=== PATIENT | male | born 1940 | race Caucasian/White ===

== ENCOUNTER 2020-03-28 19:36 | Inpatient (IN) | payer MEDICARE, OTHER, SELFPAY ==
[2020-03-28] VITALS (8 sets, daily range): BP systolic 132–146; BP diastolic 76–90; PULSE 84–88; RESP 18–28; TEMP 37.3–37.9; O2SAT 84–98; BMI 34.4
--- NOTE | ~2020-03-28 | XR_ITS ---
EXAMINATION: XR chest 1V portable DATE: 04/18/2020 21:58 INDICATION: Possible aspiration TECHNIQUE: frontal view of the chest was obtained. COMPARISON: Chest radiograph dated 04/18/2020 at 5:33 AM FINDINGS: Endotracheal tube tip 3.1 cm above the uri. Nasogastric tube extends below the left hemidiaphragm with distal tip collimated off the study. Right upper extremity peripherally inserted central venous catheter (PICC) tip at the caudal superior vena cava. Diffuse patchy bilateral airspace opacities throughout both lungs which appears slightly increased at the right lung base with partial obscuration of the right hemidiaphragm which appears mildly elevate d relative to the prior study. No pleural effusion or pneumothorax. The cardiomediastinal silhouette is normal. IMPRESSION: 1. . Bilateral lung disease consistent with pneumonia versus acute respiratory distress syndrome (ANNALISA S) with slight worsening along the right hemidiaphragm which could be due to atelectasis and/or aspir ation. Reviewed, dictated and finalized at location A. IMPRESSION: 1. . Bilateral lung disease consistent with pneumonia versus acute respiratory distress syndrome (ARDS) with slight worsening along the right hemidiaphragm wh ich could be due to atelectasis and/or aspiration.
--- NOTE | ~2020-03-28 | XR_ITS ---
EXAMINATION: XR chest 1V portable INDICATION: Acute respiratory failure, pneumonia TECHNIQUE: Portable AP chest at 0502 hours COMPARISON: 04/24/2020 FINDINGS: The endotracheal tube ends approximately 4.5 cm above the uri. The nasogastric tube is f ollowed as far as the stomach. Its tip is beyond the inferior margin of the radiograph. Diffuse inter stitial and airspace opacities persist with interval worsening in the right lung. No definite pleural effusion or pneumothorax is identified. The cardiomediastinal silhouette is stable. A right upper ex tremity PICC is followed as far as the mid superior vena cava. IMPRESSION: 1. Diffuse lung disease, with interval worsening in the right lung, consistent with pneumonia and/or pulmonary edema and/or acute respiratory distress syndrome (ARDS). Reviewed, dictated and finalized at location A. IMPRESSION: 1. Diffuse lung disease, with interval worsening in the right lung, consistent with pneumonia and/or pulmonary edema and/or acute respiratory distress syndrom e (ARDS).
--- NOTE | ~2020-03-28 | XR_ITS ---
EXAMINATION: XR chest 1V portable DATE: 04/18/2020 05:49 INDICATION: COVID 19 pneumonia. Acute respiratory failure. TECHNIQUE: frontal view of the chest was obtained. COMPARISON: Chest radiograph dated 04/17/2020 FINDINGS: Endotracheal tube tip 3.4 cm above the uri. Nasogastric tube extends below the left hemidiaphragm with distal tip collimated off the study. Right upper extremity peripherally inserted central venous catheter (PICC) tip at the superior vena cava. Views bilateral patchy airspace opacities throughout both lungs consistent with pneumonia versus acut e respiratory distress syndrome (ARDS). There is been some improvement in the right midlung zone and worsening at the right upper lung zone with pattern suggesting increasing atelectasis in the right up per lobe. No pleural effusion or pneumothorax. The cardiomediastinal silhouette is normal. IMPRESSION: 1. Diffuse bilateral lung disease consistent with pneumonia versus acute respiratory distress syndrom e (ARDS). Suggestion of increasing atelectasis in the right upper lobe with compensatory expansion in the right midlung zone. Reviewed, dictated and finalized at location A. IMPRESSION: 1. Diffuse bilateral lung disease consistent with pneumonia versus acute respir atory distress syndrome (ARDS). Suggestion of increasing atelectasis in the rig ht upper lobe with compensatory expansion in the right midlung zone.
--- NOTE | ~2020-03-28 | XR_ITS ---
EXAMINATION: XR chest 1V portable DATE: 03/28/2020 20:52 INDICATION: Shortness of breath TECHNIQUE: frontal view of the chest was obtained. COMPARISON: Chest radiograph dated 04/26/2012 FINDINGS: Elevation versus eventration of the right hemidiaphragm. Airspace opacities throughout both lungs rel atively sparing the left upper lung zone and subpleural right lung. No pleural effusion or pneumothor ax. The cardiomediastinal silhouette is within normal limits for AP technique. Moderate degenerative skeletal changes in the spine and bilateral shoulders. IMPRESSION: 1. Diffuse bilateral lung disease could represent pulmonary edema or pneumonia. Reviewed, dictated and finalized at location A.
--- NOTE | ~2020-03-28 | XR_ITS ---
XR chest 1V portable 04/05/2020 06:28 Indication: Respiratory failure Procedure: AP portable chest Comparison: Comparison to multiple prior studies sequentially, with oldest reviewed study dated 11/2019. Findings: Diffuse bilateral airspace disease unchanged. Central line tip in the SVC. Stable cardiomed iastinal silhouette. No significant pleural effusion. No pneumothorax. Impression: 1: Stable diffuse bilateral airspace disease, most likely pneumonia versus edema. Reviewed, dictated and finalized at location A. Impression: 1: Stable diffuse bilateral airspace disease, most likely pneumonia versus sujatha a.
--- NOTE | ~2020-03-28 | XR_ITS ---
XR chest 1V portable DATE: 04/20/2020 05:50 INDICATION: Covid 19 pneumonia. Acute respiratory failure. TECHNIQUE: Portable AP chest on 04/20/2020 at 0518 hours COMPARISON: 04/19/2020 portable AP chest at 0517 hours FINDINGS: ET tube in satisfactory position impression 3.7 cm above uri. A nasogastric tube is note d passing into the stomach. Right upper extremity PIC catheter tip is situated near the superior cavo atrial junction. Heart size appears within normal range. Extensive patchy consolidating infiltrates are noted throughout both lung torers, mildly increased si nce 04/19/2020. IMPRESSION: Mildly increased extensive bilateral patchy consolidating infiltrates Reviewed, dictated and finalized at location A. IMPRESSION: Mildly increased extensive bilateral patchy consolidating infiltrat es
--- NOTE | ~2020-03-28 | US_ITS ---
US renal BI 04/13/2020 15:23 Procedure: Realtime transabdominal ultrasound of the kidneys and bladder. Indication: Elevated creatinine Comparison: No prior studies for comparison. Findings: Renal echotexture is normal bilaterally without hydronephrosis, contour deforming mass or r enal calculus. The right kidney measures 11.2 cm and left kidney measures 11.3 cm. There is a Interiano c atheter in the bladder. Impression: 1: Unremarkable renal ultrasound. No stones, masses or hydronephrosis. Reviewed, dictated and finalized at location B. Impression: 1: Unremarkable renal ultrasound. No stones, masses or hydronephrosis.
--- NOTE | ~2020-03-28 | XR_ITS ---
EXAMINATION: XR chest 1V portable DATE: 04/11/2020 05:20 INDICATION: Persistent failure. TECHNIQUE: A single frontal view of the chest was obtained. COMPARISON: Chest single view 04/09/2020 FINDINGS: There are patchy airspace opacities in all lung zones bilaterally with architectural distor tion. No pleural effusion or pneumothorax. The heart size is normal. A right upper extremity peripher ally inserted central venous catheter (PICC) is seen with tip in the superior vena cava. IMPRESSION: 1. Severe diffuse lung disease with slight worsening, consistent with pneumonia versus acute respirat ory distress syndrome (ARDS). Reviewed, dictated and finalized at location A. IMPRESSION: 1. Severe diffuse lung disease with slight worsening, consistent with pneumonia versus acute respiratory distress syndrome (ARDS).
--- NOTE | ~2020-03-28 | XR_ITS ---
XR chest 1V portable DATE: 04/03/2020 05:55 INDICATION: Covid 19 pneumonia TECHNIQUE: Portable AP chest on 04/03/2020 at 0543 hours COMPARISON: 04/02/2020 portable AP chest FINDINGS: Right upper extremity PIC catheter tip overlies superior vena cava. Heart size appears normal. There is aortic arch calcification. There are persistent extensive diffuse prominent patchy bilateral consolidating infiltrates, not sign ificantly changed since 04/02/2020. IMPRESSION: Persistent severe bilateral pulmonary infiltrates, not significant change since 04/02/2020 Reviewed, dictated and finalized at location A.
--- NOTE | ~2020-03-28 | XR_ITS ---
EXAMINATION: XR chest 1V portable DATE: 04/19/2020 05:44 INDICATION: COVID 19 pneumonia. Acute respiratory failure. TECHNIQUE: frontal view of the chest was obtained. COMPARISON: Chest radiograph dated 04/18/2020 FINDINGS: Endotracheal tube tip 3.6 cm above the uri. Nasogastric tube extends below the left hemidiaphragm with distal tip collimated off the study. Right upper extremity peripherally inserted central venous catheter (PICC) tip at the caudal superior vena cava. No significant interval change in bilateral patchy airspace opacities throughout both lungs. No pleur al effusion or pneumothorax. The cardiomediastinal silhouette is normal. IMPRESSION: 1. Unchanged diffuse bilateral lung disease consistent with pneumonia versus acute respiratory distre ss syndrome (ARDS). Reviewed, dictated and finalized at location A. IMPRESSION: 1. Unchanged diffuse bilateral lung disease consistent with pneumonia versus ac [place] respiratory distress syndrome (ARDS).
--- NOTE | ~2020-03-28 | XR_ITS ---
EXAMINATION: XR chest ET placement DATE: 04/12/2020 07:28 INDICATION: Intubation. TECHNIQUE: A single frontal view of the chest was obtained. COMPARISON: Chest single view 04/11/2020 FINDINGS: There are patchy airspace opacities throughout the lungs bilaterally. No pleural effusion o r pneumothorax. The heart size is normal. The endotracheal tube tip is 3.6 cm above the uri. The n asogastric tube tip is beyond the inferior margin of the radiograph, but at least to the stomach. A r ight upper extremity peripherally inserted central venous catheter (PICC) is seen with tip in the sup erior vena cava. IMPRESSION: 1. Stable diffuse lung disease, consistent with pneumonia versus acute respiratory distress syndrome (ARDS). Reviewed, dictated and finalized at location A. IMPRESSION: 1. Stable diffuse lung disease, consistent with pneumonia versus acute respirat ory distress syndrome (ARDS).
--- NOTE | ~2020-03-28 | XR_ITS ---
XR chest 1V portable DATE: 04/01/2020 05:49 INDICATION: Covid 19 pneumonia TECHNIQUE: Portable AP chest on 04/01/2020 at 0528 hours COMPARISON: 03/31/2020 portable AP chest at 0522 hours FINDINGS: Severe patchy bilateral pulmonary consolidation is again noted, without significant change since 03/31/2020. No pleural effusion or pneumothorax is evident. Heart size is likely normal considering medication such with AP projection. There is aortic calcifica tion and mild unfolding. IMPRESSION: No significant change in extensive bilateral patchy consolidating infiltrates since 2019 Reviewed, dictated and finalized at location A. IMPRESSION: No significant change in extensive bilateral patchy consolidating i nfiltrates since 03/31/2020
--- NOTE | ~2020-03-28 | XR_ITS ---
EXAMINATION: XR chest 1V portable DATE: 04/14/2020 05:59 INDICATION: Acute respiratory failure. COVID 19 pneumonia. TECHNIQUE: frontal view of the chest was obtained. COMPARISON: Chest radiograph dated 04/13/2020 FINDINGS: Endotracheal tube tip 3.9 cm above the uri. Nasogastric tube extends below the left hemidiaphragm with distal tip collimated off the study. Right upper extremity peripherally inserted central venous catheter (PICC) tip at the caudal superior vena cava. Mild elevation of the right hemidiaphragm. No significant interval change in bilateral patchy airspac e opacities throughout both lungs. No pneumothorax or definitive pleural effusion. The cardiomediasti nal silhouette is normal. There are bridging osteophytes at multiple levels in the spine, consistent with diffuse idiopathic skeletal hyperostosis (DISH). IMPRESSION: 1. Stable diffuse lung disease consistent with pneumonia versus acute respiratory distress syndrome ( ARDS). Reviewed, dictated and finalized at location A. IMPRESSION: 1. Stable diffuse lung disease consistent with pneumonia versus acute respirato ry distress syndrome (ARDS).
--- NOTE | ~2020-03-28 | XR_ITS ---
EXAMINATION: XR abdomen/kub 1V INDICATION: Abdominal distention TECHNIQUE: Supine views of the abdomen were obtained on 2 radiographs. COMPARISON: 04/12/2020 FINDINGS: There are no dilated loops of bowel. The nasogastric tube is in the stomach. No free intrap eritoneal gas is identified. There is mild elevation of the right hemidiaphragm. Patchy opacities are present in the visualized lungs. There is a 9 mm stone of the right kidney. IMPRESSION: 1. Unremarkable abdominal radiographs. Reviewed, dictated and finalized at location A.
--- NOTE | ~2020-03-28 | XR_ITS ---
XR chest 1V portable DATE: 04/21/2020 05:42 INDICATION: Covid 19 pneumonia, acute respiratory failure TECHNIQUE: Portable AP chest on 04/21/2020 at 0535 hours COMPARISON: 04/20/2020 portable AP chest at 0518 hours FINDINGS: ET tube tip is approximately 3.3 cm above uri in satisfactory position. A nasogastric tu be is noted in the stomach. Right upper extremity PIC catheter tip is in the lower aspect of the supe rior vena cava. There is severe patchy bilateral consolidating pulmonary infiltrates, likely stable since 04/20/2020 allowing for the relatively diminished expansion of lungs on the current examination. No pleural effu gema or pneumothorax is evident. IMPRESSION: Persistent severe patchy bilateral pulmonary infiltrates, without improvement since 04/20 Reviewed, dictated and finalized at location A. IMPRESSION: Persistent severe patchy bilateral pulmonary infiltrates, without i mprovement since 04/20/2020
--- NOTE | ~2020-03-28 | XR_ITS ---
EXAMINATION: XR chest 1V portable DATE: 04/13/2020 06:00 INDICATION: COVID 19 pneumonia with acute respiratory failure. TECHNIQUE: frontal view of the chest was obtained. COMPARISON: Chest radiograph dated 04/12/2020 FINDINGS: Endotracheal tube tip 5.1 cm above the uri. Nasogastric tube extends below the left hemidiaphragm with distal tip collimated off the study. Right upper extremity peripherally inserted central venous catheter (PICC) tip at the caudal superior vena cava. Diffuse coarse bilateral airspace opacities throughout both lungs without significant recent change b ut with gradual improvement when compared with radiographs dated back to 04/03/2020. No pleural effusi on or pneumothorax. Heart size is normal. IMPRESSION: 1. Gradual slight improvement in diffuse bilateral lung disease consistent with pneumonia and/or acut e respiratory distress syndrome (ARDS). Reviewed, dictated and finalized at location A. IMPRESSION: 1. Gradual slight improvement in diffuse bilateral lung disease consistent with pneumonia and/or acute respiratory distress syndrome (ARDS).
--- NOTE | ~2020-03-28 | XR_ITS ---
XR chest 1V portable DATE: 04/12/2020 14:41 INDICATION: Worsening oxygenation. Pneumonia. Covid 19. TECHNIQUE: Portable AP chest on 04/12/2020 at 1433 hours COMPARISON: 04/12/2020 portable AP chest at 0721 hours FINDINGS: Endotracheal tube is 3.7 cm above uri in satisfactory position. There is a nasogastric t ube in the body of the stomach in satisfactory position. Right upper extremity PIC catheter tip overlies the superior vena cava. There are extensive patchy bilateral pulmonary infiltrates; considering technical differences, there is little interval change since earlier today at 0721 hours. IMPRESSION: Interval placement of right upper extremity PIC catheter in superior vena cava since 0721 hours today Extensive bilateral pulmonary infiltrates persist Reviewed, dictated and finalized at location A. IMPRESSION: Interval placement of right upper extremity PIC catheter in superio r vena cava since 0721 hours today Extensive bilateral pulmonary infiltrates persist
--- NOTE | ~2020-03-28 | XR_ITS ---
EXAMINATION: XR chest 1V portable DATE: 04/17/2020 05:28 INDICATION: COVID 19 pneumonia. Acute respiratory failure. TECHNIQUE: frontal view of the chest was obtained. COMPARISON: Chest radiograph dated 04/16/2020 and 04/15/2020 FINDINGS: Endotracheal tube tip 3.5 cm above the uri. Nasogastric tube extends below the left hemidiaphragm with distal tip collimated off the study. Right upper extremity peripherally inserted central venous catheter (PICC) tip at the caudal superior vena cava. Diffuse bilateral patchy airspace opacities containing 2 relatively spare the left upper lung zone. T here has been improvement in the opacities which had increased between the prior 2 studies with the c urrent appearance similar to that on 04/15/2020. No pneumothorax or definitive pleural effusion. The cardiomediastinal silhouette is normal. IMPRESSION: 1. Diffuse bilateral lung disease with return to similar appearance as on 04/15/2020 consistent with pneumonia versus acute respiratory distress syndrome (ARDS). Reviewed, dictated and finalized at location A. IMPRESSION: 1. Diffuse bilateral lung disease with return to similar appearance as on 04/15 consistent with pneumonia versus acute respiratory distress syndrome (ANNALISA S).
--- NOTE | ~2020-03-28 | XR_ITS ---
EXAMINATION: XR abdomen NG/feed tube rechec EXAM DATE: 04/16/2020 20:30 INDICATION: OG tube placement . TECHNIQUE: Frontal projection(s) of the abdomen for interpretation. Comparison is made to prior exami nation from 04/14/2020. FINDINGS: Feeding tube tip and side-port project over gastric bubble, expected position. There is pa tchy bilateral airspace disease. Nonobstructive upper abdominal bowel gas pattern. IMPRESSION: Feeding tube in position. Reviewed, dictated and finalized at location A. IMPRESSION: Feeding tube in position.
--- NOTE | ~2020-03-28 | XR_ITS ---
XR chest 1V portable DATE: 04/22/2020 05:41 INDICATION: Covid 19 pneumonia. Acute respiratory failure. TECHNIQUE: Portable AP chest on 04/22/2020 at 0518 hours COMPARISON: 04/21/2020 portable AP chest at 0535 hours FINDINGS: There are persistent severe bilateral patchy pulmonary infiltrates, relatively stable since 04/21/2020. ET tube in satisfactory position 3.5 cm above uri. NG tube in stomach. Right upper extremity PIC c atheter tip overlying the lower aspect of the superior vena cava. No evidence of pneumothorax. Osteoarthritic change at the glenohumeral joints and degenerative spurring of the thoracic and lumbar spine. IMPRESSION: Persistent severe patchy bilateral pulmonary infiltrates without significant change since 04/21/2020 Reviewed, dictated and finalized at location A. IMPRESSION: Persistent severe patchy bilateral pulmonary infiltrates without si gnificant change since 04/21/2020
--- NOTE | ~2020-03-28 | XR_ITS ---
EXAMINATION: XR abdomen NG/feed tube insert DATE: 04/12/2020 07:28 INDICATION: Orogastric tube placement. TECHNIQUE: A supine view of the abdomen was obtained. COMPARISON: None. FINDINGS: The lower abdomen is excluded. There are no dilated loops of bowel in the upper abdomen. Th e nasogastric tube tip is in the stomach. IMPRESSION: 1. Nasogastric tube tip in the stomach. Reviewed, dictated and finalized at location A.
--- NOTE | ~2020-03-28 | XR_ITS ---
XR chest 1V portable DATE: 04/24/2020 05:47 INDICATION: Covid 19 pneumonia, acute respiratory failure TECHNIQUE: Portable AP chest on 04/24/2020 at 0506 hours COMPARISON: 04/22/2020 portable AP chest at 0518 hours FINDINGS: ET tube is in satisfactory position approximately 3.5 cm above uri. A nasogastric tube i s noted in the stomach. Right upper extremity PIC catheter tip overlies the superior vena cava. There is prominence of the minor fissure suggesting subpleural edema. Extensive bilateral pulmonary i nfiltrates persist, relatively stable since 04/22/2020. IMPRESSION: Persistent extensive bilateral pulmonary infiltrates, relatively stable since 04/22/2020 Reviewed, dictated and finalized at location A. IMPRESSION: Persistent extensive bilateral pulmonary infiltrates, relatively st able since 04/22/2020
--- NOTE | ~2020-03-28 | XR_ITS ---
XR chest 1V portable DATE: 03/31/2020 06:01 INDICATION: Covid 19 pneumonia TECHNIQUE: Portable AP chest on 03/31/2020 at 0522 hours COMPARISON: 03/30/2020 portable AP chest at 0536 hours FINDINGS: Persistent extensive bilateral patchy consolidating infiltrates are noted, without signific ant change since 03/30/2020. No pleural effusion or pneumothorax. Heart size is within normal range. There is aortic calcification and mild unfolding. Diffuse osteopenia. Prominent osteoarthritic changes at the glenohumeral joints. IMPRESSION: No significant change of extensive bilateral pulmonary infiltrates since 03/30/2020 Reviewed, dictated and finalized at location A.
--- NOTE | ~2020-03-28 | XR_ITS ---
EXAMINATION: XR chest 1V portable INDICATION: Acute respiratory failure, pneumonia TECHNIQUE: Portable AP chest at 0553 hours COMPARISON: 04/25/2020 FINDINGS: The endotracheal tube ends approximately 4.4 cm above the uri. The nasogastric tube is f ollowed as far as the stomach. Its tip is beyond the inferior margin of the radiograph. A right upper extremity PICC ends with its tip in the midsuperior vena cava. Diffuse opacities persist in the lung s with slight improvement in the right upper lung zone. IMPRESSION: 1. Diffuse lung disease with slight improvement in the right upper lung zone, consistent with pneumon ia and/or pulmonary edema and/or acute respiratory distress syndrome (ARDS). Reviewed, dictated and finalized at location A. [facility] IMPRESSION: 1. Diffuse lung disease with slight improvement in the right upper lung zone, c onsistent with pneumonia and/or pulmonary edema and/or acute respiratory distre ss syndrome (ARDS).
--- NOTE | ~2020-03-28 | XR_ITS ---
EXAMINATION: XR chest 1V portable DATE: 04/07/2020 06:13 INDICATION: Respiratory failure. COVID-19 pneumonia. TECHNIQUE: A single frontal view of the chest was obtained. COMPARISON: Chest single view 04/05/2020 FINDINGS: There are patchy airspace opacities in all lung zones bilaterally with architectural distor tion. No pleural effusion or pneumothorax. The heart size is normal. A right upper extremity peripher ally inserted central venous catheter (PICC) is seen with tip in the superior vena cava. IMPRESSION: 1. Stable diffuse lung disease, consistent with pneumonia versus acute respiratory distress syndrome (ARDS). Reviewed, dictated and finalized at location A. IMPRESSION: 1. Stable diffuse lung disease, consistent with pneumonia versus acute respirat ory distress syndrome (ARDS).
--- NOTE | ~2020-03-28 | US_ITS ---
EXAMINATION: US venous doppler UE RT DATE: 04/22/2020 11:32 INDICATION: Right upper limb swelling. TECHNIQUE: Grayscale images without and with compression and Doppler images of the bilateral upper ex tremity veins were obtained. COMPARISON: None. FINDINGS: The right internal jugular vein, subclavian vein, axillary vein, brachial vein, basilic vein, cephali c vein, radial vein, and ulnar vein are patent. Tubular echogenic likely right peripherally inserted central venous catheter is seen within the lumen of the right basilic and axillary veins. IMPRESSION: 1. Patent right upper extremity veins. No evidence of venous thrombosis. 2. Right PICC line is seen in the right basilic and axillary veins. Reviewed, dictated and finalized at location B.
--- NOTE | ~2020-03-28 | XR_ITS ---
XR chest 1V portable DATE: 03/30/2020 05:41 INDICATION: Covid 19 pneumonia TECHNIQUE: Portable AP chest on 03/30/2020 at 0536 hours COMPARISON: 03/28/2020 portable AP chest at 205 hours FINDINGS: Patchy extensive infiltrates are scattered throughout both lung torres, increased since 03/28/2020. Heart size appears within normal range. There is aortic calcification and mild unfolding. No pleural effusion or pneumothorax. IMPRESSION: Extensive bilateral pulmonary infiltrates, increased since 03/28/2020 Reviewed, dictated and finalized at location A.
--- NOTE | ~2020-03-28 | XR_ITS ---
EXAMINATION: XR chest 1V portable DATE: 04/16/2020 05:58 INDICATION: COVID 19 pneumonia. Acute respiratory failure. TECHNIQUE: frontal view of the chest was obtained. COMPARISON: Chest radiograph dated 04/16/2020 FINDINGS: Endotracheal tube tip 3.5 cm above the uri. Nasogastric tube extends below the left hemidiaphragm with distal tip collimated off the study. Right upper extremity peripherally inserted central venous catheter (PICC) tip at the caudal superior vena cava. Diffuse bilateral patchy airspace opacities which continues to relatively spare the left upper lung z one and with interval increase in the left lower and right mid and lower lung zones. No pneumothorax or definitive pleural effusion. The cardiomediastinal silhouette is normal. IMPRESSION: 1. Interval worsening in diffuse bilateral lung disease consistent with pneumonia versus acute respir atory distress syndrome and (ARDS) disease. Reviewed, dictated and finalized at location A. IMPRESSION: 1. Interval worsening in diffuse bilateral lung disease consistent with pneumon ia versus acute respiratory distress syndrome and (ARDS) disease.
--- NOTE | ~2020-03-28 | XR_ITS ---
EXAMINATION: XR chest 1V portable DATE: 04/15/2020 05:32 INDICATION: Acute respiratory failure. COVID 19 pneumonia. TECHNIQUE: frontal view of the chest was obtained. COMPARISON: Chest radiograph dated 04/14/2020 FINDINGS: Endotracheal tube tip 4.8 cm above the uri. Right upper extremity peripherally inserted central ve nous catheter (PICC) tip at the caudal superior vena cava. Nasogastric tube extends below the left hemidiaphragm with distal tip collimated off the study. No significant interval change in diffuse bilateral patchy airspace opacities throughout both lungs. No pleural effusion or pneumothorax. The cardiomediastinal silhouette is normal. There are bridging o steophytes at multiple levels in the spine, consistent with diffuse idiopathic skeletal hyperostosis (DISH). IMPRESSION: 1. Stable diffuse lung disease consistent with pneumonia versus acute respiratory distress syndrome ( ARDS). Reviewed, dictated and finalized at location A. IMPRESSION: 1. Stable diffuse lung disease consistent with pneumonia versus acute respirato ry distress syndrome (ARDS).
--- NOTE | ~2020-03-28 | XR_ITS ---
XR chest 1V portable DATE: 04/02/2020 06:04 INDICATION: Covid 19 pneumonia TECHNIQUE: Portable AP chest on 04/02/2020 at 0540 hours COMPARISON: 04/01/2020 portable AP chest at 0528 hours FINDINGS: There are extensive severe bilateral pulmonary infiltrates, without significant change sinc e 04/01/2020. Heart size appears within normal range. There is aortic calcification and mild unfolding. Right upper extremity PIC catheter. Osteoarthritic changes of the glenohumeral joints. IMPRESSION: No significant change of extensive bilateral pulmonary infiltrates since 04/01/2020 Reviewed, dictated and finalized at location A.
--- NOTE | ~2020-03-28 | XR_ITS ---
EXAMINATION: XR chest 1V portable DATE: 04/09/2020 06:05 INDICATION: Respiratory failure. TECHNIQUE: A single frontal view of the chest was obtained. COMPARISON: Chest single view 04/07/2020 FINDINGS: There are patchy airspace opacities in all lung zones bilaterally with architectural distor tion. No pleural effusion or pneumothorax. The heart size is normal. A right upper extremity peripher ally inserted central venous catheter (PICC) is seen with tip in the superior vena cava. IMPRESSION: 1. Stable diffuse lung disease, consistent with pneumonia versus acute respiratory distress syndrome (ARDS). Reviewed, dictated and finalized at location A. IMPRESSION: 1. Stable diffuse lung disease, consistent with pneumonia versus acute respirat ory distress syndrome (ARDS).
--- NOTE | 2020-03-28 19:39 | ED.SOB ---
HPI - SOB/Dyspnea General Chief Complaint: Shortness of Breath/Dyspnea Stated Complaint: sob Time Seen by Provider: 03/28/20 19:39 History of Present Illness HPI Narrative: Not feelig well for the past several days. Started feeling SOB about 3 days ago. COntinued getting worse. Oxygen saturation in the 80s during triage. Associated with intermittent fever. Tested positive for COVID-19. No chest pain Related Data Home Medications Medication Instructions Recorded Confirmed hydrochlorothiazide 25 mg PO DAILY 03/28/20 03/29/20 sertraline 25 mg PO DAILY 03/28/20 03/29/20 warfarin 3 mg PO DAILY 03/28/20 03/29/20 Allergies Allergy/AdvReac Type Severity Reaction Status Date / Time ronel Allergy Swelling Verified 03/28/20 22:34 of Lip/Tongue/Throat Review of Systems Review of Systems: All systems reviewed & are unremarkable except as noted in HPI and below Constitutional: Constitutional: Reports fatigue, Reports fever(s) and Reports weakness ENT: Denies sore throat Cardiovascular: Cardiovascular: Denies chest pain Respiratory: Respiratory: Reports cough and Reports dyspnea Gastrointestinal: Gastrointestinal: Denies abdominal pain Genitourinary: Genitourinary: Denies dysuria Musculoskeletal: Musculoskeletal: Reports back pain and Reports myalgias Neurologic: Reports weakness PMFSH Past Medical History Medical History (Updated 04/01/20 @ 15:00 by Kameron Key MD) 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 He has 2 dogs (a pincer mix and a bulldog) and 3 cats. He retired from the after 32 years of service. He was initially active in the [employer] for 4 years then moved to the [employer] and transition to the [employer] where he turned his commission. 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 He has 2 biologic children and 3 step children. Primary care physician: Dr. Benjamin Aparicio Code status: Full code Surrogate decision maker: Aislinn Navarro (daughter) Smoking packs per day: 1 Smoking cigarettes per day: 20.0 Years smoked: 20 Smoking pack-years: 20.00 Smoking status: Former smoker Tobacco type: cigarettes Smoking end date: 03/28/82 Alcohol intake: current Drinks per week: 3 Substance use: never Substance use type: does not use Gender identity (if verbalized by the patient): Male Spiritual care concerns: No Exam Const: General: alert and ill appearing Nutritional Appearance: well nourished Orientation/consciousness: patient oriented x3 Other: moderate distress HENMT: Head: normal to inspection Chest: Chest palpation & inspection: normal inspection of the chest Resp: Effort & Inspection: tachypneic Auscultation: rhonchi lower bilaterally Cardio: Rate: regular rate Rhythm: regular rhythm GI: GI Palp: Yes Soft to palpation and No Tenderness to palpation present (GI) Skin: General skin exam: normal color Neuro: General: patient oriented x3, moves all extremities and CN's II-XI intact bilaterally Speech: normal speech Extrem: General: normal to inspection and no edema Course Vital Signs Vital signs: Vital Signs Temperature 37.3 C 03/28/20 19:32 Pulse Rate 84 03/28/20 19:32 Respirato
--- NOTE | 2020-03-28 19:49 | ECG_ITS ---
Measurements Intervals [place] Rate: 84 P: 42 WI: 172 QRS: 66 QRSD: 103 T: 79 QT: 393 QTc: 466 Interpretive Statements SINUS RHYTHM DELAYED PRECORDIAL R/S TRANSITION BORDERLINE ST-T WAVE ABNORMALITY- ANTEROLAT/HIGH LAT LEADS BASELINE ARTIFACT- I, II, III, AVR, AVL, AVF, V3-V5 BORDERLINE ECG Electronically Signed On 03-29-2020 8:23:18 CDT by Mani Zhou D.O.
[2020-03-28 20:11] LABS: Basophils Percent Auto 0.2 % (0.2-1.2); Eosinophils Percent Auto 0.2 % (0-4.4); Hematocrit 42.3 % (42.0-52.0); Hemoglobin 14.3 g/dL (14.0-18.0); Immature Granulocyte Absolute 0.21 K/mm3 (0.00-0.031); Immature Granulocyte Percent A 2.1 % (0-0.5); Lymphocytes Absolute Auto 0.91 K/mm3 (0.9-3.2); Lymphocytes Percent Auto 9.1 % (18.3-44.2); Mean Corpuscular HGB Conc 33.8 g/dl (32-36); Mean Corpuscular Hemoglobin 28.9 pg (26-34); Mean Corpuscular Volume 85.5 fl (80-100); Mean Platelet Volume 10.2 fl (7.4-10.4); Monocytes Absolute Auto 0.2 K/mm3 (0.1-0.6); Monocytes Percent Auto 2.4 % (2.6-8.5); Neutrophils Absolute Auto 8.6 K/mm3 (1.3-6.7); Nucleated Red Blood Cells Absolute Auto 0.1 K/mm3 (0.0-0.012); Nucleated Red Blood Cells Perc 0.8 % (0.0-0.2); Platelet Count Result 282 k/mm3 (150-375); Red Blood Count 4.95 M/mm3 (4.6-6.20); Red Cell Distribution Width 14.5 % (11.5-14.5)
[2020-03-28 20:22] LABS: INR 4.4; Prothrombin Time 41.6 Seconds (11.1-14.7)
[2020-03-28 20:23] LABS: Partial Thromboplastin Time 46.8 SECONDS (22.3-36.8)
[2020-03-28 20:24] LABS: Lactic Acid Reflex 2.7 mmol/L (0.7-2.1)
--- NOTE | 2020-03-28 20:26 | PC.NURSE ---
daughter Aislinn Melanie [phone]
[2020-03-28 20:27] LABS: Alanine Aminotransferase 114 U/L (4-50); Albumin Level 3.3 g/dL (3.5-5.1); Alkaline Phosphatase 81 U/L (38-126); Anion Gap 8 mmol/L (8-16); Aspartate Amino Transferase 117 U/L (17-59); Bilirubin,Total 1.1 mg/dL (0.2-1.3); Blood Urea Nitrogen 33 mg/dL (9-20); Calcium 8.2 mg/dL (8.4-10.2); Carbon Dioxide 33 mmol/L (22-30); Chloride 94 mmol/L (98-107); Estimated CRCL calculation 81 ml/min; Estimated Glomerular Filt Rate > 60; Glucose 139 mg/dL (75-110); Potassium 3.4 mmol/L (3.4-5.0); Sodium 135 mmol/L (137-145)
[2020-03-28] MEDS: ALBUTEROL SULFATE (*SP) AEROSOL 1 PUFF 4 PUFF INHALATION (20:34)
[2020-03-28 20:36] LABS: Alveolar/Arterial O2 Gradient 231.7 mmHg; Base Excess ABG 4.8 mEq/l (+/-2.0); Fractional Inspired Oxygen 48 %; HCO3 ABG 28.2 mEq/l (22.0-26.0); Oxygen Saturation ABG 94.8 % (95.0-100.0); PO2 ABG 67.6 mmHg (80.0-100.0); PO2 FiO2 Ratio Arterial Blood 1.41 %; Total Hemoglobin 14.7 g/dL (12.0-18.0); pH ABG 7.489 (7.350-7.450)
[2020-03-28 20:36] LABS: NT Pro B Type Natriuretic Pept 519 PG/ML (5-100); Troponin I 0.023 ng/mL (0.000-0.034)
[2020-03-28 20:37] LABS: Modified Allen's Test Pass; Site Drawn RIGHT RADIAL
[2020-03-28 20:38] LABS: Device NASAL CANNULA
[2020-03-28 20:52] LABS: CRP 33.5 mg/dL (<1.0)
[2020-03-28] MEDS: SODIUM CHLORIDE 0.9% IV 1,000 ML 999 ML IV CONT (21:14)
--- NOTE | 2020-03-28 21:27 | PM.IMHP ---
H&P: HPI History of Present Illness Date/Time: 03/28/20 21:27 Chief complaint: Shortness of breath, COVID positive Narrative: Patient was seen and examined while in the ER. Pelon Davison is a 79 year old male with a past medical history of asbestosis, hypertension and chronic anticoagulation who presented to the ER from urgent care via EMS due to low oxygen saturations. The patient that he had been feeling fatigued with myalgias and subsequently was tested for COVID-19 on 03/17/2020. His COVID test was positive. He had been having low-grade fevers and a nonproductive cough. He did not start becoming short of breath until 3 days ago. He subsequently went to urgent care where his noted be satting 85% on 3 L nasal cannula. Patient's oxygen was increased to 4 L nasal cannula with improvement in his oxygen saturations up to 91%. The time the patient arrived in the ER his oxygen saturations were back down in the upper 70s and is oxygen requirement was increased to 6 L nasal cannula. Just prior to admission to the hospital patient's oxygen saturation again dropped downed to the mid 70s and his the required 10 L high-flow nasal cannula by the time he was transported to the ICU. The patient has never required oxygen supplementation in the past. He does occasionally uses inhalers at home if to he has a bronchitis but is not on chronic controlling inhalers. He denies a history of COPD but does have S best doses. He is a former smoker but only smoked for 20 years. He denies any chest pain or palpitations. He has not been having any orthopnea. He has not noticed any nausea or vomiting but has had decreased appetite. He denies loss of sensation of taste or smell. He is unsure where he contracted COVID from. He reports that he is active in the [employer] and travels regionally for his job with the [employer]. He does wear his mask all the time and becomes frustrated when others will not where there mask. He otherwise has been trying to minimize his contact within the community and has been maintaining social distancing. Review of Systems Review of Systems: Narrative: 12 systems were reviewed with pertinent positives and negatives per HPI. Except as documented in the HPI, all other systems were reviewed and are negative. 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 He has 2 dogs (a pincer mix and a bulldog) and 3 cats. He retired from the after 32 years of service. He was initially active in the [employer] for 4 years then moved to the [employer] and transition to the [employer] where he turned his commission. 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 He has 2 biologic children and 3 step children. Primary care physician: Dr. Benjamin Aparicio Code status: Full code Surrogate decision maker: Aislinn Navarro (daughter) Smoking packs per day: 1 Smoking cigarettes per day: 20.0 Years smoked: 20 Smoking pack-years: 20.00 Smoking status: Former smoker Tobacco type: cigarettes Smoking end date: 03/28/82 Alcohol intake: current Drinks per week: 3 Substance use: never Substance use type: does not
[2020-03-28] MEDS: ALBUTEROL SULFATE (*SP) INHALER 1 PUFF (21:37)
--- NOTE | 2020-03-28 21:47 | PC.NURSE ---
pt sat 413
--- NOTE | 2020-03-28 21:47 | PC.NURSE ---
PT SAT 85% on 6l PT PLACEd ON HIGH FLOW NC 10L
--- NOTE | 2020-03-28 22:51 | ADMGEN ---
This patient, Pelon Davison, was admitted to Intensive Care Unit-3. Patient/family oriented to hospital policies and general routines including ID bracelet, bed and alarms, visiting hours, pain management, procedures, bathroom and other care routines, personal items, smoking policy, room service/diet, and visiting hours. Valuables list has been completed. Information on how to activate the Rapid Response Team has been discussed. Patient/Family are encouraged to report perceived risks to care and to ask questions if they do not understand what they are told or what they should do.
[2020-03-28 23:09] LABS: Reflex Lactic Acid Yes or No Add Lactic
[2020-03-28] MEDS: REMDESIVIR 200 MG/NS 250 ML 200 MG/250 ML BAG 250 MG IVPB (23:09)
[2020-03-28 23:54] LABS: Lactic Acid 2.6 mmol/L (0.7-2.1)
[2020-03-28 23:58] LABS: Add Urine Microscopic? YES; Appearance Urine Clear (Clear); Bilirubin Urine Negative (Negative); Blood Urine 1+ (Negative); Color Urine Yellow (Yellow); Glucose Urine UA Negative (Negative); Ketones Urine Negative (Negative); Leukocyte Esterase Ur Negative LEU/UL (Negative); Mucus Urine Rare /lpf; Nitrate Urine Negative (Negative); Protein Urine 1+ mg/dL (Negative); Specific Grav Ur 1.026 (1.001-1.035); Urobilinogen Urine Negative mg/dL (<2.0); WBC Urine 0-3 /hpf
[2020-03-29] VITALS (19 sets, daily range): BP systolic 111–146; BP diastolic 58–85; PULSE 64–96; RESP 16–91; TEMP 36.2–37; O2SAT 19–97
[2020-03-29 05:58] LABS: INR 4.6; Prothrombin Time 42.6 Seconds (11.1-14.7)
[2020-03-29 06:00] LABS: Alanine Aminotransferase 94 U/L (4-50)
[2020-03-29] MEDS: POTASSIUM CHLORIDE 20 MEQ TABLET 40 MEQ PO (07:35)
[2020-03-29] MEDS: SODIUM CHLORIDE 0.9% IV 500 ML IV CONT (07:35)
[2020-03-29] MEDS: hydroCHLOROthiazide 25 MG TABLET PO (07:36)
[2020-03-29] MEDS: SERTRALINE HCL 25 MG TABLET PO (07:37)
[2020-03-29] MEDS: ALBUTEROL SULFATE (*SP) AEROSOL 1 PUFF 6 PUFF INHALATION ×4 (08:03→20:04)
--- NOTE | 2020-03-29 08:17 | WPDCNINT ---
Assessment and Plan Assessment and plan (1) Respiratory failure with hypoxia: Code(s): J96.91 - Respiratory failure, unspecified with hypoxia Status: Acute Assessment and Plan: acute respiratory failure with hypoxia due to COVID-19 pneumonia - currently requiring 50 L high-flow nasal cannula with a non-rebreather mass. will try patient on high-flow therapy with Airvo - chest x-ray and ABGs reviewed - continue bronchodilators (2) Pneumonia due to COVID-19 virus: Code(s): U07.1 - COVID-19; J12.89 - Other viral pneumonia Status: Acute Assessment and Plan: SARS-CoV-2 PCR positive on 03/17/2020: Patient present with COVID-19 pneumonia along with hypoxia, cough - continue supplemental oxygen - patient started on dexamethasone and Remdesivir on 03/28/2020 - will add Tessalon Perles and Mucinex for cough - monitor inflammatory markers - continue airborne, droplet, contact isolation /precautions (3) Supratherapeutic INR: Code(s): R79.1 - Abnormal coagulation profile Status: Acute Assessment and Plan: patient on Coumadin at home, currently supratherapeutic - continue low-dose Coumadin (4) Dietary counseling and surveillance: Code(s): Z71.3 - Dietary counseling and surveillance Status: Acute Assessment and Plan: patient on heart healthy diet Additional Plan discussed with patient updated with his condition and plan of care. Code status: Full code critical care time spent: 44 minutes Due to a high probability of clinically significant, life threatening deterioration, the patient required my highest level of preparedness to intervene emergently and I personally spent this critical care time directly and personally managing the patient. This critical care time included obtaining a history; examining the patient; pulse oximetry; ordering and review of studies; arranging urgent treatment with development of a management plan; evaluation of patient's response to treatment; frequent reassessment; and discussions with other providers. It was exclusive of separately billable procedures and treating other patients and teaching time. Please see Assessment and Plan section and the rest of the note for further information on patient assessment and treatment Service Developer Consult Note Consult date: 03/29/20 Time Seen: 06:58 Reason for consult: Acute respiratory failure, Covid -19 pneumonia, Shortness of breath HPI: Pelon Davison is a 79 year old male with PMH of Asbestosis, Essential HYN, chronic anticoagulation for retinal artery thrombosis presented to the ED with increasing SOB for the last 4-5 days, pt states he as been in bed for almost 2 weeks with fatigue and myalgias.Pt also has had decreased appetite and oral intake. he did complain of loss of sense of taste and smell.he started noticing low grade fevers and worseing SOB in the last 2-3 days in patient went to the urgent care where he was noted to be hypoxic. Was transferred to the ER where his oxygen patient was in the 70s on 4 L nasal cannula, oxygenation was increased to 10 L high-flow nasal cannula and patient was transfer the ICU for further management. Patient did receive a dose of Remdesivir and dexamethasone in the ER. chest x-ray showed Diffuse bilateral lung disease could represent pulmonary edema or pneumonia. patient currently denies any chest pain, abdominal pain, nausea vomiting. hemodynamically stable, remains on 15 L nasal cannula with the non-rebreather mask with adequate O2 sats. 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
[2020-03-29] MEDS: BENZONATATE 100 MG CAPSULE 200 MG PO ×3 (08:46→17:34)
[2020-03-29] MEDS: guaiFENesin 600 MG/DEXTROMETHORPHAN 30 MG SR TAB 12 HR 1 TAB PO ×2 (08:46→20:30)
[2020-03-29] MEDS: polyethylene glycoL 3350 17 GM POWD.PACK PO (13:57)
--- NOTE | 2020-03-29 14:29 | PM.IMPN ---
Progress Note: A&P Assessment and Plan (1) Pneumonia due to COVID-19 virus: Code(s): U07.1 - COVID-19; J12.89 - Other viral pneumonia Status: Acute Assessment and Plan: The patient has been admitted to the ICU. Therapy with Decadron and Remdesivir has been initiated. Gold Burnisher has been consulted. 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, hypertension and chronic anticoagulation for retinal artery thrombosis patient states that he has been tired and fatigued for last 2 weeks developed shortness of breath he was seen the local urgent care where he was found to be quite hypoxic and oxygen saturation of 70% on 4 L nasal cannula patient was transferred to emergency department increase his oxygen to 10 L which did improve saturation, patient is positive COVID-19 emergency department he was started dexamethasone and remdesivir, currently patient is in ICU and seen by credit risk analytics manager patient will receive convanclent plasma today, currently patient on high-flow nasal cannula, unable to take oxygen off and somnolent seen outside his glass door. (2) Respiratory failure with hypoxia: Code(s): J96.91 - Respiratory failure, unspecified with hypoxia Status: Acute Assessment and Plan: Patient is now on high-flow nasal cannula at 10 L. Decadron and Remdesivir have been initiated. Titrate oxygen as needed to maintain oxygen saturations between 88 and 92% (3) Supratherapeutic INR: Code(s): R79.1 - Abnormal coagulation profile Status: Acute Assessment and Plan: Will decrease the patient's warfarin dose tonight and repeat INR in a.m. INRs have been ordered daily. 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, hypertension and chronic anticoagulation for retinal artery thrombosis patient states that he has been tired and fatigued for last 2 weeks developed shortness of breath he was seen the local urgent care where he was found to be quite hypoxic and oxygen saturation of 70% on 4 L nasal cannula patient was transferred to emergency department increase his oxygen to 10 L which did improve saturation, patient is positive COVID-19 emergency department he was started dexamethasone and remdesivir, currently patient is in ICU and seen by credit risk analytics manager patient will receive convanclent plasma today, currently patient on high-flow nasal cannula, unable to take oxygen off and somnolent seen outside his glass door. Review of Systems Review of Systems: ROS unobtainable: Yes unobtainable due to medical condition Exam Narrative: Exam Narrative: patient is seen outside the glass door but not examined Const: General: comfortable and no acute distress HENMT: General nose exam: Normal nares present Neck: Other: no retraction Resp: Effort & Inspection: normal respiratory effort GI: Other: not distended Skin: General skin exam: normal color Extrem: General: normal to inspection Psych: Affect: Anxious affect present Objective Data Vital Signs Vital Signs: Vital Signs - 24 hr 03/28/20 19:32 03/28/20 20:11 03/28/20 20:21 Temperature 99.1 F Pulse Rate 84 84 84 Respiratory Rate 28 H 22 H Blood Pressure 132/76 Pulse Oximetry 85 L 98 03/28/20 20:38 03/28/20 21:36 03/28/20 21:48 Temperature Pulse Rate 88 88 86 Respiratory Rate 26 H 22 H 18 Blood Pressure 136/90 137/78 Pulse Oximetry 84 L 90 03/28/20 22:33 03/28/20 22:45 03/29/20 00:00 Temperature 100.2 F H Pulse Rate 88 87 81 Respiratory Rate 26 H 24 H 25 H Blood Pressure 146/89 H 125/73 Pulse Oximetry 94 97 91 03/29/20 02:00 03/29/20 04:00 03/29/20 06:00 Temperature Pulse Rate 73 71 74 Respiratory Rate 27 H 20 Blood Pressure 129/73 132/81 137/74 Pulse Oximetry 97 97 94 03/29/20 07:52 03/29/20 08:00 03/29/20 08:03 Temperature 97.6 F Pulse Rate 73 73 80 Respiratory Rate 20 2
[2020-03-29] MEDS: SODIUM CHLORIDE 0.9% IV 250 ML 100 ML (16:14)
[2020-03-29] MEDS: WARFARIN (*PBKC) 1 MG TABLET PO (17:34)
[2020-03-29 18:08] LABS: CRP 25.1 mg/dL (<1.0)
[2020-03-29 18:15] LABS: D Dimer > 20.00 ug/mL (<0.48)
[2020-03-29 18:18] LABS: Lactate Dehydrogenase 1707 U/L (313-618)
[2020-03-29] MEDS: REMDESIVIR 100 MG/NS 250 ML 100 MG/250 ML BAG 250 MG IVPB (20:30)
[2020-03-30] VITALS (21 sets, daily range): BP systolic 112–169; BP diastolic 65–91; PULSE 62–110; RESP 18–31; TEMP 36.1–37.3; O2SAT 87–94; BMI 34.3
[2020-03-30 05:48] LABS: Hematocrit 38.9 % (42.0-52.0); Hemoglobin 12.6 g/dL (14.0-18.0); Mean Corpuscular HGB Conc 32.4 g/dl (32-36); Mean Corpuscular Volume 86.4 fl (80-100); Mean Platelet Volume 9.7 fl (7.4-10.4); Platelet Count Result 240 k/mm3 (150-375); Red Cell Distribution Width 14.2 % (11.5-14.5); White Blood Count 7.8 K/mm3 (4.5-10.0)
[2020-03-30 06:06] LABS: INR 3.3; Partial Thromboplastin Time 37.5 SECONDS (22.3-36.8); Prothrombin Time 32.9 Seconds (11.1-14.7)
[2020-03-30 06:07] LABS: Alanine Aminotransferase 92 U/L (4-50); Albumin Level 2.8 g/dL (3.5-5.1); Alkaline Phosphatase 70 U/L (38-126); Anion Gap 4 mmol/L (8-16); Aspartate Amino Transferase 92 U/L (17-59); Bilirubin,Total 0.6 mg/dL (0.2-1.3); Blood Urea Nitrogen 22 mg/dL (9-20); Calcium 7.9 mg/dL (8.4-10.2); Carbon Dioxide 34 mmol/L (22-30); Chloride 101 mmol/L (98-107); Estimated CRCL calculation 105 ml/min; Estimated Glomerular Filt Rate > 60; Glucose 156 mg/dL (75-110); Lactate Dehydrogenase 1692 U/L (313-618); Magnesium 2.5 mg/dL (1.6-2.3); Phosphorus 3.5 mg/dL (2.5-4.5); Potassium 3.8 mmol/L (3.4-5.0); Sodium 139 mmol/L (137-145)
[2020-03-30 06:17] LABS: CRP 18.4 mg/dL (<1.0)
[2020-03-30 06:31] LABS: D Dimer > 20.00 ug/mL (<0.48)
[2020-03-30] MEDS: ALBUTEROL SULFATE (*SP) AEROSOL 1 PUFF 6 PUFF INHALATION ×3 (07:56→20:13)
[2020-03-30] MEDS: SERTRALINE HCL 25 MG TABLET PO (08:04)
[2020-03-30] MEDS: guaiFENesin 600 MG/DEXTROMETHORPHAN 30 MG SR TAB 12 HR 1 TAB PO ×2 (08:04→20:28)
[2020-03-30] MEDS: BENZONATATE 100 MG CAPSULE 200 MG PO ×2 (08:04→16:17)
[2020-03-30] MEDS: hydroCHLOROthiazide 25 MG TABLET PO (08:04)
--- NOTE | 2020-03-30 10:38 | WPDINTPN ---
Progress Note: A&P Assessment and Plan (1) Respiratory failure with hypoxia: Code(s): J96.91 - Respiratory failure, unspecified with hypoxia Status: Acute Assessment and Plan: acute respiratory failure with hypoxia due to COVID-19 pneumonia - currently on Airvo and non-rebreather mask. Hypoxic but not in any respiratory distress - chest x-ray reviewed and shows worsening - continue bronchodilators - may need intubation. - Lasix 40 mg IV x1 (2) Pneumonia due to COVID-19 virus: Code(s): U07.1 - COVID-19; J12.89 - Other viral pneumonia Status: Acute Assessment and Plan: SARS-CoV-2 PCR positive on 03/17/2020: Patient present with COVID-19 pneumonia along with hypoxia, cough - continue supplemental oxygen - Patient started on dexamethasone and Remdesivir on 03/28/2020 - received 1 unit of convalscent plasma on 03/29/2020 - continue Tessalon Perles and Mucinex for cough - monitor inflammatory markers - continue airborne, droplet, contact isolation /precautions (3) Supratherapeutic INR: Code(s): R79.1 - Abnormal coagulation profile Status: Acute Assessment and Plan: patient on Coumadin at home, currently supratherapeutic - continue low-dose Coumadin (4) Dietary counseling and surveillance: Code(s): Z71.3 - Dietary counseling and surveillance Status: Acute Assessment and Plan: patient on heart healthy diet Additional Plan DVT prophylaxis - Coumadin Stress ulcer prophylaxis - PPI Code Status - Full Code critical care time spent: 32 minutes Due to a high probability of clinically significant, life threatening deterioration, the patient required my highest level of preparedness to intervene emergently and I personally spent this critical care time directly and personally managing the patient. This critical care time included obtaining a history; examining the patient; pulse oximetry; ordering and review of studies; arranging urgent treatment with development of a management plan; evaluation of patient's response to treatment; frequent reassessment; and discussions with other providers. It was exclusive of separately billable procedures and treating other patients and teaching time. Please see Assessment and Plan section and the rest of the note for further information on patient assessment and treatment Subjective Date/time seen: 03/30/20 Overnight events reviewed. Afebrile worsening oxygen requirement. Patient on AirVo with 60 and 90% along with a non-rebreather mask Vitals acceptable she denies feeling short of breath. Does admit to having cough which is mostly dry. Denies any other complaints. Patient denies fever, chest pain, nausea, vomiting, abdominal pain,, diarrhea, headache or constipation. Review of Systems Review of Systems: All systems reviewed & are unremarkable except as noted in HPI and below Exam Const: General: comfortable and no acute distress HENMT: Mouth: Yes dry mucous membranes Eyes: Sclera: sclerae normal Pupils: Equal, round and reactive pupils present Neck: Neck: supple Resp: Effort & Inspection: normal respiratory effort Auscultation: rales, rhonchi and diminished lung sounds Cardio: Rate: regular rate Rhythm: regular rhythm GI: Inspection: non-distended Auscultation: normal bowel sounds Other: obese : Other: Interiano catheter in place Urinary Catheter: Urinary Catheter: patent and draining Skin: General skin exam: normal color and rashes and/or lesions noted Neuro: Cranial nerves: Yes Equal, round and reactive pupils present Cognition (Neuro): normal cognition Speech: normal speech Other: patient is awake, alert, oriented x3, nonfocal Extrem: General: normal to inspection, no edema and no pedal edema Psych: Mental Status: mental status grossly normal Affect: normal affect Objective Data Vital Signs Vital Signs: Vital Signs - 24 hr 03/29/20 12:00 03/29
[2020-03-30] MEDS: polyethylene glycoL 3350 17 GM POWD.PACK PO (11:09)
[2020-03-30] MEDS: FUROSEMIDE INJ 40 MG/4 ML VIAL IV PUSH (11:10)
[2020-03-30] MEDS: PANTOPRAZOLE 40 MG TABLET PO (11:10)
--- NOTE | 2020-03-30 14:17 | PM.IMPN ---
Progress Note: A&P Assessment and Plan (1) Pneumonia due to COVID-19 virus: Code(s): U07.1 - COVID-19; J12.89 - Other viral pneumonia Status: Acute Assessment and Plan: The patient has been admitted to the ICU. Therapy with Decadron and Remdesivir has been initiated. Program Director/Air Personality has been consulted. 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, hypertension and chronic anticoagulation for retinal artery thrombosis patient states that he has been tired and fatigued for last 2 weeks developed shortness of breath he was seen the local urgent care where he was found to be quite hypoxic and oxygen saturation of 70% on 4 L nasal cannula patient was transferred to emergency department increase his oxygen to 10 L which did improve saturation, patient is positive COVID-19 emergency department he was started dexamethasone and remdesivir, and also received 1 unit of convalscent plasma on 03/29/2020 currently patient is in ICU I saw the patient outside the ICU room glass door and spoke to him over the phone, he is on high flow oxygen and unable to speak more than few words,he c/o constipation, will give miralax, and seen by porter baggage patient (2) Respiratory failure with hypoxia: Code(s): J96.91 - Respiratory failure, unspecified with hypoxia Status: Acute Assessment and Plan: Patient is now on high-flow nasal cannula at 10 L. Decadron and Remdesivir have been initiated. Titrate oxygen as needed to maintain oxygen saturations between 88 and 92% (3) Supratherapeutic INR: Code(s): R79.1 - Abnormal coagulation profile Status: Acute Assessment and Plan: Will decrease the patient's warfarin dose tonight and repeat INR in a.m. INRs have been ordered daily. Additional Plan 40 minutes spent in critical care activities. Due to a high probability of clinically significant, life threatening deterioration, the patient required my highest level of preparedness to intervene emergently and I personally spent this critical care time directly and personally managing the patient. This critical care time included obtaining a history; examining the patient; pulse oximetry; ordering and review of studies; arranging urgent treatment with development of a management plan; evaluation of patient's response to treatment; frequent reassessment; and discussions with other providers. It was exclusive of separately billable procedures and treating other patients and teaching time. Please see Assessment and Plan section and the rest of the note for further information on patient assessment and treatment. 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, hypertension and chronic anticoagulation for retinal artery thrombosis patient states that he has been tired and fatigued for last 2 weeks developed shortness of breath he was seen the local urgent care where he was found to be quite hypoxic and oxygen saturation of 70% on 4 L nasal cannula patient was transferred to emergency department increase his oxygen to 10 L which did improve saturation, patient is positive COVID-19 emergency department he was started dexamethasone and remdesivir, and also received 1 unit of convalscent plasma on 03/29/2020 currently patient is in ICU I saw the patient outside the ICU room glass door and spoke to him over the phone, he is on high flow oxygen and unable to speak more than few words,he c/o constipation, will give miralax, and seen by porter baggage patient Review of Systems Review of Systems: ROS unobtainable: Yes unobtainable due to medical condition Exam Narrative: Exam Narrative: patient is seen outside the glass door but not examined Const: General: comfortable and no acute distress HENMT: General nose exam: Normal nares present Neck: Other: no retraction Resp: Effort & Inspection: normal respiratory effort GI: Other: n
[2020-03-30 16:07] LABS: CRP 16.4 mg/dL (<1.0); Lactate Dehydrogenase 2071 U/L (313-618)
[2020-03-30 16:14] LABS: D Dimer > 20.00 ug/mL (<0.48)
[2020-03-30] MEDS: WARFARIN (*PBKC) 1 MG TABLET PO (16:17)
[2020-03-30] MEDS: REMDESIVIR 100 MG/NS 250 ML 100 MG/250 ML BAG 250 MG IVPB (21:58)
[2020-03-31] VITALS (21 sets, daily range): BP systolic 111–164; BP diastolic 59–95; PULSE 58–117; RESP 11–33; TEMP 36.5–37.4; O2SAT 89–97
[2020-03-31] MEDS: ACETAMINOPHEN 325 MG TABLET 650 MG PO ×2 (00:18→21:06)
[2020-03-31 05:52] LABS: Hematocrit 39.4 % (42.0-52.0); Hemoglobin 12.8 g/dL (14.0-18.0); Mean Corpuscular HGB Conc 32.5 g/dl (32-36); Mean Corpuscular Hemoglobin 27.8 pg (26-34); Mean Corpuscular Volume 85.5 fl (80-100); Mean Platelet Volume 10.1 fl (7.4-10.4); Platelet Count Result 189 k/mm3 (150-375); Red Blood Count 4.61 M/mm3 (4.6-6.20); Red Cell Distribution Width 14.3 % (11.5-14.5); White Blood Count 4.5 K/mm3 (4.5-10.0)
[2020-03-31 06:03] LABS: Partial Thromboplastin Time 36.8 SECONDS (22.3-36.8); Prothrombin Time 38.5 Seconds (11.1-14.7)
[2020-03-31 06:11] LABS: Alanine Aminotransferase 81 U/L (4-50); Albumin Level 2.7 g/dL (3.5-5.1); Alkaline Phosphatase 65 U/L (38-126); Anion Gap 7 mmol/L (8-16); Aspartate Amino Transferase 72 U/L (17-59); Bilirubin,Total 0.7 mg/dL (0.2-1.3); Blood Urea Nitrogen 32 mg/dL (9-20); Calcium 8.1 mg/dL (8.4-10.2); Carbon Dioxide 33 mmol/L (22-30); Chloride 98 mmol/L (98-107); Estimated CRCL calculation 92 ml/min; Estimated Glomerular Filt Rate > 60; Glucose 171 mg/dL (75-110); Magnesium 2.4 mg/dL (1.6-2.3); Potassium 3.7 mmol/L (3.4-5.0); Sodium 138 mmol/L (137-145)
[2020-03-31] MEDS: hydroCHLOROthiazide 25 MG TABLET PO (08:13)
[2020-03-31] MEDS: SERTRALINE HCL 25 MG TABLET PO (08:13)
[2020-03-31] MEDS: BENZONATATE 100 MG CAPSULE 200 MG PO ×3 (08:13→17:17)
[2020-03-31] MEDS: PANTOPRAZOLE 40 MG TABLET PO (08:13)
[2020-03-31] MEDS: guaiFENesin 600 MG/DEXTROMETHORPHAN 30 MG SR TAB 12 HR 1 TAB PO ×2 (08:13→21:05)
[2020-03-31] MEDS: ALBUTEROL SULFATE (*SP) AEROSOL 1 PUFF 6 PUFF INHALATION ×4 (09:30→19:43)
[2020-03-31] MEDS: LIDOCAINE HCL 1% PF INJ 5 ML VIAL INFILTRATE (10:20)
--- NOTE | 2020-03-31 11:15 | PCDIET ---
ICU Rounding Note: Patient consuming more than half of meals on heart healthy diet with Ensure Compact BID. Last recorded weight is 107.4kg which is increased from last review. Bowel Motility: No documented BM. RN giving Miralax - plans to add suppository if no result. Labs Reviewed: Hgb (12.8), Hct (39.4), Glu (171), BUN (32), Alb (2.7) Meds Noted: Albuterol, Decadron, Hydrochlorothiazide, Protonix, Miralax, Remdesivir, Coumadin, KCl Additional Notes: Corrected calcium normal. No documented skin breakdown. Following daily in ICU rounds. Assessing/reassessing every 5 days.
--- NOTE | 2020-03-31 11:18 | WPDINTPN ---
Progress Note: A&P Assessment and Plan (1) Respiratory failure with hypoxia: Code(s): J96.91 - Respiratory failure, unspecified with hypoxia Status: Acute Assessment and Plan: acute respiratory failure with hypoxia due to COVID-19 pneumonia - currently on Airvo and non-rebreather mask. significantly hypoxic but not in any respiratory distress this moment - patient currently on 75% FiO2 and 60 L per minute flow - chest x-ray reviewed and shows no significant change from yesterday - continue bronchodilators - may need intubation. Monitor closely - Lasix was given yesterday with good response - incentive spirometry - up in chair as tolerated (2) Pneumonia due to COVID-19 virus: Code(s): U07.1 - COVID-19; J12.89 - Other viral pneumonia Status: Acute Assessment and Plan: SARS-CoV-2 PCR positive on 03/17/2020: Patient present with COVID-19 pneumonia along with hypoxia, cough - continue supplemental oxygen - Patient started on dexamethasone and Remdesivir on 03/28/2020 - received 1 unit of convalscent plasma on 03/29/2020 - continue Tessalon Perles and Mucinex for cough - monitor inflammatory markers - continue airborne, droplet, contact isolation /precautions (3) Supratherapeutic INR: Code(s): R79.1 - Abnormal coagulation profile Status: Acute Assessment and Plan: patient on Coumadin at home, currently supratherapeutic INR has increased to 4. I will hold Coumadin today (4) Dietary counseling and surveillance: Code(s): Z71.3 - Dietary counseling and surveillance Status: Acute Assessment and Plan: patient on heart healthy diet with supplements Additional Plan DVT prophylaxis - Coumadin Stress ulcer prophylaxis - PPI Code Status - I spoke to patient in detail and he wishes to be full code Patient poor IV access and needs daily blood draws. Will get a PICC line Critical care time spent: 30 minutes Due to a high probability of clinically significant, life threatening deterioration, the patient required my highest level of preparedness to intervene emergently and I personally spent this critical care time directly and personally managing the patient. This critical care time included obtaining a history; examining the patient; pulse oximetry; ordering and review of studies; arranging urgent treatment with development of a management plan; evaluation of patient's response to treatment; frequent reassessment; and discussions with other providers. It was exclusive of separately billable procedures and treating other patients and teaching time. Please see Assessment and Plan section and the rest of the note for further information on patient assessment and treatment Subjective Date/time seen: 03/31/20 Overnight events reviewed. Afebrile. Continues to be on AirVo. Complains of shortness of breath only on exertion and movement but not while resting. continues to have dry cough. Denies any other complaints Patient denies fever, chest pain, nausea, vomiting, abdominal pain, diarrhea, headache or constipation. Review of Systems Review of Systems: All systems reviewed & are unremarkable except as noted in HPI and below Exam Const: General: comfortable and no acute distress HENMT: Mouth: Yes dry mucous membranes Eyes: Sclera: sclerae normal Pupils: Equal, round and reactive pupils present Neck: Neck: supple Resp: Effort & Inspection: normal respiratory effort Auscultation: rales, rhonchi and diminished lung sounds Cardio: Rate: regular rate Rhythm: regular rhythm GI: Inspection: non-distended Auscultation: normal bowel sounds Other: obese : Other: Interiano catheter in place Urinary Catheter: Urinary Catheter: patent and draining Skin: General skin exam: normal color and rashes and/or lesions noted Neuro: Cranial nerves: Yes Equal, round and reactive pupils present Cognition (Neuro): normal cognition Spee
[2020-03-31] MEDS: POTASSIUM CHLORIDE 20 MEQ TABLET 40 MEQ PO (12:24)
[2020-03-31] MEDS: polyethylene glycoL 3350 17 GM POWD.PACK PO (12:24)
--- NOTE | 2020-03-31 13:45 | PM.IMPN ---
Progress Note: A&P Assessment and Plan (1) Pneumonia due to COVID-19 virus: Code(s): U07.1 - COVID-19; J12.89 - Other viral pneumonia Status: Acute Assessment and Plan: The patient has been admitted to the ICU. Therapy with Decadron and Remdesivir has been initiated. Furniture Polisher has been consulted. 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, hypertension and chronic anticoagulation for retinal artery thrombosis patient states that he has been tired and fatigued for last 2 weeks developed shortness of breath he was seen the local urgent care where he was found to be quite hypoxic and oxygen saturation of 70% on 4 L nasal cannula patient was transferred to emergency department increase his oxygen to 10 L which did improve saturation, patient is positive COVID-19 emergency department he was started dexamethasone and remdesivir, and also received 1 unit of convalscent plasma on 03/29/2020 currently today on 03/31 patient is in ICU I saw the patient outside the ICU room glass door he is on nonbreather mask requiring to constantly as he is hypoxic and getting high flow oxygen and unable to speak more than few words, he is seen by rental sales associate further recommendation to follow (2) Respiratory failure with hypoxia: Code(s): J96.91 - Respiratory failure, unspecified with hypoxia Status: Acute Assessment and Plan: Patient is now on high-flow nasal cannula at 10 L. Decadron and Remdesivir have been initiated. Titrate oxygen as needed to maintain oxygen saturations between 88 and 92% (3) Supratherapeutic INR: Code(s): R79.1 - Abnormal coagulation profile Status: Acute Assessment and Plan: Will decrease the patient's warfarin dose tonight and repeat INR in a.m. INRs have been ordered daily. Additional Plan 40 minutes spent in critical care activities. Due to a high probability of clinically significant, life threatening deterioration, the patient required my highest level of preparedness to intervene emergently and I personally spent this critical care time directly and personally managing the patient. This critical care time included obtaining a history; examining the patient; pulse oximetry; ordering and review of studies; arranging urgent treatment with development of a management plan; evaluation of patient's response to treatment; frequent reassessment; and discussions with other providers. It was exclusive of separately billable procedures and treating other patients and teaching time. Please see Assessment and Plan section and the rest of the note for further information on patient assessment and treatment. 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, hypertension and chronic anticoagulation for retinal artery thrombosis patient states that he has been tired and fatigued for last 2 weeks developed shortness of breath he was seen the local urgent care where he was found to be quite hypoxic and oxygen saturation of 70% on 4 L nasal cannula patient was transferred to emergency department increase his oxygen to 10 L which did improve saturation, patient is positive COVID-19 emergency department he was started dexamethasone and remdesivir, and also received 1 unit of convalscent plasma on 03/29/2020 currently today on 03/31 patient is in ICU I saw the patient outside the ICU room glass door he is on nonbreather mask requiring to constantly as he is hypoxic and getting high flow oxygen and unable to speak more than few words, he is seen by rental sales associate further recommendation to follow Review of Systems Review of Systems: ROS unobtainable: Yes unobtainable due to medical condition Exam Narrative: Exam Narrative: patient is seen outside the glass door but not examined Const: General: comfortable and no acute distress HENMT: General nose exam: Normal nares present Neck: Other: no retra
[2020-03-31] MEDS: CENTRAL LINE FLUSH 10 ML IV PUSH ×2 (13:56→21:06)
[2020-03-31] MEDS: REMDESIVIR 100 MG/NS 250 ML 100 MG/250 ML BAG 250 MG IVPB (21:04)
[2020-03-31] MEDS: HYDROCORTISONE ACETATE 25 MG SUPPOSITORY RECTAL (21:04)
[2020-03-31] MEDS: DOCUSATE SODIUM 100 MG CAPSULE PO (21:04)
[2020-04-01] VITALS (14 sets, daily range): BP systolic 110–157; BP diastolic 62–98; PULSE 65–105; RESP 18–29; TEMP 36.6–37.6; O2SAT 89–99
[2020-04-01] MEDS: CENTRAL LINE FLUSH 10 ML IV PUSH ×3 (04:20→20:48)
[2020-04-01 04:43] LABS: Hematocrit 36.8 % (42.0-52.0); Hemoglobin 11.9 g/dL (14.0-18.0); Mean Corpuscular HGB Conc 32.3 g/dl (32-36); Mean Corpuscular Hemoglobin 28.3 pg (26-34); Mean Corpuscular Volume 87.4 fl (80-100); Mean Platelet Volume 10.2 fl (7.4-10.4); Platelet Count Result 164 k/mm3 (150-375); Red Blood Count 4.21 M/mm3 (4.6-6.20); Red Cell Distribution Width 14.6 % (11.5-14.5); White Blood Count 4.8 K/mm3 (4.5-10.0)
[2020-04-01 04:55] LABS: INR 4.1; Partial Thromboplastin Time 33.1 SECONDS (22.3-36.8); Prothrombin Time 39.5 Seconds (11.1-14.7)
[2020-04-01 05:19] LABS: D Dimer > 20.00 ug/mL (<0.48)
[2020-04-01 06:54] LABS: Alanine Aminotransferase 65 U/L (4-50); Albumin Level 2.5 g/dL (3.5-5.1); Alkaline Phosphatase 72 U/L (38-126); Anion Gap 5 mmol/L (8-16); Aspartate Amino Transferase 56 U/L (17-59); Bilirubin,Total 0.8 mg/dL (0.2-1.3); Blood Urea Nitrogen 26 mg/dL (9-20); Calcium 7.7 mg/dL (8.4-10.2); Carbon Dioxide 33 mmol/L (22-30); Chloride 99 mmol/L (98-107); Estimated CRCL calculation 109 ml/min; Estimated Glomerular Filt Rate > 60; Glucose 182 mg/dL (75-110); Lactate Dehydrogenase 1486 U/L (313-618); Magnesium 2.3 mg/dL (1.6-2.3); Phosphorus 3.1 mg/dL (2.5-4.5); Potassium 3.9 mmol/L (3.4-5.0); Sodium 137 mmol/L (137-145)
[2020-04-01 07:14] LABS: CRP 13.6 mg/dL (<1.0)
--- NOTE | 2020-04-01 07:40 | WPDINTPN ---
Progress Note: A&P Assessment and Plan (1) Respiratory failure with hypoxia: Code(s): J96.91 - Respiratory failure, unspecified with hypoxia Status: Acute Assessment and Plan: acute respiratory failure with hypoxia due to COVID-19 pneumonia - currently on Airvo and non-rebreather mask. significantly hypoxic but not in any respiratory distress this moment - patient currently on 75% FiO2 and 60 L per minute flow - chest x-ray reviewed and shows no significant change from yesterday - continue bronchodilators - may need intubation. Monitor closely - Lasix as needed. Will give 20 mg IV x1 today - incentive spirometry - up in chair as tolerated (2) Pneumonia due to COVID-19 virus: Code(s): U07.1 - COVID-19; J12.89 - Other viral pneumonia Status: Acute Assessment and Plan: SARS-CoV-2 PCR positive on 03/17/2020: Patient present with COVID-19 pneumonia along with hypoxia, cough - continue supplemental oxygen - Patient started on dexamethasone and Remdesivir on 03/28/2020 - received 1 unit of convalscent plasma on 03/29/2020 - continue Tessalon Perles and Mucinex for cough - monitor inflammatory markers which are showing some improvement - continue airborne, droplet, contact isolation /precautions (3) Supratherapeutic INR: Code(s): R79.1 - Abnormal coagulation profile Status: Acute Assessment and Plan: patient on Coumadin at home, currently supratherapeutic INR is in for I will continue to hold Coumadin today (4) Dietary counseling and surveillance: Code(s): Z71.3 - Dietary counseling and surveillance Status: Acute Assessment and Plan: patient on heart healthy diet with supplements Additional Plan DVT prophylaxis - Coumadin Stress ulcer prophylaxis - PPI Code Status - I spoke to patient in detail and he wishes to be full code Critical care time spent: 31 minutes Due to a high probability of clinically significant, life threatening deterioration, the patient required my highest level of preparedness to intervene emergently and I personally spent this critical care time directly and personally managing the patient. This critical care time included obtaining a history; examining the patient; pulse oximetry; ordering and review of studies; arranging urgent treatment with development of a management plan; evaluation of patient's response to treatment; frequent reassessment; and discussions with other providers. It was exclusive of separately billable procedures and treating other patients and teaching time. Please see Assessment and Plan section and the rest of the note for further information on patient assessment and treatment Subjective Date/time seen: 04/01/20 Overnight events reviewed. Afebrile Continues to be on AirVo. 60 liters/minute flow and 75% he states his breathing is better than yesterday but still complains of shortness of breath only on exertion and movement but not while resting. continues to have cough which is associated with small amount of pinkish sputum. review of system was also positive for constipation Patient denies fever, chest pain, nausea, vomiting, abdominal pain, diarrhea, headache. Review of Systems Review of Systems: All systems reviewed & are unremarkable except as noted in HPI and below Exam Const: General: comfortable and no acute distress HENMT: Mouth: Yes dry mucous membranes Eyes: Sclera: sclerae normal Pupils: Equal, round and reactive pupils present Neck: Neck: supple Resp: Effort & Inspection: normal respiratory effort Auscultation: rales, rhonchi and diminished lung sounds Cardio: Rate: regular rate Rhythm: regular rhythm GI: Inspection: non-distended Auscultation: normal bowel sounds Other: obese : Other: Interiano catheter in place Urinary Catheter: Urinary Catheter: patent and draining Skin: General skin exam: normal color and rashes and/or lesions noted
[2020-04-01] MEDS: hydroCHLOROthiazide 25 MG TABLET PO (08:25)
[2020-04-01] MEDS: guaiFENesin 600 MG/DEXTROMETHORPHAN 30 MG SR TAB 12 HR 1 TAB PO ×2 (08:25→20:48)
[2020-04-01] MEDS: PANTOPRAZOLE 40 MG TABLET PO (08:25)
[2020-04-01] MEDS: HYDROCORTISONE ACETATE 25 MG SUPPOSITORY RECTAL ×2 (08:25→20:46)
[2020-04-01] MEDS: SERTRALINE HCL 25 MG TABLET PO (08:25)
[2020-04-01] MEDS: BENZONATATE 100 MG CAPSULE 200 MG PO ×3 (08:25→17:33)
[2020-04-01] MEDS: ALBUTEROL SULFATE (*SP) AEROSOL 1 PUFF 6 PUFF INHALATION ×4 (08:33→20:35)
--- NOTE | 2020-04-01 11:18 | PCDIET ---
ICU Rounding Note: Patient consuming 100% of recorded meals on heart healthy diet with Thrive BID. Last recorded weight is 114.5kg which is increased significantly from last review. Recommend reweighing to ensure accuracy. Noted MD plans to add Lasix. Bowel Motility: No BM reported. Patient continues on medications. Labs Reviewed: Hgb (11.9), Hct (36.9), Glu (182), BUN (26), Cr (0.6), Alb (2.5), Av Ca (8.9) Meds Noted: Hydrochlorothiazide, Protonix, Albuterol, Decadron, Colace, Miralax, Coumadin, Dulcolax Additional Notes: No documented skin breakdown. Following daily in ICU rounds. Assessing/reassessing every 5 days.
[2020-04-01] MEDS: FUROSEMIDE INJ 40 MG/4 ML VIAL 20 MG IV PUSH (12:12)
[2020-04-01] MEDS: polyethylene glycoL 3350 17 GM POWD.PACK PO (12:12)
--- NOTE | 2020-04-01 16:15 | PM.IMPN ---
Progress Note: A&P Assessment and Plan (1) Pneumonia due to COVID-19 virus: Code(s): U07.1 - COVID-19; J12.89 - Other viral pneumonia Status: Acute Assessment and Plan: The patient has been admitted to the ICU. Therapy with Decadron and Remdesivir has been initiated. Simulation Engineer has been consulted. 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, hypertension and chronic anticoagulation for retinal artery thrombosis patient states that he has been tired and fatigued for last 2 weeks developed shortness of breath he was seen the local urgent care where he was found to be quite hypoxic and oxygen saturation of 70% on 4 L nasal cannula patient was transferred to emergency department increase his oxygen to 10 L which did improve saturation, patient is positive COVID-19 emergency department he was started dexamethasone and remdesivir, and also received 1 unit of convalscent plasma on 03/29/2020 currently today on 04/01 patient is in ICU I saw the patient outside the ICU room glass door he is on nonbreather mask requiring high flow oxugen and constantly he is hypoxic and getting high flow oxygen and unable to speak more than few words, he is seen by custom shoe designer and maker further recommendation to follow (2) Respiratory failure with hypoxia: Code(s): J96.91 - Respiratory failure, unspecified with hypoxia Status: Acute Assessment and Plan: Patient is now on high-flow nasal cannula at 10 L. Decadron and Remdesivir have been initiated. Titrate oxygen as needed to maintain oxygen saturations between 88 and 92% (3) Supratherapeutic INR: Code(s): R79.1 - Abnormal coagulation profile Status: Acute Assessment and Plan: Will decrease the patient's warfarin dose tonight and repeat INR in a.m. INRs have been ordered daily. Additional Plan 40 minutes spent in critical care activities. Due to a high probability of clinically significant, life threatening deterioration, the patient required my highest level of preparedness to intervene emergently and I personally spent this critical care time directly and personally managing the patient. This critical care time included obtaining a history; examining the patient; pulse oximetry; ordering and review of studies; arranging urgent treatment with development of a management plan; evaluation of patient's response to treatment; frequent reassessment; and discussions with other providers. It was exclusive of separately billable procedures and treating other patients and teaching time. Please see Assessment and Plan section and the rest of the note for further information on patient assessment and treatment. 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, hypertension and chronic anticoagulation for retinal artery thrombosis patient states that he has been tired and fatigued for last 2 weeks developed shortness of breath he was seen the local urgent care where he was found to be quite hypoxic and oxygen saturation of 70% on 4 L nasal cannula patient was transferred to emergency department increase his oxygen to 10 L which did improve saturation, patient is positive COVID-19 emergency department he was started dexamethasone and remdesivir, and also received 1 unit of convalscent plasma on 03/29/2020 currently today on 04/01 patient is in ICU I saw the patient outside the ICU room glass door he is on nonbreather mask requiring high flow oxugen and constantly he is hypoxic and getting high flow oxygen and unable to speak more than few words, he is seen by custom shoe designer and maker further recommendation to follow Exam Narrative: Exam Narrative: patient is seen outside the glass door but not examined Const: General: comfortable and no acute distress HENMT: General nose exam: Normal nares present Neck: Other: no retraction Resp: Effort & Inspection: normal respiratory effort GI:
[2020-04-01] MEDS: REMDESIVIR 100 MG/NS 250 ML 100 MG/250 ML BAG 250 MG IVPB (20:45)
[2020-04-01] MEDS: DOCUSATE SODIUM 100 MG CAPSULE PO (20:47)
[2020-04-02] VITALS (15 sets, daily range): BP systolic 122–168; BP diastolic 69–89; PULSE 66–98; RESP 15–29; TEMP 36.3–37.3; O2SAT 90–98
[2020-04-02] MEDS: CENTRAL LINE FLUSH 10 ML IV PUSH ×3 (05:52→20:18)
[2020-04-02 06:09] LABS: Hematocrit 35.9 % (42.0-52.0); Hemoglobin 11.7 g/dL (14.0-18.0); Mean Corpuscular HGB Conc 32.6 g/dl (32-36); Mean Corpuscular Hemoglobin 28.3 pg (26-34); Mean Corpuscular Volume 86.9 fl (80-100); Mean Platelet Volume 10.5 fl (7.4-10.4); Platelet Count Result 149 k/mm3 (150-375); Red Blood Count 4.13 M/mm3 (4.6-6.20); Red Cell Distribution Width 14.1 % (11.5-14.5); White Blood Count 6.2 K/mm3 (4.5-10.0)
[2020-04-02 06:19] LABS: INR 3.2; Partial Thromboplastin Time 32.5 SECONDS (22.3-36.8); Prothrombin Time 31.8 Seconds (11.1-14.7)
[2020-04-02] MEDS: hydroCHLOROthiazide 25 MG TABLET PO (08:20)
[2020-04-02] MEDS: PANTOPRAZOLE 40 MG TABLET PO (08:20)
[2020-04-02] MEDS: BENZONATATE 100 MG CAPSULE 200 MG PO ×3 (08:20→17:57)
[2020-04-02] MEDS: SERTRALINE HCL 25 MG TABLET PO (08:20)
[2020-04-02] MEDS: ALBUTEROL SULFATE (*SP) AEROSOL 1 PUFF 6 PUFF INHALATION ×3 (08:51→20:35)
[2020-04-02 10:37] LABS: Alanine Aminotransferase 58 U/L (4-50); Albumin Level 2.5 g/dL (3.5-5.1); Alkaline Phosphatase 84 U/L (38-126); Anion Gap 4 mmol/L (8-16); Aspartate Amino Transferase 52 U/L (17-59); Bilirubin,Total 0.7 mg/dL (0.2-1.3); Blood Urea Nitrogen 25 mg/dL (9-20); Calcium 7.7 mg/dL (8.4-10.2); Carbon Dioxide 32 mmol/L (22-30); Chloride 99 mmol/L (98-107); Estimated CRCL calculation 124 ml/min; Estimated Glomerular Filt Rate > 60; Glucose 295 mg/dL (75-110); Magnesium 2.1 mg/dL (1.6-2.3); Phosphorus 3.2 mg/dL (2.5-4.5); Potassium 4.7 mmol/L (3.4-5.0); Sodium 135 mmol/L (137-145)
--- NOTE | 2020-04-02 11:04 | PCDIET ---
ICU Rounding Note: Patient consuming 100% of meals on heart healthy diet with Thrive BID. Last recorded weight is 106.5kg which is decreased from last review. Bowel Motility: BM x 2 on 04/01/20. Labs Reviewed: Hgb (11.7), Hct (35.9) Meds Noted: Albuterol, Decadron, Colace, Hydrochlorothiazide, Protonix, Miralax, Coumadin Additional Notes: No documented skin breakdown. Following daily in ICU rounds. Assessing/reassessing every 5 days.
--- NOTE | 2020-04-02 11:26 | WPDINTPN ---
Progress Note: A&P Assessment and Plan (1) Respiratory failure with hypoxia: Code(s): J96.91 - Respiratory failure, unspecified with hypoxia Status: Acute Assessment and Plan: acute respiratory failure with hypoxia due to COVID-19 pneumonia - currently on Airvo and non-rebreather mask. significantly hypoxic but not in any respiratory distress this moment - patient continues to be on 75% FiO2 and 60 L per minute flow - chest x-ray reviewed and shows no significant change from yesterday - continue bronchodilators - may need intubation. Monitor closely - Lasix as needed. - incentive spirometry - up in chair as tolerated (2) Pneumonia due to COVID-19 virus: Code(s): U07.1 - COVID-19; J12.89 - Other viral pneumonia Status: Acute Assessment and Plan: SARS-CoV-2 PCR positive on 03/17/2020: Patient present with COVID-19 pneumonia along with hypoxia, cough - continue supplemental oxygen - Patient started on dexamethasone on 03/28/2020. - Patient has completed 5 day course of Remdesivir on 04/01 - received 1 unit of convalscent plasma on 03/29/2020 - continue Tessalon Perles and Mucinex for cough - monitor inflammatory markers which are showing some improvement - continue airborne, droplet, contact isolation /precautions (3) Supratherapeutic INR: Code(s): R79.1 - Abnormal coagulation profile Status: Acute Assessment and Plan: patient on Coumadin at home, was supratherapeutic earlier and Coumadin was on hold INR 3.2 today will resume Coumadin at 3 mg q.day (4) Dietary counseling and surveillance: Code(s): Z71.3 - Dietary counseling and surveillance Status: Acute Assessment and Plan: patient on heart healthy diet with supplements (5) Hyperglycemia: Code(s): R73.9 - Hyperglycemia, unspecified Status: Acute Assessment and Plan: likely secondary to steroids start sliding scale Additional Plan DVT prophylaxis - Coumadin Stress ulcer prophylaxis - PPI Code Status - I spoke to patient in detail and he wishes to be full code Remove Interiano catheter Answered patient's questions. Critical care time spent: 32 minutes Due to a high probability of clinically significant, life threatening deterioration, the patient required my highest level of preparedness to intervene emergently and I personally spent this critical care time directly and personally managing the patient. This critical care time included obtaining a history; examining the patient; pulse oximetry; ordering and review of studies; arranging urgent treatment with development of a management plan; evaluation of patient's response to treatment; frequent reassessment; and discussions with other providers. It was exclusive of separately billable procedures and treating other patients and teaching time. Please see Assessment and Plan section and the rest of the note for further information on patient assessment and treatment Subjective Date/time seen: 04/02/20 0830 Overnight events reviewed. Afebrile Continues to be on AirVo. 60 liters/minute flow and 75% He states his breathing is all right and not much different from yesterday. Complains of shortness of breath only on exertion and movement but not while resting. continues to have cough which is associated with small amount of pinkish sputum. he had 2 bowel movements last night review of system was also positive for hemorrhoids Patient denies fever, chest pain, nausea, vomiting, abdominal pain, diarrhea, headache. Review of Systems Review of Systems: All systems reviewed & are unremarkable except as noted in HPI and below Exam Const: General: comfortable and no acute distress HENMT: Mouth: Yes dry mucous membranes Eyes: Sclera: sclerae normal Pupils: Equal, round and reactive pupils present Neck: Neck: supple Resp: Effort & Inspection: normal respiratory effort Auscultation: rales, rhonc
[2020-04-02] MEDS: guaiFENesin 600 MG/DEXTROMETHORPHAN 30 MG SR TAB 12 HR 1 TAB PO ×2 (12:10→20:18)
[2020-04-02] MEDS: TOLNAFTATE 1% POWDER 45 GM BTL 1 APPLIC TOPICAL ×2 (12:11→20:17)
[2020-04-02] MEDS: HYDROCORTISONE ACETATE 25 MG SUPPOSITORY RECTAL ×2 (12:11→20:17)
[2020-04-02] MEDS: INSULIN ASPART (*BKC) 100 UNITS/ML SUB-Q (12:16)
[2020-04-02 14:48] LABS: Glucose Point of Care 310 (65-105)
--- NOTE | 2020-04-02 14:56 | PM.IMPN ---
Progress Note: A&P Assessment and Plan (1) Pneumonia due to COVID-19 virus: Code(s): U07.1 - COVID-19; J12.89 - Other viral pneumonia Status: Acute Assessment and Plan: The patient has been admitted to the ICU. Therapy with Decadron and Remdesivir has been initiated. Smoke Jumper has been consulted. 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, hypertension and chronic anticoagulation for retinal artery thrombosis patient states that he has been tired and fatigued for last 2 weeks developed shortness of breath he was seen the local urgent care where he was found to be quite hypoxic and oxygen saturation of 70% on 4 L nasal cannula patient was transferred to emergency department increase his oxygen to 10 L which did improve saturation, patient is positive COVID-19 emergency department he was started dexamethasone and remdesivir, and also received 1 unit of convalscent plasma on 03/29/2020 currently today on 04/02 patient is in ICU I saw the patient outside the ICU room glass door he is on nonbreather mask requiring high flow oxugen and constantly he is hypoxic and getting high flow oxygen and unable to speak more than few words as he was coughing, he is seen by message and delivery service pricer further recommendation to follow (2) Respiratory failure with hypoxia: Code(s): J96.91 - Respiratory failure, unspecified with hypoxia Status: Acute Assessment and Plan: Patient is now on high-flow nasal cannula at 10 L. Decadron and Remdesivir have been initiated. Titrate oxygen as needed to maintain oxygen saturations between 88 and 92% (3) Supratherapeutic INR: Code(s): R79.1 - Abnormal coagulation profile Status: Acute Assessment and Plan: Will decrease the patient's warfarin dose tonight and repeat INR in a.m. INRs have been ordered daily. Subjective Date/time seen: 04/02/20 14:56 today patient still requiring high-flow oxygen unable to remove the nonbreather mask as he gets short of breath , I I spoke with patient over the phone outside his glass door was not able to talk much as he was coughing. discussed with nursing staff plan is to reduce FiO2 if he can't tolerate. Review of Systems Review of Systems: All systems reviewed & are unremarkable except as noted in HPI and below Exam Narrative: Exam Narrative: patient is seen outside the glass door but not examined and I talk to him over the phone, he was coughing. Patient is comfortable, NAD patient is coughing HEENT: eyes are clear and none icteric LUNGS: normal respiratory effort ABD: not distended Lower extremities: no edema SKIN: nonjaundiced Neuro: grossly intact. Objective Data Vital Signs Vital Signs: Vital Signs - 24 hr 04/01/20 16:00 04/01/20 18:00 04/01/20 20:00 Temperature 98.3 F 98.6 F Pulse Rate 89 85 76 Respiratory Rate 25 H 27 H 22 H Blood Pressure 110/98 H 141/78 H 147/62 H Pulse Oximetry 92 97 98 04/01/20 20:37 04/01/20 22:00 04/02/20 00:00 Temperature 99.1 F Pulse Rate 93 88 82 Respiratory Rate 21 H 20 22 H Blood Pressure 137/82 131/77 Pulse Oximetry 93 99 98 04/02/20 02:00 04/02/20 04:00 04/02/20 06:00 Temperature 98.9 F Pulse Rate 79 73 71 Respiratory Rate 22 H 20 16 Blood Pressure 135/87 134/76 154/84 H Pulse Oximetry 98 98 94 04/02/20 08:00 04/02/20 08:53 04/02/20 10:00 Temperature 97.8 F Pulse Rate 89 94 84 Respiratory Rate 24 H 25 H 23 H Blood Pressure 145/69 H 140/75 Pulse Oximetry 93 93 92 04/02/20 12:00 04/02/20 12:59 Temperature 97.4 F L Pulse Rate 85 89 Respiratory Rate 29 H 18 Blood Pressure 152/79 H Pulse Oximetry 95 94 Intake/Output Intake/Output: Intake & Output 03/30/20 03/31/20 04/01/20 04/02/20 23:59 23:59 23:59 23:59 Intake Total 1930 2200 2360 1300 Output Total 2950 1650 2900 900 Balance -1020 550 -540 400 Meds/Results Medications: Active Medications Generic Name Dose Route
[2020-04-02 18:03] LABS: Glucose Point of Care 411 (65-105)
[2020-04-02] MEDS: INSULIN ASPART (*BKC) 100 UNITS/ML 8 UNITS SUB-Q ×2 (18:34→21:01)
[2020-04-02] MEDS: DOCUSATE SODIUM 100 MG CAPSULE PO (20:17)
[2020-04-02 20:36] LABS: Glucose Point of Care 390 (65-105)
[2020-04-02 23:24] LABS: Glucose Point of Care 248 (65-105)
[2020-04-03] VITALS (14 sets, daily range): BP systolic 121–167; BP diastolic 70–96; PULSE 65–104; RESP 16–27; TEMP 36.5–37; O2SAT 88–98
[2020-04-03] MEDS: CENTRAL LINE FLUSH 10 ML IV PUSH ×3 (05:46→20:27)
[2020-04-03 06:01] LABS: Hematocrit 38.6 % (42.0-52.0); Hemoglobin 12.6 g/dL (14.0-18.0); Mean Corpuscular HGB Conc 32.6 g/dl (32-36); Mean Corpuscular Hemoglobin 28.3 pg (26-34); Mean Corpuscular Volume 86.5 fl (80-100); Mean Platelet Volume 10.7 fl (7.4-10.4); Platelet Count Result 147 k/mm3 (150-375); Red Blood Count 4.46 M/mm3 (4.6-6.20); White Blood Count 10.1 K/mm3 (4.5-10.0)
[2020-04-03 06:14] LABS: INR 2.6; Partial Thromboplastin Time 28.7 SECONDS (22.3-36.8); Prothrombin Time 27.1 Seconds (11.1-14.7)
[2020-04-03 06:51] LABS: D Dimer > 20.00 ug/mL (<0.48)
[2020-04-03] MEDS: ALBUTEROL SULFATE (*SP) AEROSOL 1 PUFF 6 PUFF INHALATION ×4 (08:10→20:49)
[2020-04-03 08:34] LABS: Glucose Point of Care 113 (65-105)
[2020-04-03] MEDS: hydroCHLOROthiazide 25 MG TABLET PO (08:48)
[2020-04-03] MEDS: SERTRALINE HCL 25 MG TABLET PO (08:48)
[2020-04-03] MEDS: guaiFENesin 600 MG/DEXTROMETHORPHAN 30 MG SR TAB 12 HR 1 TAB PO ×2 (08:48→20:27)
[2020-04-03] MEDS: BENZONATATE 100 MG CAPSULE 200 MG PO ×3 (08:48→17:21)
[2020-04-03] MEDS: PANTOPRAZOLE 40 MG TABLET PO (08:48)
[2020-04-03] MEDS: TOLNAFTATE 1% POWDER 45 GM BTL 1 APPLIC TOPICAL ×2 (08:49→20:28)
[2020-04-03] MEDS: HYDROCORTISONE ACETATE 25 MG SUPPOSITORY RECTAL ×2 (08:49→20:17)
[2020-04-03] MEDS: BENZOCAINE 20% HEMORRHOIDAL OINTMENT 28 GM 1 APPLIC TOPICAL (08:49)
--- NOTE | 2020-04-03 10:34 | WPDINTPN ---
Progress Note: A&P Assessment and Plan (1) Respiratory failure with hypoxia: Code(s): J96.91 - Respiratory failure, unspecified with hypoxia Status: Acute Assessment and Plan: acute respiratory failure with hypoxia due to COVID-19 pneumonia - currently on Airvo and non-rebreather mask. significantly hypoxic but not in any respiratory distress this moment - patient continues to be on 75% FiO2 and 60 L per minute flow - chest x-ray reviewed and shows no significant change from yesterday - continue bronchodilators - may still need intubation. Monitor closely - Lasix as needed. - incentive spirometry - up in chair as tolerated (2) Pneumonia due to COVID-19 virus: Code(s): U07.1 - COVID-19; J12.89 - Other viral pneumonia Status: Acute Assessment and Plan: SARS-CoV-2 PCR positive on 03/17/2020: Patient present with COVID-19 pneumonia along with hypoxia, cough - continue supplemental oxygen - Patient started on dexamethasone on 03/28/2020. - Patient has completed 5 day course of Remdesivir on 04/01 - received 1 unit of convalscent plasma on 03/29/2020 - continue Tessalon Perles and Mucinex for cough - monitor inflammatory markers which are showing some improvement - continue airborne, droplet, contact isolation /precautions (3) Supratherapeutic INR: Code(s): R79.1 - Abnormal coagulation profile Status: Acute Assessment and Plan: patient on Coumadin at home, was supratherapeutic earlier and Coumadin was on hold INR 2.6 today will continue Coumadin at 3 mg q.day (4) Dietary counseling and surveillance: Code(s): Z71.3 - Dietary counseling and surveillance Status: Acute Assessment and Plan: patient on heart healthy diet with supplements (5) Hyperglycemia: Code(s): R73.9 - Hyperglycemia, unspecified Status: Acute Assessment and Plan: likely secondary to steroids start sliding scale add Lantus Additional Plan DVT prophylaxis - Coumadin Stress ulcer prophylaxis - PPI Code Status - I spoke to patient in detail and he wishes to be full code Remove Interiano catheter Answered patient's questions. Critical care time spent: 30 minutes Due to a high probability of clinically significant, life threatening deterioration, the patient required my highest level of preparedness to intervene emergently and I personally spent this critical care time directly and personally managing the patient. This critical care time included obtaining a history; examining the patient; pulse oximetry; ordering and review of studies; arranging urgent treatment with development of a management plan; evaluation of patient's response to treatment; frequent reassessment; and discussions with other providers. It was exclusive of separately billable procedures and treating other patients and teaching time. Please see Assessment and Plan section and the rest of the note for further information on patient assessment and treatment Subjective Date/time seen: 04/03/20 Overnight events reviewed. Afebrile Continues to be on AirVo. 60 liters/minute flow and 70% He states his breathing is unchanged and not much different from yesterday. Complains of shortness of breath only on exertion and movement but not while resting. Continues to have cough which is mostly dry. he had bowel movement last night review of system was also positive for hemorrhoids Patient denies fever, chest pain, nausea, vomiting, abdominal pain, diarrhea, headache. Review of Systems Review of Systems: All systems reviewed & are unremarkable except as noted in HPI and below Exam Const: General: comfortable and no acute distress HENMT: Mouth: Yes dry mucous membranes Eyes: Sclera: sclerae normal Pupils: Equal, round and reactive pupils present Neck: Neck: supple Resp: Effort & Inspection: normal respiratory effort Auscultation: rales, rhonchi and diminish
[2020-04-03] MEDS: INSULIN GLARGINE (*BKC) 100 UNITS/ML 10 UNITS SUB-Q (11:06)
--- NOTE | 2020-04-03 11:39 | PCDIET ---
Nutrition Follow-Up Complete: Nutrition Diagnosis: Involuntary weight loss related to decreased appetite and decreased taste as evidenced by reported 2-13 pound weight loss without trying. Nutrition Goal: Patient to consume 75% of meals/supplements or greater Goal met. Patient consuming 100% of meals on heart healthy diet with Thrive BID. No new recommendations at this time. Last recorded weight is 103.9 kg which is decreased from last review. Bowel Motility: BM x 3 today. Labs Reviewed: Hgb (12.6), Hct (38.6), Glu (113) Meds Noted: Albuterol, Decadron, Colace, Hydrochlorothiazide, Protonix, Coumadin Additional Notes: No documented skin breakdown. Will continue to monitor with same goal. Nutrition Monitoring and Evaluation: Follow up in 5 days.
[2020-04-03] MEDS: INSULIN ASPART (*BKC) 100 UNITS/ML SUB-Q ×2 (13:10→17:20)
[2020-04-03 13:28] LABS: Glucose Point of Care 278 (65-105)
--- NOTE | 2020-04-03 17:12 | PM.IMPN ---
Progress Note: A&P Assessment and Plan (1) Pneumonia due to COVID-19 virus: Code(s): U07.1 - COVID-19; J12.89 - Other viral pneumonia Status: Acute Assessment and Plan: The patient is in ICU Therapy with Decadron. Remdesivir has been completed for 5 days. pt is sp plasma Lead Material Handler is on board (2) Respiratory failure with hypoxia: Code(s): J96.91 - Respiratory failure, unspecified with hypoxia Status: Acute Assessment and Plan: Patient is now on high-flow oxygen watch for respiratory improvement otherwise pt may need intubation. Decadron and Remdesivir have been initiated. Titrate oxygen as needed to maintain oxygen saturations between 88 and 92% (3) Supratherapeutic INR: Code(s): R79.1 - Abnormal coagulation profile Status: Acute Assessment and Plan: INRs have been ordered daily. Subjective Date/time seen: 04/03/20 17:12 Interval history: 79 year old male with a past medical history of asbestosis, hypertension and chronic anticoagulation who presented to the ER from urgent care via EMS due to low oxygen saturations.Pt is presently in icu for COVID and COVID pneumonia. PMH of Asbestosis, Essential HTN, chronic anticoagulation. Review of Systems Review of Systems: All systems reviewed & are unremarkable except as noted in HPI and below Exam Const: General: comfortable and no acute distress Resp: Effort & Inspection: normal respiratory effort Psych: Affect: Anxious affect present Objective Data Vital Signs Vital Signs: Vital Signs - 24 hr 04/02/20 18:00 04/02/20 20:00 04/02/20 20:35 Temperature 37.1 C Pulse Rate 98 73 83 Respiratory Rate 18 18 15 Blood Pressure 168/84 H 168/84 H Pulse Oximetry 93 94 93 04/02/20 22:00 04/03/20 00:00 04/03/20 02:00 Temperature 36.7 C 36.9 C Pulse Rate 89 76 73 Respiratory Rate 16 18 16 Blood Pressure 122/81 131/75 140/79 Pulse Oximetry 95 94 95 04/03/20 04:00 04/03/20 06:00 04/03/20 08:00 Temperature 36.9 C 37.0 C Pulse Rate 70 79 75 Respiratory Rate 18 16 27 H Blood Pressure 144/79 H 154/95 H 167/96 H Pulse Oximetry 95 95 91 04/03/20 10:00 04/03/20 12:00 04/03/20 14:00 Temperature 36.5 C Pulse Rate 91 89 98 Respiratory Rate 26 H 17 25 H Blood Pressure 147/78 H 142/86 H 121/85 Pulse Oximetry 92 94 98 04/03/20 16:00 Temperature Pulse Rate 104 H Respiratory Rate Blood Pressure Pulse Oximetry Intake/Output Intake/Output: Intake & Output 03/31/20 04/01/20 04/02/20 04/03/20 23:59 23:59 23:59 23:59 Intake Total 2200 2360 2500 1460 Output Total 1650 2900 2100 850 Balance 550 -540 400 610 Meds/Results Medications: Active Medications Generic Name Dose Route Start Last Admin Trade Name Freq PRN Reason Stop Dose Admin Acetaminophen 650 mg 03/31/20 00:05 03/31/20 21:06 Tylenol Tablet PO 650 mg Q4H PRN Administration Mild Pain (1-3) or Fever Albuterol 6 puff 03/29/20 08:00 04/03/20 16:14 Proventil Hfa INHALATION 6 puff QIDRT JONATAN Administration Benzocaine 1 applic 04/03/20 04:58 04/03/20 08:49 Benzocaine 20% Hemorrhoidal Ointment 28 Gm TOPICAL 1 applic Q4H PRN Administration Rectal Pain Benzonatate 200 mg 03/29/20 09:00 04/03/20 13:07 Tessalon Perles PO 200 mg TID JONATAN Administration Bisacodyl 10 mg 03/31/20 10:10 Dulcolax Suppository RECTAL QAM PRN Constipation Dexamethasone Sodium Phosphate 6 mg 04/04/20 09:00 Dexamethasone Sod Phos Inj 4 Mg/Ml Vial IV PUSH DAILY JONATAN Dextrose 12.5 gm 04/02/20 11:25 Dextrose 50% 25 Gm/50 Ml Syringe IV PUSH PRN PRN Hypoglycemia Protocol Docusate Sodium 100 mg 03/31/20 21:00 04/02/20 20:17 Colace Capsule PO 100 mg HS JONATAN Administration Glucagon 1 mg 04/02/20 11:25 Glucagon For Inj 1 Mg Vial IM PRN PRN Hypoglycemia Protocol Glucose 15 gm 04/02/20 11:25 Glucose Oral Gel 15
[2020-04-03 17:27] LABS: Glucose Point of Care 313 (65-105)
[2020-04-03] MEDS: DOCUSATE SODIUM 100 MG CAPSULE PO (20:26)
[2020-04-03 20:39] LABS: Glucose Point of Care 244 (65-105)
[2020-04-03] MEDS: INSULIN ASPART (*BKC) 100 UNITS/ML 6 UNITS SUB-Q (21:35)
[2020-04-04] VITALS (15 sets, daily range): BP systolic 118–148; BP diastolic 63–82; PULSE 64–94; RESP 17–31; TEMP 36.4–37; O2SAT 92–98
[2020-04-04] MEDS: CENTRAL LINE FLUSH 10 ML IV PUSH ×3 (05:26→20:32)
[2020-04-04 06:05] LABS: INR 1.8; Prothrombin Time 20.6 Seconds (11.1-14.7)
[2020-04-04 06:30] LABS: Alanine Aminotransferase 58 U/L (4-50); Albumin Level 2.4 g/dL (3.5-5.1); Alkaline Phosphatase 70 U/L (38-126); Anion Gap 3 mmol/L (8-16); Aspartate Amino Transferase 39 U/L (17-59); Bilirubin,Total 0.5 mg/dL (0.2-1.3); Blood Urea Nitrogen 24 mg/dL (9-20); CRP 7.3 mg/dL (<1.0); Calcium 7.8 mg/dL (8.4-10.2); Carbon Dioxide 33 mmol/L (22-30); Chloride 99 mmol/L (98-107); Estimated CRCL calculation 124 ml/min; Estimated Glomerular Filt Rate > 60; Glucose 153 mg/dL (75-110); Lactate Dehydrogenase 1070 U/L (313-618); Magnesium 2.1 mg/dL (1.6-2.3); Potassium 4.2 mmol/L (3.4-5.0); Sodium 135 mmol/L (137-145)
[2020-04-04] MEDS: BENZOCAINE 20% HEMORRHOIDAL OINTMENT 28 GM 1 APPLIC TOPICAL ×2 (07:50→14:07)
[2020-04-04] MEDS: HYDROCORTISONE ACETATE 25 MG SUPPOSITORY RECTAL ×2 (07:54→20:31)
[2020-04-04] MEDS: BENZONATATE 100 MG CAPSULE 200 MG PO ×3 (07:54→17:11)
[2020-04-04] MEDS: TOLNAFTATE 1% POWDER 45 GM BTL 1 APPLIC TOPICAL ×2 (07:54→20:31)
[2020-04-04] MEDS: guaiFENesin 600 MG/DEXTROMETHORPHAN 30 MG SR TAB 12 HR 1 TAB PO ×2 (07:55→20:31)
[2020-04-04] MEDS: DEXAMETHASONE SOD PHOS INJ 4 MG/ML VIAL 6 MG IV PUSH (07:55)
[2020-04-04] MEDS: PANTOPRAZOLE 40 MG TABLET PO (07:56)
[2020-04-04] MEDS: hydroCHLOROthiazide 25 MG TABLET PO (07:56)
[2020-04-04] MEDS: SERTRALINE HCL 25 MG TABLET PO (07:56)
[2020-04-04] MEDS: INSULIN GLARGINE (*BKC) 100 UNITS/ML 10 UNITS SUB-Q (09:06)
[2020-04-04 09:17] LABS: Glucose Point of Care 107 (65-105)
[2020-04-04] MEDS: ALBUTEROL SULFATE (*SP) AEROSOL 1 PUFF 6 PUFF INHALATION ×3 (09:30→22:11)
--- NOTE | 2020-04-04 11:41 | WPDINTPN ---
Progress Note: A&P Assessment and Plan (1) Respiratory failure with hypoxia: Code(s): J96.91 - Respiratory failure, unspecified with hypoxia Status: Acute Assessment and Plan: acute respiratory failure with hypoxia due to COVID-19 pneumonia - currently on Airvo and non-rebreather mask. significantly hypoxic but not in any respiratory distress this moment - patient continues to be on 75% FiO2 and 60 L per minute flow - chest x-ray reviewed and shows no significant change from yesterday - continue bronchodilators - may still need intubation. Monitor closely - Lasix as needed. - incentive spirometry - up in chair as tolerated (2) Pneumonia due to COVID-19 virus: Code(s): U07.1 - COVID-19; J12.89 - Other viral pneumonia Status: Acute Assessment and Plan: SARS-CoV-2 PCR positive on 03/17/2020: Patient present with COVID-19 pneumonia along with hypoxia, cough - continue supplemental oxygen - Patient started on dexamethasone on 03/28/2020. - Patient has completed 5 day course of Remdesivir on 04/01 - received 1 unit of convalscent plasma on 03/29/2020 - continue Tessalon Perles and Mucinex for cough - monitor inflammatory markers which are showing some improvement - continue airborne, droplet, contact isolation /precautions (3) Supratherapeutic INR: Code(s): R79.1 - Abnormal coagulation profile Status: Acute (4) Dietary counseling and surveillance: Code(s): Z71.3 - Dietary counseling and surveillance Status: Acute Assessment and Plan: patient on heart healthy diet with supplements (5) Hyperglycemia: Code(s): R73.9 - Hyperglycemia, unspecified Status: Acute Assessment and Plan: likely secondary to steroids start sliding scale continue Lantus (6) Chronic anticoagulation: Code(s): 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 Patient will be given Coumadin now and then daily 5:00 p.m. I will cover him with Lovenox until INR is therapeutic Additional Plan DVT prophylaxis - Coumadin Stress ulcer prophylaxis - PPI Code Status - patient is full code Answered patient's questions. Critical care time spent: 30 minutes Due to a high probability of clinically significant, life threatening deterioration, the patient required my highest level of preparedness to intervene emergently and I personally spent this critical care time directly and personally managing the patient. This critical care time included obtaining a history; examining the patient; pulse oximetry; ordering and review of studies; arranging urgent treatment with development of a management plan; evaluation of patient's response to treatment; frequent reassessment; and discussions with other providers. It was exclusive of separately billable procedures and treating other patients and teaching time. Please see Assessment and Plan section and the rest of the note for further information on patient assessment and treatment Subjective Date/time seen: 04/04/20 Overnight events reviewed. Afebrile Continues to be on AirVo He feels his breathing is better today as compared to yesterday. Continues to have cough but is centrally dry Vitals acceptable review of system was positive for hemorrhoids Patient denies fever, chest pain, nausea, vomiting, abdominal pain, diarrhea, headache or constipation. Review of Systems Review of Systems: All systems reviewed & are unremarkable except as noted in HPI and below Exam Const: General: comfortable and no acute distress HENMT: Mouth: Yes dry mucous membranes Eyes: Sclera: sclerae nor
[2020-04-04] MEDS: ENOXAPARIN 120 MG/0.8 ML SYRINGE 105 MG SUB-Q ×2 (12:14→23:10)
[2020-04-04] MEDS: INSULIN ASPART (*BKC) 100 UNITS/ML SUB-Q ×2 (12:14→17:10)
[2020-04-04] MEDS: WARFARIN (*PBKC) 3 MG TABLET PO (12:17)
[2020-04-04 12:22] LABS: Glucose Point of Care 206 (65-105)
--- NOTE | 2020-04-04 13:55 | PM.IMPN ---
Progress Note: A&P Assessment and Plan (1) Pneumonia due to COVID-19 virus: Code(s): U07.1 - COVID-19; J12.89 - Other viral pneumonia Status: Acute Assessment and Plan: The patient is in ICU Therapy with Decadron. Remdesivir has been completed for 5 days. pt is sp plasma Pcat Instructor is on board pt is on AirVo (2) Respiratory failure with hypoxia: Code(s): J96.91 - Respiratory failure, unspecified with hypoxia Status: Acute Assessment and Plan: Patient is now on Airvo watch for respiratory improvement otherwise pt may need intubation. Decadron and Remdesivir have been initiated. Titrate oxygen as needed to maintain oxygen saturations between 88 and 92% (3) Supratherapeutic INR: Code(s): R79.1 - Abnormal coagulation profile Status: Acute Assessment and Plan: INRs have been ordered daily. Subjective Date/time seen: 04/04/20 13:55 Interval history: 79 year old male with a past medical history of asbestosis, hypertension and chronic anticoagulation who presented to the ER from urgent care via EMS due to low oxygen saturations.Pt is presently in icu for COVID and COVID pneumonia. PMH of Asbestosis, Essential HTN, chronic anticoagulation. Pt is on AirVo, continue to watch. Review of Systems Review of Systems: All systems reviewed & are unremarkable except as noted in HPI and below Exam Narrative: Exam Narrative: Pt is on AirVo Const: General: comfortable and no acute distress Chest: Breast/axilla inspection: Other (no retractions ) Resp: Effort & Inspection: normal respiratory effort Objective Data Vital Signs Vital Signs: Vital Signs - 24 hr 04/03/20 14:00 04/03/20 16:00 04/03/20 16:30 Temperature 36.8 C Pulse Rate 98 102 H Respiratory Rate 25 H 22 H Blood Pressure 121/85 132/77 Pulse Oximetry 98 95 88 L 04/03/20 18:00 04/03/20 20:00 04/03/20 20:50 Temperature 36.7 C Pulse Rate 92 82 90 Respiratory Rate 19 25 H 20 Blood Pressure 128/80 135/73 Pulse Oximetry 88 L 93 94 04/03/20 22:00 04/04/20 00:00 04/04/20 02:00 Temperature 37.0 C Pulse Rate 79 86 79 Respiratory Rate 26 H 31 H 28 H Blood Pressure 137/70 134/69 133/71 Pulse Oximetry 90 92 94 04/04/20 04:00 04/04/20 06:00 04/04/20 08:00 Temperature 36.6 C 36.4 C Pulse Rate 74 80 83 Respiratory Rate 20 18 18 Blood Pressure 132/67 140/72 138/82 Pulse Oximetry 95 94 93 04/04/20 09:30 04/04/20 09:51 04/04/20 12:00 Temperature 36.9 C Pulse Rate 93 70 Respiratory Rate 17 23 H Blood Pressure 138/82 143/73 H Pulse Oximetry 97 93 96 Intake/Output Intake/Output: Intake & Output 04/01/20 04/02/20 04/03/20 04/04/20 23:59 23:59 23:59 23:59 Intake Total 2360 2500 1940 650 Output Total 2900 2100 1375 675 Balance -540 400 565 -25 Meds/Results Medications: Active Medications Generic Name Dose Route Start Last Admin Trade Name Freq PRN Reason Stop Dose Admin Acetaminophen 650 mg 03/31/20 00:05 03/31/20 21:06 Tylenol Tablet PO 650 mg Q4H PRN Administration Mild Pain (1-3) or Fever Albuterol 6 puff 03/29/20 08:00 04/04/20 11:31 Proventil Hfa INHALATION Not Given QIDRT JONATAN Benzocaine 1 applic 04/03/20 04:58 04/04/20 07:50 Benzocaine 20% Hemorrhoidal Ointment 28 Gm TOPICAL 1 applic Q4H PRN Administration Rectal Pain Benzonatate 200 mg 03/29/20 09:00 04/04/20 12:17 Tessalon Perles PO 200 mg TID JONATAN Administration Bisacodyl 10 mg 03/31/20 10:10 Dulcolax Suppository RECTAL QAM PRN Constipation Dexamethasone Sodium Phosphate 6 mg 04/04/20 09:00 04/04/20 07:55 Dexamethasone Sod Phos Inj 4 Mg/Ml Vial IV PUSH 6 mg DAILY JONATAN Administration Dextrose 12.5 gm 04/02/20 11:25 Dextrose 50% 25 Gm/50 Ml Syringe IV PUSH PRN PRN Hypoglycemia Protocol Docusate Sodium 100 mg 03/31/20 21:00 04/03/20 20:26 Colace Capsule PO 100 mg HS JONATAN A
[2020-04-04] MEDS: ACETAMINOPHEN 325 MG TABLET 650 MG PO (14:07)
[2020-04-04 17:24] LABS: Glucose Point of Care 298 (65-105)
[2020-04-04] MEDS: DOCUSATE SODIUM 100 MG CAPSULE PO (20:31)
[2020-04-04 20:53] LABS: Glucose Point of Care 303 (65-105)
[2020-04-04] MEDS: INSULIN ASPART (*BKC) 100 UNITS/ML 6 UNITS SUB-Q (21:25)
[2020-04-05] VITALS (16 sets, daily range): BP systolic 110–151; BP diastolic 62–86; PULSE 72–103; RESP 16–27; TEMP 36.3–36.9; O2SAT 90–97
[2020-04-05] MEDS: CENTRAL LINE FLUSH 10 ML IV PUSH ×3 (05:20→20:03)
[2020-04-05 05:56] LABS: Hematocrit 37.7 % (42.0-52.0); Hemoglobin 12.2 g/dL (14.0-18.0); Mean Corpuscular HGB Conc 32.4 g/dl (32-36); Mean Corpuscular Hemoglobin 28.2 pg (26-34); Mean Corpuscular Volume 87.1 fl (80-100); Mean Platelet Volume 10.6 fl (7.4-10.4); Platelet Count Result 144 k/mm3 (150-375); Red Blood Count 4.33 M/mm3 (4.6-6.20); Red Cell Distribution Width 13.8 % (11.5-14.5); White Blood Count 10.5 K/mm3 (4.5-10.0)
[2020-04-05 06:10] LABS: INR 1.8; Prothrombin Time 20.6 Seconds (11.1-14.7)
[2020-04-05 06:49] LABS: Alanine Aminotransferase 72 U/L (4-50); Albumin Level 2.4 g/dL (3.5-5.1); Alkaline Phosphatase 71 U/L (38-126); Anion Gap 3 mmol/L (8-16); Aspartate Amino Transferase 54 U/L (17-59); Bilirubin,Total 0.5 mg/dL (0.2-1.3); Blood Urea Nitrogen 24 mg/dL (9-20); CRP 7.8 mg/dL (<1.0); Calcium 7.8 mg/dL (8.4-10.2); Carbon Dioxide 31 mmol/L (22-30); Chloride 99 mmol/L (98-107); Estimated CRCL calculation 105 ml/min; Estimated Glomerular Filt Rate > 60; Glucose 191 mg/dL (75-110); Lactate Dehydrogenase 1069 U/L (313-618); Magnesium 2.1 mg/dL (1.6-2.3); Potassium 4.5 mmol/L (3.4-5.0); Sodium 133 mmol/L (137-145)
[2020-04-05 07:01] LABS: D Dimer > 20.00 ug/mL (<0.48)
[2020-04-05] MEDS: BENZONATATE 100 MG CAPSULE 200 MG PO ×3 (07:45→20:02)
[2020-04-05] MEDS: PANTOPRAZOLE 40 MG TABLET PO (07:45)
[2020-04-05] MEDS: guaiFENesin 600 MG/DEXTROMETHORPHAN 30 MG SR TAB 12 HR 1 TAB PO ×2 (07:45→20:02)
[2020-04-05] MEDS: SERTRALINE HCL 25 MG TABLET PO (07:45)
[2020-04-05] MEDS: DEXAMETHASONE SOD PHOS INJ 4 MG/ML VIAL 6 MG IV PUSH (07:45)
[2020-04-05] MEDS: hydroCHLOROthiazide 25 MG TABLET PO (07:46)
[2020-04-05] MEDS: HYDROCORTISONE ACETATE 25 MG SUPPOSITORY RECTAL ×2 (07:46→20:02)
[2020-04-05] MEDS: INSULIN GLARGINE (*BKC) 100 UNITS/ML 10 UNITS SUB-Q (07:46)
[2020-04-05] MEDS: TOLNAFTATE 1% POWDER 45 GM BTL 1 APPLIC TOPICAL ×2 (07:46→20:03)
[2020-04-05] MEDS: BENZOCAINE 20% HEMORRHOIDAL OINTMENT 28 GM 1 APPLIC TOPICAL (07:47)
[2020-04-05 08:08] LABS: Glucose Point of Care 152 (65-105)
[2020-04-05] MEDS: ACETAMINOPHEN 325 MG TABLET 650 MG PO ×2 (08:22→22:11)
--- NOTE | 2020-04-05 08:27 | PC.NURSE ---
Patient sat at side of bed to attempt to eat, initially desaturated down to 64%, patient rested with NRB while sitting and was unable to maintain saturations above 85%. Patient returned to laying in bed with eventual increase in saturations greater than 90%
[2020-04-05] MEDS: ALBUTEROL SULFATE (*SP) AEROSOL 1 PUFF 6 PUFF INHALATION ×3 (08:31→14:44)
--- NOTE | 2020-04-05 10:00 | WPDINTPN ---
Progress Note: A&P Assessment and Plan (1) Respiratory failure with hypoxia: Code(s): J96.91 - Respiratory failure, unspecified with hypoxia Status: Acute Assessment and Plan: acute respiratory failure with hypoxia due to COVID-19 pneumonia - currently on Airvo and non-rebreather mask. significantly hypoxic but not in any respiratory distress this moment - patient continues to be on 75% FiO2 and 60 L per minute flow - chest x-ray reviewed and shows no significant change from yesterday and continues to have persistent bilateral infiltrates - continue bronchodilators - may still need intubation. Monitor closely - Lasix as needed. he is on HCTZ - incentive spirometry - daily up in chair as tolerated (2) Pneumonia due to COVID-19 virus: Code(s): U07.1 - COVID-19; J12.89 - Other viral pneumonia Status: Acute Assessment and Plan: SARS-CoV-2 PCR positive on 03/17/2020: Patient present with COVID-19 pneumonia along with hypoxia, cough - continue supplemental oxygen - Patient started on dexamethasone on 03/28/2020 and will complete 10 day course on 04/06 - Patient has completed 5 day course of Remdesivir on 04/01 - received 1 unit of convalscent plasma on 03/29/2020 - continue Tessalon Perles and Mucinex for cough - monitor inflammatory markers which are showing improvement but are still abnormal - continue airborne, droplet, contact isolation /precautions (3) Chronic anticoagulation: Code(s): 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 I will cover him with Lovenox until INR is therapeutic (4) Hyperglycemia: Code(s): R73.9 - Hyperglycemia, unspecified Status: Acute Assessment and Plan: likely secondary to steroids continue Lantus and sliding scale insulin (5) Dietary counseling and surveillance: Code(s): Z71.3 - Dietary counseling and surveillance Status: Acute Assessment and Plan: patient on heart healthy diet with supplements Additional Plan DVT prophylaxis - Coumadin and Lovenox Stress ulcer prophylaxis - PPI Code Status - patient is full code Answered patient's questions. Critical care time spent: 33 minutes Due to a high probability of clinically significant, life threatening deterioration, the patient required my highest level of preparedness to intervene emergently and I personally spent this critical care time directly and personally managing the patient. This critical care time included obtaining a history; examining the patient; pulse oximetry; ordering and review of studies; arranging urgent treatment with development of a management plan; evaluation of patient's response to treatment; frequent reassessment; and discussions with other providers. It was exclusive of separately billable procedures and treating other patients and teaching time. Please see Assessment and Plan section and the rest of the note for further information on patient assessment and treatment Subjective Date/time seen: 04/05/20 Overnight events reviewed. Afebrile . patient continues to be on 75% FiO2 and 60 L per minute flow Vitals acceptable He feels no different today than yesterday. Continues to be short of breath on exertion. continues to have dry cough. Constipation has resolved Patient denies fever, chest pain, nausea vomiting, abdominal pain,, diarrhea, headache or constipation. Interval history: 79 year old male with a past medical history of asbestosis, hypertension and chronic anticoagulation who presented to the ER from urgent care via EMS due to low oxygen saturations.Pt is presently in icu for COVID and COVID pneumonia. PMH of Asbestosis, Essential HTN, chronic anticoagulation. Pt is on AirVo, cont
[2020-04-05] MEDS: ENOXAPARIN 120 MG/0.8 ML SYRINGE 105 MG SUB-Q (12:12)
[2020-04-05] MEDS: INSULIN ASPART (*BKC) 100 UNITS/ML SUB-Q ×2 (12:12→17:00)
[2020-04-05 12:17] LABS: Glucose Point of Care 307 (65-105)
[2020-04-05] MEDS: WARFARIN (*PBKC) 3 MG TABLET PO (17:00)
[2020-04-05 17:09] LABS: Glucose Point of Care 335 (65-105)
--- NOTE | 2020-04-05 18:01 | PM.IMPN ---
Progress Note: A&P Assessment and Plan (1) Pneumonia due to COVID-19 virus: Code(s): U07.1 - COVID-19; J12.89 - Other viral pneumonia Status: Acute Assessment and Plan: The patient is in ICU Therapy with Decadron. Remdesivir has been completed for 5 days. pt is sp plasma Telecasting Technician is on board Pt is on AirVo (2) Respiratory failure with hypoxia: Code(s): J96.91 - Respiratory failure, unspecified with hypoxia Status: Acute Assessment and Plan: Patient is now on Airvo watch for respiratory improvement otherwise pt may need intubation. Decadron and Remdesivir have been initiated. Titrate oxygen as needed to maintain oxygen saturations between 88 and 92% (3) Supratherapeutic INR: Code(s): R79.1 - Abnormal coagulation profile Status: Acute Assessment and Plan: INRs have been ordered daily. Subjective Date/time seen: 04/05/20 18:01 Interval history: 79 year old male with a past medical history of asbestosis, hypertension and chronic anticoagulation who presented to the ER from urgent care via EMS due to low oxygen saturations.Pt is presently in icu for COVID and COVID pneumonia. PMH of Asbestosis, Essential HTN, chronic anticoagulation. Pt is on AirVo, continue to watch. Pleasant man. Review of Systems Review of Systems: All systems reviewed & are unremarkable except as noted in HPI and below Exam Narrative: Exam Narrative: Pt is on AirVo. Albertina man. Const: General: comfortable and no acute distress HENMT: General nose exam: Normal nares present Neck: Other: no retraction Chest: Breast/axilla inspection: Other (no retractions ) Resp: Effort & Inspection: normal respiratory effort GI: Other: not distended Skin: General skin exam: normal color Extrem: General: normal to inspection Psych: Affect: Anxious affect present Objective Data Vital Signs Vital Signs: Vital Signs - 24 hr 04/04/20 20:00 04/04/20 22:00 04/04/20 22:15 Temperature 36.7 C Pulse Rate 75 87 83 Respiratory Rate 19 20 28 H Blood Pressure 126/68 148/75 H Pulse Oximetry 98 97 93 04/05/20 00:00 04/05/20 02:00 04/05/20 04:00 Temperature 36.4 C 36.3 C L Pulse Rate 75 72 76 Respiratory Rate 24 H 25 H 16 Blood Pressure 117/62 116/66 151/69 H Pulse Oximetry 93 95 92 04/05/20 06:00 04/05/20 08:00 04/05/20 08:32 Temperature 36.6 C Pulse Rate 73 82 83 Respiratory Rate 27 H 24 H 24 H Blood Pressure 128/70 150/85 H Pulse Oximetry 92 91 90 04/05/20 10:00 04/05/20 12:00 04/05/20 14:00 Temperature 36.6 C Pulse Rate 85 91 91 Respiratory Rate 20 25 H 22 H Blood Pressure 110/68 132/86 Pulse Oximetry 95 96 96 04/05/20 16:00 04/05/20 17:23 Temperature 36.9 C Pulse Rate 94 99 Respiratory Rate 24 H Blood Pressure 122/79 Pulse Oximetry 94 Intake/Output Intake/Output: Intake & Output 04/02/20 04/03/20 04/04/20 04/05/20 23:59 23:59 23:59 23:59 Intake Total 2500 1940 1750 1510 Output Total 2100 1375 2200 1525 Balance 400 565 -450 -15 Meds/Results Medications: Active Medications Generic Name Dose Route Start Last Admin Trade Name Freq PRN Reason Stop Dose Admin Acetaminophen 650 mg 03/31/20 00:05 04/05/20 08:22 Acetaminophen 325 Mg Tablet PO 650 mg Q4H PRN Administration Mild Pain (1-3) or Fever Albuterol 6 puff 03/29/20 08:00 04/05/20 14:44 Proventil Hfa INHALATION 6 puff QIDRT JONATAN Administration Benzocaine 1 applic 04/03/20 04:58 04/05/20 07:47 Benzocaine 20% Hemorrhoidal Ointment 28 Gm TOPICAL 1 applic Q4H PRN Administration Rectal Pain Benzonatate 200 mg 04/05/20 11:43 04/05/20 12:15 Benzonatate 100 Mg Capsule PO 200 mg TID PRN Administration Cough Bisacodyl 10 mg 03/31/20 10:10 Dulcolax Suppository RECTAL QAM PRN Constipation Dexamethasone Sodium Phosphate 6 mg 04/04/20 09:00 04/05/20 07:45 Dexamethasone Sod Phos Inj 4 Mg/Ml V
[2020-04-05] MEDS: DOCUSATE SODIUM 100 MG CAPSULE PO (20:03)
[2020-04-05 20:18] LABS: Glucose Point of Care 331 (65-105)
[2020-04-05] MEDS: INSULIN ASPART (*BKC) 100 UNITS/ML 6 UNITS SUB-Q (20:49)
[2020-04-06] VITALS (15 sets, daily range): BP systolic 110–141; BP diastolic 61–93; PULSE 65–99; RESP 13–26; TEMP 36.4–36.8; O2SAT 90–97
[2020-04-06] MEDS: ENOXAPARIN 120 MG/0.8 ML SYRINGE 105 MG SUB-Q ×2 (00:27→12:08)
[2020-04-06 06:09] LABS: Hematocrit 36.7 % (42.0-52.0); Hemoglobin 11.8 g/dL (14.0-18.0); Mean Corpuscular HGB Conc 32.2 g/dl (32-36); Mean Corpuscular Hemoglobin 27.6 pg (26-34); Mean Corpuscular Volume 85.7 fl (80-100); Mean Platelet Volume 10.3 fl (7.4-10.4); Platelet Count Result 178 k/mm3 (150-375); Red Blood Count 4.28 M/mm3 (4.6-6.20); Red Cell Distribution Width 14.1 % (11.5-14.5); White Blood Count 11.5 K/mm3 (4.5-10.0)
[2020-04-06 06:18] LABS: INR 1.9; Prothrombin Time 20.9 Seconds (11.1-14.7)
[2020-04-06 06:22] LABS: Alanine Aminotransferase 73 U/L (4-50); Albumin Level 2.5 g/dL (3.5-5.1); Alkaline Phosphatase 78 U/L (38-126); Anion Gap 3 mmol/L (8-16); Aspartate Amino Transferase 44 U/L (17-59); Bilirubin,Total 0.3 mg/dL (0.2-1.3); Blood Urea Nitrogen 24 mg/dL (9-20); Carbon Dioxide 34 mmol/L (22-30); Chloride 98 mmol/L (98-107); Estimated CRCL calculation 123 ml/min; Estimated Glomerular Filt Rate > 60; Glucose 161 mg/dL (75-110); Magnesium 2.2 mg/dL (1.6-2.3); Potassium 4.1 mmol/L (3.4-5.0); Sodium 135 mmol/L (137-145)
[2020-04-06] MEDS: CENTRAL LINE FLUSH 10 ML IV PUSH ×3 (06:59→21:10)
[2020-04-06] MEDS: DEXAMETHASONE SOD PHOS INJ 4 MG/ML VIAL 6 MG IV PUSH (08:15)
[2020-04-06] MEDS: HYDROCORTISONE ACETATE 25 MG SUPPOSITORY RECTAL ×2 (08:15→20:05)
[2020-04-06] MEDS: guaiFENesin 600 MG/DEXTROMETHORPHAN 30 MG SR TAB 12 HR 1 TAB PO ×2 (08:15→20:04)
[2020-04-06] MEDS: PANTOPRAZOLE 40 MG TABLET PO (08:15)
[2020-04-06] MEDS: hydroCHLOROthiazide 25 MG TABLET PO (08:15)
[2020-04-06] MEDS: SERTRALINE HCL 25 MG TABLET PO (08:15)
[2020-04-06] MEDS: INSULIN GLARGINE (*BKC) 100 UNITS/ML 14 UNITS SUB-Q (08:16)
[2020-04-06] MEDS: TOLNAFTATE 1% POWDER 45 GM BTL 1 APPLIC TOPICAL ×2 (08:16→20:06)
[2020-04-06 08:35] LABS: Glucose Point of Care 117 (65-105)
[2020-04-06] MEDS: ALBUTEROL SULFATE (*SP) AEROSOL 1 PUFF 6 PUFF INHALATION ×4 (09:08→21:45)
--- NOTE | 2020-04-06 09:17 | WPDINTPN ---
Progress Note: A&P Assessment and Plan (1) Respiratory failure with hypoxia: Code(s): J96.91 - Respiratory failure, unspecified with hypoxia Status: Acute Assessment and Plan: acute respiratory failure with hypoxia due to COVID-19 pneumonia - currently on Airvo and non-rebreather mask. significantly hypoxic but not in any respiratory distress this moment - patient continues to be on 75% FiO2 and 60 L per minute flow - chest x-ray reviewed and shows no significant change from yesterday and continues to have persistent bilateral infiltrates - continue bronchodilators - may still need intubation. Monitor closely - Lasix as needed. he is on HCTZ - incentive spirometry - daily up in chair as tolerated (2) Pneumonia due to COVID-19 virus: Code(s): U07.1 - COVID-19; J12.89 - Other viral pneumonia Status: Acute Assessment and Plan: SARS-CoV-2 PCR positive on 03/17/2020: Patient present with COVID-19 pneumonia along with hypoxia, cough - continue supplemental oxygen - Patient started on dexamethasone on 03/28/2020 and will complete 10 day course on 04/06 - Patient has completed 5 day course of Remdesivir on 04/01 - received 1 unit of convalscent plasma on 03/29/2020 - continue Tessalon Perles and Mucinex for cough - monitor inflammatory markers which are showing improvement but are still abnormal - continue airborne, droplet, contact isolation /precautions (3) Chronic anticoagulation: 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 I will cover him with Lovenox until INR is therapeutic (4) Hyperglycemia: Code(s): R73.9 - Hyperglycemia, unspecified Status: Acute Assessment and Plan: likely secondary to steroids continue high-dose sliding scale insulin and Accu-Cheks - will increase Lantus due to hyperglycemia (5) Dietary counseling and surveillance: Code(s): Z71.3 - Dietary counseling and surveillance Status: Acute Assessment and Plan: patient on heart healthy diet with supplements, good appetite, positive bowel movements - stress ulcer prophylaxis: ppi (6) DVT prophylaxis: Code(s): Z29.9 - Encounter for prophylactic measures, unspecified Status: Acute Assessment and Plan: DVT prophylaxis: Coumadin, therapeutic Lovenox until patient has a therapeutic INR Additional Plan discussed with patient and tall as concerns regarding sitting up in the chair for only 2-3 hours. Code Status - patient is full code Critical care time spent: 31 minutes Due to a high probability of clinically significant, life threatening deterioration, the patient required my highest level of preparedness to intervene emergently and I personally spent this critical care time directly and personally managing the patient. This critical care time included obtaining a history; examining the patient; pulse oximetry; ordering and review of studies; arranging urgent treatment with development of a management plan; evaluation of patient's response to treatment; frequent reassessment; and discussions with other providers. It was exclusive of separately billable procedures and treating other patients and teaching time. Please see Assessment and Plan section and the rest of the note for further information on patient assessment and treatment Subjective Date/time seen: 04/06/20 09:17 Interval history: 79 year old male with a past medical history of asbestosis, hypertension and chronic anticoagulation who presented to the ER from urgent care via EMS due to low oxygen saturations.Pt is presently in icu for COVID and COVID pneumonia. PMH of Asbestosis, Essential HTN, chronic anticoagulation. 04/06/2020: patient timbo
--- NOTE | 2020-04-06 11:59 | PCDIET ---
ICU Rounding Note: Patient continues to consume 100% of meals on diabetic diet with Thrive TID. Last recorded weight is 103.8kg which is stable. Bowel Motility: BM x 2 on 04/05/20. Labs Reviewed: Hgb (11.8), Hct (36.7), Glu (161), BUN (24), Cr (0.5), Na (135), Alb (2.5), Av Ca (9.2) Meds Noted: Albuterol, Decadron, Colace, Hydrochlorothiazide, Novolog, Lantus, Protonix, Miralax, Coumadin Additional Notes: No documented skin breakdown. Following daily in ICU rounds. Assessing/reassessing every 5 days.
[2020-04-06] MEDS: ALPRAZolam (*CRX) 0.25 MG TABLET PO (12:08)
[2020-04-06] MEDS: INSULIN ASPART (*BKC) 100 UNITS/ML SUB-Q ×2 (12:08→17:01)
[2020-04-06 12:29] LABS: Glucose Point of Care 314 (65-105)
[2020-04-06] MEDS: WARFARIN (*PBKC) 3 MG TABLET PO (17:01)
[2020-04-06 17:06] LABS: Glucose Point of Care 279 (65-105)
--- NOTE | 2020-04-06 17:22 | PM.IMPN ---
Progress Note: A&P Assessment and Plan (1) Pneumonia due to COVID-19 virus: Code(s): U07.1 - COVID-19; J12.89 - Other viral pneumonia Status: Acute Assessment and Plan: The patient is in ICU Therapy with Decadron. Remdesivir has been completed for 5 days. pt is sp plasma Sewer is on board Pt is on AirVo 04/06/20 17:22 patient with a COVID-19 has completed dexamethasone, remdesivir, and received 1 unit of plasma, patient still requiring high-flow oxygen on non-rebreather, patient is a good appetite patient seen by finance advisor however patient still requiring high-flow oxygen will continue to monitor and further recommendation to follow (2) Respiratory failure with hypoxia: Code(s): J96.91 - Respiratory failure, unspecified with hypoxia Status: Acute Assessment and Plan: Patient is now on Airvo watch for respiratory improvement otherwise pt may need intubation. Decadron and Remdesivir have been initiated. Titrate oxygen as needed to maintain oxygen saturations between 88 and 92% (3) Supratherapeutic INR: Code(s): R79.1 - Abnormal coagulation profile Status: Acute Assessment and Plan: INRs have been ordered daily. Subjective Date/time seen: 04/06/20 17:22 patient with a COVID-19 has completed dexamethasone, remdesivir, and received 1 unit of plasma, patient still requiring high-flow oxygen on non-rebreather, patient is a good appetite patient seen by finance advisor however patient still requiring high-flow oxygen will continue to monitor and further recommendation to follow Review of Systems Review of Systems: ROS unobtainable: Yes unobtainable due to medical condition Exam Narrative: Exam Narrative: Pt is on AirVo. Pleasant man. patient is seen outside his glass door. Const: General: comfortable and no acute distress HENMT: General nose exam: Normal nares present Neck: Other: no retraction Chest: Breast/axilla inspection: Other (no retractions ) Resp: Effort & Inspection: normal respiratory effort GI: Other: not distended Skin: General skin exam: normal color Extrem: General: normal to inspection Psych: Affect: Anxious affect present Objective Data Vital Signs Vital Signs: Vital Signs - 24 hr 04/05/20 17:23 04/05/20 18:00 04/05/20 19:22 Temperature Pulse Rate 99 103 H 89 Respiratory Rate 24 H 25 H Blood Pressure 135/69 Pulse Oximetry 91 97 04/05/20 20:00 04/05/20 21:29 04/05/20 22:00 Temperature 97.9 F Pulse Rate 94 95 96 Respiratory Rate 17 22 H Blood Pressure 129/65 146/82 H Pulse Oximetry 92 92 04/06/20 00:00 04/06/20 02:00 04/06/20 04:00 Temperature 98.0 F 97.5 F L Pulse Rate 76 76 68 Respiratory Rate 23 H 13 19 Blood Pressure 139/84 125/75 141/78 H Pulse Oximetry 95 95 95 04/06/20 06:00 04/06/20 08:00 04/06/20 09:09 Temperature 97.5 F L Pulse Rate 81 90 90 Respiratory Rate 26 H 25 H 25 H Blood Pressure 118/80 133/78 Pulse Oximetry 95 97 97 04/06/20 10:00 04/06/20 12:00 04/06/20 14:00 Temperature 97.6 F Pulse Rate 78 91 79 Respiratory Rate 22 H 24 H 20 Blood Pressure 110/63 139/93 H 122/74 Pulse Oximetry 93 96 96 04/06/20 16:00 Temperature 97.5 F L Pulse Rate 94 Respiratory Rate 21 H Blood Pressure 118/64 Pulse Oximetry 92 Intake/Output Intake/Output: Intake & Output 04/03/20 04/04/20 04/05/20 04/06/20 23:59 23:59 23:59 23:59 Intake Total 1940 1750 1510 1200 Output Total 1375 2200 1925 1775 Balance 565 -450 -415 -575 Meds/Results Medications: Active Medications Generic Name Dose Route Start Last Admin Trade Name Freq PRN Reason Stop Dose Admin Acetaminophen 650 mg 03/31/20 00:05 04/05/20 22:11 Acetaminophen 325 Mg Tablet PO 650 mg Q4H PRN Administration Mild Pain (1-3) or Fever Albuterol 6 puff 03/29/20 08:00 04/06/20 17:00 Proventil Hfa INHALATION Not Given QIDRT JONATAN Alprazolam 0.25 mg 04/06/20 10:
[2020-04-06] MEDS: DOCUSATE SODIUM 100 MG CAPSULE PO (20:04)
[2020-04-06] MEDS: BENZOCAINE 20% HEMORRHOIDAL OINTMENT 28 GM 1 APPLIC TOPICAL (20:14)
[2020-04-06 20:34] LABS: Glucose Point of Care 279 (65-105)
[2020-04-07] VITALS (17 sets, daily range): BP systolic 91–156; BP diastolic 60–89; PULSE 66–120; RESP 19–28; TEMP 35.9–37.7; O2SAT 92–97
[2020-04-07] MEDS: ENOXAPARIN 120 MG/0.8 ML SYRINGE 105 MG SUB-Q ×2 (00:10→11:45)
[2020-04-07 04:54] LABS: Hematocrit 37.1 % (42.0-52.0); Hemoglobin 12.4 g/dL (14.0-18.0); Mean Corpuscular HGB Conc 33.4 g/dl (32-36); Mean Corpuscular Volume 86.9 fl (80-100); Mean Platelet Volume 10.4 fl (7.4-10.4); Platelet Count Result 185 k/mm3 (150-375); Red Blood Count 4.27 M/mm3 (4.6-6.20); Red Cell Distribution Width 14.1 % (11.5-14.5); White Blood Count 11.8 K/mm3 (4.5-10.0)
[2020-04-07 05:04] LABS: INR 1.7; Prothrombin Time 19.9 Seconds (11.1-14.7)
[2020-04-07 05:35] LABS: D Dimer 9.55 ug/mL (<0.48)
[2020-04-07] MEDS: CENTRAL LINE FLUSH 10 ML IV PUSH ×3 (05:45→21:30)
[2020-04-07 06:24] LABS: Alanine Aminotransferase 77 U/L (4-50); Albumin Level 2.5 g/dL (3.5-5.1); Alkaline Phosphatase 81 U/L (38-126); Anion Gap 0 mmol/L (8-16); Aspartate Amino Transferase 50 U/L (17-59); Bilirubin,Total 0.5 mg/dL (0.2-1.3); Blood Urea Nitrogen 21 mg/dL (9-20); CRP 5.8 mg/dL (<1.0); Calcium 8.1 mg/dL (8.4-10.2); Carbon Dioxide 37 mmol/L (22-30); Chloride 96 mmol/L (98-107); Estimated CRCL calculation 123 ml/min; Estimated Glomerular Filt Rate > 60; Glucose 204 mg/dL (75-110); Lactate Dehydrogenase 903 U/L (313-618); Magnesium 2.2 mg/dL (1.6-2.3); Phosphorus 3.6 mg/dL (2.5-4.5); Potassium 4.4 mmol/L (3.4-5.0); Sodium 133 mmol/L (137-145)
[2020-04-07] MEDS: HYDROCORTISONE ACETATE 25 MG SUPPOSITORY RECTAL ×2 (08:18→20:06)
[2020-04-07] MEDS: INSULIN GLARGINE (*BKC) 100 UNITS/ML 18 UNITS SUB-Q (08:18)
[2020-04-07] MEDS: SERTRALINE HCL 25 MG TABLET PO (08:18)
[2020-04-07] MEDS: hydroCHLOROthiazide 25 MG TABLET PO (08:18)
[2020-04-07] MEDS: guaiFENesin 600 MG/DEXTROMETHORPHAN 30 MG SR TAB 12 HR 1 TAB PO ×2 (08:18→20:06)
[2020-04-07] MEDS: PANTOPRAZOLE 40 MG TABLET PO (08:18)
[2020-04-07] MEDS: TOLNAFTATE 1% POWDER 45 GM BTL 1 APPLIC TOPICAL ×2 (08:19→20:07)
[2020-04-07 08:28] LABS: Glucose Point of Care 113 (65-105)
--- NOTE | 2020-04-07 09:11 | P.PNINT_ITS ---
Progress Note: A&P Assessment and Plan (1) Respiratory failure with hypoxia: Code(s): J96.91 - Respiratory failure, unspecified with hypoxia Status: Acute Assessment and Plan: acute respiratory failure with hypoxia due to COVID-19 pneumonia - currently on Airvo and non-rebreather mask. significantly hypoxic but not in any respiratory distress this moment - patient continues to be on 75% FiO2 and 60 L per minute flow - chest x-ray reviewed and shows no significant change from yesterday and continues to have persistent bilateral infiltrates - continue bronchodilators - may still need intubation. Monitor closely - Lasix as needed. he is on HCTZ - incentive spirometry - daily up in chair as tolerated (2) Pneumonia due to COVID-19 virus: Code(s): U07.1 - COVID-19; J12.89 - Other viral pneumonia Status: Acute Assessment and Plan: SARS-CoV-2 PCR positive on 03/17/2020: Patient present with COVID-19 pneumonia along with hypoxia, cough - continue supplemental oxygen - Patient started on dexamethasone on 03/28/2020 and will complete 10 day course on 04/06 - Patient has completed 5 day course of Remdesivir on 04/01 - received 1 unit of convalscent plasma on 03/29/2020 - continue Tessalon Perles and Mucinex for cough - monitor inflammatory markers which are showing improvement but are still abnormal - continue airborne, droplet, contact isolation /precautions (3) Chronic anticoagulation: Code(s): Z79.01 - 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 I will cover him with Lovenox until INR is therapeutic (4) Hyperglycemia: Code(s): R73.9 - Hyperglycemia, unspecified Status: Acute Assessment and Plan: likely secondary to steroids continue high-dose sliding scale insulin and Accu-Cheks - will increase Lantus due to hyperglycemia (5) Dietary counseling and surveillance: Code(s): Z71.3 - Dietary counseling and surveillance Status: Acute Assessment and Plan: patient on heart healthy diet with supplements, good appetite, positive bowel movements - stress ulcer prophylaxis: ppi (6) DVT prophylaxis: Code(s): Z29.9 - Encounter for prophylactic measures, unspecified Status: Acute Assessment and Plan: DVT prophylaxis: Coumadin, therapeutic Lovenox until patient has a therapeutic INR Additional Plan discussed with patient and tall as concerns regarding sitting up in the chair for only 2-3 hours. Code Status - patient is full code Critical care time spent: 31 minutes Due to a high probability of clinically significant, life threatening deterioration, the patient required my highest level of preparedness to intervene emergently and I personally spent this critical care time directly and personally managing the patient. This critical care time included obtaining a history; examining the patient; pulse oximetry; ordering and review of studies; arranging urgent treatment with development of a management plan; evaluation of patient's response to treatment; frequent reassessment; and discussions with other providers. It was exclusive of separately billable procedures and treating other patients and teaching time. Please see Assessment and Plan section and the rest of the note for further information on patient assessment and treatment Subjective Date/time seen: 04/07/20 09:1
--- NOTE | 2020-04-07 11:15 | PCDIET ---
ICU Rounding Note: Patient continues to eat 100% of meals on diabetic diet with Thrive TID. Last recorded weight is 103.6kg which is stable. Bowel Motility: BM x 1 today. Labs Reviewed: Hgb (12.4), Hct (37.1), Glu (204), BUN (21), Cr (0.5), Na (133), Alb (2.5) Meds Noted: Albuterol, Colace, Hydrochlorothiazide, Novolog, Lantus, Protonix, Coumadin Additional Notes: No skin breakdown documented. Following daily in ICU rounds. Assessing/reassessing every 5 days.
[2020-04-07] MEDS: BENZONATATE 100 MG CAPSULE 200 MG PO ×2 (11:44→17:18)
[2020-04-07] MEDS: ACETAMINOPHEN 325 MG TABLET 650 MG PO ×2 (11:46→20:05)
[2020-04-07 11:53] LABS: Glucose Point of Care 172 (65-105)
[2020-04-07] MEDS: ALPRAZolam (*CRX) 0.25 MG TABLET PO (15:22)
[2020-04-07] MEDS: WARFARIN (*PBKC) 3 MG TABLET PO (17:18)
[2020-04-07 17:26] LABS: Glucose Point of Care 183 (65-105)
--- NOTE | 2020-04-07 17:31 | PM.IMPN ---
Progress Note: A&P Assessment and Plan (1) Pneumonia due to COVID-19 virus: Code(s): U07.1 - COVID-19; J12.89 - Other viral pneumonia Status: Acute Assessment and Plan: The patient is in ICU Therapy with Decadron. Remdesivir has been completed for 5 days. pt is sp plasma Ticket Marker is on board Pt is on AirVo 04/07/20 17:31 patient with a COVID-19 has completed dexamethasone, remdesivir, and received 1 unit of plasma, patient still requiring high-flow oxygen on non-rebreather, today patient is sitting in the chair, patient has a good appetite patient seen by tank truck driver however patient still requiring high-flow oxygen will continue to monitor and further recommendation to follow (2) Respiratory failure with hypoxia: Code(s): J96.91 - Respiratory failure, unspecified with hypoxia Status: Acute Assessment and Plan: Patient is now on Airvo watch for respiratory improvement otherwise pt may need intubation. Decadron and Remdesivir have been initiated and completed Titrate oxygen as needed to maintain oxygen saturations between 88 and 92% (3) Supratherapeutic INR: Code(s): R79.1 - Abnormal coagulation profile Status: Acute Assessment and Plan: INRs have been ordered daily. it is 1.7 Subjective Date/time seen: 04/07/20 17:31 patient with a COVID-19 has completed dexamethasone, remdesivir, and received 1 unit of plasma, patient still requiring high-flow oxygen on non-rebreather, today patient is sitting in the chair, patient has a good appetite patient seen by tank truck driver however patient still requiring high-flow oxygen will continue to monitor and further recommendation to follow Review of Systems Review of Systems: ROS unobtainable: Yes unobtainable due to medical condition Exam Narrative: Exam Narrative: Pt is on AirVo. Pleasant man. patient is seen outside his glass door. patient is sitting in the chair, is talking on cell phone Const: General: comfortable and no acute distress HENMT: General nose exam: Normal nares present Neck: Other: no retraction Chest: Breast/axilla inspection: Other (no retractions ) Resp: Effort & Inspection: normal respiratory effort GI: Other: not distended Skin: General skin exam: normal color Extrem: General: normal to inspection Psych: Affect: Anxious affect present Objective Data Vital Signs Vital Signs: Vital Signs - 24 hr 04/06/20 18:00 04/06/20 19:52 04/06/20 20:00 Temperature 98.2 F Pulse Rate 99 92 Respiratory Rate 16 19 Blood Pressure 113/68 134/82 Pulse Oximetry 95 96 96 04/06/20 21:50 04/06/20 22:00 04/07/20 00:00 Temperature 98.2 F Pulse Rate 86 77 69 Respiratory Rate 24 H 20 19 Blood Pressure 114/61 131/70 Pulse Oximetry 94 90 92 04/07/20 02:00 04/07/20 04:00 04/07/20 06:00 Temperature 96.7 F L Pulse Rate 75 66 78 Respiratory Rate 21 H 20 23 H Blood Pressure 123/72 126/72 134/74 Pulse Oximetry 94 94 96 04/07/20 08:00 04/07/20 09:59 04/07/20 10:00 Temperature 97.2 F L Pulse Rate 67 99 84 Respiratory Rate 24 H 20 Blood Pressure 145/77 H 116/71 Pulse Oximetry 92 92 04/07/20 12:00 04/07/20 14:00 04/07/20 16:00 Temperature 97.7 F 98.2 F Pulse Rate 113 H 120 H 107 H Respiratory Rate 27 H 26 H 21 H Blood Pressure 117/84 91/60 L 145/86 H Pulse Oximetry 92 97 93 Intake/Output Intake/Output: Intake & Output 04/04/20 04/05/20 04/06/20 04/07/20 23:59 23:59 23:59 23:59 Intake Total 1750 1510 1680 1300 Output Total 2200 1925 2450 1600 Balance -450 -415 -770 -300 Meds/Results Medications: Active Medications Generic Name Dose Route Start Last Admin Trade Name Freq PRN Reason Stop Dose Admin Acetaminophen 650 mg 03/31/20 00:05 04/07/20 11:46 Acetaminophen 325 Mg Tablet PO 650 mg Q4H PRN Administration Mild Pain (1-3) or Fever Albuterol 6 puff 03/29/20 08:00 04/06/20 21:45 Proventil Hfa INHALATION 6 pu
[2020-04-07] MEDS: BENZOCAINE 20% HEMORRHOIDAL OINTMENT 28 GM 1 APPLIC TOPICAL (20:07)
[2020-04-07] MEDS: DOCUSATE SODIUM 100 MG CAPSULE PO (20:07)
[2020-04-07 20:53] LABS: Glucose Point of Care 219 (65-105)
[2020-04-07] MEDS: ALBUTEROL SULFATE (*SP) AEROSOL 1 PUFF 6 PUFF INHALATION (21:06)
[2020-04-08] VITALS (15 sets, daily range): BP systolic 104–142; BP diastolic 47–92; PULSE 72–118; RESP 13–29; TEMP 36.9–38.1; O2SAT 91–98
[2020-04-08] MEDS: ENOXAPARIN 120 MG/0.8 ML SYRINGE 105 MG SUB-Q ×3 (00:55→23:03)
[2020-04-08 04:17] LABS: Hemoglobin 12.3 g/dL (14.0-18.0); Mean Corpuscular HGB Conc 33.2 g/dl (32-36); Mean Corpuscular Hemoglobin 28.8 pg (26-34); Mean Corpuscular Volume 86.7 fl (80-100); Mean Platelet Volume 10.1 fl (7.4-10.4); Platelet Count Result 191 k/mm3 (150-375); Red Blood Count 4.27 M/mm3 (4.6-6.20); Red Cell Distribution Width 14.3 % (11.5-14.5)
[2020-04-08 04:31] LABS: INR 1.4; Prothrombin Time 16.3 Seconds (11.1-14.7)
[2020-04-08 04:40] LABS: Alanine Aminotransferase 97 U/L (4-50); Albumin Level 2.6 g/dL (3.5-5.1); Alkaline Phosphatase 84 U/L (38-126); Anion Gap 4 mmol/L (8-16); Aspartate Amino Transferase 53 U/L (17-59); Bilirubin,Total 0.4 mg/dL (0.2-1.3); Blood Urea Nitrogen 22 mg/dL (9-20); Calcium 8.1 mg/dL (8.4-10.2); Carbon Dioxide 34 mmol/L (22-30); Chloride 97 mmol/L (98-107); Estimated CRCL calculation 104 ml/min; Estimated Glomerular Filt Rate > 60; Glucose 147 mg/dL (75-110); Magnesium 2.1 mg/dL (1.6-2.3); Phosphorus 4.2 mg/dL (2.5-4.5); Sodium 135 mmol/L (137-145)
[2020-04-08] MEDS: CENTRAL LINE FLUSH 10 ML IV PUSH ×3 (05:35→21:45)
[2020-04-08] MEDS: BENZOCAINE 20% HEMORRHOIDAL OINTMENT 28 GM 1 APPLIC TOPICAL ×2 (07:11→13:13)
[2020-04-08] MEDS: ALBUTEROL SULFATE (*SP) AEROSOL 1 PUFF 6 PUFF INHALATION ×5 (08:20→20:21)
--- NOTE | 2020-04-08 09:23 | WPDINTPN ---
Progress Note: A&P Assessment and Plan (1) Respiratory failure with hypoxia: Code(s): J96.91 - Respiratory failure, unspecified with hypoxia Status: Acute Assessment and Plan: acute respiratory failure with hypoxia due to COVID-19 pneumonia - currently on Airvo and non-rebreather mask. significantly hypoxic but not in any respiratory distress this moment - patient continues to be on 75% FiO2 and 60 L per minute flow - chest x-ray reviewed and shows no significant change from yesterday and continues to have persistent bilateral infiltrates - continue bronchodilators - remains on HCTZ, - continue incentive spirometry - daily up in chair as tolerated (2) Pneumonia due to COVID-19 virus: Code(s): U07.1 - COVID-19; J12.89 - Other viral pneumonia Status: Acute Assessment and Plan: SARS-CoV-2 PCR positive on 03/17/2020: Patient present with COVID-19 pneumonia along with hypoxia, cough - continue supplemental oxygen - completed 10 day course of dexamethasone on 04/06 - completed a 5 day course of Remdesivir on 04/01 - received 1 unit of convalscent plasma on 03/29/2020 - continue Tessalon Perles and Mucinex for cough - monitor inflammatory markers which are showing improvement but are still abnormal - continue airborne, droplet, contact isolation /precautions (3) Chronic anticoagulation: Code(s): 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 Status: Acute Assessment and Plan: 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, earlier he was supratherapeutic and Coumadin was on hold INR 1.4 today will increase Coumadin, daily PT/INR, PTT I will cover him with Lovenox until INR is therapeutic (4) Hyperglycemia: Code(s): R73.9 - Hyperglycemia, unspecified Status: Acute Assessment and Plan: likely secondary to steroids continue high-dose sliding scale insulin and Accu-Cheks - continue Lantus (5) Dietary counseling and surveillance: Code(s): Z71.3 - Dietary counseling and surveillance Status: Acute Assessment and Plan: patient on heart healthy diet with supplements, good appetite, positive bowel movements - stress ulcer prophylaxis: ppi (6) DVT prophylaxis: Code(s): Z29.9 - Encounter for prophylactic measures, unspecified Status: Acute Assessment and Plan: DVT prophylaxis: Coumadin, therapeutic Lovenox until patient has a therapeutic INR Additional Plan discussed with patient updated with his condition and plan of care. I did discuss with him regarding adding lidocaine patches for his back pain, Tylenol extra-strength for back pain Code Status - patient is full code Critical care time spent: 32 minutes Due to a high probability of clinically significant, life threatening deterioration, the patient required my highest level of preparedness to intervene emergently and I personally spent this critical care time directly and personally managing the patient. This critical care time included obtaining a history; examining the patient; pulse oximetry; ordering and review of studies; arranging urgent treatment with development of a management plan; evaluation of patient's response to treatment; frequent reassessment; and discussions with other providers. It was exclusive of separately billable procedures and treating other patients and teaching time. Please see Assessment and Plan section and the rest of the note for further information on patient assessment and treatment Subjective Date/time seen: 04/08/20 09:23 Interval history: 79 year old male with a past medical history of asbestosis, hypertension and chronic anticoagulation who presented to the ER from urgent care via EMS due to low oxygen saturations.Pt is presently in icu for COVID and COVID pneumonia. PMH of Asbestosis, Essential HTN, chronic anticoagulation. 04/08/2020: Patient remains on high-flow therapy, 60 L [place]
[2020-04-08] MEDS: ACETAMINOPHEN 325 MG TABLET 650 MG PO ×3 (09:36→20:50)
[2020-04-08] MEDS: BENZONATATE 100 MG CAPSULE 200 MG PO ×3 (09:37→16:43)
[2020-04-08] MEDS: hydroCHLOROthiazide 25 MG TABLET PO (09:38)
[2020-04-08] MEDS: HYDROCORTISONE ACETATE 25 MG SUPPOSITORY RECTAL ×2 (09:38→20:29)
[2020-04-08] MEDS: SERTRALINE HCL 25 MG TABLET PO (09:38)
[2020-04-08] MEDS: guaiFENesin 600 MG/DEXTROMETHORPHAN 30 MG SR TAB 12 HR 1 TAB PO ×2 (09:38→20:30)
[2020-04-08] MEDS: PANTOPRAZOLE 40 MG TABLET PO (09:38)
[2020-04-08] MEDS: INSULIN GLARGINE (*BKC) 100 UNITS/ML 18 UNITS SUB-Q (09:39)
[2020-04-08] MEDS: TOLNAFTATE 1% POWDER 45 GM BTL 1 APPLIC TOPICAL ×2 (09:39→20:30)
--- NOTE | 2020-04-08 09:56 | WPDINTPN ---
Progress Note: A&P Additional Plan discussed with Subjective Date/time seen: 04/08/20 09:56 Objective Data Vital Signs Vital Signs: Vital Signs - 24 hr 04/07/20 09:59 04/07/20 10:00 04/07/20 12:00 Temperature 97.7 F Pulse Rate 99 84 113 H Respiratory Rate 20 27 H Blood Pressure 116/71 117/84 Pulse Oximetry 92 92 04/07/20 14:00 04/07/20 16:00 04/07/20 18:00 Temperature 98.2 F Pulse Rate 120 H 107 H 93 Respiratory Rate 26 H 21 H 27 H Blood Pressure 91/60 L 145/86 H Pulse Oximetry 97 93 95 04/07/20 19:49 04/07/20 20:00 04/07/20 20:05 Temperature 99.8 F H 99.8 F H Pulse Rate 100 Respiratory Rate 19 Blood Pressure 156/89 H Pulse Oximetry 95 95 04/07/20 21:05 04/07/20 21:10 04/07/20 22:00 Temperature 98.9 F Pulse Rate 105 H 89 Respiratory Rate 26 H 20 Blood Pressure 104/66 Pulse Oximetry 94 94 04/08/20 00:00 04/08/20 02:00 04/08/20 04:00 Temperature 98.5 F 98.8 F Pulse Rate 87 89 75 Respiratory Rate 21 H 13 24 H Blood Pressure 112/66 137/81 121/84 Pulse Oximetry 94 94 94 04/08/20 06:00 04/08/20 08:00 04/08/20 08:23 Temperature 98.7 F Pulse Rate 95 100 111 H Respiratory Rate 23 H 25 H 21 H Blood Pressure 114/75 142/92 H Pulse Oximetry 93 95 91 Intake/Output Intake/Output: Intake & Output 04/05/20 04/06/20 04/07/20 04/08/20 23:59 23:59 23:59 23:59 Intake Total 1510 1680 1720 500 Output Total 6059 3466 5759 125 Lgtsuhz -021 -541 -055 375 Meds/Results Medications: Active Medications Generic Name Dose Route Start Last Admin Trade Name Freq PRN Reason Stop Dose Admin Acetaminophen 650 mg 03/31/20 00:05 04/08/20 09:36 Acetaminophen 325 Mg Tablet PO 650 mg Q4H PRN Administration Mild Pain (1-3) or Fever Albuterol 6 puff 10/04/20 08:00 04/08/20 08:20 Proventil Hfa INHALATION 6 puff QIDRT JONATAN Administration Alprazolam 0.25 mg 04/06/20 10:05 04/07/20 15:22 Alprazolam (*Crx) 0.25 Mg Tablet PO 0.25 mg TID PRN Administration Anxiety Benzocaine 1 applic 04/03/20 04:58 04/08/20 07:11 Benzocaine 20% Hemorrhoidal Ointment 28 Gm TOPICAL 1 applic Q4H PRN Administration Rectal Pain Benzonatate 200 mg 04/07/20 10:00 04/08/20 09:37 Benzonatate 100 Mg Capsule PO 200 mg TID JONATAN Administration Bisacodyl 10 mg 03/31/20 10:10 Dulcolax Suppository RECTAL QAM PRN Constipation Dextrose 12.5 gm 04/02/20 11:25 Dextrose 50% 25 Gm/50 Ml Syringe IV PUSH PRN PRN Hypoglycemia Protocol Docusate Sodium 100 mg 03/31/20 21:00 04/07/20 20:07 Colace Capsule PO 100 mg HS JONATAN Administration Enoxaparin Sodium 105 mg 04/04/20 12:00 04/08/20 00:55 Enoxaparin 120 Mg/0.8 Ml Syringe SUB-Q 105 mg Q12H JONATAN Administration Glucagon 1 mg 04/02/20 11:25 Glucagon For Inj 1 Mg Vial IM PRN PRN Hypoglycemia Protocol Glucose 15 gm 04/02/20 11:25 Glucose Oral Gel 15 Gm Of Glucse In 37.5 Gm Tube PO PRN PRN Hypoglycemia Protocol Guaifenesin/Dextromethorphan 1 tab 03/29/20 09:00 04/08/20 09:38 Mucinex Dm 12 Hr PO 1 tab Q12HR JONATAN Administration Hydrochlorothiazide 25 mg 03/29/20 09:00 04/08/20 09:38 Hydrochlorothiazide PO 25 mg DAILY JONATAN Administration Hydrocortisone Acetate 25 mg 03/31/20 21:00 04/08/20 09:38 Anusol-Hc Suppository RECTAL 25 mg Q12HR JONATAN Administration Dextrose 1,000 mls @ 100 mls/hr 04/02/20 11:25 Dextrose 5% 1,000 Ml IVPB PRN PRN Hypoglycemia Protocol Insulin Aspart 4 - 8 units 04/02/20 17:00 04/08/20 08:34 Insulin Aspart (*Bkc) 100 Units/Ml SUB-Q Not Given TIDWM JONATAN Protocol Insulin Glargine 18 units 04/07/20 09:00 04/08/20 09:39 Insulin Glargine (*Bkc) 100 Units/Ml SUB-Q 18 units DAILY JONATAN Administration Lidocaine 2 patch 04/08/20 09:00 Lidocaine 5% Patch TRANSDERM DAILY JONATAN Pantoprazole Sodium 40 mg
[2020-04-08] MEDS: LIDOCAINE 5% PATCH 2 PATCH TRANSDERM (10:02)
--- NOTE | 2020-04-08 10:38 | PCDIET ---
Nutrition Follow-Up Complete: Nutrition Diagnosis: Involuntary weight loss related to decreased appetite and decreased taste as evidenced by reported 2-13 pound weight loss without trying. Nutrition Goal: Patient to consume 75% of meals/supplements or greater Goal met. Patient consuming 100% of meals on diabetic diet with Thrive TID. Last recorded weight is 103.6 kg which is stable. Bowel Motility: BM x 2 on 04/07/20. Labs Reviewed: Hgb (12.3), Hct (37.0), Glu (147), BUN (22), Cr (0.6), Na (135), Alb (2.6), Av Ca (9.22) Meds Noted: Albuterol, Colace, Hydrochlorothiazide, Novolog, Lantus, Protonix, Coumadin Additional Notes: No documented skin breakdown. Will continue to monitor with same goal. Nutrition Monitoring and Evaluation: Follow up in 7 days.
[2020-04-08 12:11] LABS: Glucose Point of Care 129 (65-105)
--- NOTE | 2020-04-08 16:16 | PM.IMPN ---
Progress Note: A&P Assessment and Plan (1) Pneumonia due to COVID-19 virus: Code(s): U07.1 - COVID-19; J12.89 - Other viral pneumonia Status: Acute Assessment and Plan: The patient is in ICU Therapy with Decadron. Remdesivir has been completed for 5 days. pt is sp plasma Furniture Rental Consultant is on board Pt is on AirVo 04/08/20 16:16 patient with a COVID-19 has completed dexamethasone, remdesivir, and received 1 unit of plasma, patient still requiring high-flow oxygen on non-rebreather, today patient is sitting in the chair, patient has a good appetite patient seen by handbag framer, D/W handbag framer, however patient still requiring high-flow oxygen will continue to monitor and further recommendation to follow (2) Respiratory failure with hypoxia: Code(s): J96.91 - Respiratory failure, unspecified with hypoxia Status: Acute Assessment and Plan: Patient is now on Airvo watch for respiratory improvement otherwise pt may need intubation. Decadron and Remdesivir have been initiated and completed Titrate oxygen as needed to maintain oxygen saturations between 88 and 92% (3) Supratherapeutic INR: Code(s): R79.1 - Abnormal coagulation profile Status: Acute Assessment and Plan: INRs have been ordered daily. it is 1.7 Subjective Date/time seen: 04/08/20 16:16 patient with a COVID-19 has completed dexamethasone, remdesivir, and received 1 unit of plasma, patient still requiring high-flow oxygen on non-rebreather, today patient is sitting in the chair, patient has a good appetite patient seen by handbag framer, D/W handbag framer, however patient still requiring high-flow oxygen will continue to monitor and further recommendation to follow Review of Systems Review of Systems: ROS unobtainable: Yes unobtainable due to medical condition Exam Narrative: Exam Narrative: Pt is on AirVo. Pleasant man. patient is seen outside his glass door. Const: General: comfortable and no acute distress HENMT: General nose exam: Normal nares present Neck: Other: no retraction Chest: Breast/axilla inspection: Other (no retractions ) Resp: Effort & Inspection: normal respiratory effort GI: Other: not distended Skin: General skin exam: normal color Extrem: General: normal to inspection Psych: Affect: Anxious affect present Objective Data Vital Signs Vital Signs: Vital Signs - 24 hr 04/07/20 18:00 04/07/20 19:49 04/07/20 20:00 Temperature 99.8 F H Pulse Rate 93 100 Respiratory Rate 27 H 19 Blood Pressure 156/89 H Pulse Oximetry 95 95 95 04/07/20 20:05 04/07/20 21:05 04/07/20 21:10 Temperature 99.8 F H 98.9 F Pulse Rate 105 H Respiratory Rate 26 H Blood Pressure Pulse Oximetry 94 04/07/20 22:00 04/08/20 00:00 04/08/20 02:00 Temperature 98.5 F Pulse Rate 89 87 89 Respiratory Rate 20 21 H 13 Blood Pressure 104/66 112/66 137/81 Pulse Oximetry 94 94 94 04/08/20 04:00 04/08/20 06:00 04/08/20 08:00 Temperature 98.8 F 98.7 F Pulse Rate 75 95 100 Respiratory Rate 24 H 23 H 25 H Blood Pressure 121/84 114/75 142/92 H Pulse Oximetry 94 93 95 04/08/20 08:23 04/08/20 10:00 04/08/20 12:00 Temperature 99.4 F Pulse Rate 111 H 114 H 118 H Respiratory Rate 21 H 20 17 Blood Pressure 128/87 126/66 Pulse Oximetry 91 98 93 04/08/20 14:00 04/08/20 16:00 Temperature Pulse Rate 96 77 Respiratory Rate 22 H Blood Pressure 130/78 Pulse Oximetry 96 Intake/Output Intake/Output: Intake & Output 04/05/20 04/06/20 04/07/20 04/08/20 23:59 23:59 23:59 23:59 Intake Total 1510 1680 1720 980 Output Total 6658 7695 1950 125 Balance -415 -770 -332 855 Meds/Results Medications: Active Medications Generic Name Dose Route Start Last Admin Trade Name Freq PRN Reason Stop Dose Admin Acetaminophen 650 mg 03/31/20 00:05 04/08/20 09:36 Acetaminophen 325 Mg Tablet PO 650 mg Q4H PRN Administration Mild Pain (1-3)
[2020-04-08] MEDS: WARFARIN (*PBKC) 5 MG TABLET PO (16:45)
[2020-04-08] MEDS: DOCUSATE SODIUM 100 MG CAPSULE PO (20:30)
[2020-04-08 20:51] LABS: Glucose Point of Care 185 (65-105)
--- NOTE | 2020-04-08 21:00 | PC.NURSE ---
Discussed plan of care with daughter.
--- NOTE | 2020-04-08 23:35 | PC.NURSE ---
Dr. Taveras notified of temperature.
[2020-04-09] VITALS (19 sets, daily range): BP systolic 110–132; BP diastolic 66–81; PULSE 77–118; RESP 15–30; TEMP 36.8–38.4; O2SAT 90–96
[2020-04-09] MEDS: ACETAMINOPHEN 325 MG TABLET 650 MG PO ×2 (05:01→19:51)
[2020-04-09 05:14] LABS: Hematocrit 35.9 % (42.0-52.0); Hemoglobin 11.8 g/dL (14.0-18.0); Mean Corpuscular HGB Conc 32.9 g/dl (32-36); Mean Corpuscular Hemoglobin 27.9 pg (26-34); Mean Corpuscular Volume 84.9 fl (80-100); Mean Platelet Volume 10.2 fl (7.4-10.4); Platelet Count Result 217 k/mm3 (150-375); Red Blood Count 4.23 M/mm3 (4.6-6.20); Red Cell Distribution Width 14.2 % (11.5-14.5); White Blood Count 11.1 K/mm3 (4.5-10.0)
[2020-04-09] MEDS: CENTRAL LINE FLUSH 10 ML IV PUSH ×3 (05:29→21:05)
[2020-04-09 05:35] LABS: INR 1.6; Prothrombin Time 18.5 Seconds (11.1-14.7)
[2020-04-09 05:36] LABS: Partial Thromboplastin Time 51.1 SECONDS (22.3-36.8)
[2020-04-09 05:38] LABS: Alanine Aminotransferase 81 U/L (4-50); Albumin Level 2.6 g/dL (3.5-5.1); Alkaline Phosphatase 86 U/L (38-126); Anion Gap 1 mmol/L (8-16); Aspartate Amino Transferase 39 U/L (17-59); Bilirubin,Total 0.5 mg/dL (0.2-1.3); Blood Urea Nitrogen 20 mg/dL (9-20); Carbon Dioxide 36 mmol/L (22-30); Chloride 96 mmol/L (98-107); Estimated CRCL calculation 88 ml/min; Estimated Glomerular Filt Rate > 60; Glucose 125 mg/dL (75-110); Lactate Dehydrogenase 809 U/L (313-618); Magnesium 2.2 mg/dL (1.6-2.3); Phosphorus 3.5 mg/dL (2.5-4.5); Potassium 3.9 mmol/L (3.4-5.0); Sodium 133 mmol/L (137-145)
[2020-04-09 05:52] LABS: D Dimer 6.16 ug/mL (<0.48)
--- NOTE | 2020-04-09 08:02 | WPDINTPN ---
Progress Note: A&P Assessment and Plan (1) Respiratory failure with hypoxia: Code(s): J96.91 - Respiratory failure, unspecified with hypoxia Status: Acute Assessment and Plan: acute respiratory failure with hypoxia due to COVID-19 pneumonia - currently on Airvo and non-rebreather mask. significantly hypoxic but not in any respiratory distress this moment - patient continues to be on 75% FiO2 and 60 L per minute flow - chest x-ray reviewed and shows no significant change from yesterday and continues to have persistent bilateral infiltrates - continue bronchodilators - remains on HCTZ, - continue incentive spirometry - daily up in chair as tolerated (2) Pneumonia due to COVID-19 virus: Code(s): U07.1 - COVID-19; J12.89 - Other viral pneumonia Status: Acute Assessment and Plan: SARS-CoV-2 PCR positive on 03/17/2020: Patient present with COVID-19 pneumonia along with hypoxia, cough - continue supplemental oxygen - completed 10 day course of dexamethasone on 04/06 - completed a 5 day course of Remdesivir on 04/01 - received 1 unit of convalscent plasma on 03/29/2020 - continue Tessalon Perles and Mucinex for cough - monitor inflammatory markers which are showing improvement but are still abnormal - continue airborne, droplet, contact isolation /precautions (3) Chronic anticoagulation: Code(s): Z79.01 - 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 Status: Acute Assessment and Plan: 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, earlier he was supratherapeutic and Coumadin was on hold INR 1.6 today continue Coumadin, daily PT/INR, PTT currently on therapeutic Lovenox until INR is therapeutic (4) Hyperglycemia: Code(s): R73.9 - Hyperglycemia, unspecified Status: Acute Assessment and Plan: blood sugars improving - continue high-dose sliding scale insulin and Accu-Cheks - continue Lantus (5) Dietary counseling and surveillance: Code(s): Z71.3 - Dietary counseling and surveillance Status: Acute Assessment and Plan: patient on heart healthy diet with supplements, good appetite, positive bowel movements - stress ulcer prophylaxis: ppi (6) DVT prophylaxis: Code(s): Z29.9 - Encounter for prophylactic measures, unspecified Status: Acute Assessment and Plan: DVT prophylaxis: Coumadin, therapeutic Lovenox until patient has a therapeutic INR (7) Hemorrhoids: Code(s): K64.9 - Unspecified hemorrhoids Status: Acute Assessment and Plan: will have GI evaluate the patient (8) Chronic back pain: Code(s): M54.9 - Dorsalgia, unspecified; G89.29 - Other chronic pain Status: Acute Assessment and Plan: continue lidocaine patches, will add small dose of p.r.n. [place], so patient can continue with activity, including participating with PT /OT, sitting up in chair Additional Plan discussed with patient updated with his condition and plan of care. I did let him know that I will be adding a small dose of pain medications for his back pain so he could continue with physical therapy/ occupational therapy and able to sit up in chair and do some activity. Code Status - patient is full code Critical care time spent: 33 minutes Due to a high probability of clinically significant, life threatening deterioration, the patient required my highest level of preparedness to intervene emergently and I personally spent this critical care time directly and personally managing the patient. This critical care time included obtaining a history; examining the patient; pulse oximetry; ordering and review of studies; arranging urgent treatment with development of a management plan; evaluation of patient's response to treatment; frequent reassessment; and discussions with other providers. It was exclusive of separately billable procedures and treating other patients and teachin
[2020-04-09] MEDS: ALBUTEROL SULFATE (*SP) AEROSOL 1 PUFF 6 PUFF INHALATION ×4 (08:23→20:49)
[2020-04-09] MEDS: BENZOCAINE 20% HEMORRHOIDAL OINTMENT 28 GM 1 APPLIC TOPICAL ×3 (09:00→20:04)
[2020-04-09] MEDS: LIDOCAINE 5% PATCH 2 PATCH TRANSDERM (09:55)
[2020-04-09] MEDS: SERTRALINE HCL 25 MG TABLET PO (09:56)
[2020-04-09] MEDS: hydroCHLOROthiazide 25 MG TABLET PO (09:56)
[2020-04-09] MEDS: HYDROCORTISONE ACETATE 25 MG SUPPOSITORY RECTAL ×2 (09:56→20:02)
[2020-04-09] MEDS: BENZONATATE 100 MG CAPSULE 200 MG PO ×3 (09:56→16:50)
[2020-04-09] MEDS: guaiFENesin 600 MG/DEXTROMETHORPHAN 30 MG SR TAB 12 HR 1 TAB PO ×2 (09:56→20:02)
[2020-04-09] MEDS: PANTOPRAZOLE 40 MG TABLET PO (09:56)
[2020-04-09] MEDS: TOLNAFTATE 1% POWDER 45 GM BTL 1 APPLIC TOPICAL ×2 (09:57→20:02)
[2020-04-09] MEDS: INSULIN GLARGINE (*BKC) 100 UNITS/ML 18 UNITS SUB-Q (09:57)
[2020-04-09] MEDS: HYDROcodone/acetaminophen (*CRX) 5-325 MG TABLET 1 TAB PO ×2 (09:58→18:42)
--- NOTE | 2020-04-09 11:40 | PCDIET ---
ICU Rounding Note: Patient continues to eat 100% of most meals on diabetic diet with Thrive TID. Last recorded weight is significantly decreased at 91.5kg. Recommend reweighing to ensure accuracy. Bowel Motility: +BM today x 1. Labs Reviewed: Hgb (11.8), Hct (35.9), Glu (125), Cr (0.6), Na (133), Alb (2.6) Meds Noted: Coumadin, [place], Albuterol, Colace, Hydrochlorothiazide, Lantus, Protonix, Miralax Additional Notes: Corrected calcium WNL. No documented skin breakdown. GI consulted for bleeding hemorrhoids. Following daily in ICU rounds. Assessing/reassessing every 7 days.
[2020-04-09 11:55] LABS: Glucose Point of Care 159 (65-105)
[2020-04-09] MEDS: ENOXAPARIN 120 MG/0.8 ML SYRINGE 105 MG SUB-Q (12:40)
--- NOTE | 2020-04-09 15:57 | WPDGICN ---
Assessment and Plan Assessment and plan (1) Rectal bleeding: Code(s): K62.5 - Hemorrhage of anus and rectum Status: Acute Assessment and Plan: noted hemorrhoids but also rectal prolapse continue for now with topical treatment in the form of hydrocortisone, avoid straining and increase fiber after he fully recovers from covid-19 and respiratory failure, then he can see a surgeon as outpatient and we can reassess as well, maybe offer a colonoscopy (2) Rectal prolapse: Code(s): K62.3 - Rectal prolapse Status: Acute (3) Hemorrhoids: Code(s): K64.9 - Unspecified hemorrhoids Status: Acute Assessment and Plan: continue with medical management (4) Pneumonia due to COVID-19 virus: Code(s): U07.1 - COVID-19; J12.89 - Other viral pneumonia Status: Acute Assessment and Plan: by flight teacher, still in icu (5) Respiratory failure with hypoxia: Code(s): J96.91 - Respiratory failure, unspecified with hypoxia Status: Acute (6) Chronic anticoagulation: Code(s): Z79.01 - [facility] (current) use of anticoagulants Status: Acute (7) Acute respiratory failure with hypoxia: Code(s): J96.01 - Acute respiratory failure with hypoxia Status: Acute GI Consult Note Consult date/time: 04/09/20 15:57 Reason for consult: rectal bleeding HPI: Pelon Davison is a 79 year old male with history of asbestosis, hypertension and chronic anticoagulation using coumadin because history of retinal artery thrombosis. He initially came to ER from urgent care via EMS after hypoxemia diagnosed with COVID-19 on 03/17/2020. He was found to have bilateral infiltrates, admitted to ICU and started on steroids, plasma and remdesivir with high-flow nasal cannula. I was called because he has been experiencing small amount of rectal bleeding. His hb is stable though at 11.8, inr 1.6 still on coumadin and also lovenox because still subtherapeutic inr. He was started on treatment with hydrocortisone supp, today slightly better. He says that last colonoscocopy has been a while because use of coumadin. Review of Systems Constitutional: Constitutional: Reports body ache(s), Reports chills, Reports fatigue, Denies headache(s) and Reports lethargy Eyes: Eyes: Denies blurry vision ENT: Reports Normal hearing present, Denies headache(s) and Denies neck pain Cardiovascular: Cardiovascular: Reports diaphoresis and Denies dyspnea Respiratory: Respiratory: Reports chest congestion, Reports cough and Reports dyspnea on exertion Gastrointestinal: Gastrointestinal: Reports hematochezia Genitourinary: Genitourinary: Denies dysuria Musculoskeletal: Musculoskeletal: Denies neck pain Integumentary/Breasts: Skin/Breast: Denies dry skin Neurologic: Reports Normal hearing present, Denies headache(s) and Denies weakness Psychiatric: Psychiatric: Denies anxiety Endocrine: Endocrine: Denies change in body appearance Hematologic/Lymphatic: Hematologic/Lymphatic: Denies easy bleeding Allergic/Immunologic: Allergic/Immunologic: Denies urticaria PMFSH Past Medical History Medical History (Updated 04/09/20 @ 16:05 by Jose F Mason MD) Asbestosis Blindness of left eye Due to retinal artery occlusion 2004 Chronic anticoagulation Due to retinal artery thrombosis Obstructive sleep apnea Non adherent to CPAP therapy Rectal bleeding Rectal prolapse Surgical History Surgical History (Updated 03/28/20 @ 23:42 by Milana Nunes DO) Basal cell carcinoma (BCC) of antihelix of right ear Removed 2017 History of right cataract extraction History of total bilateral knee replacement 2013 Family History Family History Mother Cerebrovascular accident Colon cancer Father Stomach cancer Social History Social History (Updated 03/28/20 @ 23:47 by Milana Nunes DO) Social History: The patient is widowe
--- NOTE | 2020-04-09 16:38 | PM.IMPN ---
Progress Note: A&P Assessment and Plan (1) Pneumonia due to COVID-19 virus: Code(s): U07.1 - COVID-19; J12.89 - Other viral pneumonia Status: Acute Assessment and Plan: The patient is in ICU Therapy with Decadron. Remdesivir has been completed for 5 days. pt is sp plasma Core Winding Operator is on board Pt is on AirVo 04/09/20 16:38 patient with a COVID-19 has completed dexamethasone, remdesivir, and received 1 unit of plasma, patient still requiring high-flow oxygen on non-rebreather, today patient is laying the bed, patient has a good appetite patient seen by ob gyn, D/W ob gyn, patient complains back pain and was started on pain medication, patient does not more on my has minimal activity, encouraged to participate in physical activity, however patient still requiring high-flow oxygen will continue to monitor and further recommendation to follow (2) Respiratory failure with hypoxia: Code(s): J96.91 - Respiratory failure, unspecified with hypoxia Status: Acute Assessment and Plan: Patient is now on Airvo watch for respiratory improvement otherwise pt may need intubation. Decadron and Remdesivir have been initiated and completed Titrate oxygen as needed to maintain oxygen saturations between 88 and 92% (3) Supratherapeutic INR: Code(s): R79.1 - Abnormal coagulation profile Status: Acute Assessment and Plan: INRs have been ordered daily. it is 1.7 Subjective Date/time seen: 04/09/20 16:38 patient with a COVID-19 has completed dexamethasone, remdesivir, and received 1 unit of plasma, patient still requiring high-flow oxygen on non-rebreather, today patient is laying the bed, patient has a good appetite patient seen by ob gyn, D/W ob gyn, patient complains back pain and was started on pain medication, patient does not more on my has minimal activity, encouraged to participate in physical activity, however patient still requiring high-flow oxygen will continue to monitor and further recommendation to follow Review of Systems Review of Systems: ROS unobtainable: Yes unobtainable due to medical condition Exam Narrative: Exam Narrative: Pt is on AirVo. Pleasant man. patient is seen outside his glass door. Const: General: comfortable and no acute distress HENMT: General nose exam: Normal nares present Neck: Other: no retraction Chest: Breast/axilla inspection: Other (no retractions ) Resp: Effort & Inspection: normal respiratory effort GI: Other: not distended Skin: General skin exam: normal color Extrem: General: normal to inspection Psych: Affect: Anxious affect present Objective Data Vital Signs Vital Signs: Vital Signs - 24 hr 04/08/20 18:00 04/08/20 20:00 04/08/20 20:19 Temperature 99.5 F Pulse Rate 116 H 102 H 89 Respiratory Rate 22 H 19 28 H Blood Pressure 104/64 114/47 L Pulse Oximetry 93 95 95 04/08/20 22:00 04/08/20 23:30 04/09/20 00:00 Temperature 100.5 F H 100.5 F H Pulse Rate 98 86 Respiratory Rate 29 H 23 H Blood Pressure 116/69 110/66 Pulse Oximetry 97 92 04/09/20 02:00 04/09/20 04:00 04/09/20 06:00 Temperature 98.3 F Pulse Rate 79 90 77 Respiratory Rate 22 H 24 H 20 Blood Pressure 119/70 132/70 127/81 Pulse Oximetry 93 92 94 04/09/20 08:00 04/09/20 10:00 04/09/20 12:00 Temperature 98.3 F Pulse Rate 86 102 H 106 H Respiratory Rate 24 H 19 26 H Blood Pressure 126/70 126/75 111/74 Pulse Oximetry 93 95 93 04/09/20 13:46 04/09/20 14:00 04/09/20 16:00 Temperature Pulse Rate 109 H 106 H 108 H Respiratory Rate 18 26 H 28 H Blood Pressure 128/71 Pulse Oximetry 90 93 93 Intake/Output Intake/Output: Intake & Output 04/06/20 04/07/20 04/08/20 04/09/20 23:59 23:59 23:59 23:59 Intake Total 1680 1720 1600 660 Output Total 2450 1950 1025 200 Balance -049 -230 387 339 Meds/Results Medications: Active Medications Generic Name Dose Route Start
[2020-04-09] MEDS: WARFARIN (*PBKC) 5 MG TABLET PO (16:50)
[2020-04-09 17:52] LABS: Glucose Point of Care 110 (65-105)
[2020-04-09] MEDS: DOCUSATE SODIUM 100 MG CAPSULE PO (20:02)
[2020-04-09 20:24] LABS: Glucose Point of Care 201 (65-105)
--- NOTE | 2020-04-09 21:27 | PC.NURSE ---
To bedside. Patient O2-81%, HR- 133, patient restless, c/o SOB. HOB elevated, FiO2 increased to 80%, patient encouraged to take slow deep breaths.
--- NOTE | 2020-04-09 22:01 | PC.NURSE ---
Dr. Lopez notified of temperature, labs, IVPB Tylenol and IVPB antibiotics ordered.
[2020-04-09 22:25] LABS: Glucose Point of Care 131 (65-105)
[2020-04-09 23:34] LABS: Add Urine Microscopic? NO; Appearance Urine Clear (Clear); Bilirubin Urine Negative (Negative); Blood Urine Negative (Negative); Color Urine Yellow (Yellow); Glucose Urine UA Negative (Negative); Ketones Urine Negative (Negative); Leukocyte Esterase Ur Negative LEU/UL (Negative); Nitrate Urine Negative (Negative); Protein Urine Negative (Negative); Specific Grav Ur 1.021 (1.001-1.035); Urobilinogen Urine Negative mg/dL (<2.0)
--- NOTE | 2020-04-09 23:56 | PC.NURSE ---
Updated daughter Aislinn on plan of care.
[2020-04-10] VITALS (24 sets, daily range): BP systolic 96–130; BP diastolic 63–84; PULSE 75–122; RESP 16–30; TEMP 35.9–38.6; O2SAT 87–96
[2020-04-10] MEDS: ENOXAPARIN 120 MG/0.8 ML SYRINGE 105 MG SUB-Q (00:31)
[2020-04-10] MEDS: HYDROcodone/acetaminophen (*CRX) 5-325 MG TABLET 1 TAB PO ×2 (00:48→18:12)
[2020-04-10] MEDS: ALPRAZolam (*CRX) 0.25 MG TABLET PO ×2 (00:49→21:37)
[2020-04-10 04:37] LABS: Hematocrit 35.6 % (42.0-52.0); Hemoglobin 11.6 g/dL (14.0-18.0); Mean Corpuscular HGB Conc 32.6 g/dl (32-36); Mean Corpuscular Hemoglobin 28.5 pg (26-34); Mean Corpuscular Volume 87.5 fl (80-100); Platelet Count Result 219 k/mm3 (150-375); Red Blood Count 4.07 M/mm3 (4.6-6.20); Red Cell Distribution Width 14.3 % (11.5-14.5); White Blood Count 11.7 K/mm3 (4.5-10.0)
[2020-04-10 04:48] LABS: INR 2.1; Prothrombin Time 22.7 Seconds (11.1-14.7)
[2020-04-10 04:49] LABS: Partial Thromboplastin Time 74.4 SECONDS (22.3-36.8)
[2020-04-10 04:58] LABS: Anion Gap 1 mmol/L (8-16); Blood Urea Nitrogen 17 mg/dL (9-20); Carbon Dioxide 36 mmol/L (22-30); Chloride 97 mmol/L (98-107); Estimated CRCL calculation 88 ml/min; Estimated Glomerular Filt Rate > 60; Glucose 141 mg/dL (75-110); Magnesium 2.3 mg/dL (1.6-2.3); Phosphorus 4.2 mg/dL (2.5-4.5); Potassium 3.7 mmol/L (3.4-5.0); Sodium 134 mmol/L (137-145)
[2020-04-10] MEDS: CENTRAL LINE FLUSH 10 ML IV PUSH ×3 (05:25→21:19)
--- NOTE | 2020-04-10 07:50 | WPDINTPN ---
Progress Note: A&P Assessment and Plan (1) Respiratory failure with hypoxia: Code(s): J96.91 - Respiratory failure, unspecified with hypoxia Status: Acute Assessment and Plan: acute respiratory failure with hypoxia due to COVID-19 pneumonia - currently on Airvo and non-rebreather mask. significantly hypoxic but not in any respiratory distress this moment - patient continues to be on 80% FiO2 and 60 L per minute flow - chest x-ray reviewed and shows no significant change from yesterday and continues to have persistent bilateral infiltrates - continue bronchodilators - remains on HCTZ, - have encouraged use of incentive spirometry - also encouraged sitting up in chair as tolerated - patient febrile with a T-max of 101.2, blood, urine, sputum cultures have been obtained, patient started on vancomycin and cefepime on 04/10/2020 (2) Pneumonia due to COVID-19 virus: Code(s): U07.1 - COVID-19; J12.89 - Other viral pneumonia Status: Acute Assessment and Plan: SARS-CoV-2 PCR positive on 03/17/2020: Patient present with COVID-19 pneumonia along with hypoxia, cough - continue supplemental oxygen - completed 10 day course of dexamethasone on 04/06 - completed a 5 day course of Remdesivir on 04/01 - received 1 unit of convalscent plasma on 03/29/2020 - continue Tessalon Perles and Mucinex for cough - monitor inflammatory markers which are showing improvement but are still abnormal - continue airborne, droplet, contact isolation /precautions (3) Chronic anticoagulation: Code(s): Z79.01 - [facility] (current) use of anticoagulants Status: Acute Assessment and Plan: 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, earlier he was supratherapeutic and Coumadin was on hold INR 2.1 this morning on 04/10/2020 continue Coumadin, continue daily PT INR, since INR is therapeutic will DISCONTINUE full-dose Lovenox (4) Hyperglycemia: Code(s): R73.9 - Hyperglycemia, unspecified Status: Acute Assessment and Plan: blood sugars improving - continue high-dose sliding scale insulin and Accu-Cheks - continue Lantus (5) Dietary counseling and surveillance: Code(s): Z71.3 - Dietary counseling and surveillance Status: Acute Assessment and Plan: patient on heart healthy diet with supplements, good appetite, positive bowel movements - stress ulcer prophylaxis: ppi (6) DVT prophylaxis: Code(s): Z29.9 - Encounter for prophylactic measures, unspecified Status: Acute Assessment and Plan: DVT prophylaxis: Coumadin (7) Hemorrhoids: Code(s): K64.9 - Unspecified hemorrhoids Status: Acute Assessment and Plan: appreciate GI evaluation recommendation, hemorrhoids along with rectal prolapse continue topical treatment in the form of hydrocortisone and increase fiber and avoid straining. - for the rectal prolapse he will have to follow with a surgeon as an outpatient (8) Chronic back pain: Code(s): M54.9 - Dorsalgia, unspecified; G89.29 - Other chronic pain Status: Acute Assessment and Plan: continue lidocaine patches and p.r.n. [place] Additional Plan discussed with patient updated with his condition and plan of care. I updated regarding his fevers, addition of antibiotics, obtaining the cultures. I also discussed with him that his oxygen requirements have gone up, and in case he further worsens he would need intubation, he agreed to intubation if necessary Code Status - patient is full code Critical care time spent: 34 minutes Due to a high probability of clinically significant, life threatening deterioration, the patient required my highest level of preparedness to intervene emergently and I personally spent this critical care time directly and personally managing the patient. This critical care time included obtaining a history; examining the patient; pulse oxim
[2020-04-10] MEDS: BENZONATATE 100 MG CAPSULE 200 MG PO ×3 (08:04→17:34)
[2020-04-10] MEDS: guaiFENesin 600 MG/DEXTROMETHORPHAN 30 MG SR TAB 12 HR 1 TAB PO ×2 (08:05→21:21)
[2020-04-10] MEDS: SERTRALINE HCL 25 MG TABLET PO (08:05)
[2020-04-10] MEDS: hydroCHLOROthiazide 25 MG TABLET PO (08:05)
[2020-04-10] MEDS: PANTOPRAZOLE 40 MG TABLET PO (08:05)
[2020-04-10 08:15] LABS: Glucose Point of Care 101 (65-105)
[2020-04-10] MEDS: INSULIN GLARGINE (*BKC) 100 UNITS/ML 18 UNITS SUB-Q (08:56)
[2020-04-10] MEDS: ALBUTEROL SULFATE (*SP) AEROSOL 1 PUFF 6 PUFF INHALATION ×2 (09:43→12:28)
[2020-04-10] MEDS: TOLNAFTATE 1% POWDER 45 GM BTL 1 APPLIC TOPICAL ×2 (10:21→21:22)
--- NOTE | 2020-04-10 10:57 | PCDIET ---
ICU Rounding Note: MD requesting tube feeding recommendations in the event patient requires intubation. Recommend Vital 1.2 at goal of 65mL/hr x 22 hours/day for 1716kcal (23kcal/kg ideal bw), 107g protein and 1159mL free water. Suggest 30mL water flush every 4 hours. If blood sugars become significantly elevated, recommend change to Glucerna 1.2 at same rate. Last recorded weight is 104.6kg which is increased from last review. Suspect inaccurate weight on 04/09/20, given it was an outlier. Bowel Motility: BM x 1 on 04/09/20. Labs Reviewed: Hgb (11.6), Hct (35.6), Glu (141), Cr (0.6), Alb (2.6), Av Ca (9.12) Meds Noted: [place], Albuterol, Xanax, Cefepime, Colace, Hydrochlorothiazide, Novolog, Lantus, Protonix, Vancomycin, Coumadin Additional Notes: No documented skin breakdown. Following daily in ICU rounds. Assessing/reassessing every 3 days.
[2020-04-10] MEDS: LIDOCAINE 5% PATCH 2 PATCH TRANSDERM (11:53)
[2020-04-10] MEDS: HYDROCORTISONE ACETATE 25 MG SUPPOSITORY RECTAL ×2 (11:54→21:20)
[2020-04-10 12:32] LABS: Glucose Point of Care 135 (65-105)
[2020-04-10] MEDS: ALBUTEROL SULFATE NEB 2.5 MG/0.5 ML INH 5 MG INHALATION ×2 (16:38→20:56)
[2020-04-10] MEDS: IPRATROPIUM BR 0.02% INH SOLN 0.5 MG/2.5 ML VIAL INHALATION ×2 (16:38→20:58)
--- NOTE | 2020-04-10 16:48 | PM.IMPN ---
Progress Note: A&P Assessment and Plan (1) Pneumonia due to COVID-19 virus: Code(s): U07.1 - COVID-19; J12.89 - Other viral pneumonia Status: Acute Assessment and Plan: The patient is in ICU Therapy with Decadron. Remdesivir has been completed for 5 days. pt is sp plasma International Accountant is on board Pt is on AirVo 04/09/20 16:38 patient with a COVID-19 has completed dexamethasone, remdesivir, and received 1 unit of plasma, patient still requiring high-flow oxygen on non-rebreather, today patient is laying the bed, patient has a good appetite patient seen by solar energy technician, D/W solar energy technician, patient complains back pain and was started on pain medication, patient does not more on my has minimal activity, encouraged to participate in physical activity, however patient still requiring high-flow oxygen will continue to monitor and further recommendation to follow 04/10/20 16:48 patient with a COVID-19 has completed dexamethasone, remdesivir, and received 1 unit of plasma, Patient was febrile overnight with a T-max of 101.2. patient is seen by solar energy technician, blood culture, sputum culture, and UA was ordered, patient is being treated with Cefepime and vancomycin, patient still requiring high-flow oxygen on non-rebreather, today patient is laying the bed, patient has a good appetite, patient had been complained of back pain and was started on pain medication, will continue monitor appreciate solar energy technician (2) Respiratory failure with hypoxia: Code(s): J96.91 - Respiratory failure, unspecified with hypoxia Status: Acute Assessment and Plan: Patient is now on Airvo watch for respiratory improvement otherwise pt may need intubation. Decadron and Remdesivir have been initiated and completed Titrate oxygen as needed to maintain oxygen saturations between 88 and 92% (3) Supratherapeutic INR: Code(s): R79.1 - Abnormal coagulation profile Status: Acute Assessment and Plan: INRs have been ordered daily. it is 1.7 Subjective Date/time seen: 04/10/20 16:48 patient with a COVID-19 has completed dexamethasone, remdesivir, and received 1 unit of plasma, Patient was febrile overnight with a T-max of 101.2. patient is seen by solar energy technician, blood culture, sputum culture, and UA was ordered, patient is being treated with Cefepime and vancomycin, patient still requiring high-flow oxygen on non-rebreather, today patient is laying the bed, patient has a good appetite, patient had been complained of back pain and was started on pain medication, will continue monitor appreciate solar energy technician Review of Systems Review of Systems: ROS unobtainable: Yes unobtainable due to medical condition Exam Narrative: Exam Narrative: Pt is on AirVo. Pleasant man. patient is seen outside his glass door. Const: General: comfortable and no acute distress HENMT: General nose exam: Normal nares present Neck: Other: no retraction Chest: Breast/axilla inspection: Other (no retractions ) Resp: Effort & Inspection: normal respiratory effort GI: Other: not distended Skin: General skin exam: normal color Extrem: General: normal to inspection Psych: Affect: Anxious affect present Objective Data Vital Signs Vital Signs: Vital Signs - 24 hr 04/09/20 18:00 04/09/20 19:51 04/09/20 19:56 Temperature 101.1 F H Pulse Rate 117 H Respiratory Rate 22 H Blood Pressure 114/67 Pulse Oximetry 92 95 04/09/20 20:00 04/09/20 20:50 04/09/20 21:36 Temperature 101.1 F H Pulse Rate 115 H 118 H Respiratory Rate 15 22 H Blood Pressure 130/72 Pulse Oximetry 94 93 96 04/09/20 21:41 04/09/20 22:00 04/09/20 23:05 Temperature 101.1 F H 101.2 F H Pulse Rate 109 H Respiratory Rate 25 H Blood Pressure 112/69 Pulse Oximetry 93 04/10/20 00:00 04/10/20 02:00 04/10/20 04:00 Temperature 98.8 F 96.7 F L Pulse Rate 101 H 79 77 Respiratory Rate 27 H 17 16 Blood Pressure 1
[2020-04-10] MEDS: WARFARIN (*PBKC) 3 MG TABLET PO (18:11)
[2020-04-10] MEDS: DOCUSATE SODIUM 100 MG CAPSULE PO (21:22)
[2020-04-10] MEDS: BENZOCAINE 20% HEMORRHOIDAL OINTMENT 28 GM 1 APPLIC TOPICAL (22:22)
[2020-04-10] MEDS: CALCIUM CARBONATE (TUMS) 500 MG (200 MG ELEMENTAL) PO (23:58)
[2020-04-10] MEDS: SODIUM CHLORIDE NASAL GEL 14.1 GM 1 APPLIC NASAL (23:59)
[2020-04-10] MEDS: SALINE 0.65% NAS SOLN 44 ML BTL 1 SPRAY NASAL (23:59)
[2020-04-11] VITALS (26 sets, daily range): BP systolic 98–139; BP diastolic 58–80; PULSE 87–121; RESP 21–41; TEMP 36.1–37.7; O2SAT 83–100
[2020-04-11 00:33] LABS: Glucose Point of Care 164 (65-105)
[2020-04-11] MEDS: HYDROcodone/acetaminophen (*CRX) 5-325 MG TABLET 1 TAB PO ×3 (03:03→20:30)
[2020-04-11 05:38] LABS: Alveolar/Arterial O2 Gradient 610.4 mmHg; Carboxyhemoglobin 0.5 % THb (0-2.0); Device HIGH FLOW THERAPY; Fractional Inspired Oxygen 100 %; HCO3 ABG 28.8 mEq/l (22.0-26.0); Methemoglobin ABG 0.3 %THb (0-1.5); Modified Allen's Test Pass; Oxygen Content ABG 18.4 %vol (16.0-22.0); Oxygen Saturation ABG 91.1 % (95.0-100.0); Oxyhemoglobin 89.7 % THb (90.0-100.0); PO2 ABG 58.6 mmHg (80.0-100.0); PO2 FiO2 Ratio Arterial Blood 0.59 %; Reduced Hemoglobin 9.5 %THb (0-5.0); Site Drawn RIGHT RADIAL; Total Hemoglobin 14.6 g/dL (12.0-18.0); pH ABG 7.434 (7.350-7.450)
[2020-04-11] MEDS: BENZOCAINE 20% HEMORRHOIDAL OINTMENT 28 GM 1 APPLIC TOPICAL ×2 (06:46→20:30)
[2020-04-11] MEDS: CENTRAL LINE FLUSH 10 ML IV PUSH ×3 (06:47→22:29)
[2020-04-11 08:22] LABS: Anion Gap 3 mmol/L (8-16); Blood Urea Nitrogen 16 mg/dL (9-20); Calcium 7.9 mg/dL (8.4-10.2); Carbon Dioxide 31 mmol/L (22-30); Chloride 96 mmol/L (98-107); Estimated CRCL calculation 106 ml/min; Estimated Glomerular Filt Rate > 60; Glucose 128 mg/dL (75-110); Lactate Dehydrogenase 908 U/L (313-618); Magnesium 2.2 mg/dL (1.6-2.3); Phosphorus 3.5 mg/dL (2.5-4.5); Potassium 3.8 mmol/L (3.4-5.0); Sodium 130 mmol/L (137-145)
[2020-04-11 08:32] LABS: CRP 24.7 mg/dL (<1.0)
[2020-04-11 08:42] LABS: INR 2.5; Prothrombin Time 26.4 Seconds (11.1-14.7)
[2020-04-11 08:43] LABS: Partial Thromboplastin Time 62.6 SECONDS (22.3-36.8)
--- NOTE | 2020-04-11 08:48 | WPDINTPN ---
Progress Note: A&P Assessment and Plan (1) Respiratory failure with hypoxia: Code(s): J96.91 - Respiratory failure, unspecified with hypoxia Status: Acute Assessment and Plan: acute respiratory failure with hypoxia due to COVID-19 pneumonia - currently on Airvo and non-rebreather mask. significantly hypoxic but not in any respiratory distress this moment - patient continues to be on 80% FiO2 and 60 L per minute flow - chest x-ray reviewed and shows no significant change from yesterday and continues to have persistent bilateral infiltrates - continue bronchodilators - remains on HCTZ, - have encouraged use of incentive spirometry - also encouraged sitting up in chair as tolerated - patient febrile with a T-max of 101.2, blood, urine, sputum cultures have been obtained, patient started on vancomycin and cefepime on 04/10/2020 - will increase the dose of Xanax (2) Pneumonia due to COVID-19 virus: Code(s): U07.1 - COVID-19; J12.89 - Other viral pneumonia Status: Acute Assessment and Plan: SARS-CoV-2 PCR positive on 03/17/2020: Patient present with COVID-19 pneumonia along with hypoxia, cough - continue supplemental oxygen - completed 10 day course of dexamethasone on 04/06 - completed a 5 day course of Remdesivir on 04/01 - received 1 unit of convalscent plasma on 03/29/2020 - continue Tessalon Perles and Mucinex for cough - monitor inflammatory markers which are showing improvement but are still abnormal - continue airborne, droplet, contact isolation /precautions (3) Chronic anticoagulation: Code(s): Z79.01 - [facility] (current[facility] use of anticoagulants Status: Acute Assessment and Plan: 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, earlier he was supratherapeutic and Coumadin was on hold INR 2.5 this morning on 04/10/2020 continue Coumadin, continue daily PT INR, (4) Hyperglycemia: Code(s): R73.9 - Hyperglycemia, unspecified Status: Acute Assessment and Plan: blood sugars improving - continue high-dose sliding scale insulin and Accu-Cheks - continue Lantus (5) Dietary counseling and surveillance: Code(s): Z71.3 - Dietary counseling and surveillance Status: Acute Assessment and Plan: patient on heart healthy diet with supplements, good appetite, positive bowel movements - stress ulcer prophylaxis: ppi (6) DVT prophylaxis: Code(s): Z29.9 - Encounter for prophylactic measures, unspecified Status: Acute Assessment and Plan: DVT prophylaxis: Coumadin (7) Hemorrhoids: Code(s): K64.9 - Unspecified hemorrhoids Status: Acute Assessment and Plan: appreciate GI evaluation recommendation, hemorrhoids along with rectal prolapse continue topical treatment in the form of hydrocortisone and increase fiber and avoid straining. - for the rectal prolapse he will have to follow with a surgeon as an outpatient (8) Chronic back pain: Code(s): M54.9 - Dorsalgia, unspecified; G89.29 - Other chronic pain Status: Acute Assessment and Plan: continue lidocaine patches and p.r.n. [place] Additional Plan discussed with patient and his daughter, Brodie and updated them with patient's condition and plan of care. I answered all questions. I did discuss with them regarding his desaturations and that he may require intubation which both of them are agreeable. Code Status - patient is full code Critical care time spent: 33 minutes Due to a high probability of clinically significant, life threatening deterioration, the patient required my highest level of preparedness to intervene emergently and I personally spent this critical care time directly and personally managing the patient. This critical care time included obtaining a history; examining the patient; pulse oximetry; ordering and review of studies; arranging urgent treatment with development o
[2020-04-11] MEDS: IPRATROPIUM BR 0.02% INH SOLN 0.5 MG/2.5 ML VIAL INHALATION ×4 (08:57→20:10)
[2020-04-11] MEDS: LIDOCAINE 5% PATCH 2 PATCH TRANSDERM (09:48)
[2020-04-11] MEDS: BENZONATATE 100 MG CAPSULE 200 MG PO ×2 (09:48→17:37)
[2020-04-11] MEDS: SERTRALINE HCL 25 MG TABLET PO (09:49)
[2020-04-11] MEDS: HYDROCORTISONE ACETATE 25 MG SUPPOSITORY RECTAL ×2 (09:49→20:32)
[2020-04-11] MEDS: guaiFENesin 600 MG/DEXTROMETHORPHAN 30 MG SR TAB 12 HR 1 TAB PO ×2 (09:49→20:32)
[2020-04-11] MEDS: hydroCHLOROthiazide 25 MG TABLET PO (09:49)
[2020-04-11] MEDS: TOLNAFTATE 1% POWDER 45 GM BTL 1 APPLIC TOPICAL ×2 (09:49→20:30)
[2020-04-11] MEDS: PANTOPRAZOLE 40 MG TABLET PO (09:49)
[2020-04-11] MEDS: ALPRAZolam (*CRX) 0.25 MG TABLET 0.75 MG PO ×2 (09:51→21:28)
[2020-04-11] MEDS: INSULIN GLARGINE (*BKC) 100 UNITS/ML 18 UNITS SUB-Q (11:44)
[2020-04-11 12:20] LABS: Glucose Point of Care 127 (65-105)
--- NOTE | 2020-04-11 12:32 | PM.IMPN ---
Progress Note: A&P Assessment and Plan (1) Respiratory failure with hypoxia: Code(s): J96.91 - Respiratory failure, unspecified with hypoxia Status: Acute Assessment and Plan: Patient remains on Airvo with mask. Continue supportive care. (2) Pneumonia due to COVID-19 virus: Code(s): U07.1 - COVID-19; J12.89 - Other viral pneumonia Status: Acute Assessment and Plan: Patient sent to the ER for hypoxia on 03/28. He has tested positive for COVID on 03/17/20. The patient admitted to the ICU. He has completed Dexamethasone x 10 days (completed 04/06). Remdesivir completed 04/01. He received plasma x 1 as well. He has scotty started on broad specturm abx given the fevers. Fevers persistent but waning. Urine cx pending. All other cultures negative. Continue supportive care (3) Rectal prolapse: Code(s): K62.3 - Rectal prolapse Status: Acute Assessment and Plan: Most liekly the etiology of his rectal bleeding complicated by his anticoagulation. Seen by GI. Appreciate their input. Plan for surgical evaluation when he is well. (4) Rectal bleeding: Code(s): K62.5 - Hemorrhage of anus and rectum Status: Acute Assessment and Plan: Related to above and from hemorrhoids. Hemorroid treatment ordered. Continue Protonix as well. (5) Diabetes mellitus: Code(s): E11.9 - Type 2 diabetes mellitus without complications Status: Acute Assessment and Plan: The patient's blood glucose was reviewed on 04/11 Glucose remains well controlled. Continue AccuCheks covering with sliding scale. Hypoglycemia protocol available as needed. Continue current medications. 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 (7) Supratherapeutic INR: Code(s): R79.1 - Abnormal coagulation profile Status: Acute Assessment and Plan: INR 4.4 on admisison. Level has trended down and Coumadin resumed. Resolved. (8) DVT prophylaxis: Code(s): Z29.9 - Encounter for prophylactic measures, unspecified Status: Acute Assessment and Plan: INR therapeutic Subjective Date/time seen: 04/11/20 12:32 Interval history: Date of service: 04/11 79yo male with history of asbestosis, hypertension and chronic anticoagulation presents with SOB and found to have hypoxia. Pt admitted 03/28 and is presently in icu for COVID pneumonia. Patient started having fevers on 04/09 and are persistent. He is having persistent hemotysis. No CP or abd pain. Nml BMs. Eating okay overall. Exam Narrative: Exam Narrative: Tm 101.5 97.8 110/73 96 33 88% on 60L 90% Gen - NARD lying semirecumbent in bed with HFNC and FM in place Chest - distant BS, few scattered rhonchi CV - RRR S1/S2; Tele showing 6 beat run of NSVT last night Abd - Soft, NT/ND, Positive BS Ext - No pedal edema Psych - Nml mood and affect Skin - Warm and dry Objective Data Vital Signs Vital Signs: Vital Signs - 24 hr 04/10/20 12:40 04/10/20 14:00 04/10/20 16:00 Temperature 100.9 F H 100.1 F H 98.7 F Pulse Rate 118 H 113 H Respiratory Rate 23 H 24 H Blood Pressure 96/65 L 115/80 Pulse Oximetry 91 94 04/10/20 16:53 04/10/20 16:59 04/10/20 17:00 Temperature Pulse Rate 110 H 110 H Respiratory Rate 18 30 H Blood Pressure Pulse Oximetry 94 04/10/20 18:00 04/10/20 20:00 04/10/20 20:01 Temperature 101.2 F H 99.8 F H Pulse Rate 119 H 111 H 113 H Respiratory Rate 24 H 26 H Blood Pressure 125/81 125/77 Pulse Oximetry 88 L 91 04/10/20 20:58 04/10/20 21:00 04/10/20 21:07 Temperature Pulse Rate 122 H 121 H 118 H Respiratory Rate 22 H 24 H 26 H Blood Pressure Pulse Oximetry 89 L 04/10/20 22:00 04/10/20 22:17 04/11/20 00:00 Temperature
[2020-04-11] MEDS: WARFARIN (*PBKC) 3 MG TABLET PO (17:38)
[2020-04-11 18:09] LABS: Glucose Point of Care 126 (65-105)
[2020-04-11] MEDS: DOCUSATE SODIUM 100 MG CAPSULE PO (20:31)
[2020-04-11] MEDS: SODIUM CHLORIDE NASAL GEL 14.1 GM 1 APPLIC NASAL (20:32)
[2020-04-11] MEDS: SALINE 0.65% NAS SOLN 44 ML BTL 1 SPRAY NASAL (20:32)
[2020-04-12] VITALS (79 sets, daily range): BP systolic 65–178; BP diastolic 53–93; PULSE 55–152; RESP 17–49; TEMP 35.9–37.8; O2SAT 78–100
[2020-04-12 01:36] LABS: Glucose Point of Care 100 (65-105)
[2020-04-12 05:50] LABS: Alveolar/Arterial O2 Gradient 550.2 mmHg; Base Excess ABG 4.9 mEq/l (+/-2.0); Carboxyhemoglobin 0.2 % THb (0-2.0); Fractional Inspired Oxygen 90 %; HCO3 ABG 28.9 mEq/l (22.0-26.0); Methemoglobin ABG 0.2 %THb (0-1.5); Oxygen Content ABG 15.8 %vol (16.0-22.0); Oxygen Saturation ABG 87.7 % (95.0-100.0); PCO2 ABG 40.5 mmHg (35.0-45.0); PO2 FiO2 Ratio Arterial Blood 0.56 %; Reduced Hemoglobin 13.6 %THb (0-5.0); Total Hemoglobin 13.1 g/dL (12.0-18.0); pH ABG 7.471 (7.350-7.450)
[2020-04-12] MEDS: CENTRAL LINE FLUSH 10 ML IV PUSH ×3 (05:50→21:04)
[2020-04-12 05:52] LABS: Device HIGH FLOW THERAPY; Modified Allen's Test Pass; Site Drawn RIGHT RADIAL
[2020-04-12] MEDS: BENZOCAINE 20% HEMORRHOIDAL OINTMENT 28 GM 1 APPLIC TOPICAL (05:59)
[2020-04-12 06:38] LABS: INR 2.9; Prothrombin Time 29.4 Seconds (11.1-14.7)
[2020-04-12 06:39] LABS: Partial Thromboplastin Time 58.1 SECONDS (22.3-36.8)
--- NOTE | 2020-04-12 06:48 | WPDPROCEDUR ---
Procedures Intubation Intubation Date: 04/12/20 Intubation Time: 06:49 A pre-procedural Time-Out was completed immediately before starting the procedure and confirmed: Patient Identification, Site, Procedure, Patient Position and the Availability of Requisite Equipment: Yes Sedative: etomidate Mg given: 20 Paralytic: succinylcholine Mg given: 150 Laryngoscope: fiber optic video scope ET tube size: cuffed Tube secured depth (cm): 26 Tube secured location: teeth Tube placement confirmation: visualized tube passing through cords, equal breath sounds bilaterally and confirmation by capnometry Patient tolerated procedure: well and no complications Intubation complications: none Additional comments: Date of service was 04/12/2020 at 06:40 hrs.
--- NOTE | 2020-04-12 06:57 | PCRCNOTE ---
ENETERED PT ROOM TO ATTEMPT ABG. PT EXTREMELY AGITATED AND SOB SPO2 57% ON HFNC. RN ISAEL STATED THAT SHE HAD ATTEMPTED BIPAP BUT PT DID NOT TOLERATE. DECISION WAS MADE PER DR NUÑEZ TO INTUBATE. PT REQUIRED ASSISTANCE WITH BVM TO ATTAIN SPO2 IN THE 70'S PRIOR TO INTUBATION. ETT TUBE 7.5 AT 25CM@LIP. SPO2 DROPPED TO THE 50'S AGAIN AND REQUIRED PROLONGED BVM TOO REACH SPO2 85% AT WHICH TIME HE WAS PLACED ON VENT WITH SETTINGS OF VT 500 R18 +14 100%. SPO2 HELD AT 86% FOR 3MINUTES AND REPORT WAS THEN GIVEN TO DAYSHIFT RT LUNDBERG.
[2020-04-12 06:59] LABS: Hemoglobin A1C 8.1 % (<5.7)
[2020-04-12] MEDS: PROPOFOL IV EMULSION 100 ML 6.1 MG IV CONT (07:00)
--- NOTE | 2020-04-12 08:02 | WPDINTPN ---
Progress Note: A&P Assessment and Plan (1) Respiratory failure with hypoxia: Code(s): J96.91 - Respiratory failure, unspecified with hypoxia Status: Acute Assessment and Plan: acute respiratory failure with hypoxia due to COVID-19 pneumonia - 04/12/2020 patient desaturated the 70s, also hypoxic on his ABGs with PO2 of 50. 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 - Currently on CMV mode of ventilation, peep of 60, 100%. Low tidal volume strategy to prevent volu-trauma - chest x-ray reviewed, ETT in place, diffuse airspace opacities bilaterally, ARDS, COVID-19 pneumonia - continue bronchodilators - have encouraged use of incentive spirometry - also encouraged sitting up in chair as tolerated - continue vancomycin and cefepime ( started on 04/10/2020) - hold hydrochlorothiazide (2) Pneumonia due to COVID-19 virus: Code(s): U07.1 - COVID-19; J12.89 - Other viral pneumonia Status: Acute Assessment and Plan: SARS-CoV-2 PCR positive on 03/17/2020: Patient present with COVID-19 pneumonia along with hypoxia, cough - completed 10 day course of dexamethasone on 04/06 - completed a 5 day course of Remdesivir on 04/01 - received 1 unit of convalscent plasma on 03/29/2020 - monitor inflammatory markers which are showing improvement but are still abnormal - continue airborne, droplet, contact isolation /precautions (3) Chronic anticoagulation: Code(s): Z79.01 - jail (current) use of anticoagulants Status: Acute Assessment and Plan: 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, INR 2.9 this morning on 04/10/2020 continue Coumadin, continue daily PT INR, (4) Hyperglycemia: Code(s): R73.9 - Hyperglycemia, unspecified Status: Acute Assessment and Plan: blood sugars improving - continue high-dose sliding scale insulin and Accu-Cheks - will hold Lantus (5) Dietary counseling and surveillance: Code(s): Z71.3 - Dietary counseling and surveillance Status: Acute Assessment and Plan: patient intubated, will start tube feeds on 04/13/2020 - stress ulcer prophylaxis: ppi (6) DVT prophylaxis: Code(s): Z29.9 - Encounter for prophylactic measures, unspecified Status: Acute Assessment and Plan: DVT prophylaxis: Coumadin (7) Hemorrhoids: Code(s): K64.9 - Unspecified hemorrhoids Status: Acute Assessment and Plan: appreciate GI evaluation recommendation, hemorrhoids along with rectal prolapse continue topical treatment in the form of hydrocortisone and increase fiber and avoid straining. - for the rectal prolapse he will have to follow with a surgeon as an outpatient - continue Anusol HC (8) Chronic back pain: Code(s): M54.9 - Dorsalgia, unspecified; G89.29 - Other chronic pain Status: Acute Assessment and Plan: continue lidocaine patches Additional Plan discussed with patient and his daughter, Brodie and updated them with patient's condition and plan of care. I did update her regarding the intubation and placing 1 mechanical ventilator. I answered all questions. Code Status - patient is full code Critical care time spent: 36 minutes Due to a high probability of clinically significant, life threatening deterioration, the patient required my highest level of preparedness to intervene emergently and I personally spent this critical care time directly and personally managing the patient. This critical care time included obtaining a history; examining the patient; pulse oximetry; ordering and review of studies; arranging urgent treatment with development of a management plan; evaluation of patient's response to treatment; frequent reassessment; and discussions with other providers. It was exclusive of separately billable procedures and treating other patients and teaching time. Please see Assessment and Plan section and the rest of th
[2020-04-12] MEDS: CISATRACURIUM BESYLATE 20 MG/10 ML VIAL 15.3 MG IV PUSH (08:55)
[2020-04-12] MEDS: FENTANYL 2,500MCG/NS250ML(*CRX 2,500 MCG/250 ML BAG 7.5 MCG IV CONT (09:04)
[2020-04-12] MEDS: IPRATROPIUM BR 0.02% INH SOLN 0.5 MG/2.5 ML VIAL INHALATION (09:15)
[2020-04-12] MEDS: HYDROCORTISONE ACETATE 25 MG SUPPOSITORY RECTAL (09:16)
[2020-04-12] MEDS: LIDOCAINE 5% PATCH 2 PATCH TRANSDERM (09:16)
[2020-04-12] MEDS: PANTOPRAZOLE 40 MG TABLET PO (09:17)
[2020-04-12] MEDS: SERTRALINE HCL 25 MG TABLET PO (09:17)
[2020-04-12] MEDS: TOLNAFTATE 1% POWDER 45 GM BTL 1 APPLIC TOPICAL ×2 (09:42→21:04)
[2020-04-12] MEDS: METOPROLOL TARTRATE INJ 5 MG/5 ML VIAL IV PUSH (09:43)
[2020-04-12 10:12] LABS: Glucose Point of Care 150 (65-105)
[2020-04-12 10:20] LABS: Base Excess ABG -2.8 mEq/l (+/-2.0); Carboxyhemoglobin 0.4 % THb (0-2.0); Fractional Inspired Oxygen 100 %; HCO3 ABG 27.6 mEq/l (22.0-26.0); Methemoglobin ABG 0.4 %THb (0-1.5); Oxygen Content ABG 17.7 %vol (16.0-22.0); Oxygen Saturation ABG 92.4 % (95.0-100.0); Oxyhemoglobin 91.5 % THb (90.0-100.0); PO2 ABG 81.6 mmHg (80.0-100.0); PO2 FiO2 Ratio Arterial Blood 0.82 %; Reduced Hemoglobin 7.7 %THb (0-5.0); Total Hemoglobin 13.7 g/dL (12.0-18.0)
[2020-04-12 10:24] LABS: Arterial Blood Gas Ventilator rate 26 /MIN; Device VENTILATOR; PCO2 ABG 77.4 mmHg (35.0-45.0); Site Drawn LEFT BRACHIAL
[2020-04-12 10:25] LABS: Arterial Blood Gas Minute Volume 0 LPM; Arterial Blood Gas PEEP 16 cmH2O; Arterial Blood Gas Pressure Support 0 cmH2O; Arterial Blood Gas Tidal Volume 450 ml; Arterial Blood Gas Vent Mode CMV; Peak Inspiratory Pressure 0 cmH2O
[2020-04-12] MEDS: AMIODARONE 150 MG/D5W 100 ML 150 MG/100 ML BAG 600 MG IV CONT (12:08)
[2020-04-12] MEDS: AMIODARONE 360 MG/D5W 200 ML 360 MG/200 ML BAG 33.3 MG IV CONT (12:10)
[2020-04-12] MEDS: DOPamine 400 MG/D5W 250 ML 400 MG/250 ML BAG 15 MG IV CONT (12:45)
[2020-04-12] MEDS: NOREPINEPHRINE 8 MG/D5W 250 ML 8 MG/250 ML BAG 37.5 MG IV CONT (12:45)
[2020-04-12 13:06] LABS: Alveolar/Arterial O2 Gradient 585.1 mmHg; Base Excess ABG -6.6 mEq/l (+/-2.0); Fractional Inspired Oxygen 100 %; HCO3 ABG 22.3 mEq/l (22.0-26.0); Oxygen Content ABG 16.3 %vol (16.0-22.0); Oxygen Saturation ABG 88.5 % (95.0-100.0); PO2 ABG 67.8 mmHg (80.0-100.0); PO2 FiO2 Ratio Arterial Blood 0.68 %
[2020-04-12 13:07] LABS: PCO2 ABG 60.1 mmHg (35.0-45.0); pH ABG 7.187 (7.350-7.450)
[2020-04-12 13:08] LABS: Site Drawn RIGHT RADIAL
[2020-04-12 13:09] LABS: Arterial Blood Gas PEEP 16 cmH2O; Arterial Blood Gas Tidal Volume 500 ml; Arterial Blood Gas Vent Mode ASSIST CONTROL; Arterial Blood Gas Ventilator rate 28 /MIN; Device VENTILATOR; Modified Allen's Test Pass
[2020-04-12 13:41] LABS: Glucose Point of Care 207 (65-105)
--- NOTE | 2020-04-12 13:43 | P.PCNBED_ITS ---
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
--- NOTE | 2020-04-12 13:59 | PM.EVENT ---
Event Note Event Note Event Note: After receiving amiodarone bolus patient dropped his blood pressure and his heart rate. Patient also was desaturated. Patient was bagged, Levophed was started along with dopamine. Patient was given an amp of epinephrine which improved his heart rate along with his blood pressures. Patient was also given 2 amps of bicarb. O2 sats improved, start ABG was obtained which showed a pH of 7.18, pCO2 of 60.1, PO2 of 67.8 with a bicarb of 22.3. an emergent arterial line was inserted. Flolan being started. PLAN - patient started on Levophed and dopamine, currently tachycardic, will come down on dopamine add vasopressin will maintain mean arterial pressures greater than 65 mmHg and heart rate of 90-110 - ABGs reviewed, ventilator adjusted, will slightly increase his tidal volume, increase PEEP to 18, FiO2 100%. Will start Flolan. may need to from the patient if oxygen is not improved - will avoid amiodarone as the dropped his blood pressures and his heart rate - will check labs, chest x-ray discussed with daughter Aislinn, updated her with the above episode, answered all questions, discussed with her code status, she requested making him a DNR. I told her that I will be available to answer questions and will keep her posted.
[2020-04-12] MEDS: EPOPROSTENOL SODIUM 0.5 MG VIAL 1 MG INHALATION ×2 (14:09→19:43)
[2020-04-12 14:33] LABS: Alveolar/Arterial O2 Gradient 552.5 mmHg; Base Excess ABG 0.9 mEq/l (+/-2.0); Fractional Inspired Oxygen 100 %; HCO3 ABG 28.8 mEq/l (22.0-26.0); Oxygen Content ABG 17.9 %vol (16.0-22.0); Oxygen Saturation ABG 96.6 % (95.0-100.0); PO2 ABG 98.9 mmHg (80.0-100.0); PO2 FiO2 Ratio Arterial Blood 0.99 %; Total Hemoglobin 13.2 g/dL (12.0-18.0)
[2020-04-12 14:37] LABS: Device VENTILATOR; PCO2 ABG 61.6 mmHg (35.0-45.0); Site Drawn ARTLINE; pH ABG 7.288 (7.350-7.450)
[2020-04-12 14:38] LABS: Arterial Blood Gas PEEP 18 cmH2O; Arterial Blood Gas Tidal Volume 530 ml; Arterial Blood Gas Vent Mode CMV; Arterial Blood Gas Ventilator rate 28 /MIN
--- NOTE | 2020-04-12 14:43 | PM.IMPN ---
Progress Note: A&P Assessment and Plan (1) Respiratory failure with hypoxia: Code(s): J96.91 - Respiratory failure, unspecified with hypoxia Status: Acute Assessment and Plan: 04/12/20 14:43 patient with a COVID-19 has completed dexamethasone, remdesivir, completed the course and received 1 unit of plasma, Patient was febrile on 04/10 with a T-max of 101.2. patient was seen by tool straightener, blood culture, sputum culture, and UA was ordered, patient is being treated with Cefepime and vancomycin, so far there is no growth, earlier today on 04/12 patient became hypoxic and was emergently intubated later he developed atrial fibrillation patient was started on amiodarone and became hypotensive, was given epinephrine and bicarb, patient was placed on Levophed to MAP of 65 mm Hg, currently on vent, seen by tool straightener and appreciate. (2) Pneumonia due to COVID-19 virus: Code(s): U07.1 - COVID-19; J12.89 - Other viral pneumonia Status: Acute Assessment and Plan: Patient sent to the ER for hypoxia on 03/28. He has tested positive for COVID on 03/17/20. The patient admitted to the ICU. He has completed Dexamethasone x 10 days (completed 04/06). Remdesivir completed 04/01. He received plasma x 1 as well. He has scotty started on broad specturm abx given the fevers. Fevers persistent but waning. Urine cx pending. All other cultures negative. Continue supportive care (3) Rectal prolapse: Code(s): K62.3 - Rectal prolapse Status: Acute Assessment and Plan: Most liekly the etiology of his rectal bleeding complicated by his anticoagulation. Seen by GI. Appreciate their input. Plan for surgical evaluation when he is well. (4) Rectal bleeding: Code(s): K62.5 - Hemorrhage of anus and rectum Status: Acute Assessment and Plan: Related to above and from hemorrhoids. Hemorroid treatment ordered. Continue Protonix as well. (5) Diabetes mellitus: Code(s): E11.9 - Type 2 diabetes mellitus without complications Status: Acute Assessment and Plan: The patient's blood glucose was reviewed on 04/11 Glucose remains well controlled. Continue AccuCheks covering with sliding scale. Hypoglycemia protocol available as needed. Continue current medications. 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 (7) Supratherapeutic INR: Code(s): R79.1 - Abnormal coagulation profile Status: Acute Assessment and Plan: INR 4.4 on admisison. Level has trended down and Coumadin resumed. Resolved. (8) DVT prophylaxis: Code(s): Z29.9 - Encounter for prophylactic measures, unspecified Status: Acute Assessment and Plan: INR therapeutic Subjective Date/time seen: 04/12/20 14:43 patient with a COVID-19 has completed dexamethasone, remdesivir, completed the course and received 1 unit of plasma, Patient was febrile on 04/10 with a T-max of 101.2. patient was seen by tool straightener, blood culture, sputum culture, and UA was ordered, patient is being treated with Cefepime and vancomycin, so far there is no growth, earlier today on 04/12 patient became hypoxic and was emergently intubated later he developed atrial fibrillation patient was started on amiodarone and became hypotensive, was given epinephrine and bicarb, patient was placed on Levophed to MAP of 65 mm Hg, currently on vent, seen by tool straightener and appreciate. Review of Systems Review of Systems: ROS unobtainable: Yes unobtainable due to endotracheal tube Exam Narrative: Exam Narrative: patient on vent Patient is comfortable, NAD HEENT: ET tube in place, no retraction LUNGS: normal respiratory effort ABD: not distended Lower extremities: no edema SKIN: non
[2020-04-12] MEDS: DOPamine 400 MG/D5W 250 ML 400 MG/250 ML BAG 19.2 MG IV CONT (15:00)
[2020-04-12] MEDS: VASOPRESSIN INJ 100 UNITS in DEXTROSE 5% 95 ML IV CONT (15:04)
[2020-04-12 16:06] LABS: Lactic Acid Reflex 1.6 mmol/L (0.7-2.1)
[2020-04-12 16:08] LABS: Phosphorus 5.2 mg/dL (2.5-4.5)
[2020-04-12] MEDS: WARFARIN (*PBKC) 2 MG TABLET PO (17:07)
[2020-04-12 17:16] LABS: Glucose Point of Care 159 (65-105)
[2020-04-12 17:30] LABS: Basophils Absolute Auto 0.1 K/mm3 (0.0-0.1); Basophils Percent Auto 0.4 % (0.2-1.2); Eosinophils Absolute Auto 0.1 K/mm3 (0-0.3); Eosinophils Percent Auto 0.5 % (0-4.4); Hematocrit 36.1 % (42.0-52.0); Hemoglobin 11.7 g/dL (14.0-18.0); Immature Granulocyte Absolute 0.51 K/mm3 (0.00-0.031); Immature Granulocyte Percent A 2.6 % (0-0.5); Lymphocytes Absolute Auto 1.35 K/mm3 (0.9-3.2); Lymphocytes Percent Auto 6.9 % (18.3-44.2); Mean Corpuscular HGB Conc 32.4 g/dl (32-36); Mean Corpuscular Hemoglobin 28.2 pg (26-34); Mean Platelet Volume 9.7 fl (7.4-10.4); Monocytes Absolute Auto 1.4 K/mm3 (0.1-0.6); Monocytes Percent Auto 7.1 % (2.6-8.5); Neutrophils Absolute Auto 16.2 K/mm3 (1.3-6.7); Neutrophils Percent Auto 82.5 % (45.5-73.1); Platelet Count Result 317 k/mm3 (150-375); Red Blood Count 4.15 M/mm3 (4.6-6.20); Red Cell Distribution Width 14.1 % (11.5-14.5); White Blood Count 19.6 K/mm3 (4.5-10.0)
[2020-04-12 17:42] LABS: Alanine Aminotransferase 107 U/L (4-50); Albumin Level 2.9 g/dL (3.5-5.1); Alkaline Phosphatase 136 U/L (38-126); Anion Gap 5 mmol/L (8-16); Aspartate Amino Transferase 119 U/L (17-59); Bilirubin,Total 0.4 mg/dL (0.2-1.3); Blood Urea Nitrogen 23 mg/dL (9-20); Calcium 7.8 mg/dL (8.4-10.2); Carbon Dioxide 33 mmol/L (22-30); Chloride 90 mmol/L (98-107); Estimated CRCL calculation 50 ml/min; Estimated Glomerular Filt Rate 54; Glucose 177 mg/dL (75-110); Potassium 4.1 mmol/L (3.4-5.0); Sodium 128 mmol/L (137-145)
--- NOTE | 2020-04-12 19:51 | PC.NURSE ---
During patient emergency, Epinephrine 1 mg IVPush, and Sodium Bicarb 50 Cliff/100 ml ivpush were administered at approximately [address] Lopez. Both medications were removed from ICU crash cart.
[2020-04-12 20:05] LABS: Alveolar/Arterial O2 Gradient 344.2 mmHg; Base Excess ABG 2.3 mEq/l (+/-2.0); Fractional Inspired Oxygen 100 %; HCO3 ABG 28.5 mEq/l (22.0-26.0); Oxygen Content ABG 18.8 %vol (16.0-22.0); Oxygen Saturation ABG 99.7 % (95.0-100.0); Oxyhemoglobin 98.5 % THb (90.0-100.0); PCO2 ABG 51.3 mmHg (35.0-45.0); PO2 ABG 317.5 mmHg (80.0-100.0); PO2 FiO2 Ratio Arterial Blood 3.17 %; pH ABG 7.363 (7.350-7.450)
[2020-04-12 20:06] LABS: Arterial Blood Gas PEEP 18 cmH2O; Arterial Blood Gas Vent Mode CMV; Arterial Blood Gas Ventilator rate 28 /MIN; Device VENTILATOR; Site Drawn ARTLINE
[2020-04-12 20:07] LABS: Arterial Blood Gas Tidal Volume 530 ml
[2020-04-12] MEDS: DOCUSATE SODIUM LIQ 100 MG/10 ML UDC PO (21:02)
[2020-04-12] MEDS: SODIUM CHLORIDE NASAL GEL 14.1 GM 1 APPLIC NASAL (21:03)
[2020-04-12 23:36] LABS: Glucose Point of Care 158 (65-105)
[2020-04-13] VITALS (42 sets, daily range): BP systolic 110–134; BP diastolic 58–69; PULSE 80–104; RESP 28; TEMP 36.5–36.9; O2SAT 93–99
[2020-04-13] MEDS: EPOPROSTENOL SODIUM 0.5 MG VIAL 1 MG INHALATION ×4 (02:08→20:01)
[2020-04-13 03:05] LABS: Vancomycin Trough 28.5 ug/mL (10.0-20.0)
[2020-04-13 04:03] LABS: Alveolar/Arterial O2 Gradient 349.5 mmHg; Base Excess ABG 2.1 mEq/l (+/-2.0); Carboxyhemoglobin 0.3 % THb (0-2.0); Fractional Inspired Oxygen 70 %; HCO3 ABG 28.6 mEq/l (22.0-26.0); Methemoglobin ABG 0.3 %THb (0-1.5); Oxygen Content ABG 16.8 %vol (16.0-22.0); Oxygen Saturation ABG 96.6 % (95.0-100.0); Oxyhemoglobin 95.7 % THb (90.0-100.0); PCO2 ABG 52.9 mmHg (35.0-45.0); PO2 ABG 92.7 mmHg (80.0-100.0); PO2 FiO2 Ratio Arterial Blood 1.32 %; Reduced Hemoglobin 3.7 %THb (0-5.0); Site Drawn ARTLINE; Total Hemoglobin 12.4 g/dL (12.0-18.0); pH ABG 7.351 (7.350-7.450)
[2020-04-13 04:04] LABS: Arterial Blood Gas PEEP 18 cmH2O; Arterial Blood Gas Tidal Volume 530 ml; Arterial Blood Gas Vent Mode CMV; Arterial Blood Gas Ventilator rate 28 /MIN; Device VENTILATOR
[2020-04-13 04:16] LABS: Hemoglobin 11.1 g/dL (14.0-18.0); Mean Corpuscular HGB Conc 32.6 g/dl (32-36); Mean Corpuscular Hemoglobin 28.3 pg (26-34); Mean Corpuscular Volume 86.7 fl (80-100); Mean Platelet Volume 9.9 fl (7.4-10.4); Platelet Count Result 297 k/mm3 (150-375); Red Blood Count 3.92 M/mm3 (4.6-6.20); Red Cell Distribution Width 14.3 % (11.5-14.5); White Blood Count 16.5 K/mm3 (4.5-10.0)
[2020-04-13] MEDS: NOREPINEPHRINE 8 MG/D5W 250 ML 8 MG/250 ML BAG 13.1 MG IV CONT (04:24)
[2020-04-13 04:34] LABS: INR 3.5; Prothrombin Time 34.7 Seconds (11.1-14.7)
[2020-04-13 04:35] LABS: Partial Thromboplastin Time 73.2 SECONDS (22.3-36.8)
[2020-04-13 04:51] LABS: D Dimer 5.02 ug/mL (<0.48)
[2020-04-13 04:54] LABS: Estimated CRCL calculation 33 ml/min; Estimated Glomerular Filt Rate 33; Lactate Dehydrogenase 849 U/L (313-618)
[2020-04-13 05:18] LABS: CRP 33.5 mg/dL (<1.0)
[2020-04-13] MEDS: BENZOCAINE 20% HEMORRHOIDAL OINTMENT 28 GM 1 APPLIC TOPICAL (05:30)
[2020-04-13] MEDS: CENTRAL LINE FLUSH 10 ML IV PUSH ×3 (06:11→21:05)
[2020-04-13 06:38] LABS: Ferritin > 2000.00 ng/mL (11.1-264)
[2020-04-13 06:42] LABS: Alanine Aminotransferase 84 U/L (4-50); Albumin Level 2.6 g/dL (3.5-5.1); Alkaline Phosphatase 108 U/L (38-126); Anion Gap 9 mmol/L (8-16); Aspartate Amino Transferase 69 U/L (17-59); Bilirubin,Total 0.4 mg/dL (0.2-1.3); Blood Urea Nitrogen 30 mg/dL (9-20); Calcium 7.7 mg/dL (8.4-10.2); Carbon Dioxide 29 mmol/L (22-30); Chloride 87 mmol/L (98-107); Estimated CRCL calculation 35 ml/min; Estimated Glomerular Filt Rate 35; Glucose 161 mg/dL (75-110); Potassium 4.1 mmol/L (3.4-5.0); Sodium 125 mmol/L (137-145)
[2020-04-13 07:00] LABS: Glucose Point of Care 163 (65-105)
[2020-04-13] MEDS: FENTANYL 2,500MCG/NS250ML(*CRX 2,500 MCG/250 ML BAG 12.5 MCG IV CONT (07:33)
--- NOTE | 2020-04-13 08:09 | WPDINTPN ---
Progress Note: A&P Assessment and Plan (1) Respiratory failure with hypoxia: Code(s): J96.91 - Respiratory failure, unspecified with hypoxia Status: Acute Assessment and Plan: acute respiratory failure with hypoxia due to COVID-19 pneumonia - 04/12/2020 patient desaturated the 70s, also hypoxic on his ABGs with PO2 of 50. 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 - Currently on CMV mode of ventilation, peep of 18 and 70% FiO2, - chest x-ray and ABGs reviewed, will decrease tidal volume and PEEP, obtained EEG later today - continue Flolan - continue bronchodilators - continue vancomycin started on 04/10/2020, will switch cefepime to imipenem - hold hydrochlorothiazide (2) Pneumonia due to COVID-19 virus: Code(s): U07.1 - COVID-19; J12.89 - Other viral pneumonia Status: Acute Assessment and Plan: SARS-CoV-2 PCR positive on 03/17/2020: Patient present with COVID-19 pneumonia along with hypoxia, cough - completed 10 day course of dexamethasone on 04/06 - completed a 5 day course of Remdesivir on 04/01 - received 1 unit of convalscent plasma on 03/29/2020 - monitor inflammatory markers which are showing improvement but are still abnormal - continue airborne, droplet, contact isolation /precautions (3) Chronic anticoagulation: Code(s): Z79.01 - shelter (current) use of anticoagulants Status: Acute Assessment and Plan: 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, INR 3.5 this morning will decrease Coumadin to 1 mg daily, continue daily PT INR, (4) Hyperglycemia: Code(s): R73.9 - Hyperglycemia, unspecified Status: Acute Assessment and Plan: blood sugars improving - continue high-dose sliding scale insulin and Accu-Cheks - continue to hold Lantus since patient is not on any tube feeds (5) Dietary counseling and surveillance: Code(s): Z71.3 - Dietary counseling and surveillance Status: Acute Assessment and Plan: patient intubated, will start trickle feeds today - stress ulcer prophylaxis: ppi (6) DVT prophylaxis: Code(s): Z29.9 - Encounter for prophylactic measures, unspecified Status: Acute Assessment and Plan: DVT prophylaxis: Coumadin (7) Hemorrhoids: Code(s): K64.9 - Unspecified hemorrhoids Status: Acute Assessment and Plan: appreciate GI evaluation recommendation, hemorrhoids along with rectal prolapse continue topical treatment in the form of hydrocortisone and increase fiber and avoid straining. - for the rectal prolapse he will have to follow with a surgeon as an outpatient - continue Anusol HC (8) Chronic back pain: Code(s): M54.9 - Dorsalgia, unspecified; G89.29 - Other chronic pain Status: Acute Assessment and Plan: currently fentanyl sedation Additional Plan discussed with patient and his daughter, Aislinn and updated them with patient's condition and plan of care. I answered all questions Code Status - DNR Critical care time spent: 35 minutes Due to a high probability of clinically significant, life threatening deterioration, the patient required my highest level of preparedness to intervene emergently and I personally spent this critical care time directly and personally managing the patient. This critical care time included obtaining a history; examining the patient; pulse oximetry; ordering and review of studies; arranging urgent treatment with development of a management plan; evaluation of patient's response to treatment; frequent reassessment; and discussions with other providers. It was exclusive of separately billable procedures and treating other patients and teaching time. Please see Assessment and Plan section and the rest of the note for further information on patient assessment and treatment Subjective Date/time seen: 04/13/20 08:09 Interval history: Interval history: 79 year
--- NOTE | 2020-04-13 11:23 | PCDIET ---
Nutrition Follow-Up Complete: Nutrition Diagnosis: Involuntary weight loss related to decreased appetite and decreased taste as evidenced by reported 2-13 pound weight loss without trying. Nutrition Goal: Patient to consume 75% of meals/supplements or greater Goal not met. New goal: Patient to meet estimated nutritional needs. MD plans to start trickle feedings today. Recommend Vital 1.2 at 10mL/hr x 8 hours; if tolerated, increase to 20mL/hr. Once tube feedings able to advance toward goal, recommend 65mL/hr. If blood sugars become significantly elevated, will likely suggest change to Glucerna. Last recorded weight is 106.4 kg which is increased from last review. +I/O. Bowel Motility: BM x 1 on 04/12/20. Labs Reviewed: Hgb (11.1), Hct (34.0), Glu (161), BUN (30), Cr (1.9), Na (125), Alb (2.6), Av Ca (8.82) Meds Noted: Nimbex, Colace, Flolan, Fentanyl, Hydrochlorothiazide, Primaxin, Lantus, Atrovent, Xopenex, Versed, Protonix, Levophed, Coumadin Additional Notes: No documented skin breakdown. Nutrition Monitoring and Evaluation: Follow up every Monday/Monday. Follow daily in ICU rounds.
[2020-04-13] MEDS: TOLNAFTATE 1% POWDER 45 GM BTL 1 APPLIC TOPICAL ×2 (11:39→20:28)
[2020-04-13] MEDS: HYDROCORTISONE ACETATE 25 MG SUPPOSITORY RECTAL ×2 (11:43→20:27)
--- NOTE | 2020-04-13 12:56 | PM.CNNEP ---
Assessment and Plan Assessment and plan (1) Acute kidney failure, unspecified: Code(s): N17.9 - Acute kidney failure, unspecified Status: Acute Assessment and Plan: Pelon has acute kidney injury. He started off with normal kidney function. He went through several days of COVID positive pneumonia without a problem with his kidneys. Lately however his become hypotensive and septic looking. He was also very hypoxic yesterday. I suspect that the hypoxia plus hypotension are what led to his kidney failure. It does not look like there is any medications that would have done this. He has had no contrast. Obstruction is always a possibility. Acute glomerulonephritis would be 1 option I suppose however usually they have hypertension and swelling rather than hypotension. So I doubt that this is the case in this setting. Allergic interstitial nephritis is a possibility however this also does not come with hypotension and does come with a more gradual onset of the renal failure rather than this. It is also usually nonoliguric. To evaluate this 70 get urine electrolytes and eosinophils and also check a renal ultrasound. I would like to get a cortisol level as well. the patient may end up needing dialysis if he does not turn around soon however since the blood pressure seems to be improving then hopefully there may be a turn around before this treatment is needed. Discussed with Dr. Lopez (2) Pneumonia due to COVID-19 virus: Code(s): U07.1 - COVID-19; J12.89 - Other viral pneumonia Status: Acute Assessment and Plan: The patient has gotten treatment for the COVID. He is still critically ill (3) Hypotension: Code(s): I95.9 - Hypotension, unspecified Status: Acute Assessment and Plan: blood pressure is very low. He does have a high oxygen requirement. IV fluids is not an option at this point. He continues on pressors but the requirement has decreased. 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 The patient was living at home independently before he got sick. Earlier this month the patient became short of breath. He had a cough and low-grade fever. He ended up in the emergency room. He was positive for COVID 19. He was admitted to the hospital. He was treated with dexamethasone, Remdecivir, and also convalescent plasma. All of this finished up several days ago. During that time the patient was making plenty of urine and his kidney function was stable. Two days ago the patient dropped his blood pressure which and this responded to some fluid. Yesterday the patient dropped his blood pressure more severely and ended up needing pressors: Levophed and also vasopressin. His urine output dropped off. His creatinine was a little bit higher yesterday. Today the urine output is still low. His creatinine is higher and so renal consultation was requested. The patient is off the vasopressin now and his Levophed doses have been able to be decreased substantially to only 6micrograms/minute. The patient is unable to give a history as he is sedated and paralyzed on the ventilator. He had no prior history of kidney disease. No mention of bloody urine foamy urine. The patient h
[2020-04-13 13:16] LABS: Vancomycin Trough 21.1 ug/mL (10.0-20.0)
[2020-04-13 13:28] LABS: Alveolar/Arterial O2 Gradient 235.1 mmHg; Base Excess ABG -0.2 mEq/l (+/-2.0); Fractional Inspired Oxygen 70 %; HCO3 ABG 27.4 mEq/l (22.0-26.0); Oxygen Content ABG 17.1 %vol (16.0-22.0); Oxygen Saturation ABG 99.2 % (95.0-100.0); PCO2 ABG 58.6 mmHg (35.0-45.0); PO2 FiO2 Ratio Arterial Blood 2.87 %; Total Hemoglobin 12.1 g/dL (12.0-18.0)
[2020-04-13 13:29] LABS: pH ABG 7.288 (7.350-7.450)
[2020-04-13 13:30] LABS: Arterial Blood Gas PEEP 16 cmH2O; Arterial Blood Gas Tidal Volume 480 ml; Arterial Blood Gas Vent Mode CMV; Arterial Blood Gas Ventilator rate 28 /MIN; Device VENTILATOR; Site Drawn ARTLINE
[2020-04-13 16:19] LABS: Glucose Point of Care 146 (65-105)
--- NOTE | 2020-04-13 16:46 | PM.IMPN ---
Progress Note: A&P Assessment and Plan (1) Respiratory failure with hypoxia: Code(s): J96.91 - Respiratory failure, unspecified with hypoxia Status: Acute Assessment and Plan: 04/13/20 16:46 patient with a COVID-19 has completed dexamethasone, remdesivir, completed the course and received 1 unit of plasma, Patient was febrile on 04/10 with a T-max of 101.2. patient was seen by manager purchasing, blood culture, sputum culture, and UA was ordered, patient is being treated with Cefepime and vancomycin, so far there is no growth, earlier on 04/12 patient became hypoxic and was emergently intubated later he developed atrial fibrillation patient was started on amiodarone and became hypotensive, was given epinephrine and bicarb, patient was placed on Levophed to MAP of 65 mm Hg, today patient creatinine is rising and urine output is very poor, patient is seen by Nephrology suspect patient may need dialysis, patient blood pressure is still on Levophed, discussed with the manager purchasing patient oxygen is improved requiring less FiO2, currently on vent, seen by manager purchasing and confectionery drops machine operator appreciate. (2) Pneumonia due to COVID-19 virus: Code(s): U07.1 - COVID-19; J12.89 - Other viral pneumonia Status: Acute Assessment and Plan: Patient sent to the ER for hypoxia on 03/28. He has tested positive for COVID on 03/17/20. The patient admitted to the ICU. He has completed Dexamethasone x 10 days (completed 04/06). Remdesivir completed 04/01. He received plasma x 1 as well. He has scotty started on broad specturm abx given the fevers. Fevers persistent but waning. Urine cx pending. All other cultures negative. Continue supportive care (3) Rectal prolapse: Code(s): K62.3 - Rectal prolapse Status: Acute Assessment and Plan: Most liekly the etiology of his rectal bleeding complicated by his anticoagulation. Seen by GI. Appreciate their input. Plan for surgical evaluation when he is well. (4) Rectal bleeding: Code(s): K62.5 - Hemorrhage of anus and rectum Status: Acute Assessment and Plan: Related to above and from hemorrhoids. Hemorroid treatment ordered. Continue Protonix as well. (5) Diabetes mellitus: Code(s): E11.9 - Type 2 diabetes mellitus without complications Status: Acute Assessment and Plan: The patient's blood glucose was reviewed on 04/11 Glucose remains well controlled. Continue AccuCheks covering with sliding scale. Hypoglycemia protocol available as needed. Continue current medications. 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 (7) Supratherapeutic INR: Code(s): R79.1 - Abnormal coagulation profile Status: Acute Assessment and Plan: INR 4.4 on admisison. Level has trended down and Coumadin resumed. Resolved. (8) DVT prophylaxis: Code(s): Z29.9 - Encounter for prophylactic measures, unspecified Status: Acute Assessment and Plan: INR therapeutic Subjective Date/time seen: 04/13/20 16:46 patient with a COVID-19 has completed dexamethasone, remdesivir, completed the course and received 1 unit of plasma, Patient was febrile on 04/10 with a T-max of 101.2. patient was seen by manager purchasing, blood culture, sputum culture, and UA was ordered, patient is being treated with Cefepime and vancomycin, so far there is no growth, earlier on 04/12 patient became hypoxic and was emergently intubated later he developed atrial fibrillation patient was started on amiodarone and became hypotensive, was given epinephrine and bicarb, patient was placed on Levophed to MAP of 65 mm Hg, today patient creatinine is rising and urine output is very poor, patient is seen by Nephrology suspect patient may n
[2020-04-13 18:10] LABS: Basophils Absolute Auto 0.1 K/mm3 (0.0-0.1); Basophils Percent Auto 0.3 % (0.2-1.2); Eosinophils Absolute Auto 0.3 K/mm3 (0-0.3); Eosinophils Percent Auto 2.1 % (0-4.4); Hematocrit 30.1 % (42.0-52.0); Hemoglobin 9.6 g/dL (14.0-18.0); Immature Granulocyte Absolute 0.23 K/mm3 (0.00-0.031); Immature Granulocyte Percent A 1.6 % (0-0.5); Lymphocytes Percent Auto 7.7 % (18.3-44.2); Mean Corpuscular HGB Conc 31.9 g/dl (32-36); Mean Corpuscular Hemoglobin 28.2 pg (26-34); Mean Corpuscular Volume 88.3 fl (80-100); Mean Platelet Volume 9.9 fl (7.4-10.4); Monocytes Absolute Auto 1.1 K/mm3 (0.1-0.6); Monocytes Percent Auto 7.9 % (2.6-8.5); Neutrophils Absolute Auto 11.5 K/mm3 (1.3-6.7); Neutrophils Percent Auto 80.4 % (45.5-73.1); Platelet Count Result 249 k/mm3 (150-375); Red Blood Count 3.41 M/mm3 (4.6-6.20); Red Cell Distribution Width 14.4 % (11.5-14.5); White Blood Count 14.4 K/mm3 (4.5-10.0)
[2020-04-13 18:14] LABS: Add Urine Microscopic? YES; Amorphous Sediment Urine Few; Appearance Urine Cloudy (Clear); Bacteria Urine Trace /hpf; Bilirubin Urine Negative (Negative); Blood Urine 2+ (Negative); Color Urine Yellow (Yellow); Glucose Urine UA 1+ mg/dL (Negative); Ketones Urine Negative (Negative); Leukocyte Esterase Ur Negative LEU/UL (NEGATIVE); Mucus Urine Rare /lpf; Nitrate Urine Negative (Negative); Protein Urine 1+ mg/dL (Negative); Squamous Epithelial Cell Urine Rare /hpf (Few); Urobilinogen Urine Negative mg/dL (<2.0)
[2020-04-13 18:19] LABS: Creatine Kinase 21 U/L (55-170)
[2020-04-13] MEDS: PANTOPRAZOLE SODIUM IV 40 MG VIAL IV PUSH (18:20)
[2020-04-13] MEDS: NOREPINEPHRINE 8 MG/D5W 250 ML 8 MG/250 ML BAG 11.3 MG IV CONT (18:23)
[2020-04-13] MEDS: WARFARIN (*PBKC) 1 MG TABLET PO (18:30)
[2020-04-13 18:47] LABS: Total Protein Urine Random 35 mg/dL
[2020-04-13 18:48] LABS: Sodium Urine Random 8 meq/L
[2020-04-13 19:15] LABS: Glucose Point of Care 124 (65-105)
--- NOTE | 2020-04-13 19:50 | PC.NURSE ---
Updated daughter Brodie on plan of care.
[2020-04-13] MEDS: DOCUSATE SODIUM LIQ 100 MG/10 ML UDC PO (20:27)
[2020-04-13] MEDS: SODIUM CHLORIDE NASAL GEL 14.1 GM 1 APPLIC NASAL (20:28)
[2020-04-13 23:17] LABS: Glucose Point of Care 141 (65-105)
[2020-04-14] VITALS (49 sets, daily range): BP systolic 108–155; BP diastolic 55–70; PULSE 69–88; RESP 28; TEMP 36.2–37.1; O2SAT 93–96
[2020-04-14] MEDS: EPOPROSTENOL SODIUM 0.5 MG VIAL 1 MG INHALATION ×2 (01:58→08:20)
[2020-04-14] MEDS: FENTANYL 2,500MCG/NS250ML(*CRX 2,500 MCG/250 ML BAG 12.5 MCG IV CONT (03:40)
[2020-04-14 04:30] LABS: Base Excess ABG -1.7 mEq/l (+/-2.0); Carboxyhemoglobin 0.3 % THb (0-2.0); Fractional Inspired Oxygen 60 %; HCO3 ABG 24.5 mEq/l (22.0-26.0); Methemoglobin ABG 0.3 %THb (0-1.5); Oxygen Content ABG 14.8 %vol (16.0-22.0); Oxygen Saturation ABG 97.4 % (95.0-100.0); Oxyhemoglobin 96.5 % THb (90.0-100.0); PCO2 ABG 47.9 mmHg (35.0-45.0); PO2 ABG 105.1 mmHg (80.0-100.0); PO2 FiO2 Ratio Arterial Blood 1.75 %; Reduced Hemoglobin 2.9 %THb (0-5.0); Total Hemoglobin 10.8 g/dL (12.0-18.0); pH ABG 7.326 (7.350-7.450)
[2020-04-14 04:44] LABS: Hematocrit 30.6 % (42.0-52.0); Hemoglobin 9.9 g/dL (14.0-18.0); Mean Corpuscular HGB Conc 32.4 g/dl (32-36); Mean Corpuscular Volume 86.7 fl (80-100); Mean Platelet Volume 9.7 fl (7.4-10.4); Platelet Count Result 286 k/mm3 (150-375); Red Blood Count 3.53 M/mm3 (4.6-6.20); Red Cell Distribution Width 14.5 % (11.5-14.5); White Blood Count 14.2 K/mm3 (4.5-10.0)
[2020-04-14 04:58] LABS: INR 4.3; Prothrombin Time 40.9 Seconds (11.1-14.7)
[2020-04-14 05:00] LABS: Partial Thromboplastin Time 85.9 SECONDS (22.3-36.8)
[2020-04-14 05:05] LABS: Albumin Level 2.6 g/dL (3.5-5.1); Anion Gap 9 mmol/L (8-16); Blood Urea Nitrogen 41 mg/dL (9-20); Calcium 7.4 mg/dL (8.4-10.2); Carbon Dioxide 28 mmol/L (22-30); Chloride 85 mmol/L (98-107); Estimated CRCL calculation 22 ml/min; Estimated Glomerular Filt Rate 20; Glucose 151 mg/dL (75-110); Phosphorus 7.3 mg/dL (2.5-4.5); Potassium 4.2 mmol/L (3.4-5.0); Sodium 122 mmol/L (137-145)
[2020-04-14] MEDS: CENTRAL LINE FLUSH 10 ML IV PUSH ×3 (05:38→22:09)
[2020-04-14 07:48] LABS: Device VENTILATOR; Modified Allen's Test Pass; Site Drawn RIGHT RADIAL
[2020-04-14 07:49] LABS: Arterial Blood Gas PEEP 16 cmH2O; Arterial Blood Gas Tidal Volume 480 ml; Arterial Blood Gas Vent Mode ASSIST CONTROL; Arterial Blood Gas Ventilator rate 28 /MIN
--- NOTE | 2020-04-14 08:00 | PM.PNNEP ---
Progress Note: A&P Assessment and Plan (1) Acute kidney failure, unspecified: Code(s): N17.9 - Acute kidney failure, unspecified Status: Acute Assessment and Plan: Pelon has acute kidney injury. He started off with normal kidney function. Urine 'lytes prerenal Ultrasound unremarkable he may have third spacing due to sepsis. I agree with giving some normal saline. belly exam is not able to be done since he is paralyzed and sedated. will check KUB creatinine is up and urine output is still meager. see if fluids help Discussed with Dr. Lopez (2) Pneumonia due to COVID-19 virus: Code(s): U07.1 - COVID-19; J12.89 - Other viral pneumonia Status: Acute Assessment and Plan: The patient has gotten treatment for the COVID. He is still critically ill (3) Hypotension: Code(s): I95.9 - Hypotension, unspecified Status: Acute Assessment and Plan: blood pressure is low but on less levophed and off vasopressin. 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 probably due to renal failure and drips. Discussed with Dr Cartwright will try to get fluids changed to NS. repeat sodium at 4 and consider 3% saline Subjective Date/time seen: 04/14/20 20:40 Interval history: patient is sedated and paralyzed. on the vent. Review of Systems Review of Systems: ROS unobtainable: Yes unobtainable due to medical condition Exam Narrative: Exam Narrative: Ill looking male on vent in ICU skin no rash or sq nodules head ncat lungs coarse and symmetric cor reg no rub or gallop abd BS+ nontender and soft ext no edema. limbs are cool to the touch. Objective Data Vital Signs Vital Signs: Vital Signs - 24 hr 04/13/20 20:50 04/13/20 21:00 04/13/20 22:00 Temperature 36.9 C Pulse Rate 90 89 86 Respiratory Rate 28 H 28 H 28 H Blood Pressure 118/62 115/61 Pulse Oximetry 96 04/13/20 23:00 04/13/20 23:39 04/13/20 23:41 Temperature Pulse Rate 85 85 85 Respiratory Rate 28 H 28 H Blood Pressure 116/62 Pulse Oximetry 96 96 04/14/20 00:00 04/14/20 01:00 04/14/20 02:00 Temperature 36.9 C 36.9 C Pulse Rate 87 87 85 Respiratory Rate 28 H 28 H 28 H Blood Pressure 109/55 L 114/55 L 114/56 L Pulse Oximetry 95 95 04/14/20 02:01 04/14/20 03:00 04/14/20 03:40 Temperature Pulse Rate 84 85 84 Respiratory Rate 28 H 28 H 28 H Blood Pressure 117/56 L Pulse Oximetry 96 04/14/20 04:00 04/14/20 04:15 04/14/20 04:32 Temperature 36.8 C Pulse Rate 88 Respiratory Rate 28 H 28 H Blood Pressure 121/56 L Pulse Oximetry 95 95 95 04/14/20 05:00 04/14/20 05:30 04/14/20 05:32 Temperature Pulse Rate 81 77 79 Respiratory Rate 28 H 28 H Blood Pressure 118/58 L 145/70 H 140/69 Pulse Oximetry 04/14/20 05:33 04/14/20 05:35 04/14/20 05:37 Temperature Pulse Rate 80 80 83 Respiratory Rate 28 H 28 H 28 H Blood Pressure Pulse Oximetry 96 04/14/20 06:00 04/14/20 08:00 04/14/20 08:04 Temperature 36.4 C L 37.1 C Pulse Rate 80 80 81 Respiratory Rate 28 H 28 H 28 H Blood Pressure 122/62 120/60 119/60 Pulse Oximetry 95 95 04/14/20 08:07 04/14/20 08:20 04/14/20 08:38 Temperature Pulse Rate 81 82 78 Respiratory Rate 28 H 28 H 28 H Blood Pressure 126/63 Pulse Oximetry 95 04/14/20 08:58 04/14/20 09:41 04/14/20 10:00 Temperature 36.4 C L Pulse Rate 86 74 82 Respiratory Rate 28 H 28 H 28 H Blood Pressure 112/61 123/62 Pulse Oximetry
[2020-04-14] MEDS: PANTOPRAZOLE SODIUM IV 40 MG VIAL IV PUSH (08:23)
[2020-04-14] MEDS: TOLNAFTATE 1% POWDER 45 GM BTL 1 APPLIC TOPICAL ×2 (08:24→20:26)
--- NOTE | 2020-04-14 08:41 | WPDINTPN ---
Progress Note: A&P Assessment and Plan (1) Septic shock: Code(s): A41.9 - Sepsis, unspecified organism; R65.21 - Severe sepsis with septic shock Status: Acute Assessment and Plan: patient with septic shock likely source pneumonia - patient on Levophed, maintain mean arterial pressures > 70 mmHg for adequate renal perfusion given acute renal injury. - continue vancomycin started on 04/10/2020, imipenem started on 04/13/2020 - blood cultures negative x2, urine cultures pending - sputum culture growth of normal oropharyngeal peyman (2) Respiratory failure with hypoxia: Code(s): J96.91 - Respiratory failure, unspecified with hypoxia Status: Acute Assessment and Plan: acute respiratory failure with hypoxia due to COVID-19 pneumonia - 04/12/2020 patient desaturated the 70s, also hypoxic on his ABGs with PO2 of 50. 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 - chest x-ray and ABGs reviewed, will decrease PEEP 14, currently on 60% FiO2. - Will start weaning Flolan - continue bronchodilators - patient on fentanyl and Versed for sedation, Nimbex for neuromuscular blockade, will start weaning Nimbex (3) Pneumonia due to COVID-19 virus: Code(s): U07.1 - COVID-19; J12.89 - Other viral pneumonia Status: Acute Assessment and Plan: SARS-CoV-2 PCR positive on 03/17/2020: Patient present with COVID-19 pneumonia along with hypoxia, cough - completed 10 day course of dexamethasone on 04/06 - completed a 5 day course of Remdesivir on 04/01 - received 1 unit of convalscent plasma on 03/29/2020 - monitor inflammatory markers which are showing improvement but are still abnormal - continue airborne, droplet, contact isolation /precautions (4) Chronic anticoagulation: Code(s): Z79.01 - group home (current) use of anticoagulants Status: Acute Assessment and Plan: 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, INR 4.3, likely secondary to septic shock hold Coumadin (5) Hyperglycemia: Code(s): R73.9 - Hyperglycemia, unspecified Status: Acute Assessment and Plan: blood sugars improving - continue high-dose sliding scale insulin and Accu-Cheks - continue to hold Lantus since patient is not on any tube feeds (6) Dietary counseling and surveillance: Code(s): Z71.3 - Dietary counseling and surveillance Status: Acute Assessment and Plan: patient intubated, will start trickle feeds today - stress ulcer prophylaxis: ppi (7) DVT prophylaxis: Code(s): Z29.9 - Encounter for prophylactic measures, unspecified Status: Acute Assessment and Plan: DVT prophylaxis: supratherapeutic INR, continue SCDs and hold Coumadin (8) Hemorrhoids: Code(s): K64.9 - Unspecified hemorrhoids Status: Acute Assessment and Plan: appreciate GI evaluation recommendation, hemorrhoids along with rectal prolapse continue topical treatment in the form of hydrocortisone and increase fiber and avoid straining. - for the rectal prolapse he will have to follow with a surgeon as an outpatient - continue Anusol HC (9) Chronic back pain: Code(s): M54.9 - Dorsalgia, unspecified; G89.29 - Other chronic pain Status: Acute Assessment and Plan: currently fentanyl sedation Additional Plan discussed with patient and his daughter, Aislinn and updated them with patient's condition and plan of care. I answered all questions Code Status - DNR Critical care time spent: 34 minutes Due to a high probability of clinically significant, life threatening deterioration, the patient required my highest level of preparedness to intervene emergently and I personally spent this critical care time directly and personally managing the patient. This critical care time included obtaining a history; examining the patient; pulse oximetry; ordering and review of studies; arranging urgent
[2020-04-14] MEDS: SODIUM CHLORIDE 0.9% IV 500 ML IV CONT (08:54)
--- NOTE | 2020-04-14 10:42 | PCDIET ---
Nutrition Follow-Up Complete: Nutrition Diagnosis: Involuntary weight loss related to decreased appetite and decreased taste as evidenced by reported 2-13 pound weight loss without trying. Nutrition Goal: Patient to consume 75% of meals/supplements or greater Goal in progress. MD ordered to start trickle feedings today. Recommend Nepro at 10-20mL/hr. Once tube feedings able to advance, recommend goal of 40mL/hr. Last recorded weight is 109 kg which is increased from last review. +I/O. Bowel Motility: Last documented BM on 04/12/20. Labs Reviewed: Hgb (9.9), Hct (30.6), Glu (151), BUN (41), Cr (3.1), Na (122), Alb (2.6), Av Ca (8.52), PO4 (7.3) Meds Noted: Nimbex, Colace, Flolan, Fentanyl, Hydrochlorothiazide, Primaxin, Lantus, Versed, Levophed, Protonix, Vancomycin, Vasopressin, Coumadin Additional Notes: No documented skin breakdown. Will continue to monitor with same goal. Nutrition Monitoring and Evaluation: Follow up every Monday/Monday. Follow daily in ICU rounds.
[2020-04-14 11:48] LABS: Glucose Point of Care 191 (65-105)
[2020-04-14] MEDS: EPOPROSTENOL SODIUM 0.5 MG VIAL 0.75 MG INHALATION (12:00)
[2020-04-14] MEDS: HYDROCORTISONE ACETATE 25 MG SUPPOSITORY RECTAL ×2 (14:11→20:23)
[2020-04-14] MEDS: EPOPROSTENOL SODIUM 0.5 MG VIAL INHALATION ×2 (15:22→20:50)
--- NOTE | 2020-04-14 15:42 | PM.IMPN ---
Progress Note: A&P Assessment and Plan (1) Respiratory failure with hypoxia: Code(s): J96.91 - Respiratory failure, unspecified with hypoxia Status: Acute Assessment and Plan: 04/14/20 15:42 patient with a COVID-19 has completed dexamethasone, remdesivir, completed the course and received 1 unit of plasma, Patient was febrile on 04/10 with a T-max of 101.2. patient was seen by environmental compliance manager, blood culture, sputum culture, and UA was ordered, patient is being treated with Cefepime and vancomycin, so far there is no growth, earlier on 04/12 patient became hypoxic and was emergently intubated later he developed atrial fibrillation patient was started on amiodarone and became hypotensive, was given epinephrine and bicarb, patient was placed on Levophed to MAP of 65 mm Hg, on 04/13 patient creatinine was rising and urine output is very poor, patient is seen by Nephrology suspect patient may need dialysis, today 04/14 patient blood pressure is soft and still on Levophed, patient is on flolan, sedated with fentanyl and versed, today was taken off nimbex, discussed with the environmental compliance manager patient oxygen is improved requiring less FiO2, currently on vent, seen by environmental compliance manager and nib adjuster appreciate. (2) Pneumonia due to COVID-19 virus: Code(s): U07.1 - COVID-19; J12.89 - Other viral pneumonia Status: Acute Assessment and Plan: Patient sent to the ER for hypoxia on 03/28. He has tested positive for COVID on 03/17/20. The patient admitted to the ICU. He has completed Dexamethasone x 10 days (completed 04/06). Remdesivir completed 04/01. He received plasma x 1 as well. He has scotty started on broad specturm abx given the fevers. Fevers persistent but waning. Urine cx pending. All other cultures negative. Continue supportive care (3) Rectal prolapse: Code(s): K62.3 - Rectal prolapse Status: Acute Assessment and Plan: Most liekly the etiology of his rectal bleeding complicated by his anticoagulation. Seen by GI. Appreciate their input. Plan for surgical evaluation when he is well. (4) Rectal bleeding: Code(s): K62.5 - Hemorrhage of anus and rectum Status: Acute Assessment and Plan: Related to above and from hemorrhoids. Hemorroid treatment ordered. Continue Protonix as well. (5) Diabetes mellitus: Code(s): E11.9 - Type 2 diabetes mellitus without complications Status: Acute Assessment and Plan: The patient's blood glucose was reviewed on 04/11 Glucose remains well controlled. Continue AccuCheks covering with sliding scale. Hypoglycemia protocol available as needed. Continue current medications. Check A1c (6) Chronic anticoagulation: Code(s): Z79.01 - group home (current) use of anticoagulants Status: Acute Assessment and Plan: Patient with hx of retinal vein thrombosis on [facility] antico[facility]. (7) Supratherapeutic INR: Code(s): R79.1 - Abnormal coagulation profile Status: Acute Assessment and Plan: INR 4.4 on admisison. Level has trended down and Coumadin resumed. Resolved. (8) DVT prophylaxis: Code(s): Z29.9 - Encounter for prophylactic measures, unspecified Status: Acute Assessment and Plan: INR therapeutic Subjective Date/time seen: 04/14/20 15:42 patient with a COVID-19 has completed dexamethasone, remdesivir, completed the course and received 1 unit of plasma, Patient was febrile on 04/10 with a T-max of 101.2. patient was seen by environmental compliance manager, blood culture, sputum culture, and UA was ordered, patient is being treated with Cefepime and vancomycin, so far there is no growth, earlier on 04/12 patient became hypoxic and was emergently intubated later he developed atrial fibrillation patient was started on amiodarone and became hypotensive, was given epinephrine and bicarb, patient was placed on Levophed to MAP of 65 mm Hg, on 04/13 gonzales
[2020-04-14 16:35] LABS: Albumin Level 2.5 g/dL (3.5-5.1); Anion Gap 7 mmol/L (8-16); Blood Urea Nitrogen 45 mg/dL (9-20); Calcium 7.4 mg/dL (8.4-10.2); Carbon Dioxide 28 mmol/L (22-30); Chloride 86 mmol/L (98-107); Estimated CRCL calculation 19 ml/min; Estimated Glomerular Filt Rate 16; Glucose 123 mg/dL (75-110); Phosphorus 7.2 mg/dL (2.5-4.5); Sodium 121 mmol/L (137-145)
[2020-04-14 17:47] LABS: Glucose Point of Care 124 (65-105)
[2020-04-14] MEDS: SODIUM CHLORIDE 3% 300 ML 100 ML IV CONT (18:33)
[2020-04-14] MEDS: DOCUSATE SODIUM LIQ 100 MG/10 ML UDC PO (20:23)
[2020-04-14] MEDS: SODIUM CHLORIDE NASAL GEL 14.1 GM 1 APPLIC NASAL (20:26)
[2020-04-14 21:25] LABS: Vancomycin Trough 44.9 ug/mL (10.0-20.0)
[2020-04-14] MEDS: NOREPINEPHRINE 8 MG/D5W 250 ML 8 MG/250 ML BAG 1.9 MG IV CONT (22:10)
[2020-04-15] VITALS (42 sets, daily range): BP systolic 93–120; BP diastolic 50–59; PULSE 66–94; RESP 16–28; TEMP 35.9–36.9; O2SAT 91–99
[2020-04-15 00:46] LABS: Glucose Point of Care 133 (65-105)
[2020-04-15] MEDS: EPOPROSTENOL SODIUM 0.5 MG VIAL INHALATION (02:47)
[2020-04-15 04:02] LABS: Basophils Percent Auto 0.3 % (0.2-1.2); Eosinophils Absolute Auto 0.2 K/mm3 (0-0.3); Eosinophils Percent Auto 1.4 % (0-4.4); Hematocrit 28.6 % (42.0-52.0); Immature Granulocyte Absolute 0.24 K/mm3 (0.00-0.031); Immature Granulocyte Percent A 2.1 % (0-0.5); Lymphocytes Absolute Auto 0.72 K/mm3 (0.9-3.2); Lymphocytes Percent Auto 6.2 % (18.3-44.2); Mean Corpuscular HGB Conc 31.5 g/dl (32-36); Mean Corpuscular Hemoglobin 27.6 pg (26-34); Mean Corpuscular Volume 87.7 fl (80-100); Mean Platelet Volume 9.6 fl (7.4-10.4); Monocytes Absolute Auto 0.8 K/mm3 (0.1-0.6); Monocytes Percent Auto 6.6 % (2.6-8.5); Neutrophils Absolute Auto 9.7 K/mm3 (1.3-6.7); Neutrophils Percent Auto 83.4 % (45.5-73.1); Platelet Count Result 268 k/mm3 (150-375); Red Blood Count 3.26 M/mm3 (4.6-6.20); Red Cell Distribution Width 14.4 % (11.5-14.5); White Blood Count 11.6 K/mm3 (4.5-10.0)
[2020-04-15 04:04] LABS: Prothrombin Time 38.6 Seconds (11.1-14.7)
[2020-04-15 04:05] LABS: Partial Thromboplastin Time 89.3 SECONDS (22.3-36.8)
[2020-04-15 04:06] LABS: D Dimer 2.75 ug/mL (<0.48)
[2020-04-15 04:25] LABS: Albumin Level 2.5 g/dL (3.5-5.1); Anion Gap 5 mmol/L (8-16); Blood Urea Nitrogen 52 mg/dL (9-20); CRP 19.5 mg/dL (<1.0); Calcium 7.7 mg/dL (8.4-10.2); Carbon Dioxide 28 mmol/L (22-30); Chloride 90 mmol/L (98-107); Estimated CRCL calculation 17 ml/min; Estimated Glomerular Filt Rate 14; Glucose 131 mg/dL (75-110); Lactate Dehydrogenase 706 U/L (313-618); Potassium 3.9 mmol/L (3.4-5.0); Sodium 123 mmol/L (137-145)
[2020-04-15 04:53] LABS: Alveolar/Arterial O2 Gradient 269.7 mmHg; Base Excess ABG -1.9 mEq/l (+/-2.0); Carboxyhemoglobin 0.3 % THb (0-2.0); Fractional Inspired Oxygen 60 %; HCO3 ABG 24.7 mEq/l (22.0-26.0); Methemoglobin ABG 0.3 %THb (0-1.5); Oxygen Content ABG 14.5 %vol (16.0-22.0); Oxygen Saturation ABG 97.1 % (95.0-100.0); Oxyhemoglobin 96.2 % THb (90.0-100.0); PCO2 ABG 50.7 mmHg (35.0-45.0); PO2 ABG 102.3 mmHg (80.0-100.0); PO2 FiO2 Ratio Arterial Blood 1.71 %; Reduced Hemoglobin 3.2 %THb (0-5.0); Total Hemoglobin 10.6 g/dL (12.0-18.0); pH ABG 7.306 (7.350-7.450)
[2020-04-15 04:55] LABS: Arterial Blood Gas Ventilator rate 28 /MIN; Device VENTILATOR; Modified Allen's Test Pass; Site Drawn ARTLINE
[2020-04-15 04:56] LABS: Arterial Blood Gas PEEP 14 cmH2O; Arterial Blood Gas Tidal Volume 480 ml; Arterial Blood Gas Vent Mode CMV
[2020-04-15] MEDS: FENTANYL 2,500MCG/NS250ML(*CRX 2,500 MCG/250 ML BAG 7.5 MCG IV CONT (05:35)
[2020-04-15] MEDS: CENTRAL LINE FLUSH 10 ML IV PUSH ×3 (05:38→21:00)
--- NOTE | 2020-04-15 08:34 | WPDINTPN ---
Progress Note: A&P Assessment and Plan (1) Septic shock: Code(s): A41.9 - Sepsis, unspecified organism; R65.21 - Severe sepsis with septic shock Status: Acute Assessment and Plan: OFF LEVOPHED since early this morning patient with septic shock likely source pneumonia - continue vancomycin started on 04/10/2020, imipenem started on 04/13/2020 - blood cultures negative x2, urine cultures pending - sputum culture growth of normal oropharyngeal peyman (2) Respiratory failure with hypoxia: Code(s): J96.91 - Respiratory failure, unspecified with hypoxia Status: Acute Assessment and Plan: acute respiratory failure with hypoxia due to COVID-19 pneumonia - 04/12/2020 patient desaturated the 70s, also hypoxic on his ABGs with PO2 of 50. 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 - chest x-ray and ABGs reviewed, continue peep of 14, decrease FiO2 to 50% and will discontinue Flolan. - continue bronchodilators - patient on fentanyl and Versed for sedation, - OFF NIMBEX (3) Pneumonia due to COVID-19 virus: Code(s): U07.1 - COVID-19; J12.89 - Other viral pneumonia Status: Acute Assessment and Plan: SARS-CoV-2 PCR positive on 03/17/2020: Patient present with COVID-19 pneumonia along with hypoxia, cough - completed 10 day course of dexamethasone on 04/06 - completed a 5 day course of Remdesivir on 04/01 - received 1 unit of convalscent plasma on 03/29/2020 - monitor inflammatory markers which are showing improvement but are still abnormal - continue airborne, droplet, contact isolation /precautions (4) Chronic anticoagulation: Code(s): Z79.01 - senior living (current) use of anticoagulants Status: Acute Assessment and Plan: 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, INR 4.0, likely secondary to septic shock hold Coumadin (5) Hyperglycemia: Code(s): R73.9 - Hyperglycemia, unspecified Status: Acute Assessment and Plan: blood sugars improving - continue high-dose sliding scale insulin and Accu-Cheks - continue to hold Lantus since patient is not on any tube feeds (6) Dietary counseling and surveillance: Code(s): Z71.3 - Dietary counseling and surveillance Status: Acute Assessment and Plan: patient intubated, patient tolerating trickle tube feeds, will increase gradually to goal - stress ulcer prophylaxis: ppi (7) DVT prophylaxis: Code(s): Z29.9 - Encounter for prophylactic measures, unspecified Status: Acute Assessment and Plan: DVT prophylaxis: supratherapeutic INR, continue SCDs and hold Coumadin (8) Hemorrhoids: Code(s): K64.9 - Unspecified hemorrhoids Status: Acute Assessment and Plan: appreciate GI evaluation recommendation, hemorrhoids along with rectal prolapse continue topical treatment in the form of hydrocortisone and increase fiber and avoid straining. - for the rectal prolapse he will have to follow with a surgeon as an outpatient - continue Anusol HC (9) Chronic back pain: Code(s): M54.9 - Dorsalgia, unspecified; G89.29 - Other chronic pain Status: Acute Assessment and Plan: currently fentanyl sedation Additional Plan discussed with patient and his daughter, Aislinn and updated them with patient's condition and plan of care. I answered all questions Code Status - DNR Critical care time spent: 33 minutes Due to a high probability of clinically significant, life threatening deterioration, the patient required my highest level of preparedness to intervene emergently and I personally spent this critical care time directly and personally managing the patient. This critical care time included obtaining a history; examining the patient; pulse oximetry; ordering and review of studies; arranging urgent treatment with development of a management plan; evaluation of patient's response to treatm
[2020-04-15] MEDS: LIDOCAINE 5% PATCH 2 PATCH TRANSDERM (08:36)
[2020-04-15] MEDS: TOLNAFTATE 1% POWDER 45 GM BTL 1 APPLIC TOPICAL ×2 (08:36→20:39)
[2020-04-15] MEDS: HYDROCORTISONE ACETATE 25 MG SUPPOSITORY RECTAL ×2 (08:37→20:39)
[2020-04-15] MEDS: PANTOPRAZOLE SODIUM IV 40 MG VIAL IV PUSH (08:37)
--- NOTE | 2020-04-15 10:44 | PM.PNNEP ---
Progress Note: A&P Assessment and Plan (1) Acute kidney failure, unspecified: Code(s): N17.9 - Acute kidney failure, unspecified Status: Acute Assessment and Plan: Pelon has acute kidney injury. He started off with normal kidney function. Urine 'lytes prerenal Ultrasound unremarkable he may have third spacing due to sepsis. He received normal saline yesterday and urine output picked up. His creatinine ernestina but not by as much. Hopefully this means a plateau is approaching. Electrolytes are okay and volume status is okay. I do not think we need to start dialysis at this point. Discussed with Dr. Lopez (2) Pneumonia due to COVID-19 virus: Code(s): U07.1 - COVID-19; J12.89 - Other viral pneumonia Status: Acute Assessment and Plan: The patient has gotten treatment for the COVID. He is still critically ill (3) Hypotension: Code(s): I95.9 - Hypotension, unspecified Status: Acute Assessment and Plan: blood pressure is low but on Only a tiny bit of Levophed. (4) Hyperglycemia: Code(s): R73.9 - Hyperglycemia, unspecified Status: Acute Assessment and Plan: Patient is getting insulin and sliding scale (5) Chronic anticoagulation: Code(s): Z79.01 - [facility] (current) use of anticoagulants Status: Acute Assessment and Plan: on Coumadin (6) Electrolyte abnormality: Code(s): E87.8 - Other disorders of electrolyte and fluid balance, not elsewhere classified Status: Acute Assessment and Plan: sodium is low. probably due to renal failure and drips. He received a small dose of 3% saline. Will check another sodium this afternoon. Subjective Date/time seen: 04/15/20 10:44 Interval history: patient is sedated No longer paralyzed. on the vent. On only 1 jose of Levophed now. Making a little more urine. Exam Narrative: Exam Narrative: Ill looking male on vent in ICU skin no rash or sq nodules head ncat lungs coarse and symmetric cor reg no rub or gallop abd BS+ nontender and soft ext no edema. limbs are cool to the touch. Objective Data Vital Signs Vital Signs: Vital Signs - 24 hr 04/14/20 11:58 04/14/20 11:59 04/14/20 12:00 Temperature 36.2 C L Pulse Rate 83 82 81 Respiratory Rate 28 H 28 H Blood Pressure 118/58 L Pulse Oximetry 95 95 96 04/14/20 12:06 04/14/20 14:00 04/14/20 14:31 Temperature 36.3 C L Pulse Rate 81 80 82 Respiratory Rate 28 H 28 H Blood Pressure 155/58 H 116/61 Pulse Oximetry 96 95 04/14/20 14:33 04/14/20 15:23 04/14/20 15:25 Temperature Pulse Rate 85 80 72 Respiratory Rate 28 H 28 H Blood Pressure Pulse Oximetry 93 93 96 04/14/20 16:00 04/14/20 16:30 04/14/20 16:40 Temperature 36.4 C L Pulse Rate 74 78 74 Respiratory Rate 28 H 28 H Blood Pressure 119/59 L Pulse Oximetry 95 96 04/14/20 16:41 04/14/20 18:00 04/14/20 18:09 Temperature 36.5 C Pulse Rate 74 76 78 Respiratory Rate 28 H 28 H 28 H Blood Pressure 120/62 Pulse Oximetry 96 95 04/14/20 19:40 04/14/20 20:00 04/14/20 20:39 Temperature 36.6 C Pulse Rate 77 80 80 Respiratory Rate 28 H Blood Pressure 108/56 L 143/63 H Pulse Oximetry 95 94 04/14/20 21:45 04/14/20 22:00 04/14/20 22:10 Temperature Pulse Rate 71 77 69 Respiratory Rate 28 H Blood Pressure 109/55 L 140/66 Pulse Oximetry 96 95 04/14/20 23:10 04/15/20 00:00 04/15/20 01:30 Temperature 36.4 C Pulse Rate 75 77 74 Respiratory Rate 28 H Blood Pressure 105/54 L Pulse Oximetry 96 96 96 04/15/20 02:00 04/15/20 04:00 04/15/20 04:23 Temperature 36.4 C Pulse Rate 77 78 73 Respiratory Rate 28 H 28 H Blood Pressure 106/53 L 115/50 L Pulse Oximetry 96 98 98 04/15/20 05:35 04/15/20 05:39 04/15/20 06:00 Temperature 36.4 C Pulse Rate 66 69 70 Respiratory Rate 28 H 28 H Blood Pressure 112/54 L 109/53 L Pulse Oxi
--- NOTE | 2020-04-15 10:54 | PCDIET ---
ICU Rounding Note: Patient tolerating Nepro at 10mL/hr. MD order to increase tube feeding toward 30mL/hr today. Last recorded weight is 110.5kg which is increased from last review. +I/O. Bowel Motility: Last documented BM on 04/12/20 x 1. Patient on scheduled Colace with Miralax and Dulcolax prn. Labs Reviewed: Hgb (9.0), Hct (28.6), Glu (131), BUN (52), Cr (4.1), Na (123), Alb (2.5), Av Ca (8.9), PO4 (7.0) Meds Noted: Flolan, Fentanyl, Imipenem, Versed, Protonix, Colace, Miralax, Hydrochlorothiazide, Lantus, Coumadin Additional Notes: No documented skin breakdown. Following daily in ICU rounds. Assessing/reassessing every Monday/Monday.
--- NOTE | 2020-04-15 12:57 | PM.IMPN ---
Progress Note: A&P Assessment and Plan (1) Respiratory failure with hypoxia: Code(s): J96.91 - Respiratory failure, unspecified with hypoxia Status: Acute Assessment and Plan: 04/15/20 12:57 patient with a COVID-19 has completed dexamethasone, remdesivir, completed the course and received 1 unit of plasma, Patient was febrile on 04/10 with a T-max of 101.2. patient was seen by senior construction estimator, blood culture, sputum culture, and UA was ordered, patient is being treated with Cefepime and vancomycin, so far there is no growth, earlier on 04/12 patient became hypoxic and was emergently intubated later he developed atrial fibrillation patient was started on amiodarone and became hypotensive, was given epinephrine and bicarb, patient was placed on Levophed to MAP of 65 mm Hg, on 04/13 patient creatinine was rising and urine output is very poor, patient is seen by Nephrology suspect patient may need dialysis, today 04/15 patient blood pressure is soft and still on Levophed, patient is on flolan, sedated with fentanyl and versed, today was taken off nimbex, patient was seen by Nephrology patient urine output is improved patient will not need dialysis,discussed with the senior construction estimator patient oxygen is improved requiring less FiO2, currently on vent, seen by senior construction estimator and commodity loan clerk appreciate. (2) Pneumonia due to COVID-19 virus: Code(s): U07.1 - COVID-19; J12.89 - Other viral pneumonia Status: Acute Assessment and Plan: Patient sent to the ER for hypoxia on 03/28. He has tested positive for COVID on 03/17/20. The patient admitted to the ICU. He has completed Dexamethasone x 10 days (completed 04/06). Remdesivir completed 04/01. He received plasma x 1 as well. He has scotty started on broad specturm abx given the fevers. Fevers persistent but waning. Urine cx pending. All other cultures negative. Continue supportive care (3) Rectal prolapse: Code(s): K62.3 - Rectal prolapse Status: Acute Assessment and Plan: Most liekly the etiology of his rectal bleeding complicated by his anticoagulation. Seen by GI. Appreciate their input. Plan for surgical evaluation when he is well. (4) Rectal bleeding: Code(s): K62.5 - Hemorrhage of anus and rectum Status: Acute Assessment and Plan: Related to above and from hemorrhoids. Hemorroid treatment ordered. Continue Protonix as well. (5) Diabetes mellitus: Code(s): E11.9 - Type 2 diabetes mellitus without complications Status: Acute Assessment and Plan: The patient's blood glucose was reviewed on 04/11 Glucose remains well controlled. Continue AccuCheks covering with sliding scale. Hypoglycemia protocol available as needed. Continue current medications. Check A1c (6) Chronic anticoagulation: Code(s): Z79.01 - assisted (current) use of anticoagulants Status: Acute Assessment and Plan: Patient with hx of retinal vein thrombosis on usp anticoagulation. (7) Supratherapeutic INR: Code(s): R79.1 - Abnormal coagulation profile Status: Acute Assessment and Plan: INR 4.4 on admisison. Level has trended down and Coumadin resumed. Resolved. (8) DVT prophylaxis: Code(s): Z29.9 - Encounter for prophylactic measures, unspecified Status: Acute Assessment and Plan: INR therapeutic Subjective Date/time seen: 04/15/20 12:57 patient with a COVID-19 has completed dexamethasone, remdesivir, completed the course and received 1 unit of plasma, Patient was febrile on 04/10 with a T-max of 101.2. patient was seen by senior construction estimator, blood culture, sputum culture, and UA was ordered, patient is being treated with Cefepime and vancomycin, so far there is no growth, earlier on 04/12 patient became hypoxic and was emergently intubated later he developed atrial fibrillation patient was started on amiodarone and became hypotensive, was giv
[2020-04-15 14:29] LABS: Glucose Point of Care 97 (65-105)
[2020-04-15 16:39] LABS: Sodium 125 mmol/L (137-145)
[2020-04-15] MEDS: SODIUM CHLORIDE 0.9% IV 500 ML 999 ML IV CONT (17:08)
[2020-04-15 18:11] LABS: Glucose Point of Care 98 (65-105)
[2020-04-15] MEDS: DOCUSATE SODIUM LIQ 100 MG/10 ML UDC PO (20:39)
[2020-04-15] MEDS: SODIUM CHLORIDE NASAL GEL 14.1 GM 1 APPLIC NASAL (20:41)
[2020-04-16] VITALS (33 sets, daily range): BP systolic 96–122; BP diastolic 48–62; PULSE 72–88; RESP 14–35; TEMP 36.2–36.9; O2SAT 91–96; BMI 36.7
[2020-04-16 00:29] LABS: Glucose Point of Care 99 (65-105)
[2020-04-16 04:33] LABS: Alveolar/Arterial O2 Gradient 244.6 mmHg; Base Excess ABG -3.7 mEq/l (+/-2.0); Carboxyhemoglobin 0.3 % THb (0-2.0); Fractional Inspired Oxygen 55 %; HCO3 ABG 21.6 mEq/l (22.0-26.0); Methemoglobin ABG 0.3 %THb (0-1.5); Oxygen Saturation ABG 97.5 % (95.0-100.0); Oxyhemoglobin 96.4 % THb (90.0-100.0); PO2 ABG 103.1 mmHg (80.0-100.0); PO2 FiO2 Ratio Arterial Blood 1.87 %; Total Hemoglobin 10.2 g/dL (12.0-18.0)
[2020-04-16 04:34] LABS: Device VENTILATOR; Site Drawn ARTLINE
[2020-04-16 04:35] LABS: Arterial Blood Gas Vent Mode ASSIST CONTROL; Arterial Blood Gas Ventilator rate 28 /MIN
[2020-04-16 04:36] LABS: Arterial Blood Gas PEEP 14 cmH2O; Arterial Blood Gas Tidal Volume 480 ml
[2020-04-16 05:37] LABS: Hematocrit 26.7 % (42.0-52.0); Hemoglobin 8.6 g/dL (14.0-18.0); Mean Corpuscular HGB Conc 32.2 g/dl (32-36); Mean Corpuscular Hemoglobin 28.3 pg (26-34); Mean Corpuscular Volume 87.8 fl (80-100); Mean Platelet Volume 9.4 fl (7.4-10.4); Platelet Count Result 277 k/mm3 (150-375); Red Blood Count 3.04 M/mm3 (4.6-6.20); Red Cell Distribution Width 14.7 % (11.5-14.5); White Blood Count 9.4 K/mm3 (4.5-10.0)
[2020-04-16 05:47] LABS: Albumin Level 2.4 g/dL (3.5-5.1); Anion Gap 7 mmol/L (8-16); Blood Urea Nitrogen 64 mg/dL (9-20); Calcium 7.8 mg/dL (8.4-10.2); Carbon Dioxide 27 mmol/L (22-30); Chloride 92 mmol/L (98-107); Estimated CRCL calculation 15 ml/min; Estimated Glomerular Filt Rate 12; Glucose 119 mg/dL (75-110); Phosphorus 6.9 mg/dL (2.5-4.5); Potassium 3.8 mmol/L (3.4-5.0); Sodium 126 mmol/L (137-145)
[2020-04-16 05:55] LABS: Prothrombin Time 30.2 Seconds (11.1-14.7)
[2020-04-16 05:56] LABS: Partial Thromboplastin Time 76.7 SECONDS (22.3-36.8)
[2020-04-16] MEDS: CENTRAL LINE FLUSH 10 ML IV PUSH ×3 (06:52→21:29)
--- NOTE | 2020-04-16 08:11 | WPDINTPN ---
Progress Note: A&P Assessment and Plan (1) Septic shock: Code(s): A41.9 - Sepsis, unspecified organism; R65.21 - Severe sepsis with septic shock Status: Acute Assessment and Plan: OFF LEVOPHED since the morning of 04/15/2020 patient with septic shock likely source pneumonia - continue vancomycin started on 04/10/2020, imipenem started on 04/13/2020 - blood cultures negative x2, urine cultures negative - sputum culture growth of normal oropharyngeal peyman - fevers have resolved (2) Respiratory failure with hypoxia: Code(s): J96.91 - Respiratory failure, unspecified with hypoxia Status: Acute Assessment and Plan: acute respiratory failure with hypoxia due to COVID-19 pneumonia - 04/12/2020 patient desaturated the 70s, also hypoxic on his ABGs with PO2 of 50. Patient was intubated railroad inspector 04/12/2020. - chest x-ray and ABGs reviewed, will decrease PEEP to 12, continue FiO2 at 55%. - OFF FLOLAN SINCE 04/15/2020 - continue bronchodilators - patient on fentanyl and Versed for sedation, (3) Pneumonia due to COVID-19 virus: Code(s): U07.1 - COVID-19; J12.89 - Other viral pneumonia Status: Acute Assessment and Plan: SARS-CoV-2 PCR positive on 03/17/2020: Patient present with COVID-19 pneumonia along with hypoxia, cough - completed 10 day course of dexamethasone on 04/06 - completed a 5 day course of Remdesivir on 04/01 - received 1 unit of convalscent plasma on 03/29/2020 - monitor inflammatory markers which are showing improvement but are still abnormal - continue airborne, droplet, contact isolation /precautions (4) Chronic anticoagulation: Code(s): Z79.01 - nursing home (current) use of anticoagulants Status: Acute Assessment and Plan: 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, INR 3.0, likely secondary to septic shock hold Coumadin (5) Hyperglycemia: Code(s): R73.9 - Hyperglycemia, unspecified Status: Acute Assessment and Plan: blood sugars improving - continue high-dose sliding scale insulin and Accu-Cheks - continue to hold Lantus since patient is not on any tube feeds (6) Dietary counseling and surveillance: Code(s): Z71.3 - Dietary counseling and surveillance Status: Acute Assessment and Plan: patient intubated, PATIENT TOLERATING TUBE FEEDS, INCREASED TO GOAL - stress ulcer prophylaxis: ppi (7) DVT prophylaxis: Code(s): Z29.9 - Encounter for prophylactic measures, unspecified Status: Acute Assessment and Plan: DVT prophylaxis: supratherapeutic INR, continue SCDs and hold Coumadin (8) Hemorrhoids: Code(s): K64.9 - Unspecified hemorrhoids Status: Acute Assessment and Plan: appreciate GI evaluation recommendation, hemorrhoids along with rectal prolapse continue topical treatment in the form of hydrocortisone and increase fiber and avoid straining. - for the rectal prolapse he will have to follow with a surgeon as an outpatient - continue Anusol HC (9) Chronic back pain: Code(s): M54.9 - Dorsalgia, unspecified; G89.29 - Other chronic pain Status: Acute Assessment and Plan: currently fentanyl sedation Additional Plan discussed with patient and his daughter, Aislinn and updated them with patient's condition and plan of care. I answered all questions Code Status - DNR Critical care time spent: 32 minutes Due to a high probability of clinically significant, life threatening deterioration, the patient required my highest level of preparedness to intervene emergently and I personally spent this critical care time directly and personally managing the patient. This critical care time included obtaining a history; examining the patient; pulse oximetry; ordering and review of studies; arranging urgent treatment with development of a management plan; evaluation of patient's response
[2020-04-16] MEDS: PANTOPRAZOLE SODIUM IV 40 MG VIAL IV PUSH (09:02)
[2020-04-16] MEDS: HYDROCORTISONE ACETATE 25 MG SUPPOSITORY RECTAL ×2 (09:02→21:04)
[2020-04-16] MEDS: LIDOCAINE 5% PATCH 2 PATCH TRANSDERM (09:03)
[2020-04-16] MEDS: TOLNAFTATE 1% POWDER 45 GM BTL 1 APPLIC TOPICAL ×2 (09:04→21:04)
--- NOTE | 2020-04-16 10:57 | PCDIET ---
ICU Rounding Note: Patient tolerating Nepro at 30mL/hr. MD order to increase tube feeding to 40mL/hr for 1584kcal and 71g protein over presumed 22 hours/day. Last recorded weight is 112.9kg which is increased from last review. +I/O. Bowel Motility: Last documented BM on 04/12/20. Discussed during rounds with MD/RN. Labs Reviewed: Hgb (8.6), Hct (26.7), Glu (119), BUN (64), Cr (4.8), PO4 (6.9), Na (126), Alb (2.4), Av Ca (9.08) Meds Noted: Colace, Flolan, Fentanyl, Hydrochlorothizide, Imipenem, Lantus, Versed, Protonix, Coumadin Additional Notes: No documented skin breakdown. Following daily in ICU rounds. Assessing/reassessing every Monday/Monday.
[2020-04-16 12:08] LABS: Glucose Point of Care 114 (65-105)
--- NOTE | 2020-04-16 12:12 | PM.PNNEP ---
Progress Note: A&P Assessment and Plan (1) Acute kidney failure, unspecified: Code(s): N17.9 - Acute kidney failure, unspecified Status: Acute Assessment and Plan: Pelon has acute kidney injury. He started off with normal kidney function. Urine 'lytes prerenal Ultrasound unremarkable he may have third spacing due to sepsis. He received normal saline yesterday and urine output picked up. his creatinine continues to rise. Electrolytes are okay and volume status is okay. I do not think we need to start dialysis at this point. continue watchful waiting Discussed with Dr. Lopez (2) Pneumonia due to COVID-19 virus: Code(s): U07.1 - COVID-19; J12.89 - Other viral pneumonia Status: Acute Assessment and Plan: The patient has gotten treatment for the COVID. He is still critically ill (3) Hypotension: Code(s): I95.9 - Hypotension, unspecified Status: Acute Assessment and Plan: blood pressure is low but on Only a tiny bit of Levophed. (4) Hyperglycemia: Code(s): R73.9 - Hyperglycemia, unspecified Status: Acute Assessment and Plan: Patient is getting insulin and sliding scale (5) Chronic anticoagulation: Code(s): Z79.01 - correction (current) use of anticoagulants Status: Acute Assessment and Plan: Coumadin on hold as his INR is 3.0. He may need a dialysis catheter in the next few days. (6) Electrolyte abnormality: Code(s): E87.8 - Other disorders of electrolyte and fluid balance, not elsewhere classified Status: Acute Assessment and Plan: sodium is low. This is gradually better Subjective Date/time seen: 04/16/20 12:12 Interval history: patient is sedated on the vent. Blood pressure seems a little better. Making a little more urine Review of Systems Cardiovascular: Cardiovascular: Reports no additional cardiovascular complaints Respiratory: Respiratory: Reports no additional respiratory complaints Gastrointestinal: Gastrointestinal: Reports no additional gastrointestinal complaints Genitourinary: Genitourinary: Reports no additional male genitourinary complaints Exam Narrative: Exam Narrative: Ill looking male on vent in ICU skin no rash or sq nodules head ncat lungs coarse and symmetric cor reg no rub or gallop abd BS+ nontender and soft ext 1+ presacral edema. limbs are cool to the touch. Objective Data Vital Signs Vital Signs: Vital Signs - 24 hr 04/15/20 12:23 04/15/20 12:25 04/15/20 12:41 Temperature 36.4 C L Pulse Rate 83 81 Respiratory Rate 28 H 28 H Blood Pressure Pulse Oximetry 04/15/20 12:54 04/15/20 13:11 04/15/20 13:30 Temperature 36.7 C 36.7 C Pulse Rate 81 Respiratory Rate Blood Pressure Pulse Oximetry 99 04/15/20 14:00 04/15/20 14:05 04/15/20 14:30 Temperature 36.7 C 36.9 C Pulse Rate 89 90 Respiratory Rate 28 H Blood Pressure 101/51 L Pulse Oximetry 95 96 04/15/20 15:00 04/15/20 15:07 04/15/20 15:08 Temperature 36.9 C Pulse Rate 94 93 Respiratory Rate 28 H 28 H Blood Pressure Pulse Oximetry 04/15/20 16:00 04/15/20 17:40 04/15/20 17:42 Temperature 36.8 C Pulse Rate 89 86 84 Respiratory Rate 28 H 28 H Blood Pressure 93/59 L Pulse Oximetry 92 94 04/15/20 17:43 04/15/20 17:59 04/15/20 20:00 Temperature 36.6 C 36.6 C Pulse Rate 83 84 86 Respiratory Rate 28 H 28 H 28 H Blood Pressure 103/52 L 101/52 L Pulse Oximetry 95 95 04/15/20 20:25 04/15/20 22:00 04/15/20 23:00 Temperature 36.4 C Pulse Rate 86 82 81 Respiratory Rate 28 H Blood Pressure 104/52 L Pulse Oximetry 92 94 94 04/16/20 00:00 04/16/20 02:00 04/16/20 02:05 Temperature 36.4 C 36.3 C L Pulse Rate 81 77 80 Respiratory Rate 28 H 28 H Blood Pressure 103/51 L 102/51 L Pulse Oximetry 95 94 94 04/16/20 04:00 04/16/20 05:10 04/16/20 05:29 [facility]
[2020-04-16] MEDS: polyethylene glycoL 3350 17 GM POWD.PACK PO (12:41)
[2020-04-16] MEDS: IPRATROPIUM BR 0.02% INH SOLN 0.5 MG/2.5 ML VIAL INHALATION ×2 (12:54→20:44)
[2020-04-16] MEDS: FENTANYL 2,500MCG/NS250ML(*CRX 2,500 MCG/250 ML BAG 7.5 MCG IV CONT (17:21)
[2020-04-16 17:47] LABS: Glucose Point of Care 103 (65-105)
--- NOTE | 2020-04-16 17:50 | PM.IMPN ---
Progress Note: A&P Assessment and Plan (1) Respiratory failure with hypoxia: Qualifiers: Chronicity: acute Qualified Code(s): J96.01 - Acute respiratory failure with hypoxia Code(s): J96.91 - Respiratory failure, unspecified with hypoxia Status: Acute Assessment and Plan: Patient with a COVID-19 has completed dexamethasone, remdesivir, completed the course and received 1 unit of plasma, Patient was febrile on 04/10 with a T-max of 101.2. patient was seen by ski lift attendant, blood culture, sputum culture, and UA was ordered, patient is being treated with Cefepime and vancomycin, so far there is no growth, earlier on 04/12 patient became hypoxic and was emergently intubated later he developed atrial fibrillation patient was started on amiodarone and became hypotensive, was given epinephrine and bicarb, patient was placed on Levophed to MAP of 65 mm Hg, on 04/13 patient creatinine was rising and urine output is very poor, patient is seen by Nephrology, pt does not need dialysis continue iv lasix, currently on vent, seen by ski lift attendant and materials clerk (2) Pneumonia due to COVID-19 virus: Code(s): U07.1 - COVID-19; J12.89 - Other viral pneumonia Status: Acute Assessment and Plan: Patient sent to the ER for hypoxia on 03/28. He has tested positive for COVID on 03/17/20. The patient admitted to the ICU. He has completed Dexamethasone x 10 days (completed 04/06). Remdesivir completed 04/01. He received plasma x 1 as well. He has scotty started on broad specturm abx given the fevers. All cultures negative. Continue supportive care. Continue iv vancomycin and iv imipenem (3) Rectal prolapse: Code(s): K62.3 - Rectal prolapse Status: Acute Assessment and Plan: Most liekly the etiology of his rectal bleeding complicated by his anticoagulation. Seen by GI. Appreciate their input. Plan for surgical evaluation when he is well. (4) Rectal bleeding: Code(s): K62.5 - Hemorrhage of anus and rectum Status: Acute Assessment and Plan: Related to above and from hemorrhoids. Hemorroid treatment ordered. Continue Protonix as well. (5) Diabetes mellitus: Code(s): E11.9 - Type 2 diabetes mellitus without complications Status: Acute Assessment and Plan: The patient's blood glucose was reviewed on 04/11 Glucose remains well controlled. Continue AccuCheks covering with sliding scale. Hypoglycemia protocol available as needed. Continue current medications. Check A1c (6) Chronic anticoagulation: Code(s): Z79.01 - long-term (current) use of anticoagulants Status: Acute Assessment and Plan: Patient with hx of retinal vein thrombosis on long term anticoagulation. (7) Supratherapeutic INR: Code(s): R79.1 - Abnormal coagulation profile Status: Acute Assessment and Plan: INR 4.4 on admisison. Level has trended down and Coumadin resumed. Resolved. (8) DVT prophylaxis: Code(s): Z29.9 - Encounter for prophylactic measures, unspecified Status: Acute Assessment and Plan: INR therapeutic Subjective Date/time seen: 04/16/20 17:50 Interval history: patient with a COVID-19 has completed dexamethasone, remdesivir, completed the course and received 1 unit of plasma, Patient was febrile on 04/10 with a T-max of 101.2. patient was seen by ski lift attendant, blood culture, sputum culture, and UA was ordered, patient is being treated with Cefepime and vancomycin, so far there is no growth, earlier on 04/12 patient became hypoxic and was emergently intubated later he developed atrial fibrillation patient was started on amiodarone and became hypotensive, was given epinephrine and bicarb, patient was placed on Levophed to MAP of 65 mm Hg, on 04/13 patient creatinine was rising and urine output is very poor, patient is seen by Nephrology, does not need dialysis, currently on vent, seen by
--- NOTE | 2020-04-16 20:05 | PC.NURSE ---
OG found at 60cm. Tube feeds stopped. Auscultated position. Repositioned to 70cm. INTERIOR MECHANIC notified. KUB ordered for verification.
[2020-04-16] MEDS: DOCUSATE SODIUM LIQ 100 MG/10 ML UDC PO (21:04)
[2020-04-16] MEDS: SODIUM CHLORIDE NASAL GEL 14.1 GM 1 APPLIC NASAL (21:05)
[2020-04-17] VITALS (31 sets, daily range): BP systolic 103–127; BP diastolic 52–67; PULSE 70–99; RESP 28–37; TEMP 36.1–37; O2SAT 84–96
[2020-04-17] MEDS: IPRATROPIUM BR 0.02% INH SOLN 0.5 MG/2.5 ML VIAL INHALATION ×4 (02:10→20:20)
[2020-04-17 04:47] LABS: Alveolar/Arterial O2 Gradient 237.2 mmHg; Base Excess ABG -4.5 mEq/l (+/-2.0); Fractional Inspired Oxygen 50 %; HCO3 ABG 21.2 mEq/l (22.0-26.0); Methemoglobin ABG 0.3 %THb (0-1.5); Oxygen Content ABG 14.9 %vol (16.0-22.0); Oxygen Saturation ABG 93.5 % (95.0-100.0); Oxyhemoglobin 92.8 % THb (90.0-100.0); PCO2 ABG 41.6 mmHg (35.0-45.0); PO2 ABG 72.5 mmHg (80.0-100.0); PO2 FiO2 Ratio Arterial Blood 1.45 %; Reduced Hemoglobin 6.9 %THb (0-5.0); Total Hemoglobin 11.4 g/dL (12.0-18.0); pH ABG 7.326 (7.350-7.450)
[2020-04-17 04:48] LABS: Arterial Blood Gas PEEP 12 cmH2O; Arterial Blood Gas Vent Mode CMV; Arterial Blood Gas Ventilator rate 28 /MIN; Device VENTILATOR; Site Drawn ARTLINE
[2020-04-17 04:49] LABS: Arterial Blood Gas Tidal Volume 480 ml
[2020-04-17 04:49] LABS: Hematocrit 25.8 % (42.0-52.0); Hemoglobin 8.3 g/dL (14.0-18.0); Mean Corpuscular HGB Conc 32.2 g/dl (32-36); Mean Corpuscular Hemoglobin 28.1 pg (26-34); Mean Corpuscular Volume 87.5 fl (80-100); Mean Platelet Volume 9.4 fl (7.4-10.4); Platelet Count Result 315 k/mm3 (150-375); Red Blood Count 2.95 M/mm3 (4.6-6.20); Red Cell Distribution Width 15.1 % (11.5-14.5); White Blood Count 9.4 K/mm3 (4.5-10.0)
[2020-04-17 04:59] LABS: INR 1.9
[2020-04-17 05:00] LABS: Partial Thromboplastin Time 66.2 SECONDS (22.3-36.8)
[2020-04-17 05:03] LABS: Lactate Dehydrogenase 646 U/L (313-618)
[2020-04-17 05:14] LABS: CRP 14.3 mg/dL (<1.0)
[2020-04-17 05:42] LABS: Anion Gap 9 mmol/L (8-16); Blood Urea Nitrogen 77 mg/dL (9-20); Calcium 8.1 mg/dL (8.4-10.2); Carbon Dioxide 25 mmol/L (22-30); Chloride 93 mmol/L (98-107); Estimated CRCL calculation 14 ml/min; Estimated Glomerular Filt Rate 11; Glucose 125 mg/dL (75-110); Potassium 4.1 mmol/L (3.4-5.0); Sodium 127 mmol/L (137-145)
[2020-04-17] MEDS: CENTRAL LINE FLUSH 10 ML IV PUSH ×3 (05:58→20:33)
[2020-04-17 07:56] LABS: Glucose Point of Care 139 (65-105)
--- NOTE | 2020-04-17 08:47 | WPDINTPN ---
Progress Note: A&P Assessment and Plan (1) Acute kidney failure, unspecified: Qualifiers: Acute renal failure type: unspecified Qualified Code(s): N17.9 - Acute kidney failure, unspecified Code(s): N17.9 - Acute kidney failure, unspecified Status: Acute Assessment and Plan: acute kidney injury likely related to septic shock, hypotension, hypovolemia, hypoxia - creatinine continues to rise, electrolytes within normal limits, - will discuss with Nephrology regarding trial of diuresis - renal ultrasound was unremarkable (2) Septic shock: Code(s): A41.9 - Sepsis, unspecified organism; R65.21 - Severe sepsis with septic shock Status: Acute Assessment and Plan: OFF LEVOPHED since the morning of 04/15/2020 patient with septic shock likely source pneumonia - continue vancomycin started on 04/10/2020, imipenem started on 04/13/2020 - blood cultures negative x2, urine cultures negative - sputum culture growth of normal oropharyngeal peyman - fevers have resolved (3) Respiratory failure with hypoxia: Qualifiers: Chronicity: acute Qualified Code(s): J96.01 - Acute respiratory failure with hypoxia Code(s): J96.91 - Respiratory failure, unspecified with hypoxia Status: Acute Assessment and Plan: acute respiratory failure with hypoxia due to COVID-19 pneumonia - 04/12/2020 patient desaturated the 70s, also hypoxic on his ABGs with PO2 of 50. Patient was intubated collect on delivery clerk 04/12/2020. - chest x-ray and ABGs reviewed, continue peep of 12 in 50% FiO2 - OFF FLOLAN SINCE 04/15/2020 - continue bronchodilators - patient on fentanyl and Versed for sedation, (4) Pneumonia due to COVID-19 virus: Code(s): U07.1 - COVID-19; J12.89 - Other viral pneumonia Status: Acute Assessment and Plan: SARS-CoV-2 PCR positive on 03/17/2020: Patient present with COVID-19 pneumonia along with hypoxia, cough - completed 10 day course of dexamethasone on 04/06 - completed a 5 day course of Remdesivir on 04/01 - received 1 unit of convalscent plasma on 03/29/2020 - monitor inflammatory markers which are showing improvement but are still abnormal - continue airborne, droplet, contact isolation /precautions (5) Chronic anticoagulation: Code(s): Z79.01 - long term care social worker (current) use of anticoagulants Status: Acute Assessment and Plan: 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, - INR was supratherapeutic likely secondary to septic shock, currently INR 1.9 - will continue to hold Coumadin as patient is anemic with hemoglobin of 8.3 which has been trending down from 12.4 (6) Hyperglycemia: Code(s): R73.9 - Hyperglycemia, unspecified Status: Acute Assessment and Plan: blood sugars improving - continue high-dose sliding scale insulin and Accu-Cheks - continue to hold Lantus since patient is not on any tube feeds (7) Dietary counseling and surveillance: Code(s): Z71.3 - Dietary counseling and surveillance Status: Acute Assessment and Plan: patient intubated, PATIENT TOLERATING TUBE FEEDS, INCREASED TO GOAL - stress ulcer prophylaxis: ppi (8) DVT prophylaxis: Code(s): Z29.9 - Encounter for prophylactic measures, unspecified Status: Acute Assessment and Plan: DVT prophylaxis: will hold Coumadin, start patient on prophylactic heparin (9) Hemorrhoids: Qualifiers: Hemorrhoid type: unspecified Qualified Code(s): K64.9 - Unspecified hemorrhoids Code(s): K64.9 - Unspecified hemorrhoids Status: Acute Assessment and Plan: appreciate GI evaluation recommendation, hemorrhoids along with rectal prolapse continue topical treatment in the form of hydrocortisone and increase fiber and avoid straining. - for the rectal prolapse he will have to follow with a surgeon as an outpatient - continue Anusol HC (10) Chron
[2020-04-17] MEDS: PANTOPRAZOLE SODIUM IV 40 MG VIAL IV PUSH ×2 (09:06→20:32)
[2020-04-17] MEDS: TOLNAFTATE 1% POWDER 45 GM BTL 1 APPLIC TOPICAL ×2 (09:06→20:31)
[2020-04-17] MEDS: HYDROCORTISONE ACETATE 25 MG SUPPOSITORY RECTAL ×2 (11:00→20:32)
--- NOTE | 2020-04-17 11:56 | PCDIET ---
Nutrition Follow-Up Complete: Nutrition Diagnosis: Involuntary weight loss related to decreased appetite and decreased taste as evidenced by reported 2-13 pound weight loss without trying. Nutrition Goal: Patient to meet estimated nutritional needs. Goal met. Patient tolerating Nepro at 40mL/hr goal rate without reported issues. Nephrology following with no plan for dialysis at this time. MD to discuss possible diuresis with nephrology. Recommend continuing Nepro formula at this time. Last recorded weight is 114.2 kg which is increased from last review. +I/O. Bowel Motility: No new bowel movement - discussed during rounds - Miralax and Colace continued Labs Reviewed: Hgb (8.3), Hct (25.8), BUN (77), Cr (5.2), Na (127), Alb (2.4), Av Ca (9.38) Meds Noted: Miralax, Vancomycin, Colace, Flolan, Fentanyl, Hydrochlorothiazide, Imipenem, Novolog, Lantus, Atrovent, Xopenex, Versed, Protonix Additional Notes: Bottom reddened, per nursing. No pressure sores documented. Will continue to monitor with same goal. Nutrition Monitoring and Evaluation: Follow up every Monday/Monday. Follow daily in ICU rounds.
[2020-04-17 12:13] LABS: Glucose Point of Care 114 (65-105)
[2020-04-17] MEDS: ALBUMIN HUMAN 25% 12.5 GM/50ML 50 ML IVPB (12:40)
[2020-04-17] MEDS: polyethylene glycoL 3350 17 GM POWD.PACK PO (12:42)
[2020-04-17] MEDS: FUROSEMIDE INJ 40 MG/4 ML VIAL 60 MG IV PUSH (14:06)
[2020-04-17] MEDS: HEPARIN SODIUM 5,000 UNITS/ML VIAL 5000 UNITS SUB-Q ×2 (14:07→20:42)
--- NOTE | 2020-04-17 18:08 | PM.PNNEP ---
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 (2) Pneumonia due to COVID-19 virus: Code(s): U07.1 - COVID-19; J12.89 - Other viral pneumonia Status: Acute Assessment and Plan: continue supportive measure follow inflammatory markers, CXR, hemodynamics...etc (3) Hypotension: Code(s): I95.9 - Hypotension, unspecified Status: Acute Assessment and Plan: on pressors wean as tolerated (4) Hyperglycemia: Code(s): R73.9 - Hyperglycemia, unspecified Status: Acute Assessment and Plan: follow accuchecks on SSI (5) Chronic anticoagulation: Code(s): 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 Subjective Date/time seen: 04/17/20 18:08 Chart reviewed since admission -- remains on full mechanical support at the time of my visit; trial of IV diuretics today; no new events overnight or earlier today; no distress apparent. Exam Narrative: Exam Narrative: General: ill appearing male in NAD; intubated/sedated Heart: normal S1 and S2; no rub Lungs: coarse breath sounds throughout Abdomen: soft, nontender, nondistended, positive bowel sounds Extremities: no cyanosis or clubbing; trace edema Skin: no rash or nodules Objective Data Vital Signs Vital Signs: Vital Signs Temp Pulse Resp BP Pulse Ox 04/17/20 17:12 80 32 H 04/17/20 17:10 77 94 04/17/20 15:54 36.4 C 83 32 H 121/61 91 04/17/20 14:45 75 94 04/17/20 14:00 83 32 H 119/67 93 04/17/20 13:30 82 32 H 04/17/20 13:18 79 33 H 04/17/20 12:00 36.1 C L 74 30 H 103/59 L 93 04/17/20 11:10 78 93 04/17/20 10:00 36.1 C L 82 30 H 116/61 91 04/17/20 08:53 76 93 04/17/20 08:00 36.3 C L 79 28 H 114/52 L 94 04/17/20 07:30 74 28 H 04/17/20 07:22 74 28 H 04/17/20 06:11 79 28 H 04/17/20 06:00 36.3 C L 70 28 H 112/53 L 93 04/17/20 04:52 74 94 04/17/20 04:00 36.3 C L 79 28 H 117/54 L 91 04/17/20 02:19 80 32 H 04/17/20 02:15 80 95 04/17/20 02:10 77 33 H 04/17/20 02:00 36.7 C 79 28 H 109/53 L 95 04/17/20 00:00 36.7 C 83 28 H 107/52 L 96 04/16/20 23:24 85 96 04/16/20 22:00 36.6 C 84 28 H 103/48 L 95 04/16/20 21:25 81 28 H 04/16/20 20:58 79 32 H 04/16/20 20:45 81 30 H 04/16/20 20:30 80 94 04/16/20 20:00 36.6 C 88 28 H 122/57 L 94 04/16/20 19:48 82 35 H 04/16/20 19:46 82 35 H 04/16/20 19:15 82 28 H Intake/Output Intake/Output: Intake & Output 04/14/20 04/15/20 04/16/20 04/17/20 23:59 23:59 23:59 23:59 Intake Total 2434 1159 1726 2013 Output Total 3210 472 182 1318 Balance 1874 342 539 793 Meds/Results Medications: Active Medications Generic Name Dose Route Start Last Admin Trade Name Freq PRN Reason Stop Dose Admin Benzocaine 1 applic 04/03/20 04:58 04/13/20 05:30 Benzocaine 20% Hemorrhoidal Ointment 28 Gm TOPICAL 1 applic Q4H PRN Administration Rectal Pain Bisacodyl 10 mg 03/31/20 10:10 Dulcolax Suppository RECTAL QAM PRN Constipation Calcium
[2020-04-17 20:03] LABS: Glucose Point of Care 113 (65-105)
[2020-04-17] MEDS: DOCUSATE SODIUM LIQ 100 MG/10 ML UDC PO (20:31)
[2020-04-17] MEDS: SODIUM CHLORIDE NASAL GEL 14.1 GM 1 APPLIC NASAL (20:32)
[2020-04-17 23:22] LABS: Glucose Point of Care 110 (65-105)
[2020-04-18] VITALS (34 sets, daily range): BP systolic 101–135; BP diastolic 60–71; PULSE 77–123; RESP 24–36; TEMP 35.7–37.9; O2SAT 88–96
[2020-04-18] MEDS: IPRATROPIUM BR 0.02% INH SOLN 0.5 MG/2.5 ML VIAL INHALATION ×4 (03:17→21:00)
[2020-04-18] MEDS: FENTANYL 2,500MCG/NS250ML(*CRX 2,500 MCG/250 ML BAG 7.5 MCG IV CONT (04:20)
[2020-04-18 04:22] LABS: Base Excess ABG -1.9 mEq/l (+/-2.0); Carboxyhemoglobin 0.3 % THb (0-2.0); Fractional Inspired Oxygen 60 %; HCO3 ABG 24.1 mEq/l (22.0-26.0); Methemoglobin ABG 0.3 %THb (0-1.5); Oxygen Content ABG 13.5 %vol (16.0-22.0); Oxygen Saturation ABG 96.2 % (95.0-100.0); Oxyhemoglobin 95.3 % THb (90.0-100.0); PCO2 ABG 46.7 mmHg (35.0-45.0); PO2 ABG 89.4 mmHg (80.0-100.0); PO2 FiO2 Ratio Arterial Blood 1.49 %; Reduced Hemoglobin 4.1 %THb (0-5.0); Site Drawn LEFT RADIAL; pH ABG 7.331 (7.350-7.450)
[2020-04-18 04:23] LABS: Arterial Blood Gas PEEP 12 cmH2O; Arterial Blood Gas Tidal Volume 480 ml; Arterial Blood Gas Vent Mode CMV; Arterial Blood Gas Ventilator rate 28 /MIN; Device VENTILATOR; Modified Allen's Test Pass
[2020-04-18 04:44] LABS: Hematocrit 26.9 % (42.0-52.0); Hemoglobin 8.7 g/dL (14.0-18.0); Mean Corpuscular HGB Conc 32.3 g/dl (32-36); Mean Corpuscular Hemoglobin 27.9 pg (26-34); Mean Corpuscular Volume 86.2 fl (80-100); Mean Platelet Volume 9.5 fl (7.4-10.4); Platelet Count Result 360 k/mm3 (150-375); Red Blood Count 3.12 M/mm3 (4.6-6.20); Red Cell Distribution Width 15.5 % (11.5-14.5); White Blood Count 11.2 K/mm3 (4.5-10.0)
[2020-04-18 05:05] LABS: D Dimer 2.86 ug/mL (<0.48)
[2020-04-18] MEDS: CENTRAL LINE FLUSH 10 ML IV PUSH ×3 (05:42→23:12)
[2020-04-18] MEDS: HEPARIN SODIUM 5,000 UNITS/ML VIAL 5000 UNITS SUB-Q (05:43)
[2020-04-18 06:17] LABS: Vancomycin Random 26.8 ug/mL (10-20)
[2020-04-18 06:18] LABS: Glucose Point of Care 138 (65-105)
[2020-04-18] MEDS: HYDROCORTISONE ACETATE 25 MG SUPPOSITORY RECTAL ×2 (08:39→20:40)
[2020-04-18] MEDS: TOLNAFTATE 1% POWDER 45 GM BTL 1 APPLIC TOPICAL ×2 (08:40→20:40)
[2020-04-18] MEDS: PANTOPRAZOLE SODIUM IV 40 MG VIAL IV PUSH (08:40)
[2020-04-18 10:20] LABS: Anion Gap 11 mmol/L (8-16); Blood Urea Nitrogen 96 mg/dL (9-20); Calcium 8.1 mg/dL (8.4-10.2); Carbon Dioxide 25 mmol/L (22-30); Chloride 94 mmol/L (98-107); Estimated CRCL calculation 15 ml/min; Estimated Glomerular Filt Rate 12; Glucose 158 mg/dL (75-110); Phosphorus 7.7 mg/dL (2.5-4.5); Potassium 4.8 mmol/L (3.4-5.0); Sodium 130 mmol/L (137-145)
[2020-04-18 10:45] LABS: Lactate Dehydrogenase 857 U/L (313-618)
[2020-04-18 11:00] LABS: CRP 15.4 mg/dL (<1.0)
--- NOTE | 2020-04-18 11:44 | WPDINTPN ---
Progress Note: A&P Assessment and Plan (1) Acute kidney failure, unspecified: Qualifiers: Acute renal failure type: unspecified Qualified Code(s): N17.9 - Acute kidney failure, unspecified Code(s): N17.9 - Acute kidney failure, unspecified Status: Acute Assessment and Plan: acute kidney injury likely related to septic shock, hypotension, hypovolemia, hypoxia - Some improvement of creatinine today compared to yesterday. It is 4.9 today which is better than 5.2 yesterday. electrolytes within normal limits, - He was given 1 dose of Lasix yesterday with good urine output but still net positive fluid balance. Will discuss it with nephrology service to see if he can give another dose of Lasix today. - renal ultrasound was unremarkable - nephrology following. No plans for dialysis now. (2) Septic shock: Code(s): A41.9 - Sepsis, unspecified organism; R65.21 - Severe sepsis with septic shock Status: Acute Assessment and Plan: OFF LEVOPHED since the morning of 04/15/2020 patient with septic shock likely source pneumonia - He has been on vancomycin since 04/10/2020 with high trough level. Culture did not grow any MRSA. Will stop vancomycin. Continue imipenem which was started on 04/13/2020 - blood cultures negative x2, urine cultures negative - sputum culture growth of normal oropharyngeal peyman - fevers have resolved but still having low-grade fevers (3) Respiratory failure with hypoxia: Qualifiers: Chronicity: acute Qualified Code(s): J96.01 - Acute respiratory failure with hypoxia Code(s): J96.91 - Respiratory failure, unspecified with hypoxia Status: Acute Assessment and Plan: acute respiratory failure with hypoxia due to COVID-19 pneumonia - 04/12/2020 patient desaturated the 70s, also hypoxic on his ABGs with PO2 of 50. 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 - chest x-ray and ABGs reviewed. will decrease PEEP to 10 and FiO2 to 50% if he Is tolerating. Will continue further weaning down FiO2 and PEEP if he is able to tolerated. - OFF FLOLAN SINCE 04/15/2020 - continue bronchodilators - patient on fentanyl and Versed for sedation. - He is not a candidate for SBT trial for now. (4) Pneumonia due to COVID-19 virus: Code(s): U07.1 - COVID-19; J12.89 - Other viral pneumonia Status: Acute Assessment and Plan: SARS-CoV-2 PCR positive on 03/17/2020: Patient present with COVID-19 pneumonia along with hypoxia, cough - completed 10 day course of dexamethasone on 04/06 - completed a 5 day course of Remdesivir on 04/01 - received 1 unit of convalscent plasma on 03/29/2020 - monitor inflammatory markers which are showing improvement but are still abnormal - continue airborne, droplet, contact isolation /precautions (5) Chronic anticoagulation: Code(s): Z79.01 - half-way (current) use of anticoagulants Status: Acute Assessment and Plan: 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 H&H have been stable for the last few days now. Will resume subcutaneous Lovenox and keep an eye on the H&H. If there is no further drop then will continue him on Lovenox for now. (6) Hyperglycemia: Code(s): R73.9 - Hyperglycemia, unspecified Status: Acute Assessment and Plan: blood sugars improving - continue high-dose sliding scale insulin and Accu-Cheks - Continue Lantus with 18 units subcutaneously on the daily basis. (7) Dietary counseling and surveillance: Code(s): Z71.3 - Dietary counseling and surveillance Status: Acute Assessment and Plan: patient intubated, Tolerating tube feed and currently on goal. - stress ulcer prophylaxis:
[2020-04-18] MEDS: BISACODYL 10 MG SUPPOSITORY RECTAL (12:16)
[2020-04-18] MEDS: ENOXAPARIN 120 MG/0.8 ML SYRINGE 115 MG SUB-Q (12:16)
[2020-04-18] MEDS: polyethylene glycoL 3350 17 GM POWD.PACK PO (12:16)
[2020-04-18 12:36] LABS: Glucose Point of Care 162 (65-105)
--- NOTE | 2020-04-18 15:44 | PM.IMPN ---
Progress Note: A&P Assessment and Plan (1) Respiratory failure with hypoxia: Qualifiers: Chronicity: acute Qualified Code(s): J96.01 - Acute respiratory failure with hypoxia Code(s): J96.91 - Respiratory failure, unspecified with hypoxia Status: Acute Assessment and Plan: Patient with a COVID-19 has completed dexamethasone, remdesivir, completed the course and received 1 unit of plasma, Patient was febrile on 04/10 with a T-max of 101.2. patient was seen by cable installation manager, blood culture, sputum culture, and UA was ordered, patient is being treated with Cefepime and vancomycin, so far there is no growth, earlier on 04/12 patient became hypoxic and was emergently intubated later he developed atrial fibrillation patient was started on amiodarone and became hypotensive, was given epinephrine and bicarb, patient was placed on Levophed to MAP of 65 mm Hg, on 04/13 patient creatinine was rising and urine output is very poor, patient is seen by Nephrology, pt does not need dialysis continue iv lasix, currently on vent, seen by cable installation manager and scientific programmer analyst (2) Pneumonia due to COVID-19 virus: Code(s): U07.1 - COVID-19; J12.89 - Other viral pneumonia Status: Acute Assessment and Plan: Patient sent to the ER for hypoxia on 03/28. He has tested positive for COVID on 03/17/20. The patient admitted to the ICU. He has completed Dexamethasone x 10 days (completed 04/06). Remdesivir completed 04/01. He received plasma x 1 as well. He has scotty started on broad specturm abx given the fevers. All cultures negative. Continue supportive care. Continue iv imipenem only can stop iv vancomycin (3) Rectal prolapse: Code(s): K62.3 - Rectal prolapse Status: Acute Assessment and Plan: Most liekly the etiology of his rectal bleeding complicated by his anticoagulation. Seen by GI. Appreciate their input. Plan for surgical evaluation when he is well. (4) Rectal bleeding: Code(s): K62.5 - Hemorrhage of anus and rectum Status: Acute Assessment and Plan: Related to above and from hemorrhoids. Hemorroid treatment ordered. Continue Protonix as well. (5) Diabetes mellitus: Code(s): E11.9 - Type 2 diabetes mellitus without complications Status: Acute Assessment and Plan: The patient's blood glucose was reviewed on 04/11 Glucose remains well controlled. Continue AccuCheks covering with sliding scale. Hypoglycemia protocol available as needed. Continue current medications. 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 (7) Supratherapeutic INR: Code(s): R79.1 - Abnormal coagulation profile Status: Acute Assessment and Plan: INR 4.4 on admisison. only is 1.9, pt is on full dose lovenox twice a day. (8) DVT prophylaxis: Code(s): Z29.9 - Encounter for prophylactic measures, unspecified Status: Acute Assessment and Plan: INR is not therapeutic Subjective Date/time seen: 04/18/20 15:44 Interval history: patient with a COVID-19 has completed dexamethasone, remdesivir, completed the course and received 1 unit of plasma, Patient was febrile on 04/10 with a T-max of 101.2. patient was seen by cable installation manager, blood culture, sputum culture, and UA was ordered, patient is being treated with Cefepime and vancomycin, so far there is no growth, earlier on 04/12 patient became hypoxic and was emergently intubated later he developed atrial fibrillation patient was started on amiodarone and became hypotensive, was given epinephrine and bicarb, patient was placed on Levophed to MAP of 65 mm Hg, on 04/13 patient creatinine was rising and urine output is very poor, patient is seen by Nephrology, does not need dialysis, currently on
[2020-04-18 18:00] LABS: Glucose Point of Care 143 (65-105)
--- NOTE | 2020-04-18 19:01 | P.PNNP_ITS ---
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 (2) Pneumonia due to COVID-19 virus: Code(s): U07.1 - COVID-19; J12.89 - Other viral pneumonia Status: Acute Assessment and Plan: * s/p 10 day course of dexamethasone * s/p 5 day course of Remdesivir * s/p 1 unit of convalscent plasma * continue to monitor inflammatory markers (3) Hypotension: Code(s): I95.9 - Hypotension, unspecified Status: Acute Assessment and Plan: * was on pressors - off now * follow hemodynamics (4) Hyperglycemia: Code(s): R73.9 - Hyperglycemia, unspecified Status: Acute Assessment and Plan: * follow accuchecks * on SSI (5) Chronic anticoagulation: Code(s): Z79.01 - snf (current) use of anticoagulants Status: Acute Assessment and Plan: * follow trend of INR (6) Electrolyte abnormality: Code(s): E87.8 - Other disorders of electrolyte and fluid balance, not elsewhere c lassified Status: Acute Assessment and Plan: * sodium improving * diuresis may help to improve Will continue to follow. Subjective Date/time seen: 04/18/20 19:01 Remains on full ventilator support at this time; off pressors and remains hemodynamically stable; reasonable urine output with IV lasix dosing; otherwisen, no significant changes. Exam Narrative: Exam Narrative: General: ill appearing male in NAD; intubated/sedated Heart: normal S1 and S2; no rub Lungs: coarse breath sounds throughout Abdomen: soft, nontender, nondistended, positive bowel sounds Extremities: no cyanosis or clubbing; trace edema Skin: intact Objective Data Vital Signs Vital Signs: Vital Signs Temp Pulse Resp BP Pulse Ox 04/18/20 17:52 95 32 H 04/18/20 17:32 35.7 C L 87 36 H 135/66 93 04/18/20 16:17 80 94 04/18/20 16:00 35.8 C L 79 32 H 127/68 93 04/18/20 15:44 97 34 H 04/18/20 15:13 77 28 H 04/18/20 14:00 81 32 H 133/63 94 04/18/20 13:30 82 34 H 04/18/20 13:15 82 93 04/18/20 13:14 82 34 H 04/18/20 12:31 89 30 H 04/18/20 12:00 36.2 C L 84 32 H 101/62 91 04/18/20 11:12 84 95 04/18/20 10:00 90 24 H 109/62 96 04/18/20 08:17 94 36 H 04/18/20 08:12 95 96 04/18/20 08:11 94 34 H 04/18/20 08:00 37.3 C 94 34 H 110/63 96 04/18/20 06:00 37.9 C H 108 H 33 H 113/66 94 04/18/20 04:25 106 H 93 04/18/20 04:22 106 H 33 H 04/18/20 04:20 105 H 33 H 04/18/20 04:00 37.9 C H 105 H 33 H 106/64 93 04/18/20 03:18 106 H 34 H 04/18/20 03:15 106 H 92 04/18/20 02:00 37.7 C H 107 H 34 H 120/71 91 04/18/20 00:21 103 H 93 04/18/20 00:00 37.2 C 107 H
--- NOTE | 2020-04-18 19:01 | PM.PNNEP ---
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 (2) Pneumonia due to COVID-19 virus: Code(s): U07.1 - COVID-19; J12.89 - Other viral pneumonia Status: Acute Assessment and Plan: s/p 10 day course of dexamethasone s/p 5 day course of Remdesivir s/p 1 unit of convalscent plasma continue to monitor inflammatory markers (3) Hypotension: Code(s): I95.9 - Hypotension, unspecified Status: Acute Assessment and Plan: was on pressors - off now follow hemodynamics (4) Hyperglycemia: Code(s): R73.9 - Hyperglycemia, unspecified Status: Acute Assessment and Plan: follow accuchecks on SSI (5) Chronic anticoagulation: Code(s): Z79.01 - retirement (current) use of anticoagulants Status: Acute Assessment and Plan: follow trend of INR (6) Electrolyte abnormality: Code(s): E87.8 - Other disorders of electrolyte and fluid balance, not elsewhere classified Status: Acute Assessment and Plan: sodium improving diuresis may help to improve Will continue to follow. Subjective Date/time seen: 04/18/20 19:01 Remains on full ventilator support at this time; off pressors and remains hemodynamically stable; reasonable urine output with IV lasix dosing; otherwisen, no significant changes. Exam Narrative: Exam Narrative: General: ill appearing male in NAD; intubated/sedated Heart: normal S1 and S2; no rub Lungs: coarse breath sounds throughout Abdomen: soft, nontender, nondistended, positive bowel sounds Extremities: no cyanosis or clubbing; trace edema Skin: intact Objective Data Vital Signs Vital Signs: Vital Signs Temp Pulse Resp BP Pulse Ox 04/18/20 17:52 95 32 H 04/18/20 17:32 35.7 C L 87 36 H 135/66 93 04/18/20 16:17 80 94 04/18/20 16:00 35.8 C L 79 32 H 127/68 93 04/18/20 15:44 97 34 H 04/18/20 15:13 77 28 H 04/18/20 14:00 81 32 H 133/63 94 04/18/20 13:30 82 34 H 04/18/20 13:15 82 93 04/18/20 13:14 82 34 H 04/18/20 12:31 89 30 H 04/18/20 12:00 36.2 C L 84 32 H 101/62 91 04/18/20 11:12 84 95 04/18/20 10:00 90 24 H 109/62 96 04/18/20 08:17 94 36 H 04/18/20 08:12 95 96 04/18/20 08:11 94 34 H 04/18/20 08:00 37.3 C 94 34 H 110/63 96 04/18/20 06:00 37.9 C H 108 H 33 H 113/66 94 04/18/20 04:25 106 H 93 04/18/20 04:22 106 H 33 H 04/18/20 04:20 105 H 33 H 04/18/20 04:00 37.9 C H 105 H 33 H 106/64 93 04/18/20 03:18 106 H 34 H 04/18/20 03:15 106 H 92 04/18/20 02:00 37.7 C H 107 H 34 H 120/71 91 04/18/20 00:21 103 H 93 04/18/20 00:00 37.2 C 107 H 28 H 128/71 94 04/17/20 22:07 98 34 H 84 L 04/17/20 22:00 37.0 C 99 28 H 127/67 88 L 04/17/20 20:32 86 36 H 04/17/20 20:29 85 28 H 04/17/20 20:23 88 92 04/17/20 20:22 88 37 H 04/17/20 20:00 36.9 C 84 28 H 105/59 L 91 Intake/Output Intake/Output: Intake & Output 04/15/20 04/16/20 04/17/20 04/18/20 23:59 23:59 23:59 23:59 Intake Total 1159 1726 2253 1652 Output Total 782 170 4811 1225 Balance 066 324 6057 427 Meds/Results Medications: Active Medications Generic Name Dose Route Start Last Admin Trade Name Freq PRN Reason Stop Dose Admin Benzocaine 1 applic 04/03/20 04:58 04/13/20 05:30 Benzocaine 20% Hemorrhoidal Ointment 28 Gm TOP
[2020-04-18] MEDS: SODIUM CHLORIDE NASAL GEL 14.1 GM 1 APPLIC NASAL (20:40)
[2020-04-18] MEDS: DOCUSATE SODIUM LIQ 100 MG/10 ML UDC PO (23:13)
[2020-04-18 23:22] LABS: Glucose Point of Care 121 (65-105)
[2020-04-19] VITALS (32 sets, daily range): BP systolic 97–132; BP diastolic 53–85; PULSE 81–125; RESP 24–40; TEMP 36.1–36.7; O2SAT 90–97
[2020-04-19] MEDS: IPRATROPIUM BR 0.02% INH SOLN 0.5 MG/2.5 ML VIAL INHALATION ×4 (02:52→20:05)
[2020-04-19 04:31] LABS: Alveolar/Arterial O2 Gradient 274.3 mmHg; Base Excess ABG -0.7 mEq/l (+/-2.0); Carboxyhemoglobin 0.3 % THb (0-2.0); Device VENTILATOR; Fractional Inspired Oxygen 70 %; HCO3 ABG 25.1 mEq/l (22.0-26.0); Methemoglobin ABG 0.3 %THb (0-1.5); Modified Allen's Test Pass; Oxygen Content ABG 14.6 %vol (16.0-22.0); Oxygen Saturation ABG 99.1 % (95.0-100.0); Oxyhemoglobin 97.9 % THb (90.0-100.0); PCO2 ABG 46.9 mmHg (35.0-45.0); PO2 ABG 174.4 mmHg (80.0-100.0); PO2 FiO2 Ratio Arterial Blood 2.49 %; Reduced Hemoglobin 1.5 %THb (0-5.0); Site Drawn RIGHT RADIAL; Total Hemoglobin 10.3 g/dL (12.0-18.0); pH ABG 7.347 (7.350-7.450)
[2020-04-19 04:32] LABS: Arterial Blood Gas PEEP 10 cmH2O; Arterial Blood Gas Tidal Volume 480 ml; Arterial Blood Gas Vent Mode CMV; Arterial Blood Gas Ventilator rate 28 /MIN
[2020-04-19] MEDS: CENTRAL LINE FLUSH 10 ML IV PUSH ×3 (05:46→20:33)
[2020-04-19 05:59] LABS: Hematocrit 26.2 % (42.0-52.0); Hemoglobin 8.2 g/dL (14.0-18.0); Mean Corpuscular HGB Conc 31.3 g/dl (32-36); Mean Corpuscular Hemoglobin 27.8 pg (26-34); Mean Corpuscular Volume 88.8 fl (80-100); Mean Platelet Volume 9.6 fl (7.4-10.4); Platelet Count Result 347 k/mm3 (150-375); Red Blood Count 2.95 M/mm3 (4.6-6.20); Red Cell Distribution Width 15.4 % (11.5-14.5); White Blood Count 10.4 K/mm3 (4.5-10.0)
[2020-04-19 06:29] LABS: Anion Gap 7 mmol/L (8-16); Blood Urea Nitrogen 107 mg/dL (9-20); Calcium 8.2 mg/dL (8.4-10.2); Carbon Dioxide 27 mmol/L (22-30); Chloride 97 mmol/L (98-107); Estimated CRCL calculation 15 ml/min; Estimated Glomerular Filt Rate 11; Glucose 103 mg/dL (75-110); Magnesium 3.1 mg/dL (1.6-2.3); Phosphorus 8.9 mg/dL (2.5-4.5); Potassium 5.6 mmol/L (3.4-5.0); Sodium 131 mmol/L (137-145)
[2020-04-19] MEDS: PANTOPRAZOLE SODIUM IV 40 MG VIAL IV PUSH (08:44)
[2020-04-19] MEDS: TOLNAFTATE 1% POWDER 45 GM BTL 1 APPLIC TOPICAL ×2 (08:45→20:32)
[2020-04-19] MEDS: SODIUM POLYSTYRENE SULFONONATE 15 GM/60 ML BTL FEED TUBE (11:19)
--- NOTE | 2020-04-19 11:54 | WPDINTPN ---
Progress Note: A&P Assessment and Plan (1) Acute kidney failure, unspecified: Qualifiers: Acute renal failure type: unspecified Qualified Code(s): N17.9 - Acute kidney failure, unspecified Code(s): N17.9 - Acute kidney failure, unspecified Status: Acute Assessment and Plan: acute kidney injury likely related to septic shock, hypotension, hypovolemia, hypoxia - Creatinine has been stable. - Will hold any Lasix today. - renal ultrasound was unremarkable - nephrology following. No plans for dialysis now. Minimal hyperkalemia for which he was given Kayexalate. Does not appear to be fluid overloaded. (2) Septic shock: Code(s): A41.9 - Sepsis, unspecified organism; R65.21 - Severe sepsis with septic shock Status: Acute Assessment and Plan: OFF LEVOPHED since the morning of 04/15/2020 patient with septic shock likely source pneumonia - He has been on vancomycin since 04/10/2020 with high trough level. Culture did not grow any MRSA. Will stop vancomycin. Continue imipenem which was started on 04/13/2020 - blood cultures negative x2, urine cultures negative - sputum culture growth of normal oropharyngeal peyman (3) Respiratory failure with hypoxia: Qualifiers: Chronicity: acute Qualified Code(s): J96.01 - Acute respiratory failure with hypoxia Code(s): J96.91 - Respiratory failure, unspecified with hypoxia Status: Acute Assessment and Plan: acute respiratory failure with hypoxia due to COVID-19 pneumonia - 04/12/2020 patient desaturated the 70s, also hypoxic on his ABGs with PO2 of 50. 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 He had an episode of aspiration on 04/18 with high residual. Moderate amount of secretions were suctioned along with a mucus plug from ET tube. He was requiring high amount of FiO2 last night but now down to 50% and a PEEP of 8. - chest x-ray and ABGs reviewed. will decrease PEEP to 8 and FiO2 to 50% if he Is tolerating. Will continue further weaning down FiO2 and PEEP if he is able to tolerated. - OFF FLOLAN SINCE 04/15/2020 - continue bronchodilators - patient on fentanyl and Versed for sedation. Daily sedation vacation trial. - He is not a candidate for SBT trial for now. (4) Pneumonia due to COVID-19 virus: Code(s): U07.1 - COVID-19; J12.89 - Other viral pneumonia Status: Acute Assessment and Plan: SARS-CoV-2 PCR positive on 03/17/2020: Patient present with COVID-19 pneumonia along with hypoxia, cough - completed 10 day course of dexamethasone on 04/06 - completed a 5 day course of Remdesivir on 04/01 - received 1 unit of convalscent plasma on 03/29/2020 - monitor inflammatory markers which are showing improvement but are still abnormal - continue airborne, droplet, contact isolation /precautions (5) Chronic anticoagulation: Code(s): Z79.01 - MCC (current) use of anticoagulants Status: Acute Assessment and Plan: 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 H&H have been stable for the last few days now. Will resume subcutaneous Lovenox and keep an eye on the H&H. If there is no further drop then will continue him on Lovenox for now. (6) Hyperglycemia: Code(s): R73.9 - Hyperglycemia, unspecified Status: Acute Assessment and Plan: blood sugars improving - continue high-dose sliding scale insulin and Accu-Cheks - Continue Lantus with 18 units subcutaneously on the daily basis. (7) Dietary counseling and surveillance: Code(s): Z71.3 - Dietary counseling and surveillance Status: Acute Assessment and Plan: patient intubated. He had an episode of aspiration yesterday with high residual. His tube feed has been currently on hold. He will be started on tri
[2020-04-19] MEDS: ENOXAPARIN 120 MG/0.8 ML SYRINGE 115 MG SUB-Q (12:36)
[2020-04-19] MEDS: HYDROCORTISONE ACETATE 25 MG SUPPOSITORY RECTAL ×2 (12:36→20:33)
--- NOTE | 2020-04-19 13:12 | P.PNNP_ITS ---
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 but no acute indications as for now * elevated BUN noted but suspect partly related to steroid use (2) Pneumonia due to COVID-19 virus: Code(s): U07.1 - COVID-19; J12.89 - Other viral pneumonia Status: Acute Assessment and Plan: * s/p 10 day course of dexamethasone * s/p 5 day course of Remdesivir * s/p 1 unit of convalscent plasma * continue to monitor inflammatory markers (3) Hypotension: Code(s): I95.9 - Hypotension, unspecified Status: Acute Assessment and Plan: * was on pressors - off now * follow hemodynamics (4) Hyperglycemia: Code(s): R73.9 - Hyperglycemia, unspecified Status: Acute Assessment and Plan: * follow accuchecks * on SSI (5) Chronic anticoagulation: Code(s): 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 Subjective Date/time seen: 04/19/20 13:12 Remains on mechanical ventilation and otherwise hemodynamically stable - high residuals with enteral feeding and noted to have vomiting with concerns for possible aspiration; reasonable urine output s/p IV diuretics; K+ mildly elevated but given kayexalate earlier today; no other significant changes at this time. Exam Narrative: Exam Narrative: General: ill appearing male in NAD; intubated/sedated Heart: normal S1 and S2; no rub Lungs: coarse breath sounds throughout Abdomen: soft, nontender, nondistended, positive bowel sounds Extremities: no cyanosis or clubbing; trace edema Skin: dry and intact Objective Data Vital Signs Vital Signs: \ Vital Signs Temp Pulse Resp BP Pulse Ox 04/19/20 12:00 36.1 C L 92 30 H 125/65 93 04/19/20 11:51 97 95 04/19/20 10:00 36.4 C 86 28 H 108/65 93 04/19/20 08:00 36.3 C L 83 28 H 132/67 92 04/19/20 07:55 83 30 H 04/19/20 07:44 81 31 H 96 04/19/20 06:00 36.4 C 83 28 H 102/63 95 04/19/20 05:10 87 95 04/19/20 04:34 85 28 H 04/19/20 04:33 85 28 H 04/19/20 04:00 36.3 C L 93 28 H 120/68 97 04/19/20 02:58 87 34 H 04/19/20 02:56 88 95 04/19/20 02:52 89 29 H 04/19/20 02:00 36.4 C 85 28 H 112/66 95 04/19/20 00:00 36.2 C L 85 28 H 121/66 95 04/18/20 22:55 91 96 04/18/20 22:00 35.9 C L 93 28 H 134/69 96 04/18/20 21:11 120 H 29 H 04/18/20 21:00 123 H 28 H 04/18/20 20:20 121 H 90 10
--- NOTE | 2020-04-19 13:12 | PM.PNNEP ---
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 but no acute indications as for now elevated BUN noted but suspect partly related to steroid use (2) Pneumonia due to COVID-19 virus: Code(s): U07.1 - COVID-19; J12.89 - Other viral pneumonia Status: Acute Assessment and Plan: s/p 10 day course of dexamethasone s/p 5 day course of Remdesivir s/p 1 unit of convalscent plasma continue to monitor inflammatory markers (3) Hypotension: Code(s): I95.9 - Hypotension, unspecified Status: Acute Assessment and Plan: was on pressors - off now follow hemodynamics (4) Hyperglycemia: Code(s): R73.9 - Hyperglycemia, unspecified Status: Acute Assessment and Plan: follow accuchecks on SSI (5) Chronic anticoagulation: Code(s): 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 Subjective Date/time seen: 04/19/20 13:12 Remains on mechanical ventilation and otherwise hemodynamically stable - high residuals with enteral feeding and noted to have vomiting with concerns for possible aspiration; reasonable urine output s/p IV diuretics; K+ mildly elevated but given kayexalate earlier today; no other significant changes at this time. Exam Narrative: Exam Narrative: General: ill appearing male in NAD; intubated/sedated Heart: normal S1 and S2; no rub Lungs: coarse breath sounds throughout Abdomen: soft, nontender, nondistended, positive bowel sounds Extremities: no cyanosis or clubbing; trace edema Skin: dry and intact Objective Data Vital Signs Vital Signs: \ Vital Signs Temp Pulse Resp BP Pulse Ox 10/25/20 12:00 36.1 C L 92 30 H 125/65 93 04/19/20 11:51 97 95 04/19/20 10:00 36.4 C 86 28 H 108/65 93 04/19/20 08:00 36.3 C L 83 28 H 132/67 92 04/19/20 07:55 83 30 H 04/19/20 07:44 81 31 H 96 04/19/20 06:00 36.4 C 83 28 H 102/63 95 04/19/20 05:10 87 95 04/19/20 04:34 85 28 H 04/19/20 04:33 85 28 H 04/19/20 04:00 36.3 C L 93 28 H 120/68 97 04/19/20 02:58 87 34 H 04/19/20 02:56 88 95 04/19/20 02:52 89 29 H 04/19/20 02:00 36.4 C 85 28 H 112/66 95 04/19/20 00:00 36.2 C L 85 28 H 121/66 95 04/18/20 22:55 91 96 04/18/20 22:00 35.9 C L 93 28 H 134/69 96 04/18/20 21:11 120 H 29 H 04/18/20 21:00 123 H 28 H 04/18/20 20:20 121 H 90 04/18/20 20:00 36.1 C L 84 32 H 126/60 88 L 04/18/20 17:52 95 32 H 04/18/20 17:32 35.7 C L 87 36 H 135/66 93 04/18/20 16:17 80 94 04/18/20 16:00 35.8 C L 79 32 H 127/68 93 04/18/20 15:44 97 34 H 04/18/20 15:13 77 28 H 04/18/20 14:00 81 32 H 133/63 94 04/18/20 13:30 82 34 H Intake/Output Intake/Output: Intake & Output 04/16/20 04/17/20 04/18/20 04/19/20 23:59 23:59 23:59 23:59 Intake Total 1726 2253 1852 375 Output Total 800 1250 1225 975 Balance 926 1003 627 -600 Meds/Results Medications: Active Medications Generic Name Dose Route Start Last Admin Trade Name Freq PRN Reason Stop Dose Admin Benzocaine 1 a
--- NOTE | 2020-04-19 15:20 | PM.IMPN ---
Progress Note: A&P Assessment and Plan (1) Respiratory failure with hypoxia: Qualifiers: Chronicity: acute Qualified Code(s): J96.01 - Acute respiratory failure with hypoxia Code(s): J96.91 - Respiratory failure, unspecified with hypoxia Status: Acute Assessment and Plan: Patient with a COVID-19 has completed dexamethasone, remdesivir, completed the course and received 1 unit of plasma, Patient was febrile on 04/10 with a T-max of 101.2. patient was seen by automated weaver, blood culture, sputum culture, and UA was ordered, patient is being treated with Cefepime and vancomycin, so far there is no growth, earlier on 04/12 patient became hypoxic and was emergently intubated later he developed atrial fibrillation patient was started on amiodarone and became hypotensive, was given epinephrine and bicarb, patient was placed on Levophed to MAP of 65 mm Hg, on 04/13 patient creatinine was rising and urine output is very poor, patient is seen by Nephrology, pt does not need dialysis continue iv lasix, currently on vent, seen by automated weaver and motorcycle mechanic apprentice (2) Pneumonia due to COVID-19 virus: Code(s): U07.1 - COVID-19; J12.89 - Other viral pneumonia Status: Acute Assessment and Plan: Patient sent to the ER for hypoxia on 03/28. He has tested positive for COVID on 03/17/20. The patient admitted to the ICU. He has completed Dexamethasone x 10 days (completed 04/06). Remdesivir completed 04/01. He received plasma x 1 as well. He has scotty started on broad specturm abx given the fevers. All cultures negative. Continue supportive care. Continue iv imipenem only can stop iv vancomycin (3) Rectal prolapse: Code(s): K62.3 - Rectal prolapse Status: Acute Assessment and Plan: Most liekly the etiology of his rectal bleeding complicated by his anticoagulation. Seen by GI. Appreciate their input. Plan for surgical evaluation when he is well. (4) Rectal bleeding: Code(s): K62.5 - Hemorrhage of anus and rectum Status: Acute Assessment and Plan: Related to above and from hemorrhoids. Hemorroid treatment ordered. Continue Protonix as well. (5) Diabetes mellitus: Code(s): E11.9 - Type 2 diabetes mellitus without complications Status: Acute Assessment and Plan: The patient's blood glucose was reviewed on 04/11 Glucose remains well controlled. Continue AccuCheks covering with sliding scale. Hypoglycemia protocol available as needed. Continue current medications. 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 (7) Supratherapeutic INR: Code(s): R79.1 - Abnormal coagulation profile Status: Acute Assessment and Plan: INR 4.4 on admisison. only is 1.9, pt is on full dose lovenox twice a day. (8) DVT prophylaxis: Code(s): Z29.9 - Encounter for prophylactic measures, unspecified Status: Acute Assessment and Plan: INR is not therapeutic Subjective Date/time seen: 04/19/20 15:20 Interval history: patient with a COVID-19 has completed dexamethasone, remdesivir, completed the course and received 1 unit of plasma, Patient was febrile on 04/10 with a T-max of 101.2. patient was seen by automated weaver, blood culture, sputum culture, and UA was ordered, patient is being treated with Cefepime and vancomycin, so far there is no growth, earlier on 04/12 patient became hypoxic and was emergently intubated later he developed atrial fibrillation patient was started on amiodarone and became hypotensive, was given epinephrine and bicarb, patient was placed on Levophed to MAP of 65 mm Hg, on 04/13 patient creatinine was rising and urine output is very poor, patient is seen by Nephrology, does not need dialysis, currently on
[2020-04-19] MEDS: DOCUSATE SODIUM LIQ 100 MG/10 ML UDC PO (20:32)
[2020-04-19] MEDS: SODIUM CHLORIDE NASAL GEL 14.1 GM 1 APPLIC NASAL (20:33)
[2020-04-19 21:33] LABS: Glucose Point of Care 89 (65-105)
[2020-04-19 21:33] LABS: Glucose Point of Care 100 (65-105)
[2020-04-19] MEDS: FENTANYL 2,500MCG/NS250ML(*CRX 2,500 MCG/250 ML BAG 7.5 MCG IV CONT (22:08)
[2020-04-20] VITALS (34 sets, daily range): BP systolic 95–173; BP diastolic 55–99; PULSE 70–126; RESP 18–34; TEMP 35.9–37.2; O2SAT 90–96
[2020-04-20 00:41] LABS: Glucose Point of Care 112 (65-105)
[2020-04-20] MEDS: IPRATROPIUM BR 0.02% INH SOLN 0.5 MG/2.5 ML VIAL INHALATION ×4 (01:56→19:51)
[2020-04-20 03:52] LABS: Alveolar/Arterial O2 Gradient 218.1 mmHg; Base Excess ABG 1.7 mEq/l (+/-2.0); Carboxyhemoglobin 0.2 % THb (0-2.0); Fractional Inspired Oxygen 50 %; HCO3 ABG 27.3 mEq/l (22.0-26.0); Oxygen Content ABG 12.2 %vol (16.0-22.0); Oxyhemoglobin 95.7 % THb (90.0-100.0); PCO2 ABG 47.9 mmHg (35.0-45.0); PO2 ABG 84.5 mmHg (80.0-100.0); PO2 FiO2 Ratio Arterial Blood 1.69 %; Reduced Hemoglobin 4.1 %THb (0-5.0); pH ABG 7.373 (7.350-7.450)
[2020-04-20 03:53] LABS: Device VENTILATOR; Modified Allen's Test Pass; Site Drawn RIGHT RADIAL
[2020-04-20 03:54] LABS: Arterial Blood Gas PEEP 8 cmH2O; Arterial Blood Gas Tidal Volume 480 ml; Arterial Blood Gas Vent Mode CMV; Arterial Blood Gas Ventilator rate 28 /MIN
[2020-04-20] MEDS: CENTRAL LINE FLUSH 10 ML IV PUSH ×3 (05:34→20:03)
[2020-04-20 06:15] LABS: Hematocrit 25.7 % (42.0-52.0); Hemoglobin 8.1 g/dL (14.0-18.0); Mean Corpuscular HGB Conc 31.5 g/dl (32-36); Mean Corpuscular Hemoglobin 28.1 pg (26-34); Mean Corpuscular Volume 89.2 fl (80-100); Mean Platelet Volume 9.5 fl (7.4-10.4); Platelet Count Result 342 k/mm3 (150-375); Red Blood Count 2.88 M/mm3 (4.6-6.20); Red Cell Distribution Width 15.6 % (11.5-14.5); White Blood Count 8.7 K/mm3 (4.5-10.0)
[2020-04-20 06:26] LABS: D Dimer 2.78 ug/mL (<0.48)
[2020-04-20 06:42] LABS: Anion Gap 7 mmol/L (8-16); Blood Urea Nitrogen 109 mg/dL (9-20); CRP 17.1 mg/dL (<1.0); Carbon Dioxide 28 mmol/L (22-30); Chloride 97 mmol/L (98-107); Estimated CRCL calculation 15 ml/min; Estimated Glomerular Filt Rate 12; Glucose 156 mg/dL (75-110); Lactate Dehydrogenase 791 U/L (313-618); Magnesium 3.2 mg/dL (1.6-2.3); Phosphorus 8.3 mg/dL (2.5-4.5); Potassium 4.8 mmol/L (3.4-5.0); Sodium 132 mmol/L (137-145)
[2020-04-20 07:08] LABS: Vancomycin Random 19.8 ug/mL (10-20)
[2020-04-20] MEDS: HYDROCORTISONE ACETATE 25 MG SUPPOSITORY RECTAL ×2 (08:44→19:51)
[2020-04-20] MEDS: PANTOPRAZOLE SODIUM IV 40 MG VIAL IV PUSH (08:45)
[2020-04-20] MEDS: LIDOCAINE 5% PATCH 2 PATCH TRANSDERM (08:45)
[2020-04-20] MEDS: TOLNAFTATE 1% POWDER 45 GM BTL 1 APPLIC TOPICAL ×2 (08:45→19:49)
--- NOTE | 2020-04-20 11:55 | PCDIET ---
ICU Rounding Note: Tube feedings held over weekend due to high residuals. Nepro since resumed and currently infusing at 30mL/hr. MD to discuss whether dialysis is needed with product planner. Last recorded weight is 116.2kg which is increased. Urine output remains decreased. Bowel Motility: BM x 2 on 04/19/20. Labs Reviewed: Hgb (8.1), Hct (25.7), Glu (156), BUN (109), Cr (4.8), Na (132), PO4 (8.3), Ca (8.0) Meds Noted: Dulcolax, Colace, Fentanyl, Imipenem, Novolog, Lantus, Atrovent, Xopenex, Miralax, Protonix Additional Notes: No documented skin breakdown. Following daily in ICU rounds. Assessing/reassessing every Monday/Monday.
[2020-04-20 11:59] LABS: Glucose Point of Care 117 (65-105)
[2020-04-20] MEDS: ENOXAPARIN 120 MG/0.8 ML SYRINGE 115 MG SUB-Q (12:37)
--- NOTE | 2020-04-20 14:55 | WPDINTPN ---
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 it is quite possible the patient either deteriorated from his COVID-19 pneumonia or developed new bacterial infection - He had an episode of aspiration on 04/18 with high residual. Moderate amount of secretions were suctioned along with a mucus plug from ET tube. - currently on 55% FiO2 and 8 of PEEP - chest x-ray and ABGs reviewed. - OFF FLOLAN SINCE 04/15/2020 - continue bronchodilators - patient on fentanyl and Versed for sedation. Daily sedation vacation trial. - patient was having high peak pressures and was asynchronous with the ventilator. instead of increasing sedation, I have changed patient to ASV mode which seems to be working better. Will check ABG (2) Pneumonia due to COVID-19 virus: Code(s): U07.1 - COVID-19; J12.89 - Other viral pneumonia Status: Acute Assessment and Plan: SARS-CoV-2 PCR positive on 03/17/2020: Patient present with COVID-19 pneumonia along with hypoxia, cough - completed 10 day course of dexamethasone on 04/06 - completed a 5 day course of Remdesivir on 04/01 - received 1 unit of convalscent plasma on 03/29/2020 - monitor inflammatory markers which are showing improvement but are still high and abnormal - continue airborne, droplet, contact isolation /precautions (3) Septic shock: Code(s): A41.9 - Sepsis, unspecified organism; R65.21 - Severe sepsis with septic shock Status: Acute Assessment and Plan: OFF LEVOPHED since the morning of 04/15/2020 patient with septic shock likely source pneumonia - He has been on vancomycin since 04/10/2020 with high trough level. Culture did not grow any MRSA and vancomycin was discontinued. - Continue imipenem which was started on 04/13/2020 - blood cultures negative x2, urine cultures negative - sputum culture growth of normal oropharyngeal peyman (4) Acute kidney failure, unspecified: Qualifiers: Acute renal failure type: unspecified Qualified Code(s): N17.9 - Acute kidney failure, unspecified Code(s): N17.9 - Acute kidney failure, unspecified Status: Acute Assessment and Plan: acute kidney injury likely related to septic shock, hypotension, hypovolemia, hypoxia - Creatinine and electrolytes have been stable. - Lasix on hold - renal ultrasound was unremarkable - nephrology following and dialysis per Nephrology No plans for dialysis at this time. 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 H&H have been stable for the last few days now. continue subcutaneous Lovenox and keep an eye on the H&H. (6) Hyperglycemia: Code(s): R73.9 - Hyperglycemia, unspecified Status: Acute Assessment and Plan: blood sugars improving - continue high-dose sliding scale insulin and Accu-Cheks - Continue Lantus with 18 units subcutaneously on the daily basis. (7) Dietary counseling and surveillance: Code(s): Z71.3 - Dietary counseling and surveillance Status: Acute Assessment and Plan: patient intubated. He had an episode of aspiration 04/18 with high residual. His tube feed were held then later restarted at a lower rate. He has been doing fin
--- NOTE | 2020-04-20 15:04 | PM.IMPN ---
Progress Note: A&P Assessment and Plan (1) Respiratory failure with hypoxia: Qualifiers: Chronicity: acute Qualified Code(s): J96.01 - Acute respiratory failure with hypoxia Code(s): J96.91 - Respiratory failure, unspecified with hypoxia Status: Acute Assessment and Plan: 04/20/20 15:04 patient with a COVID-19 has completed dexamethasone, remdesivir, completed the course and received 1 unit of plasma, Patient was febrile on 04/10 with a T-max of 101.2. patient was seen by customer success advocate, blood culture, sputum culture, and UA was ordered, patient is being treated with Cefepime and vancomycin, so far there is no growth, earlier on 04/12 patient became hypoxic and was emergently intubated later he developed atrial fibrillation patient was started on amiodarone and became hypotensive, was given epinephrine and bicarb, patient was placed on Levophed to MAP of 65 mm Hg, on 04/13 patient creatinine was rising and urine output is very poor, patient is seen by Nephrology suspect patient may need dialysis, today 04/15 patient blood pressure is soft and still on Levophed, patient is on flolan, sedated with fentanyl and versed, on 04/15 was taken off nimbex, patient was seen by Nephrology patient urine output is improved patient will not need dialysis,discussed with the customer success advocate patient oxygen is improved requiring less FiO2, today 04/20 currently on vent, appears agitated seen by customer success advocate vent mode switched to ASV doing better, will do the ABG and further recommendation to follow and inclusion special educator appreciate. (2) Pneumonia due to COVID-19 virus: Code(s): U07.1 - COVID-19; J12.89 - Other viral pneumonia Status: Acute Assessment and Plan: Patient sent to the ER for hypoxia on 03/28. He has tested positive for COVID on 03/17/20. The patient admitted to the ICU. He has completed Dexamethasone x 10 days (completed 04/06). Remdesivir completed 04/01. He received plasma x 1 as well. He has scotty started on broad specturm abx given the fevers. All cultures negative. Continue supportive care. Continue iv imipenem only can stop iv vancomycin (3) Rectal prolapse: Code(s): K62.3 - Rectal prolapse Status: Acute Assessment and Plan: Most liekly the etiology of his rectal bleeding complicated by his anticoagulation. Seen by GI. Appreciate their input. Plan for surgical evaluation when he is well. (4) Rectal bleeding: Code(s): K62.5 - Hemorrhage of anus and rectum Status: Acute Assessment and Plan: Related to above and from hemorrhoids. Hemorroid treatment ordered. Continue Protonix as well. (5) Diabetes mellitus: Code(s): E11.9 - Type 2 diabetes mellitus without complications Status: Acute Assessment and Plan: The patient's blood glucose was reviewed on 04/11 Glucose remains well controlled. Continue AccuCheks covering with sliding scale. Hypoglycemia protocol available as needed. Continue current medications. 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 (7) Supratherapeutic INR: Code(s): R79.1 - Abnormal coagulation profile Status: Acute Assessment and Plan: INR 4.4 on admisison. only is 1.9, pt is on full dose lovenox twice a day. (8) DVT prophylaxis: Code(s): Z29.9 - Encounter for prophylactic measures, unspecified Status: Acute Assessment and Plan: INR is not therapeutic Subjective Date/time seen: 04/20/20 15:04 patient with a COVID-19 has completed dexamethasone, remdesivir, completed the course and received 1 unit of plasma, Patient was febrile on 04/10 with a T-max of 101.2. patient was seen by customer success advocate, blood culture, sputum culture, and UA was ordered, patient is being t
[2020-04-20 15:57] LABS: Alveolar/Arterial O2 Gradient 267.7 mmHg; Base Excess ABG -0.9 mEq/l (+/-2.0); Fractional Inspired Oxygen 55 %; HCO3 ABG 24.9 mEq/l (22.0-26.0); Oxygen Content ABG 14.4 %vol (16.0-22.0); Oxyhemoglobin 92.6 % THb (90.0-100.0); PCO2 ABG 46.1 mmHg (35.0-45.0); PO2 ABG 73.2 mmHg (80.0-100.0); PO2 FiO2 Ratio Arterial Blood 1.33 %; pH ABG 7.351 (7.350-7.450)
[2020-04-20 15:59] LABS: Arterial Blood Gas PEEP 8 cmH2O; Arterial Blood Gas Vent Mode ASV; Device VENTILATOR; Modified Allen's Test Pass; Site Drawn LEFT RADIAL
--- NOTE | 2020-04-20 16:13 | PM.PNNEP ---
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 but no acute indications as for now elevated BUN noted but suspect partly related to prior steroid use and catabolic state (2) Pneumonia due to COVID-19 virus: Code(s): U07.1 - COVID-19; J12.89 - Other viral pneumonia Status: Acute Assessment and Plan: s/p 10 day course of dexamethasone s/p 5 day course of Remdesivir s/p 1 unit of convalscent plasma continue to monitor inflammatory markers (3) Hypotension: Code(s): I95.9 - Hypotension, unspecified Status: Acute Assessment and Plan: was on pressors - off now follow hemodynamics (4) Hyperglycemia: Code(s): R73.9 - Hyperglycemia, unspecified Status: Acute Assessment and Plan: follow accuchecks on SSI (5) Chronic anticoagulation: Code(s): 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 Subjective Date/time seen: 04/20/20 16:13 Remains on ventilator support at this time (intubated and sedated); remains hemodynamically stable off pressor therapy; reasonable urine output noted; no new events overnight or earlier this AM. Exam Narrative: Exam Narrative: General: ill appearing male in NAD; intubated/sedated Heart: normal S1 and S2; no rub Lungs: coarse breath sounds throughout Abdomen: soft, nontender, nondistended, positive bowel sounds Extremities: no cyanosis or clubbing; trace edema Skin: no rash or nodules Objective Data Vital Signs Vital Signs: Vital Signs Temp Pulse Resp BP Pulse Ox 04/20/20 14:35 76 93 04/20/20 14:25 78 28 H 04/20/20 14:15 75 28 H 04/20/20 14:00 36.2 C L 95 26 H 124/77 93 10/26/20 13:45 77 93 04/20/20 13:13 101 H 34 H 04/20/20 12:00 36.1 C L 89 28 H 145/75 H 94 04/20/20 10:00 79 28 H 114/67 91 04/20/20 09:30 95 32 H 04/20/20 08:25 101 H 28 H 04/20/20 08:15 70 28 H 93 04/20/20 08:00 35.9 C L 78 28 H 95/55 L 93 04/20/20 07:15 73 28 H 04/20/20 06:00 36.0 C L 94 28 H 134/88 92 04/20/20 05:37 80 29 H 04/20/20 05:31 80 29 H 04/20/20 05:13 80 29 H 04/20/20 05:00 88 94 04/20/20 04:00 36.1 C L 76 28 H 111/69 94 04/20/20 02:10 81 28 H 04/20/20 02:00 36.3 C L 77 28 H 103/64 94 04/20/20 01:58 77 93 04/20/20 01:56 79 28 H 04/20/20 00:29 81 29 H 04/20/20 00:28 84 29 H 04/20/20 00:00 36.4 C L 79 29 H 103/63 94 04/19/20 23:05 82 95 04/19/20 22:08 90 28 H 04/19/20 22:00 36.4 C 91 28 H 97/53 L 95 04/19/20 20:47 93 24 H 04/19/20 20:31 96 28 H 04/19/20 20:30 97 28 H 04/19/20 20:15 96 24 H 04/19/20 20:00 36.5 C 95 28 H 118/69 95 04/19/20 19:50 93 94 Intake/Output Intake/Output: Intake & Output 04/17/20 04/18/20 04/19/20 04/20/20 23:59 23:59 23:59 23:59 Intake Total 2253 2061 804 6699 Output Total 1250 1225 1525 1175 Balance 1003 627 -202 Meds/Results Medications: Active Medications Generic Name Dose Route Start Last Admin Trade Name Freq PRN Reason Stop Dose Admin Benzocaine 1 applic 04/03/20 04:58 04/13/20 05:30 Benzocaine 20% Hemorrhoidal Ointment 28 Gm TOPICAL 1 applic Q4H PRN Administration Rectal Pain Bisacodyl 10 mg 03/31/20 10:10 04/18/20
--- NOTE | 2020-04-20 17:30 | PC.NURSE ---
Plan of care reviewed with daughter Brodie./
[2020-04-20 18:10] LABS: Glucose Point of Care 109 (65-105)
[2020-04-20] MEDS: DOCUSATE SODIUM LIQ 100 MG/10 ML UDC PO (19:51)
[2020-04-20] MEDS: SODIUM CHLORIDE NASAL GEL 14.1 GM 1 APPLIC NASAL (19:51)
[2020-04-20 23:40] LABS: Glucose Point of Care 118 (65-105)
[2020-04-21] VITALS (36 sets, daily range): BP systolic 105–143; BP diastolic 61–82; PULSE 81–111; RESP 14–24; TEMP 36.4–37.2; O2SAT 86–95
[2020-04-21] MEDS: FENTANYL 2,500MCG/NS250ML(*CRX 2,500 MCG/250 ML BAG 10 MCG IV CONT ×2 (02:31→22:12)
[2020-04-21] MEDS: IPRATROPIUM BR 0.02% INH SOLN 0.5 MG/2.5 ML VIAL INHALATION ×4 (04:13→19:56)
[2020-04-21 04:49] LABS: Alveolar/Arterial O2 Gradient 296.9 mmHg; Carboxyhemoglobin 0.3 % THb (0-2.0); Fractional Inspired Oxygen 65 %; HCO3 ABG 25.8 mEq/l (22.0-26.0); Methemoglobin ABG 0.5 %THb (0-1.5); Oxygen Content ABG 13.1 %vol (16.0-22.0); Oxygen Saturation ABG 97.4 % (95.0-100.0); Oxyhemoglobin 96.3 % THb (90.0-100.0); PCO2 ABG 53.3 mmHg (35.0-45.0); PO2 ABG 108.6 mmHg (80.0-100.0); PO2 FiO2 Ratio Arterial Blood 1.67 %; Reduced Hemoglobin 2.9 %THb (0-5.0); Total Hemoglobin 9.5 g/dL (12.0-18.0); pH ABG 7.302 (7.350-7.450)
[2020-04-21 04:53] LABS: Device VENTILATOR; Modified Allen's Test Unable to perform; Site Drawn RIGHT RADIAL
[2020-04-21 04:54] LABS: Arterial Blood Gas Minute Volume 8 LPM; Arterial Blood Gas PEEP 8 cmH2O; Arterial Blood Gas Vent Mode ASV
[2020-04-21] MEDS: CENTRAL LINE FLUSH 10 ML IV PUSH ×3 (05:39→20:27)
[2020-04-21 05:45] LABS: Hematocrit 26.7 % (42.0-52.0); Hemoglobin 8.4 g/dL (14.0-18.0); Mean Corpuscular HGB Conc 31.5 g/dl (32-36); Mean Corpuscular Hemoglobin 28.5 pg (26-34); Mean Corpuscular Volume 90.5 fl (80-100); Mean Platelet Volume 9.5 fl (7.4-10.4); Platelet Count Result 375 k/mm3 (150-375); Red Blood Count 2.95 M/mm3 (4.6-6.20); Red Cell Distribution Width 15.4 % (11.5-14.5); White Blood Count 10.1 K/mm3 (4.5-10.0)
[2020-04-21 05:54] LABS: Anion Gap 5 mmol/L (8-16); Blood Urea Nitrogen 109 mg/dL (9-20); Calcium 7.8 mg/dL (8.4-10.2); Carbon Dioxide 29 mmol/L (22-30); Chloride 100 mmol/L (98-107); Estimated CRCL calculation 16 ml/min; Estimated Glomerular Filt Rate 13; Glucose 210 mg/dL (75-110); Magnesium 3.1 mg/dL (1.6-2.3); Phosphorus 7.7 mg/dL (2.5-4.5); Potassium 4.7 mmol/L (3.4-5.0); Sodium 134 mmol/L (137-145)
[2020-04-21] MEDS: INSULIN ASPART (*BKC) 100 UNITS/ML SUB-Q (06:38)
[2020-04-21] MEDS: LIDOCAINE 5% PATCH 2 PATCH TRANSDERM (07:49)
[2020-04-21] MEDS: TOLNAFTATE 1% POWDER 45 GM BTL 1 APPLIC TOPICAL ×2 (07:50→20:26)
[2020-04-21] MEDS: HYDROCORTISONE ACETATE 25 MG SUPPOSITORY RECTAL ×2 (07:50→20:26)
[2020-04-21] MEDS: PANTOPRAZOLE SODIUM IV 40 MG VIAL IV PUSH (07:50)
--- NOTE | 2020-04-21 08:45 | WPDINTPN ---
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 it is quite possible the patient either deteriorated from his COVID-19 pneumonia or developed new bacterial infection - He had an episode of aspiration on 04/18 with high residual. Moderate amount of secretions were suctioned along with a mucus plug from ET tube. - patient was switched to ASV yesterday to improve patient ventilator synchrony - ABG reviewed and will change the ASV 110% MV, increase PEEP to 10 and decrease FiO2 to 60% and continue to wean FiO2 of possible - chest x-ray reviewed and shows persistent bilateral infiltrates - OFF FLOLAN SINCE 04/15/2020 - continue bronchodilators - patient on fentanyl and Versed for sedation. Daily sedation vacation trial. (2) Pneumonia due to COVID-19 virus: Code(s): U07.1 - COVID-19; J12.89 - Other viral pneumonia Status: Acute Assessment and Plan: SARS-CoV-2 PCR positive on 03/17/2020: Patient present with COVID-19 pneumonia along with hypoxia, cough - completed 10 day course of dexamethasone on 04/06 - completed a 5 day course of Remdesivir on 04/01 - received 1 unit of convalscent plasma on 03/29/2020 - monitor inflammatory markers which are showing improvement but are still high and abnormal - continue airborne, droplet, contact isolation /precautions (3) Septic shock: Code(s): A41.9 - Sepsis, unspecified organism; R65.21 - Severe sepsis with septic shock Status: Acute Assessment and Plan: OFF LEVOPHED since the morning of 04/15/2020 patient with septic shock likely source pneumonia - He has been on vancomycin since 04/10/2020 with high trough level. Culture did not grow any MRSA and vancomycin was discontinued. - Continue imipenem which was started on 04/13/2020 - blood cultures negative x2, urine cultures negative - sputum culture growth of normal oropharyngeal peyman (4) Acute kidney failure, unspecified: Qualifiers: Acute renal failure type: unspecified Qualified Code(s): N17.9 - Acute kidney failure, unspecified Code(s): N17.9 - Acute kidney failure, unspecified Status: Acute Assessment and Plan: acute kidney injury likely related to septic shock, hypotension, hypovolemia, hypoxia - Creatinine and electrolytes have been stable. - Lasix is on hold - renal ultrasound was unremarkable - nephrology following and dialysis per Nephrology No recommendations for dialysis at this time. 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 Hemoglobin stabilized he was resumed on subcutaneous Lovenox. Hemoglobin has been stable since then with no active obvious bleeding. continue subcutaneous therapeutic Lovenox dose at this time (6) Hyperglycemia: Code(s): R73.9 - Hyperglycemia, unspecified Status: Acute Assessment and Plan: blood sugars improving - continue high-dose sliding scale insulin and Accu-Cheks - Continue Lantus with 18 units subcutaneously on the daily basis. (7) Dietary counseling and surveillance: Code(s): Z71.3 - Dietary counseling and surveillance Status: Acute Assessment and Plan: patient intubated. He had an episode of aspiration 04/18 with high residual. His tube feed were held then later re
--- NOTE | 2020-04-21 10:42 | P.PNNP_ITS ---
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 but no acute indications as for now * elevated BUN noted but suspect partly related to prior steroid use and catabolic state (2) Pneumonia due to COVID-19 virus: Code(s): U07.1 - COVID-19; J12.89 - Other viral pneumonia Status: Acute Assessment and Plan: * s/p 10 day course of dexamethasone * s/p 5 day course of Remdesivir * s/p 1 unit of convalscent plasma * continue to monitor inflammatory markers (3) Hypotension: Code(s): I95.9 - Hypotension, unspecified Status: Acute Assessment and Plan: * was on pressors - off now * follow hemodynamics (4) Hyperglycemia: Code(s): R73.9 - Hyperglycemia, unspecified Status: Acute Assessment and Plan: * follow accuchecks * on SSI (5) Chronic anticoagulation: Code(s): Z79.01 - [facility] (current) use of anticoagulants Status: Acute Assessment and Plan: * follow trend of INR Will continue to follow. Subjective Date/time seen: 04/21/20 10:42 No significant change -- remains on mechanical ventilation for respiratory support and remains hemodynamically stable; good urine output in the last 24 hours and overnight; no apparent distress noted at this time. Exam Narrative: Exam Narrative: General: ill appearing male in NAD; intubated/sedated Heart: normal S1 and S2; no rub Lungs: coarse breath sounds throughout Abdomen: soft, nontender, nondistended, positive bowel sounds Extremities: no cyanosis or clubbing; trace edema Skin: intact Objective Data Vital Signs Vital Signs: Vital Signs Temp Pulse Resp BP Pulse Ox 04/21/20 10:00 36.7 C 90 16 106/64 94 04/21/20 08:25 111 H 86 L 04/21/20 08:00 36.7 C 94 17 143/79 H 95 04/21/20 07:50 90 15 04/21/20 07:48 90 15 04/21/20 06:00 36.6 C 89 17 116/77 94 04/21/20 04:23 94 20 04/21/20 04:13 93 21 H 94 04/21/20 04:00 36.8 C 97 19 133/82 94 04/21/20 02:31 92 16 04/21/20 02:00 37.2 C 95 15 116/63 95 04/21/20 00:27 94 94 04/21/20 00:00 37.2 C 99 14 117/63 94 04/20/20 23:34 91 04/20/20 22:00 37.2 C 107 H 20 167/82 H 91 04/20/20 20:04 111 H 22 H 92 04/20/20 20:00 37.2 C 126 H 19 173/99 H 91 04/20/20 19:51 114 H 19 04/20/20 18:00 37.0 C 100 20 130/76 91 04/20/20 17:30 111 H 90 04/20/20 16:00 36.6 C 99 23 H 129/93 H 91 04/20/20 14:35 76 93 04/20/20 14:25 78 28 H 04/20/20 14:15 75 28 H 04/20/20 14:00 36.2 C L 95 25 H 124/77 93 04/20/20 13:45 77 93 04/20/20 13:13 101 H 34 H 04/20/20 12:00 36.1 C L 89 28 H 145/75 H 94
--- NOTE | 2020-04-21 10:42 | PM.PNNEP ---
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 but no acute indications as for now elevated BUN noted but suspect partly related to prior steroid use and catabolic state (2) Pneumonia due to COVID-19 virus: Code(s): U07.1 - COVID-19; J12.89 - Other viral pneumonia Status: Acute Assessment and Plan: s/p 10 day course of dexamethasone s/p 5 day course of Remdesivir s/p 1 unit of convalscent plasma continue to monitor inflammatory markers (3) Hypotension: Code(s): I95.9 - Hypotension, unspecified Status: Acute Assessment and Plan: was on pressors - off now follow hemodynamics (4) Hyperglycemia: Code(s): R73.9 - Hyperglycemia, unspecified Status: Acute Assessment and Plan: follow accuchecks on SSI (5) Chronic anticoagulation: Code(s): Z79.01 - assisted (current) use of anticoagulants Status: Acute Assessment and Plan: follow trend of INR Will continue to follow. Subjective Date/time seen: 04/21/20 10:42 No significant change -- remains on mechanical ventilation for respiratory support and remains hemodynamically stable; good urine output in the last 24 hours and overnight; no apparent distress noted at this time. Exam Narrative: Exam Narrative: General: ill appearing male in NAD; intubated/sedated Heart: normal S1 and S2; no rub Lungs: coarse breath sounds throughout Abdomen: soft, nontender, nondistended, positive bowel sounds Extremities: no cyanosis or clubbing; trace edema Skin: intact Objective Data Vital Signs Vital Signs: Vital Signs Temp Pulse Resp BP Pulse Ox 04/21/20 10:00 36.7 C 90 16 106/64 94 04/21/20 08:25 111 H 86 L 04/21/20 08:00 36.7 C 94 17 143/79 H 95 04/21/20 07:50 90 15 10/27/20 07:48 90 15 04/21/20 06:00 36.6 C 89 17 116/77 94 04/21/20 04:23 94 20 04/21/20 04:13 93 21 H 94 04/21/20 04:00 36.8 C 97 19 133/82 94 04/21/20 02:31 92 16 04/21/20 02:00 37.2 C 95 15 116/63 95 04/21/20 00:27 94 94 04/21/20 00:00 37.2 C 99 14 117/63 94 04/20/20 23:34 91 04/20/20 22:00 37.2 C 107 H 20 167/82 H 91 04/20/20 20:04 111 H 22 H 92 04/20/20 20:00 37.2 C 126 H 19 173/99 H 91 04/20/20 19:51 114 H 19 04/20/20 18:00 37.0 C 100 20 130/76 91 04/20/20 17:30 111 H 90 04/20/20 16:00 36.6 C 99 23 H 129/93 H 91 04/20/20 14:35 76 93 04/20/20 14:25 78 28 H 04/20/20 14:15 75 28 H 04/20/20 14:00 36.2 C L 95 25 H 124/77 93 04/20/20 13:45 77 93 04/20/20 13:13 101 H 34 H 04/20/20 12:00 36.1 C L 89 28 H 145/75 H 94 Intake/Output Intake/Output: Intake & Output 04/18/20 04/19/20 04/20/20 04/21/20 23:59 23:59 23:59 23:59 Intake Total 9720 581 6895 794 Output Total 1225 1525 1175 750 Balance 387 -[phone] 44 Meds/Results Medications: Active Medications Generic Name Dose Route Start Last Admin Trade Name Freq PRN Reason Stop Dose Admin Benzocaine 1 applic 04/03/20 04:58 04/13/20 05:30 Benzocaine 20% Hemorrhoidal Ointment 28 Gm TOPICAL 1 applic Q4H PRN Administration Rectal Pain Bisacodyl 10 mg 03/31/20 10:10 04/18/20 12:16 Dulcolax Suppository RECTAL 10 mg QAM PRN Administration Constipation Calcium Carbonate 200 mg 04/10/20 22:23 04/10/20 23:58 Calcium Carbon
--- NOTE | 2020-04-21 11:02 | PCDIET ---
Nutrition Follow-Up Complete: Nutrition Diagnosis: Involuntary weight loss related to decreased appetite and decreased taste as evidenced by reported 2-13 pound weight loss without trying. Nutrition Goal: Patient to meet estimated needs. Goal met. Patient tolerating Nepro at 40mL/hr goal rate without reported issues. If medically appropriate, patient may benefit from administration of phosphorus binder per tube. Last recorded weight is 115 kg which is down from last review. Urine output slightly improved. Bowel Motility: Last documented BM on 04/20/20 x 1. Labs Reviewed: Hgb (8.4), Hct (26.7), Glu (210), BUN (109), Cr (4.5), Ca (7.8), PO4 (7.7), Na (134) Meds Noted: Colace, Fentanyl, Imipenem, Novolog, Lantus, Atrovent, Xopenex, Versed, Protonix Additional Notes: No documented skin breakdown. Will continue to monitor with same goal. Nutrition Monitoring and Evaluation: Follow up every Monday/Monday. Follow daily in ICU rounds.
[2020-04-21] MEDS: ENOXAPARIN 120 MG/0.8 ML SYRINGE 115 MG SUB-Q (12:22)
[2020-04-21 12:49] LABS: Glucose Point of Care 126 (65-105)
--- NOTE | 2020-04-21 17:21 | PM.IMPN ---
Progress Note: A&P Assessment and Plan (1) Respiratory failure with hypoxia: Qualifiers: Chronicity: acute Qualified Code(s): J96.01 - Acute respiratory failure with hypoxia Code(s): J96.91 - Respiratory failure, unspecified with hypoxia Status: Acute Assessment and Plan: 04/21/20 17:21 patient with a COVID-19 has completed dexamethasone, remdesivir, completed the course and received 1 unit of plasma, Patient was febrile on 04/10 with a T-max of 101.2. patient was seen by director of professional services, blood culture, sputum culture, and UA was ordered, patient is being treated with Cefepime and vancomycin, so far there is no growth, earlier on 04/12 patient became hypoxic and was emergently intubated later he developed atrial fibrillation patient was started on amiodarone and became hypotensive, was given epinephrine and bicarb, patient was placed on Levophed to MAP of 65 mm Hg, on 04/13 patient creatinine was rising and urine output is very poor, patient is seen by Nephrology suspect patient may need dialysis, today 04/15 patient blood pressure is soft and still on Levophed, patient is on flolan, sedated with fentanyl and versed, on 04/15 was taken off nimbex, patient was seen by Nephrology patient urine output is improved patient will not need dialysis,discussed with the director of professional services patient oxygen is improved requiring less FiO2, today 04/21 currently on vent, unable to wean the patient off the mental, patient kidney function is stable patient is making more urine, patient seen by Nephrology does not suspect patient will need dialysis, spoke with director of professional services prognosis is poor will continue to monitor the patient and further recommendation to (2) Pneumonia due to COVID-19 virus: Code(s): U07.1 - COVID-19; J12.89 - Other viral pneumonia Status: Acute Assessment and Plan: Patient sent to the ER for hypoxia on 03/28. He has tested positive for COVID on 03/17/20. The patient admitted to the ICU. He has completed Dexamethasone x 10 days (completed 04/06). Remdesivir completed 04/01. He received plasma x 1 as well. He has scotty started on broad specturm abx given the fevers. All cultures negative. Continue supportive care. Continue iv imipenem only can stop iv vancomycin (3) Rectal prolapse: Code(s): K62.3 - Rectal prolapse Status: Acute Assessment and Plan: Most liekly the etiology of his rectal bleeding complicated by his anticoagulation. Seen by GI. Appreciate their input. Plan for surgical evaluation when he is well. (4) Rectal bleeding: Code(s): K62.5 - Hemorrhage of anus and rectum Status: Acute Assessment and Plan: Related to above and from hemorrhoids. Hemorroid treatment ordered. Continue Protonix as well. (5) Diabetes mellitus: Code(s): E11.9 - Type 2 diabetes mellitus without complications Status: Acute Assessment and Plan: The patient's blood glucose was reviewed on 04/11 Glucose remains well controlled. Continue AccuCheks covering with sliding scale. Hypoglycemia protocol available as needed. Continue current medications. 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 (7) Supratherapeutic INR: Code(s): R79.1 - Abnormal coagulation profile Status: Acute Assessment and Plan: INR 4.4 on admisison. only is 1.9, pt is on full dose lovenox twice a day. (8) DVT prophylaxis: Code(s): Z29.9 - Encounter for prophylactic measures, unspecified Status: Acute Assessment and Plan: INR is not therapeutic Subjective Date/time seen: 04/21/20 17:21 patient with a COVID-19 has completed dexamethasone, remdesivir, completed the course and received 1 unit of plasma, Patient was febrile on 04/10 wi
[2020-04-21 17:34] LABS: Glucose Point of Care 132 (65-105)
[2020-04-21] MEDS: DOCUSATE SODIUM LIQ 100 MG/10 ML UDC PO (20:26)
[2020-04-21] MEDS: SODIUM CHLORIDE NASAL GEL 14.1 GM 1 APPLIC NASAL (20:26)
[2020-04-22] VITALS (43 sets, daily range): BP systolic 105–155; BP diastolic 60–79; PULSE 75–115; RESP 13–34; TEMP 36.2–36.7; O2SAT 90–96
[2020-04-22 00:01] LABS: Glucose Point of Care 104 (65-105)
[2020-04-22] MEDS: IPRATROPIUM BR 0.02% INH SOLN 0.5 MG/2.5 ML VIAL INHALATION ×4 (02:39→20:25)
[2020-04-22 04:50] LABS: Alveolar/Arterial O2 Gradient 240.4 mmHg; Base Excess ABG 0.4 mEq/l (+/-2.0); Carboxyhemoglobin 0.3 % THb (0-2.0); Fractional Inspired Oxygen 55 %; HCO3 ABG 26.9 mEq/l (22.0-26.0); Methemoglobin ABG 0.3 %THb (0-1.5); Oxygen Content ABG 12.8 %vol (16.0-22.0); Oxygen Saturation ABG 96.5 % (95.0-100.0); Oxyhemoglobin 95.4 % THb (90.0-100.0); PCO2 ABG 52.7 mmHg (35.0-45.0); PO2 ABG 93.1 mmHg (80.0-100.0); PO2 FiO2 Ratio Arterial Blood 1.69 %; Total Hemoglobin 9.4 g/dL (12.0-18.0); pH ABG 7.325 (7.350-7.450)
[2020-04-22 04:51] LABS: Modified Allen's Test Pass; Site Drawn LEFT RADIAL
[2020-04-22 04:52] LABS: Device VENTILATOR
[2020-04-22 04:53] LABS: Arterial Blood Gas PEEP 10 cmH2O; Arterial Blood Gas Vent Mode ASV
[2020-04-22] MEDS: CENTRAL LINE FLUSH 10 ML IV PUSH ×3 (05:00→20:01)
[2020-04-22 05:05] LABS: Hematocrit 26.5 % (42.0-52.0); Hemoglobin 8.2 g/dL (14.0-18.0); Mean Corpuscular HGB Conc 30.9 g/dl (32-36); Mean Corpuscular Volume 90.4 fl (80-100); Mean Platelet Volume 9.4 fl (7.4-10.4); Platelet Count Result 362 k/mm3 (150-375); Red Blood Count 2.93 M/mm3 (4.6-6.20); Red Cell Distribution Width 15.6 % (11.5-14.5); White Blood Count 9.7 K/mm3 (4.5-10.0)
[2020-04-22 05:18] LABS: D Dimer 2.59 ug/mL (<0.48)
[2020-04-22 05:34] LABS: Anion Gap 5 mmol/L (8-16); Blood Urea Nitrogen 118 mg/dL (9-20); Calcium 8.2 mg/dL (8.4-10.2); Carbon Dioxide 32 mmol/L (22-30); Chloride 101 mmol/L (98-107); Estimated CRCL calculation 16 ml/min; Estimated Glomerular Filt Rate 13; Glucose 124 mg/dL (75-110); Lactate Dehydrogenase 818 U/L (313-618); Magnesium 3.2 mg/dL (1.6-2.3); Phosphorus 8.1 mg/dL (2.5-4.5); Potassium 4.8 mmol/L (3.4-5.0); Sodium 138 mmol/L (137-145)
[2020-04-22 05:42] LABS: CRP 13.6 mg/dL (<1.0)
[2020-04-22] MEDS: LIDOCAINE 5% PATCH 2 PATCH TRANSDERM (07:36)
[2020-04-22] MEDS: TOLNAFTATE 1% POWDER 45 GM BTL 1 APPLIC TOPICAL ×2 (07:37→19:56)
[2020-04-22] MEDS: HYDROCORTISONE ACETATE 25 MG SUPPOSITORY RECTAL ×2 (07:37→20:00)
[2020-04-22] MEDS: PANTOPRAZOLE SODIUM IV 40 MG VIAL IV PUSH (07:37)
--- NOTE | 2020-04-22 08:28 | WPDINTPN ---
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 it is quite possible the patient either deteriorated from his COVID-19 pneumonia or developed new bacterial infection - He had an episode of aspiration on 04/18 with high residual. Moderate amount of secretions were suctioned along with a mucus plug from ET tube. - patient was switched to ASV yesterday to improve patient ventilator synchrony - ABG reviewed and will change the ASV 110% MV, increase PEEP to 10 and decrease FiO2 to 60% and continue to wean FiO2 of possible - chest x-ray reviewed and shows persistent bilateral infiltrates - OFF FLOLAN SINCE 04/15/2020 - continue bronchodilators - patient on fentanyl and Versed for sedation. Daily sedation vacation trial. (2) Pneumonia due to COVID-19 virus: Code(s): U07.1 - COVID-19; J12.89 - Other viral pneumonia Status: Acute Assessment and Plan: SARS-CoV-2 PCR positive on 03/17/2020: Patient present with COVID-19 pneumonia along with hypoxia, cough - completed 10 day course of dexamethasone on 04/06 - completed a 5 day course of Remdesivir on 04/01 - received 1 unit of convalscent plasma on 03/29/2020 - monitor inflammatory markers which are showing improvement but are still high and abnormal - continue airborne, droplet, contact isolation /precautions (3) Septic shock: Code(s): A41.9 - Sepsis, unspecified organism; R65.21 - Severe sepsis with septic shock Status: Acute Assessment and Plan: OFF LEVOPHED since the morning of 04/15/2020 patient with septic shock likely source pneumonia - He has been on vancomycin since 04/10/2020 with high trough level. Culture did not grow any MRSA and vancomycin was discontinued. - Continue imipenem which was started on 04/13/2020 (for 14 days) - blood cultures negative x2, urine cultures negative - sputum culture growth of normal oropharyngeal peyman (4) Acute kidney failure, unspecified: Qualifiers: Acute renal failure type: unspecified Qualified Code(s): N17.9 - Acute kidney failure, unspecified Code(s): N17.9 - Acute kidney failure, unspecified Status: Acute Assessment and Plan: acute kidney injury likely related to septic shock, hypotension, hypovolemia, hypoxia - Creatinine and electrolytes have been stable. - Lasix is on hold - renal ultrasound was unremarkable - nephrology following and dialysis per Nephrology No recommendations for dialysis at this time. 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 Hemoglobin stabilized he was resumed on subcutaneous Lovenox. Hemoglobin has been stable since then with no active obvious bleeding. continue subcutaneous therapeutic Lovenox dose at this time (6) Hyperglycemia: Code(s): R73.9 - Hyperglycemia, unspecified Status: Acute Assessment and Plan: blood sugars improving - continue high-dose sliding scale insulin and Accu-Cheks - Continue Lantus with 18 units subcutaneously on the daily basis. (7) Dietary counseling and surveillance: Code(s): Z71.3 - Dietary counseling and surveillance Status: Acute Assessment and Plan: patient intubated. He had an episode of aspiration 04/18 with high residual. His tube feed were held
--- NOTE | 2020-04-22 10:29 | PCDIET ---
ICU Rounding Note: Patient tolerating Nepro at 40mL/hr goal rate. Last recorded weight is 115.8kg which is stable. Noted 1450mL urine output yesterday. Bowel Motility: BM x 1 today. Labs Reviewed: Hgb (8.2), Hct (26.5), Glu (124), BUN (118), Cr (4.4), PO4 (8.1), Ca (8.2) Meds Noted: Colace, Lovenox, Fentanyl, Xopenex, Versed, Imipenem, Lantus, Atrovent, Protonix, Miralax Additional Notes: No documented skin breakdown. Following daily in ICU rounds. Assessing/reassessing every Monday/Monday.
[2020-04-22] MEDS: ENOXAPARIN 120 MG/0.8 ML SYRINGE 115 MG SUB-Q (12:35)
[2020-04-22 13:59] LABS: Glucose Point of Care 120 (65-105)
--- NOTE | 2020-04-22 14:41 | PM.IMPN ---
Progress Note: A&P Assessment and Plan (1) Respiratory failure with hypoxia: Qualifiers: Chronicity: acute Qualified Code(s): J96.01 - Acute respiratory failure with hypoxia Code(s): J96.91 - Respiratory failure, unspecified with hypoxia Status: Acute Assessment and Plan: 04/22/20 14:41 patient with a COVID-19 has completed dexamethasone, remdesivir, completed the course and received 1 unit of plasma, Patient was febrile on 04/10 with a T-max of 101.2. patient was seen by nut picker, blood culture, sputum culture, and UA was ordered, patient is being treated with Cefepime and vancomycin, so far there is no growth, earlier on 04/12 patient became hypoxic and was emergently intubated later he developed atrial fibrillation patient was started on amiodarone and became hypotensive, was given epinephrine and bicarb, patient was placed on Levophed to MAP of 65 mm Hg, on 04/13 patient creatinine was rising and urine output is very poor, patient is seen by Nephrology suspect patient may need dialysis, today 04/15 patient blood pressure is soft and still on Levophed, patient is on flolan, sedated with fentanyl and versed, on 04/15 was taken off nimbex, patient was seen by Nephrology patient urine output is improved patient will not need dialysis,discussed with the nut picker patient oxygen is improved requiring less FiO2, Today 04/22 currently on vent unable to wean the patient off the vent, patient kidney function is stable patient is making more urine, patient seen by Nephrology does not suspect patient will need dialysis, spoke with nut picker prognosis is poor, nut picker spoke with family and have decided to monitor for another 2-3 day if he does not respond family may withdraw the care, will continue to monitor the patient and further recommendation to follow (2) Pneumonia due to COVID-19 virus: Code(s): U07.1 - COVID-19; J12.89 - Other viral pneumonia Status: Acute Assessment and Plan: Patient sent to the ER for hypoxia on 03/28. He has tested positive for COVID on 03/17/20. The patient admitted to the ICU. He has completed Dexamethasone x 10 days (completed 04/06). Remdesivir completed 04/01. He received plasma x 1 as well. He has scotty started on broad specturm abx given the fevers. All cultures negative. Continue supportive care. Continue iv imipenem only can stop iv vancomycin (3) Rectal prolapse: Code(s): K62.3 - Rectal prolapse Status: Acute Assessment and Plan: Most liekly the etiology of his rectal bleeding complicated by his anticoagulation. Seen by GI. Appreciate their input. Plan for surgical evaluation when he is well. (4) Rectal bleeding: Code(s): K62.5 - Hemorrhage of anus and rectum Status: Acute Assessment and Plan: Related to above and from hemorrhoids. Hemorroid treatment ordered. Continue Protonix as well. (5) Diabetes mellitus: Code(s): E11.9 - Type 2 diabetes mellitus without complications Status: Acute Assessment and Plan: The patient's blood glucose was reviewed on 04/11 Glucose remains well controlled. Continue AccuCheks covering with sliding scale. Hypoglycemia protocol available as needed. Continue current medications. 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 (7) Supratherapeutic INR: Code(s): R79.1 - Abnormal coagulation profile Status: Acute Assessment and Plan: INR 4.4 on admisison. only is 1.9, pt is on full dose lovenox twice a day. (8) DVT prophylaxis: Code(s): Z29.9 - Encounter for prophylactic measures, unspecified Status: Acute Assessment and Plan: INR is not therapeutic Subjective Date/time seen: 04/22/20 14:41 patient wi
[2020-04-22] MEDS: FENTANYL 2,500MCG/NS250ML(*CRX 2,500 MCG/250 ML BAG 12.5 MCG IV CONT (15:35)
--- NOTE | 2020-04-22 16:54 | P.PNNP_ITS ---
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/dialysis but no acute indications as for now * elevated BUN noted but suspect partly related to prior steroid use and catabolic state (2) Pneumonia due to COVID-19 virus: Code(s): U07.1 - COVID-19; J12.89 - Other viral pneumonia Status: Acute Assessment and Plan: * s/p 10 day course of dexamethasone * s/p 5 day course of Remdesivir * s/p 1 unit of convalscent plasma * continue to monitor inflammatory markers (3) Hypotension: Code(s): I95.9 - Hypotension, unspecified Status: Acute Assessment and Plan: * was on pressors - off now * follow hemodynamics (4) Hyperglycemia: Code(s): R73.9 - Hyperglycemia, unspecified Status: Acute Assessment and Plan: * follow accuchecks * on SSI (5) Chronic anticoagulation: Code(s): Z79.01 - care home (current) use of anticoagulants Status: Acute Assessment and Plan: * follow trend of INR Will continue to follow. Subjective Date/time seen: 04/22/20 16:54 Remains on ventilator support with ongoing sedation; continues to make reasonable urine output (BUN rising but creatinine better); Exam Narrative: Exam Narrative: General: ill appearing male in NAD; intubated/sedated Heart: normal S1 and S2; no rub Lungs: coarse breath sounds throughout Abdomen: soft, nontender, nondistended, positive bowel sounds Extremities: no cyanosis or clubbing; trace edema Skin: no rash Objective Data Vital Signs Vital Signs: Vital Signs Temp Pulse Resp BP Pulse Ox 04/22/20 16:00 36.3 C L 83 14 111/64 92 04/22/20 15:36 79 13 04/22/20 15:35 79 13 04/22/20 14:12 85 13 04/22/20 14:00 36.4 C L 82 16 114/60 92 04/22/20 13:54 82 92 04/22/20 13:29 86 16 04/22/20 13:13 86 16 04/22/20 12:36 86 15 04/22/20 12:35 83 15 04/22/20 12:00 36.6 C 84 13 106/63 94 04/22/20 10:46 91 93 04/22/20 10:15 91 16 04/22/20 10:14 91 16 04/22/20 10:00 36.5 C 90 17 105/65 92 04/22/20 08:30 115 H 34 H 04/22/20 08:06 99 23 H 04/22/20 08:00 36.7 C 97 23 H 125/64 91 04/22/20 07:51 89 95 04/22/20 07:37 85 16 04/22/20 06:00 36.6 C 86 15 126/70 92 04/22/20 05:25 81 22 H 04/22/20 05:24 84 22 H 04/22/20 04:26 81 94 04/22/20 04:00 36.6 C 84 14 118/64 94 04/22/20 03:29 81 15 94 04/22/20 02:47 78 93 04/22/20 02:00 36.4 C 80 19 136/79 92 04/22/20 01:59 79 25 H 04/22/20 00:00 36.4 C L 85 21 H 137/70 94 04/21/20 23:28 82 92 04/21/20 22:12 84 14 04/21/20 22:00 3
--- NOTE | 2020-04-22 16:54 | PM.PNNEP ---
Progress Note: A&P Assessment and Plan (1) Acute kidney failure, unspecified: Qualifiers: Acute renal failure type: unspecified Qualified Code(s): N17.9 - Acute kidney failure, unspecified Code(s): N17.9 - Acute kidney failure, unspecified Status: Acute Assessment and Plan: normal kidney function at baseline urine electrolytes look prerenal renal ultrasound okay creatinine elevated but relative stability noted good urine output and no critical electrolytes not opposed to PRN doses of IV diuretics he remains at risk for possible need for FOLDER HAND/dialysis but no acute indications as for now elevated BUN noted but suspect partly related to prior steroid use and catabolic state (2) Pneumonia due to COVID-19 virus: Code(s): U07.1 - COVID-19; J12.89 - Other viral pneumonia Status: Acute Assessment and Plan: s/p 10 day course of dexamethasone s/p 5 day course of Remdesivir s/p 1 unit of convalscent plasma continue to monitor inflammatory markers (3) Hypotension: Code(s): I95.9 - Hypotension, unspecified Status: Acute Assessment and Plan: was on pressors - off now follow hemodynamics (4) Hyperglycemia: Code(s): R73.9 - Hyperglycemia, unspecified Status: Acute Assessment and Plan: follow accuchecks on SSI (5) Chronic anticoagulation: Code(s): Z79.01 - [facility] (current) use of anticoagulants Status: Acute Assessment and Plan: follow trend of INR Will continue to follow. Subjective Date/time seen: 04/22/20 16:54 Remains on ventilator support with ongoing sedation; continues to make reasonable urine output (BUN rising but creatinine better); Exam Narrative: Exam Narrative: General: ill appearing male in NAD; intubated/sedated Heart: normal S1 and S2; no rub Lungs: coarse breath sounds throughout Abdomen: soft, nontender, nondistended, positive bowel sounds Extremities: no cyanosis or clubbing; trace edema Skin: no rash Objective Data Vital Signs Vital Signs: Vital Signs Temp Pulse Resp BP Pulse Ox 04/22/20 16:00 36.3 C L 83 14 111/64 92 04/22/20 15:36 79 13 04/22/20 15:35 79 13 04/22/20 14:12 85 13 04/22/20 14:00 36.4 C L 82 16 114/60 92 04/22/20 13:54 82 92 04/22/20 13:29 86 16 04/22/20 13:13 86 16 04/22/20 12:36 86 15 04/22/20 12:35 83 15 04/22/20 12:00 36.6 C 84 13 106/63 94 04/22/20 10:46 91 93 04/22/20 10:15 91 16 04/22/20 10:14 91 16 04/22/20 10:00 36.5 C 90 17 105/65 92 04/22/20 08:30 115 H 34 H 04/22/20 08:06 99 23 H 04/22/20 08:00 36.7 C 97 23 H 125/64 91 04/22/20 07:51 89 95 04/22/20 07:37 85 16 04/22/20 06:00 36.6 C 86 15 126/70 92 04/22/20 05:25 81 22 H 04/22/20 05:24 84 22 H 04/22/20 04:26 81 94 04/22/20 04:00 36.6 C 84 14 118/64 94 04/22/20 03:29 81 15 94 04/22/20 02:47 78 93 04/22/20 02:00 36.4 C 80 19 136/79 92 04/22/20 01:59 79 25 H 04/22/20 00:00 36.4 C L 85 21 H 137/70 94 04/21/20 23:28 82 92 04/21/20 22:12 84 14 04/21/20 22:00 36.4 C 81 15 118/65 92 04/21/20 20:19 90 24 H 04/21/20 20:03 85 16 04/21/20 20:00 36.6 C 84 15 106/61 93 04/21/20 19:57 83 15 04/21/20 18:00 36.6 C 84 17 105/64 90 04/21/20 17:31 90 16 04/21/20 17:26 90 16 Intake/Output Intake/Output: Intake & Output 04/19/20 04/20/20 04/21/20 04/22/20 23:59 23:59 23:59 23:59 Intake Total 943 1622 1875.0 1240.0 Output Total 1525 1175 1450 650 Balance -582 447 425.0 590.0 Meds/Results Medications: Active Medications Generic Name Dose Route Start Last Admin Trade Name Freq PRN Reason Stop Dose Admin Benzocaine 1 applic 04/03/20 04:58 04/13/20 05:30 Benzocaine 20% Hemorrhoidal Ointment 28 Gm TOPICAL 1 applic Q4H PRN Administ
[2020-04-22 18:05] LABS: Glucose Point of Care 109 (65-105)
[2020-04-22] MEDS: DOCUSATE SODIUM LIQ 100 MG/10 ML UDC PO (19:56)
[2020-04-22] MEDS: SODIUM CHLORIDE NASAL GEL 14.1 GM 1 APPLIC NASAL (22:42)
[2020-04-23] VITALS (30 sets, daily range): BP systolic 86–142; BP diastolic 50–78; PULSE 64–86; RESP 13–22; TEMP 36.2–36.6; O2SAT 91–94
[2020-04-23 01:56] LABS: Glucose Point of Care 118 (65-105)
[2020-04-23] MEDS: IPRATROPIUM BR 0.02% INH SOLN 0.5 MG/2.5 ML VIAL INHALATION ×4 (02:34→20:22)
[2020-04-23 05:16] LABS: Alveolar/Arterial O2 Gradient 245.6 mmHg; Base Excess ABG 2.6 mEq/l (+/-2.0); Carboxyhemoglobin 0.1 % THb (0-2.0); Fractional Inspired Oxygen 55 %; Methemoglobin ABG 0.3 %THb (0-1.5); Oxygen Content ABG 15.4 %vol (16.0-22.0); Oxygen Saturation ABG 94.3 % (95.0-100.0); Oxyhemoglobin 94.2 % THb (90.0-100.0); PO2 ABG 78.8 mmHg (80.0-100.0); PO2 FiO2 Ratio Arterial Blood 1.43 %; Reduced Hemoglobin 5.4 %THb (0-5.0); Total Hemoglobin 11.6 g/dL (12.0-18.0); pH ABG 7.311 (7.350-7.450)
[2020-04-23 05:18] LABS: Device VENTILATOR; Modified Allen's Test Unable to perform; PCO2 ABG 60.9 mmHg (35.0-45.0); Site Drawn RIGHT RADIAL
[2020-04-23 05:19] LABS: Arterial Blood Gas Minute Volume 9 LPM; Arterial Blood Gas PEEP 10 cmH2O; Arterial Blood Gas Vent Mode ASV
[2020-04-23 05:37] LABS: Glucose Point of Care 102 (65-105)
[2020-04-23] MEDS: CENTRAL LINE FLUSH 10 ML IV PUSH ×3 (06:20→20:39)
[2020-04-23] MEDS: PROPOFOL IV EMULSION 100 ML 6.71 MG IV CONT (08:01)
[2020-04-23] MEDS: LIDOCAINE 5% PATCH 2 PATCH TRANSDERM (08:08)
[2020-04-23] MEDS: PANTOPRAZOLE SODIUM IV 40 MG VIAL IV PUSH (08:08)
[2020-04-23] MEDS: HYDROCORTISONE ACETATE 25 MG SUPPOSITORY RECTAL ×2 (08:08→21:41)
[2020-04-23] MEDS: TOLNAFTATE 1% POWDER 45 GM BTL 1 APPLIC TOPICAL ×2 (08:09→20:38)
[2020-04-23 08:33] LABS: Glucose Point of Care 115 (65-105)
[2020-04-23] MEDS: FENTANYL 2,500MCG/NS250ML(*CRX 2,500 MCG/250 ML BAG 15 MCG IV CONT (09:11)
--- NOTE | 2020-04-23 09:18 | WPDINTPN ---
Progress Note: A&P Assessment and Plan (1) Respiratory failure with hypoxia: Qualifiers: Chronicity: acute Qualified Code(s): J96.01 - Acute respiratory failure with hypoxia Code(s): J96.91 - Respiratory failure, unspecified with hypoxia Status: Acute Assessment and Plan: acute respiratory failure with hypoxia due to COVID-19 pneumonia patient remained on high-flow nasal cannula for long time but eventually deteriorated and was intubated pinmaker 04/12/2020. it is quite possible the patient either deteriorated from his COVID-19 pneumonia or developed new bacterial infection - He had an episode of aspiration on 04/18 with high residual. Moderate amount of secretions were suctioned along with a mucus plug from ET tube. - patient was switched to ASV yesterday to improve patient ventilator synchrony - ABG reviewed and will change the ASV 125% minute ventilation, PEEP of 10 and FiO2 of 55%, continue to wean FiO2 of possible - chest x-ray reviewed and shows persistent bilateral infiltrates - OFF FLOLAN SINCE 04/15/2020 - continue bronchodilators, Add Pulmozyme - patient on fentanyl and Versed for sedation. patient decides been this with the ventilator, adding propofol infusion. Daily sedation vacation trial. (2) Pneumonia due to COVID-19 virus: Code(s): U07.1 - COVID-19; J12.89 - Other viral pneumonia Status: Acute Assessment and Plan: SARS-CoV-2 PCR positive on 03/17/2020: Patient present with COVID-19 pneumonia along with hypoxia, cough - completed 10 day course of dexamethasone on 04/06 - completed a 5 day course of Remdesivir on 04/01 - received 1 unit of convalscent plasma on 03/29/2020 - monitor inflammatory markers which are showing improvement but are still high and abnormal - continue airborne, droplet, contact isolation /precautions (3) Septic shock: Code(s): A41.9 - Sepsis, unspecified organism; R65.21 - Severe sepsis with septic shock Status: Acute Assessment and Plan: RESOLVED: OFF LEVOPHED since the morning of 04/15/2020 patient with septic shock likely source pneumonia - He has been on vancomycin since 04/10/2020 with high trough level. Culture did not grow any MRSA and vancomycin was discontinued. - Continue imipenem which was started on 04/13/2020 (for 14 days) - blood cultures negative x2, urine cultures negative - sputum culture growth of normal oropharyngeal peyman (4) Acute kidney failure, unspecified: Qualifiers: Acute renal failure type: unspecified Qualified Code(s): N17.9 - Acute kidney failure, unspecified Code(s): N17.9 - Acute kidney failure, unspecified Status: Acute Assessment and Plan: acute kidney injury likely related to septic shock, hypotension, hypovolemia, hypoxia - Creatinine and electrolytes have been stable. - Lasix is on hold - renal ultrasound was unremarkable - nephrology following and dialysis per Nephrology No recommendations for dialysis at this time. 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 Hemoglobin stabilized he was resumed on subcutaneous Lovenox. Hemoglobin has been stable since then with no active obvious bleeding. continue subcutaneous therapeutic Lovenox dose at this time (6) Hyperglycemia: Code(s): R73.9 - Hyperglycemia, unspecified Status: Acute Assessment and Plan: blood sugars improving - continue high-dose sliding scale insulin and Accu-Cheks - Continue Lantus with 18 units subcutaneously on the daily basis. (7) Dietary counseling and surveillance: Code(s): Z71.3 - Dietary counseling and surveillance Status: Acute Assessment and Plan: gonzales
--- NOTE | 2020-04-23 11:35 | PCDIET ---
ICU Rounding Note: Patient continues to tolerate Nepro at goal rate of 40mL/hr. Last recorded weight is 111.8kg which is slightly down from last review. Bowel Motility: Last documented BM x 1 on 04/22/20. Labs Reviewed: Glu (115) Meds Noted: Colace, Pulmozyme, Fentanyl, Imipenem, Novolog, Lantus, Atrovent, Xopenex, Versed, Protonix Additional Notes: No documented skin breakdown. Following daily in ICU rounds. Assessing/reassessing every Monday/Monday.
[2020-04-23 13:36] LABS: Glucose Point of Care 117 (65-105)
[2020-04-23] MEDS: ENOXAPARIN 120 MG/0.8 ML SYRINGE 115 MG SUB-Q (13:51)
[2020-04-23] MEDS: PROPOFOL IV EMULSION 100 ML 13.42 MG IV CONT ×2 (14:40→22:45)
--- NOTE | 2020-04-23 16:06 | P.PNNP_ITS ---
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/dialysis but no acute indications as for now * elevated BUN noted but suspect partly related to prior steroid use and catabolic state (2) Pneumonia due to COVID-19 virus: Code(s): U07.1 - COVID-19; J12.89 - Other viral pneumonia Status: Acute Assessment and Plan: * s/p 10 day course of dexamethasone * s/p 5 day course of Remdesivir * s/p 1 unit of convalscent plasma * continue to monitor inflammatory markers (3) Hypotension: Code(s): I95.9 - Hypotension, unspecified Status: Acute Assessment and Plan: * was on pressors - off now * follow hemodynamics (4) Hyperglycemia: Code(s): R73.9 - Hyperglycemia, unspecified Status: Acute Assessment and Plan: * follow accuchecks * on SSI (5) Chronic anticoagulation: Code(s): Z79.01 - [facility] (current) use of anticoagulants Status: Acute Assessment and Plan: * follow trend of INR Noted family discussion with Dr. Lopez yesterday -- possible terminal wean/comfort measure in another day or so... Will continue to follow Subjective Date/time seen: 04/23/20 16:06 No real significant change -- remains dependent on ventilator at this time with inability to wean; kidney function relatively stable; no new issues or problem to report at this time. Exam Narrative: Exam Narrative: General: ill appearing male in NAD; intubated/sedated Heart: normal S1 and S2; no rub Lungs: coarse breath sounds throughout Abdomen: soft, nontender, nondistended, positive bowel sounds Extremities: no cyanosis or clubbing; trace edema Skin: no nodules Objective Data Vital Signs Vital Signs: Vital Signs Temp Pulse Resp BP Pulse Ox 04/23/20 14:00 74 16 113/66 93 04/23/20 12:25 77 93 04/23/20 12:00 36.4 C L 78 16 103/70 94 04/23/20 10:01 74 17 04/23/20 10:00 73 16 102/53 L 92 04/23/20 09:11 74 15 04/23/20 08:16 74 15 04/23/20 08:15 82 16 93 04/23/20 08:00 36.6 C 82 17 125/70 92 04/23/20 06:46 79 20 04/23/20 06:45 79 20 04/23/20 06:00 36.4 C 83 20 120/64 92 04/23/20 05:52 83 22 H 04/23/20 05:00 83 22 H 92 04/23/20 04:00 36.3 C L 86 19 142/76 H 91 04/23/20 02:41 77 15 04/23/20 02:34 76 16 04/23/20 02:12 77 92 04/23/20 02:00 36.5 C 77 17 129/69 92 04/23/20 00:00 36.5 C 83 14 129/71 93 04/22/20 23:03 78 92 04/22/20 22:00 36.3 C L 80 24 H 124/63 96 04/22/20 20:35 78 18 04/22/20 20:25 80 19 04/22/20 20:10 75 91 04/22/20 20:00 36.2 C L 98 23 H 155/78 H 90 04/22/20 19:56 77 21 H 04/22/20 19:55
--- NOTE | 2020-04-23 16:06 | PM.PNNEP ---
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 MAKER/dialysis but no acute indications as for now elevated BUN noted but suspect partly related to prior steroid use and catabolic state (2) Pneumonia due to COVID-19 virus: Code(s): U07.1 - COVID-19; J12.89 - Other viral pneumonia Status: Acute Assessment and Plan: s/p 10 day course of dexamethasone s/p 5 day course of Remdesivir s/p 1 unit of convalscent plasma continue to monitor inflammatory markers (3) Hypotension: Code(s): I95.9 - Hypotension, unspecified Status: Acute Assessment and Plan: was on pressors - off now follow hemodynamics (4) Hyperglycemia: Code(s): R73.9 - Hyperglycemia, unspecified Status: Acute Assessment and Plan: follow accuchecks on SSI (5) Chronic anticoagulation: Code(s): Z79.01 - shelter (current) use of anticoagulants Status: Acute Assessment and Plan: follow trend of INR Noted family discussion with Dr. Lopez yesterday -- possible terminal wean/comfort measure in another day or so... Will continue to follow Subjective Date/time seen: 04/23/20 16:06 No real significant change -- remains dependent on ventilator at this time with inability to wean; kidney function relatively stable; no new issues or problem to report at this time. Exam Narrative: Exam Narrative: General: ill appearing male in NAD; intubated/sedated Heart: normal S1 and S2; no rub Lungs: coarse breath sounds throughout Abdomen: soft, nontender, nondistended, positive bowel sounds Extremities: no cyanosis or clubbing; trace edema Skin: no nodules Objective Data Vital Signs Vital Signs: Vital Signs Temp Pulse Resp BP Pulse Ox 04/23/20 14:00 74 16 113/66 93 04/23/20 12:25 77 93 04/23/20 12:00 36.4 C L 78 16 103/70 94 04/23/20 10:01 74 17 04/23/20 10:00 73 16 102/53 L 92 04/23/20 09:11 74 15 04/23/20 08:16 74 15 04/23/20 08:15 82 16 93 04/23/20 08:00 36.6 C 82 17 125/70 92 04/23/20 06:46 79 20 04/23/20 06:45 79 20 04/23/20 06:00 36.4 C 83 20 120/64 92 04/23/20 05:52 83 22 H 04/23/20 05:00 83 22 H 92 04/23/20 04:00 36.3 C L 86 19 142/76 H 91 04/23/20 02:41 77 15 04/23/20 02:34 76 16 04/23/20 02:12 77 92 04/23/20 02:00 36.5 C 77 17 129/69 92 04/23/20 00:00 36.5 C 83 14 129/71 93 04/22/20 23:03 78 92 04/22/20 22:00 36.3 C L 80 24 H 124/63 96 04/22/20 20:35 78 18 04/22/20 20:25 80 19 04/22/20 20:10 75 91 04/22/20 20:00 36.2 C L 98 23 H 155/78 H 90 04/22/20 19:56 77 21 H 04/22/20 19:55 77 21 H 04/22/20 18:21 104 H 26 H 04/22/20 18:00 36.2 C L 87 22 H 148/74 H 91 04/22/20 17:38 77 13 04/22/20 17:37 77 13 04/22/20 17:24 78 92 Intake/Output Intake/Output: Intake & Output 04/20/20 04/21/20 04/22/20 04/23/20 23:59 23:59 23:59 23:59 Intake Total 1622 1875.0 1983.2 1254.8 Output Total 1175 1450 1400 1300 Balance 447 425.0 583.2 -45.2 Meds/Results Medications: Active Medications Generic Name Dose Route Start Last Admin Trade Name Freq PRN Reason Stop Dose Admin Benzocaine 1 applic 04/03/20 04:58 04/13/20 05:30 Benzocaine 20% Hemorrhoidal Ointment 28 Gm TOPICAL 1 applic Q4H PRN Administration Rectal Pain Bisacody
--- NOTE | 2020-04-23 16:25 | PM.IMPN ---
Progress Note: A&P Assessment and Plan (1) Respiratory failure with hypoxia: Qualifiers: Chronicity: acute Qualified Code(s): J96.01 - Acute respiratory failure with hypoxia Code(s): J96.91 - Respiratory failure, unspecified with hypoxia Status: Acute Assessment and Plan: 04/23/20 16:25 patient with a COVID-19 has completed dexamethasone, remdesivir, completed the course and received 1 unit of plasma, Patient was febrile on 04/10 with a T-max of 101.2. patient was seen by buffing wheel raker, blood culture, sputum culture, and UA was ordered, patient is being treated with Cefepime and vancomycin, so far there is no growth, earlier on 04/12 patient became hypoxic and was emergently intubated later he developed atrial fibrillation patient was started on amiodarone and became hypotensive, was given epinephrine and bicarb, patient was placed on Levophed to MAP of 65 mm Hg, on 04/13 patient creatinine was rising and urine output is very poor, patient is seen by Nephrology suspect patient may need dialysis, today 04/15 patient blood pressure is soft and still on Levophed, patient is on flolan, sedated with fentanyl and versed, on 04/15 was taken off nimbex, patient was seen by Nephrology patient urine output is improved patient will not need dialysis,discussed with the buffing wheel raker patient oxygen is improved requiring less FiO2, Today 04/22 currently on vent unable to wean the patient off the vent, patient kidney function is stable patient is making more urine, patient seen by Nephrology does not suspect patient will need dialysis, today again spoke with buffing wheel raker prognosis is poor, patient still requiring high oxygen, unable to wean the patient off vent, buffing wheel raker spoke with with patient's daughter Brodie will monitor 1 more day and may withdraw care tomorrow and further recommendation to follow (2) Pneumonia due to COVID-19 virus: Code(s): U07.1 - COVID-19; J12.89 - Other viral pneumonia Status: Acute Assessment and Plan: Patient sent to the ER for hypoxia on 03/28. He has tested positive for COVID on 03/17/20. The patient admitted to the ICU. He has completed Dexamethasone x 10 days (completed 04/06). Remdesivir completed 04/01. He received plasma x 1 as well. He has scotty started on broad specturm abx given the fevers. All cultures negative. Continue supportive care. Continue iv imipenem only can stop iv vancomycin (3) Rectal prolapse: Code(s): K62.3 - Rectal prolapse Status: Acute Assessment and Plan: Most liekly the etiology of his rectal bleeding complicated by his anticoagulation. Seen by GI. Appreciate their input. Plan for surgical evaluation when he is well. (4) Rectal bleeding: Code(s): K62.5 - Hemorrhage of anus and rectum Status: Acute Assessment and Plan: Related to above and from hemorrhoids. Hemorroid treatment ordered. Continue Protonix as well. (5) Diabetes mellitus: Code(s): E11.9 - Type 2 diabetes mellitus without complications Status: Acute Assessment and Plan: The patient's blood glucose was reviewed on 04/11 Glucose remains well controlled. Continue AccuCheks covering with sliding scale. Hypoglycemia protocol available as needed. Continue current medications. 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 (7) Supratherapeutic INR: Code(s): R79.1 - Abnormal coagulation profile Status: Acute Assessment and Plan: INR 4.4 on admisison. only is 1.9, pt is on full dose lovenox twice a day. (8) DVT prophylaxis: Code(s): Z29.9 - Encounter for prophylactic measures, unspecified Status: Acute Assessment and Plan: INR is not therapeutic Additional Plan 40 minutes s
[2020-04-23 17:34] LABS: Glucose Point of Care 111 (65-105)
[2020-04-23] MEDS: DORNASE ALFA INH SOLN 1 MG/ML 2.5 ML AMP 2.5 MG INHALATION (20:23)
[2020-04-23] MEDS: SODIUM CHLORIDE NASAL GEL 14.1 GM 1 APPLIC NASAL (20:38)
[2020-04-23] MEDS: DOCUSATE SODIUM LIQ 100 MG/10 ML UDC PO (20:38)
[2020-04-23 23:39] LABS: Glucose Point of Care 87 (65-105)
[2020-04-24] VITALS (43 sets, daily range): BP systolic 101–153; BP diastolic 53–83; PULSE 63–116; RESP 14–30; TEMP 36.4–37.1; O2SAT 85–95
[2020-04-24] MEDS: IPRATROPIUM BR 0.02% INH SOLN 0.5 MG/2.5 ML VIAL INHALATION ×4 (02:00→19:16)
[2020-04-24 04:36] LABS: Alveolar/Arterial O2 Gradient 259.1 mmHg; Base Excess ABG 2.7 mEq/l (+/-2.0); Fractional Inspired Oxygen 55 %; Methemoglobin ABG 0.3 %THb (0-1.5); Oxygen Content ABG 12.3 %vol (16.0-22.0); Oxygen Saturation ABG 93.6 % (95.0-100.0); PCO2 ABG 54.3 mmHg (35.0-45.0); PO2 ABG 72.6 mmHg (80.0-100.0); PO2 FiO2 Ratio Arterial Blood 1.32 %; Reduced Hemoglobin 6.7 %THb (0-5.0); Total Hemoglobin 9.3 g/dL (12.0-18.0); pH ABG 7.346 (7.350-7.450)
[2020-04-24 04:37] LABS: Device VENTILATOR; Modified Allen's Test Pass; Site Drawn RIGHT RADIAL
[2020-04-24 04:38] LABS: Arterial Blood Gas PEEP 10 cmH2O; Arterial Blood Gas Vent Mode ASV
[2020-04-24] MEDS: PROPOFOL IV EMULSION 100 ML 13.42 MG IV CONT ×3 (05:07→16:04)
[2020-04-24 05:23] LABS: Anion Gap 3 mmol/L (8-16); Blood Urea Nitrogen 115 mg/dL (9-20); CRP 7.9 mg/dL (<1.0); Calcium 8.6 mg/dL (8.4-10.2); Carbon Dioxide 33 mmol/L (22-30); Chloride 103 mmol/L (98-107); Estimated CRCL calculation 19 ml/min; Estimated Glomerular Filt Rate 16; Glucose 108 mg/dL (75-110); Lactate Dehydrogenase 869 U/L (313-618); Magnesium 3.1 mg/dL (1.6-2.3); Phosphorus 6.8 mg/dL (2.5-4.5); Potassium 4.5 mmol/L (3.4-5.0); Sodium 139 mmol/L (137-145)
[2020-04-24] MEDS: CENTRAL LINE FLUSH 10 ML IV PUSH ×3 (05:55→21:01)
[2020-04-24] MEDS: HYDROCORTISONE ACETATE 25 MG SUPPOSITORY RECTAL ×2 (07:19→21:00)
[2020-04-24] MEDS: LIDOCAINE 5% PATCH 2 PATCH TRANSDERM (07:20)
[2020-04-24] MEDS: PANTOPRAZOLE SODIUM IV 40 MG VIAL IV PUSH (07:20)
[2020-04-24] MEDS: ENOXAPARIN 120 MG/0.8 ML SYRINGE 115 MG SUB-Q (07:20)
[2020-04-24] MEDS: TOLNAFTATE 1% POWDER 45 GM BTL 1 APPLIC TOPICAL ×2 (07:21→21:00)
[2020-04-24] MEDS: DORNASE ALFA INH SOLN 1 MG/ML 2.5 ML AMP 2.5 MG INHALATION ×2 (08:15→19:17)
[2020-04-24] MEDS: FENTANYL 2,500MCG/NS250ML(*CRX 2,500 MCG/250 ML BAG 10 MCG IV CONT (08:28)
[2020-04-24 08:43] LABS: Basophils Percent Auto 0.4 % (0.2-1.2); Eosinophils Absolute Auto 0.8 K/mm3 (0-0.3); Eosinophils Percent Auto 8.3 % (0-4.4); Hematocrit 26.6 % (42.0-52.0); Hemoglobin 8.2 g/dL (14.0-18.0); Immature Granulocyte Absolute 0.22 K/mm3 (0.00-0.031); Immature Granulocyte Percent A 2.2 % (0-0.5); Lymphocytes Absolute Auto 1.25 K/mm3 (0.9-3.2); Lymphocytes Percent Auto 12.5 % (18.3-44.2); Mean Corpuscular HGB Conc 30.8 g/dl (32-36); Mean Corpuscular Hemoglobin 28.1 pg (26-34); Mean Corpuscular Volume 91.1 fl (80-100); Mean Platelet Volume 9.4 fl (7.4-10.4); Monocytes Percent Auto 9.7 % (2.6-8.5); Neutrophils Absolute Auto 6.7 K/mm3 (1.3-6.7); Neutrophils Percent Auto 66.9 % (45.5-73.1); Platelet Count Result 296 k/mm3 (150-375); Red Blood Count 2.92 M/mm3 (4.6-6.20); Red Cell Distribution Width 15.7 % (11.5-14.5)
--- NOTE | 2020-04-24 09:02 | WPDINTPN ---
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 it is quite possible the patient either deteriorated from his COVID-19 pneumonia or developed new bacterial infection - He had an episode of aspiration on 04/18 with high residual. Moderate amount of secretions were suctioned along with a mucus plug from ET tube. - patient was switched to ASV yesterday to improve patient ventilator synchrony - ABG reviewed and will change the ASV 125% minute ventilation, PEEP of 10 and FiO2 of 55%, continue to wean FiO2 of possible - chest x-ray reviewed and shows persistent bilateral infiltrates - OFF FLOLAN SINCE 04/15/2020 - continue bronchodilators and Pulmozyme - continue fentanyl, Versed and propofol for sedation and vent synchrony (2) Pneumonia due to COVID-19 virus: Code(s): U07.1 - COVID-19; J12.89 - Other viral pneumonia Status: Acute Assessment and Plan: SARS-CoV-2 PCR positive on 03/17/2020: Patient present with COVID-19 pneumonia along with hypoxia, cough - completed 10 day course of dexamethasone on 04/06 - completed a 5 day course of Remdesivir on 04/01 - received 1 unit of convalscent plasma on 03/29/2020 - monitor inflammatory markers which are showing improvement but are still high and abnormal - continue airborne, droplet, contact isolation /precautions (3) Septic shock: Code(s): A41.9 - Sepsis, unspecified organism; R65.21 - Severe sepsis with septic shock Status: Acute Assessment and Plan: RESOLVED: OFF LEVOPHED since the morning of 04/15/2020 patient with septic shock likely source pneumonia - He has been on vancomycin since 04/10/2020 with high trough level. Culture did not grow any MRSA and vancomycin was discontinued. - Continue imipenem which was started on 04/13/2020 (for 14 days) - blood cultures negative x2, urine cultures negative - sputum culture growth of normal oropharyngeal peyman (4) Acute kidney failure, unspecified: Qualifiers: Acute renal failure type: unspecified Qualified Code(s): N17.9 - Acute kidney failure, unspecified Code(s): N17.9 - Acute kidney failure, unspecified Status: Acute Assessment and Plan: acute kidney injury likely related to septic shock, hypotension, hypovolemia, hypoxia - creatinine improving gradually electrolytes are stable. urine output is adequate - Lasix is on hold - renal ultrasound was unremarkable - nephrology following and dialysis per Nephrology No recommendations for dialysis at this time. 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 Hemoglobin stabilized he was resumed on subcutaneous Lovenox. Hemoglobin has been stable since then with no active obvious bleeding. continue subcutaneous therapeutic Lovenox dose at this time (6) Hyperglycemia: Code(s): R73.9 - Hyperglycemia, unspecified Status: Acute Assessment and Plan: blood sugars improving - continue high-dose sliding scale insulin and Accu-Cheks - Continue Lantus with 18 units subcutaneously on the daily basis. (7) Dietary counseling and surveillance: Code(s): Z71.3 - Dietary counseling and surveillance Status: Acute Assessment and Plan: patient intubated. He had an episode of aspiratio
--- NOTE | 2020-04-24 10:27 | P.PNNP_ITS ---
Progress Note: A&P Assessment and Plan (1) Acute kidney failure, unspecified: Qualifiers: Acute renal failure type: unspecified Qualified Code(s): N17.9 - Acute kidney failure, unspecified Code(s): N17.9 - Acute kidney failure, unspecified Status: Acute Assessment and Plan: * normal kidney function at baseline * urine electrolytes look prerenal * renal ultrasound okay * creatinine elevated but relative stability noted * per discussions between family and Dr. Lopez, no dialysis. * Apparently is going to be changed to comfort measures tomorrow. (2) Pneumonia due to COVID-19 virus: Code(s): U07.1 - COVID-19; J12.89 - Other viral pneumonia Status: Acute Assessment and Plan: * s/p 10 day course of dexamethasone * s/p 5 day course of Remdesivir * s/p 1 unit of convalscent plasma * continue to monitor inflammatory markers (3) Hypotension: Code(s): I95.9 - Hypotension, unspecified Status: Acute Assessment and Plan: * was on pressors - off now * BP okay today. 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 Unfortunately, he looks unchanged from how I saw him last week. Exam Narrative: Exam Narrative: General: ill appearing male in NAD; intubated/sedated Heart: normal S1 and S2; no rub Lungs: coarse breath sounds throughout Abdomen: soft, nontender, nondistended, positive bowel sounds Extremities: no cyanosis or clubbing; trace edema Skin: no nodules or rash Objective Data Vital Signs Vital Signs: Vital Signs - 24 hr 04/23/20 12:00 04/23/20 12:25 04/23/20 14:00 Temperature 36.4 C L Pulse Rate 78 77 74 Respiratory Rate 16 16 Blood Pressure 103/70 113/66 Pulse Oximetry 94 93 93 04/23/20 15:00 04/23/20 15:15 04/23/20 16:00 Temperature 36.3 C L Pulse Rate 66 70 67 Respiratory Rate 16 16 13 Blood Pressure 86/50 L Pulse Oximetry 93 04/23/20 16:35 04/23/20 18:00 04/23/20 20:00 Temperature 36.2 C L 36.2 C L Pulse Rate 64 72 64 Respiratory Rate 16 14 Blood Pressure 118/73 111/57 L Pulse Oximetry 92 93 93 04/23/20 20:23 04/23/20 20:31 04/23/20 22:00 Temperature 36.4 C L Pulse Rate 69 71 68 Respiratory Rate 16 16 14 Blood Pressure 131/78 Pulse Oximetry 93 93 04/23/20 23:12 04/24/20 00:00 04/24/20 01:58 Temperature 36.4 C L Pulse Rate 78 77 81 Respiratory Rate 16 Blood Pressure 102/54 L Pulse Oximetry 94 94 95 04/24/20 02:00 04/24/20 02:08 04/24/20 04:00 Temperature 36.6 C 37.0 C Pulse Rate 83 94 108 H Respiratory Rate 18 24 H 30 H Blood Pressure 118/58 L 153/83 H Pulse Oximetry 92 93 04/24/20 04:26 04/24/20 0
--- NOTE | 2020-04-24 10:27 | PM.PNNEP ---
Progress Note: A&P Assessment and Plan (1) Acute kidney failure, unspecified: Qualifiers: Acute renal failure type: unspecified Qualified Code(s): N17.9 - Acute kidney failure, unspecified Code(s): N17.9 - Acute kidney failure, unspecified Status: Acute Assessment and Plan: normal kidney function at baseline urine electrolytes look prerenal renal ultrasound okay creatinine elevated but relative stability noted per discussions between family and Dr. Lopez, no dialysis. Apparently is going to be changed to comfort measures tomorrow. (2) Pneumonia due to COVID-19 virus: Code(s): U07.1 - COVID-19; J12.89 - Other viral pneumonia Status: Acute Assessment and Plan: s/p 10 day course of dexamethasone s/p 5 day course of Remdesivir s/p 1 unit of convalscent plasma continue to monitor inflammatory markers (3) Hypotension: Code(s): I95.9 - Hypotension, unspecified Status: Acute Assessment and Plan: was on pressors - off now BP okay today. 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 Unfortunately, he looks unchanged from how I saw him last week. Exam Narrative: Exam Narrative: General: ill appearing male in NAD; intubated/sedated Heart: normal S1 and S2; no rub Lungs: coarse breath sounds throughout Abdomen: soft, nontender, nondistended, positive bowel sounds Extremities: no cyanosis or clubbing; trace edema Skin: no nodules or rash Objective Data Vital Signs Vital Signs: Vital Signs - 24 hr 04/23/20 12:00 04/23/20 12:25 04/23/20 14:00 Temperature 36.4 C L Pulse Rate 78 77 74 Respiratory Rate 16 16 Blood Pressure 103/70 113/66 Pulse Oximetry 94 93 93 04/23/20 15:00 04/23/20 15:15 04/23/20 16:00 Temperature 36.3 C L Pulse Rate 66 70 67 Respiratory Rate 16 16 13 Blood Pressure 86/50 L Pulse Oximetry 93 04/23/20 16:35 04/23/20 18:00 04/23/20 20:00 Temperature 36.2 C L 36.2 C L Pulse Rate 64 72 64 Respiratory Rate 16 14 Blood Pressure 118/73 111/57 L Pulse Oximetry 92 93 93 04/23/20 20:23 04/23/20 20:31 04/23/20 22:00 Temperature 36.4 C L Pulse Rate 69 71 68 Respiratory Rate 16 16 14 Blood Pressure 131/78 Pulse Oximetry 93 93 04/23/20 23:12 04/24/20 00:00 04/24/20 01:58 Temperature 36.4 C L Pulse Rate 78 77 81 Respiratory Rate 16 Blood Pressure 102/54 L Pulse Oximetry 94 94 95 04/24/20 02:00 04/24/20 02:08 04/24/20 04:00 Temperature 36.6 C 37.0 C Pulse Rate 83 94 108 H Respiratory Rate 18 24 H 30 H Blood Pressure 118/58 L 153/83 H Pulse Oximetry 92 93 04/24/20 04:26 04/24/20 05:00 04/24/20 06:00 Temperature 37.1 C Pulse Rate 98 63 79 Respiratory Rate 16 19 Blood Pressure 102/57 L Pulse Oximetry 94 94 04/24/20 07:57 04/24/20 08:00 04/24/20 08:03 Temperature 36.9 C Pulse Rate 93 84 93 Respiratory Rate 19 16 17 Blood Pressure 121/66 Pulse Oximetry 94 94 04/24/20 08:15 04/24/20 08:21 04/24/20 08:22 Temperature Pulse Rate 92 92 96 Respiratory Rate 22 H 22 H Blood Pressure Pulse Oximetry 94 04/24/20 08:26 04/24/20 08:28 04/24/20 09:22 Temperature Pulse Rate 100 100 84 Respiratory Rate 28 H 28 H 16 Blood Pressure Pulse Oximetry 04/24/20 10:00 04/24/20 10:26 Temperature 36.7 C Pulse Rate 81 81 Respiratory Rate 17 14 Blood Pressure 101/53 L Pulse Oximetry 93 Intake/Output Intake/Output: Intake & Output 04/21/20 04/22/20 04/23/20 04/24/20 23:59 23:59 23:59 23:59 Intake Total 1875.0 1982.2 2089.8 1188 Outpu
--- NOTE | 2020-04-24 11:35 | PCDIET ---
Nutrition Follow-Up Complete: Nutrition Diagnosis: Involuntary weight loss related to decreased appetite and decreased taste as evidenced by reported 2-13 pound weight loss without trying. Nutrition Goal: Patient to meet estimated nutritional needs. Goal met. Patient tolerating Nepro at 40mL/hr without reported issues. Family considering withdrawal of care in coming days. Last recorded weight is 110.9 kg which is decreased from last review, despite +I/O. Will monitor. Bowel Motility: BM today, per RN. Labs Reviewed: Hgb (8.2), Hct (26.6), BUN (115), Cr (3.7), PO4 (6.8), Mg (3.1) Meds Noted: Colace, Fentanyl, Imipenem, Novolog, Lantus, Atrovent, Xopenex, Versed, Protonix, Propofol (rate of 13.42mL/hr provides 352kcal over 24 hours/day) Additional Notes: No documented skin breakdown. Tube feeding at goal with Propofol provides 1938kcal per day (17kcal/kg, 26kcal/kg ideal bw) which is appropriate. Nutrition Monitoring and Evaluation: Follow up every Monday/Monday. Follow daily in ICU rounds.
[2020-04-24 11:36] LABS: Glucose Point of Care 101 (65-105)
--- NOTE | 2020-04-24 16:08 | PM.IMPN ---
Progress Note: A&P Assessment and Plan (1) Respiratory failure with hypoxia: Qualifiers: Chronicity: acute Qualified Code(s): J96.01 - Acute respiratory failure with hypoxia Code(s): J96.91 - Respiratory failure, unspecified with hypoxia Status: Acute Assessment and Plan: 04/24/20 16:08 patient with a COVID-19 has completed dexamethasone, remdesivir, completed the course and received 1 unit of plasma, Patient was febrile on 04/10 with a T-max of 101.2. patient was seen by gas dispatcher, blood culture, sputum culture, and UA was ordered, patient is being treated with Cefepime and vancomycin, so far there is no growth, earlier on 04/12 patient became hypoxic and was emergently intubated later he developed atrial fibrillation patient was started on amiodarone and became hypotensive, was given epinephrine and bicarb, patient was placed on Levophed to MAP of 65 mm Hg, on 04/13 patient creatinine was rising and urine output is very poor, patient is seen by Nephrology suspect patient may need dialysis, today 04/15 patient blood pressure is soft and still on Levophed, patient was on flolan, sedated with fentanyl and versed, on 04/15 was taken off nimbex, patient was seen by Nephrology patient urine output is improved patient will not need dialysis,discussed with the gas dispatcher patient oxygen is improved requiring less FiO2, Today 04/22 currently on vent unable to wean the patient off the vent, patient kidney function is stable patient is making more urine, patient seen by Nephrology does not suspect patient will need dialysis, today 04/24 patient still requiring high oxygen, unable to wean the patient off vent, gas dispatcher spoke with patient's family they are thinking about withdrawing, 3 children are in town would like to be present when patient is extubated, will monitor 1 more day and may withdraw care tomorrow and further recommendation to follow (2) Pneumonia due to COVID-19 virus: Code(s): U07.1 - COVID-19; J12.89 - Other viral pneumonia Status: Acute Assessment and Plan: Patient sent to the ER for hypoxia on 03/28. He has tested positive for COVID on 03/17/20. The patient admitted to the ICU. He has completed Dexamethasone x 10 days (completed 04/06). Remdesivir completed 04/01. He received plasma x 1 as well. He has scotty started on broad specturm abx given the fevers. All cultures negative. Continue supportive care. Continue iv imipenem only can stop iv vancomycin (3) Rectal prolapse: Code(s): K62.3 - Rectal prolapse Status: Acute Assessment and Plan: Most liekly the etiology of his rectal bleeding complicated by his anticoagulation. Seen by GI. Appreciate their input. Plan for surgical evaluation when he is well. (4) Rectal bleeding: Code(s): K62.5 - Hemorrhage of anus and rectum Status: Acute Assessment and Plan: Related to above and from hemorrhoids. Hemorroid treatment ordered. Continue Protonix as well. (5) Diabetes mellitus: Code(s): E11.9 - Type 2 diabetes mellitus without complications Status: Acute Assessment and Plan: The patient's blood glucose was reviewed on 04/11 Glucose remains well controlled. Continue AccuCheks covering with sliding scale. Hypoglycemia protocol available as needed. Continue current medications. 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 (7) Supratherapeutic INR: Code(s): R79.1 - Abnormal coagulation profile Status: Acute Assessment and Plan: INR 4.4 on admisison. only is 1.9, pt is on full dose lovenox twice a day. (8) DVT prophylaxis: Code(s): Z29.9 - Encounter for prophylactic measures, unspecified Status: Acute Assessment and Plan:
[2020-04-24 17:05] LABS: Glucose Point of Care 110 (65-105)
[2020-04-24] MEDS: SODIUM CHLORIDE NASAL GEL 14.1 GM 1 APPLIC NASAL (21:00)
[2020-04-24] MEDS: DOCUSATE SODIUM LIQ 100 MG/10 ML UDC PO (21:01)
[2020-04-24 21:31] LABS: Anion Gap 4 mmol/L (8-16); Blood Urea Nitrogen 107 mg/dL (9-20); Calcium 8.4 mg/dL (8.4-10.2); Carbon Dioxide 33 mmol/L (22-30); Chloride 103 mmol/L (98-107); Estimated CRCL calculation 19 ml/min; Estimated Glomerular Filt Rate 16; Glucose 112 mg/dL (75-110); Potassium 4.1 mmol/L (3.4-5.0); Sodium 140 mmol/L (137-145)
[2020-04-24 21:42] LABS: Magnesium 2.9 mg/dL (1.6-2.3)
[2020-04-25] VITALS (39 sets, daily range): BP systolic 101–137; BP diastolic 53–73; PULSE 65–103; RESP 15–30; TEMP 36.2–37; O2SAT 91–97
[2020-04-25 00:06] LABS: Glucose Point of Care 85 (65-105)
[2020-04-25] MEDS: IPRATROPIUM BR 0.02% INH SOLN 0.5 MG/2.5 ML VIAL INHALATION ×4 (01:29→19:33)
[2020-04-25] MEDS: BENZOCAINE 20% HEMORRHOIDAL OINTMENT 28 GM 1 APPLIC TOPICAL (04:00)
[2020-04-25 04:35] LABS: Alveolar/Arterial O2 Gradient 227.8 mmHg; Base Excess ABG 3.5 mEq/l (+/-2.0); Carboxyhemoglobin 0.8 % THb (0-2.0); Fractional Inspired Oxygen 50 %; HCO3 ABG 29.7 mEq/l (22.0-26.0); Methemoglobin ABG 0.3 %THb (0-1.5); Oxygen Content ABG 16.9 %vol (16.0-22.0); Oxygen Saturation ABG 93.6 % (95.0-100.0); Oxyhemoglobin 92.1 % THb (90.0-100.0); PCO2 ABG 51.7 mmHg (35.0-45.0); PO2 ABG 70.5 mmHg (80.0-100.0); PO2 FiO2 Ratio Arterial Blood 1.41 %; Reduced Hemoglobin 6.8 %THb (0-5.0); pH ABG 7.377 (7.350-7.450)
[2020-04-25 04:38] LABS: Arterial Blood Gas Vent Mode ASV; Device VENTILATOR; Modified Allen's Test Pass; Site Drawn LEFT RADIAL
[2020-04-25 04:39] LABS: Arterial Blood Gas PEEP 10 cmH2O
[2020-04-25] MEDS: PROPOFOL IV EMULSION 100 ML 16.77 MG IV CONT ×2 (04:56)
[2020-04-25] MEDS: CENTRAL LINE FLUSH 10 ML IV PUSH ×3 (05:05→22:44)
[2020-04-25 06:45] LABS: Basophils Absolute Auto 0.1 K/mm3 (0.0-0.1); Basophils Percent Auto 0.6 % (0.2-1.2); Eosinophils Absolute Auto 0.7 K/mm3 (0-0.3); Eosinophils Percent Auto 8.4 % (0-4.4); Hematocrit 26.4 % (42.0-52.0); Immature Granulocyte Absolute 0.16 K/mm3 (0.00-0.031); Immature Granulocyte Percent A 1.8 % (0-0.5); Lymphocytes Absolute Auto 1.13 K/mm3 (0.9-3.2); Lymphocytes Percent Auto 12.8 % (18.3-44.2); Mean Corpuscular HGB Conc 30.3 g/dl (32-36); Mean Corpuscular Hemoglobin 27.6 pg (26-34); Mean Platelet Volume 9.3 fl (7.4-10.4); Monocytes Percent Auto 10.8 % (2.6-8.5); Neutrophils Absolute Auto 5.8 K/mm3 (1.3-6.7); Neutrophils Percent Auto 65.6 % (45.5-73.1); Platelet Count Result 312 k/mm3 (150-375); Red Cell Distribution Width 15.6 % (11.5-14.5); White Blood Count 8.8 K/mm3 (4.5-10.0)
[2020-04-25 06:58] LABS: Anion Gap 4 mmol/L (8-16); Blood Urea Nitrogen 105 mg/dL (9-20); Calcium 8.5 mg/dL (8.4-10.2); Carbon Dioxide 33 mmol/L (22-30); Chloride 105 mmol/L (98-107); Estimated CRCL calculation 20 ml/min; Estimated Glomerular Filt Rate 17; Glucose 114 mg/dL (75-110); Magnesium 2.9 mg/dL (1.6-2.3); Phosphorus 6.5 mg/dL (2.5-4.5); Potassium 3.9 mmol/L (3.4-5.0); Sodium 142 mmol/L (137-145)
[2020-04-25] MEDS: HYDROCORTISONE ACETATE 25 MG SUPPOSITORY RECTAL ×2 (08:23→22:43)
[2020-04-25] MEDS: ENOXAPARIN 120 MG/0.8 ML SYRINGE 115 MG SUB-Q (08:23)
[2020-04-25] MEDS: PANTOPRAZOLE SODIUM IV 40 MG VIAL IV PUSH (08:23)
[2020-04-25] MEDS: TOLNAFTATE 1% POWDER 45 GM BTL 1 APPLIC TOPICAL ×2 (08:24→22:42)
[2020-04-25] MEDS: LIDOCAINE 5% PATCH 2 PATCH TRANSDERM (08:24)
[2020-04-25] MEDS: DORNASE ALFA INH SOLN 1 MG/ML 2.5 ML AMP 2.5 MG INHALATION ×2 (09:11→19:35)
--- NOTE | 2020-04-25 09:37 | WPDINTPN ---
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 it is quite possible the patient either deteriorated from his COVID-19 pneumonia or developed new bacterial infection - He had an episode of aspiration on 04/18 with high residual. Moderate amount of secretions were suctioned along with a mucus plug from ET tube. - patient was switched to ASV yesterday to improve patient ventilator synchrony - ABG reviewed and will change the ASV 125% minute ventilation, PEEP of 10 and FiO2 of 55%, continue to wean FiO2 of possible - chest x-ray reviewed and shows persistent bilateral infiltrates - OFF FLOLAN SINCE 04/15/2020 - continue bronchodilators and Pulmozyme - continue fentanyl, Versed and propofol for sedation and vent synchrony - family to likely withdraw support today (2) Pneumonia due to COVID-19 virus: Code(s): U07.1 - COVID-19; J12.89 - Other viral pneumonia Status: Acute Assessment and Plan: SARS-CoV-2 PCR positive on 03/17/2020: Patient present with COVID-19 pneumonia along with hypoxia, cough - completed 10 day course of dexamethasone on 04/06 - completed a 5 day course of Remdesivir on 04/01 - received 1 unit of convalscent plasma on 03/29/2020 - monitor inflammatory markers which are showing improvement but are still high and abnormal - continue airborne, droplet, contact isolation /precautions (3) Septic shock: Code(s): A41.9 - Sepsis, unspecified organism; R65.21 - Severe sepsis with septic shock Status: Acute Assessment and Plan: RESOLVED: OFF LEVOPHED since the morning of 04/15/2020 patient with septic shock likely source pneumonia - He has been on vancomycin since 04/10/2020 with high trough level. Culture did not grow any MRSA and vancomycin was discontinued. - Continue imipenem which was started on 04/13/2020 (for 14 days) - blood cultures negative x2, urine cultures negative - sputum culture growth of normal oropharyngeal peyman (4) Acute kidney failure, unspecified: Qualifiers: Acute renal failure type: unspecified Qualified Code(s): N17.9 - Acute kidney failure, unspecified Code(s): N17.9 - Acute kidney failure, unspecified Status: Acute Assessment and Plan: acute kidney injury likely related to septic shock, hypotension, hypovolemia, hypoxia - creatinine improving gradually electrolytes are stable. urine output is adequate - Lasix is on hold - renal ultrasound was unremarkable - nephrology following and dialysis per Nephrology No recommendations for dialysis at this time. 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 Hemoglobin stabilized he was resumed on subcutaneous Lovenox. Hemoglobin has been stable since then with no active obvious bleeding. continue subcutaneous therapeutic Lovenox dose at this time (6) Hyperglycemia: Code(s): R73.9 - Hyperglycemia, unspecified Status: Acute Assessment and Plan: blood sugars improving - continue high-dose sliding scale insulin and Accu-Cheks - Continue Lantus with 18 units subcutaneously on the daily basis. (7) Dietary counseling and surveillance: Code(s): Z71.3 - Dietary counseling and surveillance Status: Acute Assessment and Plan: patient
[2020-04-25] MEDS: PROPOFOL IV EMULSION 100 ML 20.12 MG IV CONT ×2 (10:54→18:57)
--- NOTE | 2020-04-25 15:39 | PM.IMPN ---
Progress Note: A&P Assessment and Plan (1) Respiratory failure with hypoxia: Qualifiers: Chronicity: acute Qualified Code(s): J96.01 - Acute respiratory failure with hypoxia Code(s): J96.91 - Respiratory failure, unspecified with hypoxia Status: Acute Assessment and Plan: 04/25/20 15:39 patient with a COVID-19 has completed dexamethasone, remdesivir, completed the course and received 1 unit of plasma, Patient was febrile on 04/10 with a T-max of 101.2. patient was seen by alterations expert, blood culture, sputum culture, and UA was ordered, patient is being treated with Cefepime and vancomycin, so far there is no growth, earlier on 04/12 patient became hypoxic and was emergently intubated later he developed atrial fibrillation patient was started on amiodarone and became hypotensive, was given epinephrine and bicarb, patient was placed on Levophed to MAP of 65 mm Hg, on 04/13 patient creatinine was rising and urine output is very poor, patient is seen by Nephrology suspect patient may need dialysis, today 04/15 patient blood pressure is soft and still on Levophed, patient was on flolan, sedated with fentanyl and versed, on 04/15 was taken off nimbex, patient was seen by Nephrology patient urine output is improved patient will not need dialysis,discussed with the alterations expert patient oxygen is improved requiring less FiO2, currently on vent unable to wean the patient off the vent, patient kidney function is stable patient is making more urine, patient seen by Nephrology does not suspect patient will need dialysis, today 04/25 patient still requiring high oxygen, unable to wean the patient off vent, alterations expert spoke with patient's family they are thinking about withdrawing, 3 children are in town would like to be present when patient is extubated, again it is been postpond until tomorrow, will monitor 1 more day and may withdraw care tomorrow and further recommendation to follow. (2) Pneumonia due to COVID-19 virus: Code(s): U07.1 - COVID-19; J12.89 - Other viral pneumonia Status: Acute Assessment and Plan: Patient sent to the ER for hypoxia on 03/28. He has tested positive for COVID on 03/17/20. The patient admitted to the ICU. He has completed Dexamethasone x 10 days (completed 04/06). Remdesivir completed 04/01. He received plasma x 1 as well. He has scotty started on broad specturm abx given the fevers. All cultures negative. Continue supportive care. Continue iv imipenem only can stop iv vancomycin (3) Rectal prolapse: Code(s): K62.3 - Rectal prolapse Status: Acute Assessment and Plan: Most liekly the etiology of his rectal bleeding complicated by his anticoagulation. Seen by GI. Appreciate their input. Plan for surgical evaluation when he is well. (4) Rectal bleeding: Code(s): K62.5 - Hemorrhage of anus and rectum Status: Acute Assessment and Plan: Related to above and from hemorrhoids. Hemorroid treatment ordered. Continue Protonix as well. (5) Diabetes mellitus: Code(s): E11.9 - Type 2 diabetes mellitus without complications Status: Acute Assessment and Plan: The patient's blood glucose was reviewed on 04/11 Glucose remains well controlled. Continue AccuCheks covering with sliding scale. Hypoglycemia protocol available as needed. Continue current medications. 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 (7) Supratherapeutic INR: Code(s): R79.1 - Abnormal coagulation profile Status: Acute Assessment and Plan: INR 4.4 on admisison. only is 1.9, pt is on full dose lovenox twice a day. (8) DVT prophylaxis: Code(s): Z29.9 - Encounter for prophylactic measures, unspecified Status: Acu
[2020-04-25] MEDS: FENTANYL 2,500MCG/NS250ML(*CRX 2,500 MCG/250 ML BAG 7.5 MCG IV CONT (17:57)
[2020-04-25 18:10] LABS: Glucose Point of Care 97 (65-105)
[2020-04-25] MEDS: SODIUM CHLORIDE NASAL GEL 14.1 GM 1 APPLIC NASAL (22:42)
[2020-04-25] MEDS: DOCUSATE SODIUM LIQ 100 MG/10 ML UDC PO (22:43)
[2020-04-26] VITALS (17 sets, daily range): BP systolic 109–163; BP diastolic 61–96; PULSE 81–126; RESP 16–31; TEMP 36.6–37.2; O2SAT 91–97
[2020-04-26 00:08] LABS: Glucose Point of Care 107 (65-105)
[2020-04-26] MEDS: PROPOFOL IV EMULSION 100 ML 20.12 MG IV CONT ×2 (00:21→04:10)
--- NOTE | 2020-04-26 02:00 | PC.NURSE ---
Daylight Savings Time For Daylight Savings Time Ending in the Fall - Clocks are moved back. For Daylight Savings Time Beginning in the Spring - Clocks are moved ahead. For [facility], the time of change occurs at 0200 hrs. Time is taken from the gravity prospecting observer. This entry on the patient's chart recognizes the change in time reflected during documentation. Example: 2 entries for vital signs may be charted for 0200 hrs.
[2020-04-26] MEDS: IPRATROPIUM BR 0.02% INH SOLN 0.5 MG/2.5 ML VIAL INHALATION ×2 (02:18→08:59)
[2020-04-26 04:38] LABS: Basophils Percent Auto 0.5 % (0.2-1.2); Eosinophils Absolute Auto 0.7 K/mm3 (0-0.3); Eosinophils Percent Auto 8.1 % (0-4.4); Hematocrit 27.5 % (42.0-52.0); Hemoglobin 8.4 g/dL (14.0-18.0); Immature Granulocyte Absolute 0.17 K/mm3 (0.00-0.031); Immature Granulocyte Percent A 1.9 % (0-0.5); Lymphocytes Percent Auto 13.8 % (18.3-44.2); Mean Corpuscular HGB Conc 30.5 g/dl (32-36); Mean Corpuscular Hemoglobin 27.8 pg (26-34); Mean Corpuscular Volume 91.1 fl (80-100); Mean Platelet Volume 9.4 fl (7.4-10.4); Monocytes Absolute Auto 0.9 K/mm3 (0.1-0.6); Monocytes Percent Auto 10.2 % (2.6-8.5); Neutrophils Absolute Auto 5.7 K/mm3 (1.3-6.7); Neutrophils Percent Auto 65.5 % (45.5-73.1); Platelet Count Result 333 k/mm3 (150-375); Red Blood Count 3.02 M/mm3 (4.6-6.20); Red Cell Distribution Width 15.4 % (11.5-14.5); White Blood Count 8.7 K/mm3 (4.5-10.0)
[2020-04-26 04:39] LABS: Alveolar/Arterial O2 Gradient 241.5 mmHg; Carboxyhemoglobin 0.4 % THb (0-2.0); Device VENTILATOR; Fractional Inspired Oxygen 50 %; HCO3 ABG 28.4 mEq/l (22.0-26.0); Methemoglobin ABG 0.4 %THb (0-1.5); Modified Allen's Test Unable to perform; Oxygen Content ABG 14.6 %vol (16.0-22.0); Oxygen Saturation ABG 91.5 % (95.0-100.0); Oxyhemoglobin 90.7 % THb (90.0-100.0); PCO2 ABG 47.2 mmHg (35.0-45.0); PO2 ABG 61.9 mmHg (80.0-100.0); PO2 FiO2 Ratio Arterial Blood 1.24 %; Reduced Hemoglobin 8.5 %THb (0-5.0); Site Drawn LEFT RADIAL; Total Hemoglobin 11.4 g/dL (12.0-18.0); pH ABG 7.398 (7.350-7.450)
[2020-04-26 04:41] LABS: Arterial Blood Gas Minute Volume 125 LPM; Arterial Blood Gas PEEP 10 cmH2O; Arterial Blood Gas Vent Mode ASV
[2020-04-26 04:53] LABS: D Dimer 2.52 ug/mL (<0.48)
[2020-04-26 04:57] LABS: Anion Gap 5 mmol/L (8-16); Blood Urea Nitrogen 102 mg/dL (9-20); CRP 8.3 mg/dL (<1.0); Calcium 8.7 mg/dL (8.4-10.2); Carbon Dioxide 35 mmol/L (22-30); Chloride 103 mmol/L (98-107); Estimated CRCL calculation 21 ml/min; Estimated Glomerular Filt Rate 18; Glucose 126 mg/dL (75-110); Lactate Dehydrogenase 696 U/L (313-618); Magnesium 2.7 mg/dL (1.6-2.3); Phosphorus 6.1 mg/dL (2.5-4.5); Sodium 143 mmol/L (137-145)
[2020-04-26] MEDS: CENTRAL LINE FLUSH 10 ML IV PUSH (06:11)
[2020-04-26] MEDS: PANTOPRAZOLE SODIUM IV 40 MG VIAL IV PUSH (08:34)
[2020-04-26] MEDS: ENOXAPARIN 120 MG/0.8 ML SYRINGE 115 MG SUB-Q (08:34)
[2020-04-26] MEDS: LIDOCAINE 5% PATCH 2 PATCH TRANSDERM (08:34)
[2020-04-26] MEDS: TOLNAFTATE 1% POWDER 45 GM BTL 1 APPLIC TOPICAL (08:34)
[2020-04-26] MEDS: HYDROCORTISONE ACETATE 25 MG SUPPOSITORY RECTAL (08:34)
[2020-04-26] MEDS: DORNASE ALFA INH SOLN 1 MG/ML 2.5 ML AMP 2.5 MG INHALATION (08:59)
--- NOTE | 2020-04-26 09:59 | WPDINTPN ---
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 it is quite possible the patient either deteriorated from his COVID-19 pneumonia or developed new bacterial infection - He had an episode of aspiration on 04/18 with high residual. Moderate amount of secretions were suctioned along with a mucus plug from ET tube. - patient was switched to ASV yesterday to improve patient ventilator synchrony - ABG reviewed and will change the ASV 125% minute ventilation, PEEP of 10 and FiO2 of 55%, continue to wean FiO2 of possible - chest x-ray reviewed and shows persistent bilateral infiltrates with slight worsening on 04/25/2020 - OFF FLOLAN SINCE 04/15/2020 - continue bronchodilators and Pulmozyme - continue fentanyl, Versed and propofol for sedation and vent synchrony - family to likely withdraw support today (2) Pneumonia due to COVID-19 virus: Code(s): U07.1 - COVID-19; J12.89 - Other viral pneumonia Status: Acute Assessment and Plan: SARS-CoV-2 PCR positive on 03/17/2020: Patient present with COVID-19 pneumonia along with hypoxia, cough - completed 10 day course of dexamethasone on 04/06 - completed a 5 day course of Remdesivir on 04/01 - received 1 unit of convalscent plasma on 03/29/2020 - monitor inflammatory markers which are showing improvement but are still high and abnormal - continue airborne, droplet, contact isolation /precautions (3) Septic shock: Code(s): A41.9 - Sepsis, unspecified organism; R65.21 - Severe sepsis with septic shock Status: Acute Assessment and Plan: RESOLVED: OFF LEVOPHED since the morning of 04/15/2020 patient with septic shock likely source pneumonia - He has been on vancomycin since 04/10/2020 with high trough level. Culture did not grow any MRSA and vancomycin was discontinued. - Continue imipenem which was started on 04/13/2020 (for 14 days) - blood cultures negative x2, urine cultures negative - sputum culture growth of normal oropharyngeal peyman (4) Acute kidney failure, unspecified: Qualifiers: Acute renal failure type: unspecified Qualified Code(s): N17.9 - Acute kidney failure, unspecified Code(s): N17.9 - Acute kidney failure, unspecified Status: Acute Assessment and Plan: acute kidney injury likely related to septic shock, hypotension, hypovolemia, hypoxia - creatinine improving gradually electrolytes are stable. urine output is adequate - Lasix is on hold - renal ultrasound was unremarkable - nephrology following and dialysis per Nephrology No recommendations for dialysis at this time. 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 Hemoglobin stabilized he was resumed on subcutaneous Lovenox. Hemoglobin has been stable since then with no active obvious bleeding. continue subcutaneous therapeutic Lovenox dose at this time (6) Hyperglycemia: Code(s): R73.9 - Hyperglycemia, unspecified Status: Acute Assessment and Plan: blood sugars improving - continue high-dose sliding scale insulin and Accu-Cheks - Continue Lantus with 18 units subcutaneously on the daily basis. (7) Dietary counseling and surveillance: Code(s): Z71.3 - Dietary counseling and surveillance Status: Acute
[2020-04-26] MEDS: MORPHINE SULFATE (*CRX) 4 MG/ML INJ 5 MG IV PUSH (11:54)
[2020-04-26] MEDS: LORazepam INJ (*CRX) 2 MG/ML VIAL IV PUSH (11:54)
[2020-04-26] MEDS: MORPHINE SULFATE (*CRX) 2 MG/ML INJ IV PUSH (12:34)
--- NOTE | 2020-04-26 14:36 | PC.NURSE ---
Notified [facility] home. Security was notified.
[2020-05-05 08:49] LABS: Glucose Point of Care 83 (65-105)
--- NOTE | 2020-05-11 13:38 | P.DN_ITS ---
Discharge Sum: Prov Provider Primary care physician: Benjamin Aparicio, Admitting provider: Milana Nunes DO Consults: 03/28/20 Consult to Physician Routine Comment: Consulting Provider: Grace Lopez Reason for consultation: Respiratory failure Has provider been notified: Yes 04/09/20 08:07 Consult to Physician Routine Comment: CALLED OFFICE WITH CONSULT AND LEFT MESSAGE Consulting Provider: Jose F Mason bench machine operator/MD group to consult: Dr. Kumar VÁZQUEZ Reason for consultation: bleeding Hemorrhoids Has provider been notified: Yes 04/13/20 08:11 Consult to Physician Routine Comment: called exchange with consult information Consulting Provider: Patrick Smith bench machine operator/MD group to consult: Nephrology Reason for consultation: acute kidney injury Has provider been notified: Yes Discharge Sum: Summary Date and Time Date of admission: 03/28/20 21:28 Date of : 04/26/20 Time of : 12:58 Summary Details: patient with a COVID-19 has completed dexamethasone, remdesivir, completed the course and received 1 unit of plasma, Patient was febrile on 04/10 with a T-max of 101.2. patient was seen by heel scorer, blood culture, sputum culture, and UA was ordered, patient is being treated with Cefepime and vancomycin, so far there is no growth, earlier on 04/12 patient became hypoxic and was emergently intubated later he developed atrial fibrillation patient was started on amiodarone and became hypotensive, was given epinephrine and bicarb, patient was placed on Levophed to MAP of 65 mm Hg, on 04/13 patient creatinine was rising and urine output is very poor, patient is seen by Nephrology suspect patient may need dialysis, today 04/15 patient blood pressure is soft and still on Levophed, patient was on flolan, sedated with fentanyl and versed, on 04/15 was taken off nimbex, patient was seen by Nephrology patient urine output is improved patient will not need dialysis,discussed with the heel scorer patient oxygen is improved requiring less FiO2, currently on vent unable to wean the patient off the vent, patient kidney function is stable patient is making more urine, patient seen by Nephrology does not suspect patient will need dialysis, today 04/25 patient still requiring high oxygen, unable to wean the patient off vent, heel scorer spoke with patient's family they are thinking about withdrawing, 3 children are in town would like to be present when patient is extubated, today patient's family has gathered, care was withdrawn, patient today at 12:58. Additional Data Confirmation of as documented by pronouncing clinician: no pulse, no respirations, no heart sounds and pupils fixed and dilated Family: at bedside Attending/PCP notified?: Yes Attending physician: Belem Cohen MD Was code activated?: No Autopsy requested?: No credit union examiner notified?: Yes Organ bank notified?: Yes Advance directives: No Hospice patient?: No
--- NOTE | 2020-05-19 09:18 | PM.IMPN ---
Progress Note: A&P Additional Plan 1) Respiratory failure with hypoxia: Qualifiers: Chronicity: acute Qualified Code(s): J96.01 - Acute respiratory failure with hypoxia Code(s): J96.91 - Respiratory failure, unspecified with hypoxia Status: Acute Assessment and Plan: Patient with a COVID-19 has completed dexamethasone, remdesivir, completed the course and received 1 unit of plasma, Patient was febrile on 04/10 with a T-max of 101.2. patient was seen by cardiac rehabilitation specialist, blood culture, sputum culture, and UA was ordered, patient is being treated with Cefepime and vancomycin, so far there is no growth, earlier on 04/12 patient became hypoxic and was emergently intubated later he developed atrial fibrillation patient was started on amiodarone and became hypotensive, was given epinephrine and bicarb, patient was placed on Levophed to MAP of 65 mm Hg, on 04/13 patient creatinine was rising and urine output is very poor, patient is seen by Nephrology, pt does not need dialysis continue iv lasix, currently on vent, seen by cardiac rehabilitation specialist and garment manufacturer (2) Pneumonia due to COVID-19 virus: Code(s): U07.1 - COVID-19; J12.89 - Other viral pneumonia Status: Acute Assessment and Plan: Patient sent to the ER for hypoxia on 03/28. He has tested positive for COVID on 03/17/20. The patient admitted to the ICU. He has completed Dexamethasone x 10 days (completed 04/06). Remdesivir completed 04/01. He received plasma x 1 as well. He has scotty started on broad specturm abx given the fevers. All cultures negative. Continue supportive care. Continue iv vancomycin and iv imipenem (3) Rectal prolapse: Code(s): K62.3 - Rectal prolapse Status: Acute Assessment and Plan: Most liekly the etiology of his rectal bleeding complicated by his anticoagulation. Seen by GI. Appreciate their input. Plan for surgical evaluation when he is well. (4) Rectal bleeding: Code(s): K62.5 - Hemorrhage of anus and rectum Status: Acute Assessment and Plan: Related to above and from hemorrhoids. Hemorroid treatment ordered. Continue Protonix as well. (5) Diabetes mellitus: Code(s): E11.9 - Type 2 diabetes mellitus without complications Status: Acute Assessment and Plan: The patient's blood glucose was reviewed on 04/11 Glucose remains well controlled. Continue AccuCheks covering with sliding scale. Hypoglycemia protocol available as needed. Continue current medications. Check A1c (6) Chronic anticoagulation: Code(s): Z79.01 - detention (current) use of anticoagulants Status: Acute Assessment and Plan: Patient with hx of retinal vein thrombosis on half-way anticoagulation. (7) Supratherapeutic INR: Code(s): R79.1 - Abnormal coagulation profile Status: Acute Assessment and Plan: INR 4.4 on admisison. Level has trended down and Coumadin resumed. Resolved. (8) DVT prophylaxis: Code(s): Z29.9 - Encounter for prophylactic measures, unspecified Status: Acute Assessment and Plan: INR therapeutic Subjective Date/time seen: 04/17/2020 Interval history: patient with a COVID-19 has completed dexamethasone, remdesivir, completed the course and received 1 unit of plasma, Patient was febrile on 04/10 with a T-max of 101.2. patient was seen by cardiac rehabilitation specialist, blood culture, sputum culture, and UA was ordered, patient is being treated with Cefepime and vancomycin, so far there is no growth, earlier on 04/12 patient became hypoxic and was emergently intubated later he developed atrial fibrillation patient was started on amiodarone and became hypotensive, was given epinephrine and bicarb, patient was placed on Levophed to MAP of 65 mm Hg, on 04/13 patient creatinine was rising and urine output is very poor, patient is seen by Nephrology, does not need dialysis, currently on vent, seen by cardiac rehabilitation specialist and nephrologis
== END 2020-04-26 12:58 | disposition expired | DRG 208 ==
LOC: ANHED 21:31 → ANHICU 23:37
PROVIDERS: Family Medicine; Internal Medicine; Internal Medicine Nephrology; Admitting Provider Internal Medicine; Emergency Provider Emergency Medicine; PCP Internal Medicine; Visit Provider Family Medicine
DX: U07.1 COVID-19 (principal); J12.89 Other viral pneumonia; A41.89 Other specified sepsis; R65.21 Severe sepsis with septic shock; J96.01 Acute respiratory failure with hypoxia; N17.9 Acute kidney failure, unspecified; K62.3 Rectal prolapse; K64.8 Other hemorrhoids; R79.1 Abnormal coagulation profile; Z96.653 Presence of artificial knee joint, bilateral; G47.33 Obstructive sleep apnea (adult) (pediatric); E66.9 Obesity, unspecified; I10 Essential (primary) hypertension; R73.9 Hyperglycemia, unspecified; T38.0X5A Adverse effect of glucocorticoids and synthetic analogues, initial encounter; I48.91 Unspecified atrial fibrillation; M54.9 Dorsalgia, unspecified; G89.29 Other chronic pain; D64.9 Anemia, unspecified; Z77.090 Contact with and (suspected) exposure to asbestos; H54.62 Unqualified visual loss, left eye, normal vision right eye; Z68.37 Body mass index [BMI] 37.0-37.9, adult; Z79.01 Long term (current) use of anticoagulants; Z85.828 Personal history of other malignant neoplasm of skin; Z98.41 Cataract extraction status, right eye; Z87.891 Personal history of nicotine dependence
CPT/HCPCS: 31500; 36415; 36430; 36569; 36600; 71045; 74018; 76775; 80048; 80053; 80069; 80202; 81001; 81003; 82375; 82533; 82550; 82565; 82570; 82728; 82805; 83036; 83050; 83605; 83615; 83735; 83880; 84100; 84156; 84295; 84300; 84460; 84484; 85025; 85027; 85380; 85610; 85730; 85999; 86140; 86850; 86900; 86901; 87040; 87070; 87086; 87205; 93005; 93971; 94002; 94003; 94640; 96374; 99285; A9270; C1751; C9113; J0131; J0171; J0282; J0330; J0456; J0692; J0696; J0743; J1100; J1265; J1644; J1650; J1815; J1940; J2060; J2250; J2270; J2704; J3010; J3370; J7030; J7040; J7050; J7060; J7131; P9047; P9059